=== PATIENT | female | born 1950 | race Caucasian/White ===

== ENCOUNTER → 2017-05-09 07:57 | Outpatient (CLI) | payer MEDICARE, BC, SELFPAY ==
[2017-05-09 09:58] LABS: AST(SGOT) 15 U/L (15-37); Alanine Aminotransfer ALT/SGPT 26 U/L (13-56); Albumin, Serum 3.9 g/dL (3.2-5.0); Alkaline Phosphatase 60 U/L (45-117); Bilirubin, Direct 0.23 mg/dL (0.00-0.30); Cholesterol 158 mg/dL (200); High Density Lipoprotein 70 mg/dL; Protein, Total 6.9 g/dL (6.4-8.2); Triglycerides 147 mg/dL; Very Low Density Lipoprotein 29 mg/dL (5-40)
== END ==
PROVIDERS: Family Provider Nurse Practitioner; PCP Nurse Practitioner; Visit Provider Internal Medicine Cardiovascular Disease
DX: E78.5 Hyperlipidemia, unspecified (principal); Z79.899 Other long term (current) drug therapy
CPT/HCPCS: 36415; 80061; 80076

== ENCOUNTER → 2017-05-10 13:59 | Outpatient (CLI) | payer MEDICARE, BC, SELFPAY ==
--- NOTE | 2017-05-10 14:03 | RAD_ITS ---
STUDY: X-RAY - LEFT SHOULDER REASON FOR EXAM: Female, 67 years old. Shoulder pain or trauma TECHNIQUE: 5 view(s) of the shoulder. COMPARISON: 12/29/2012 chest x-ray FINDINGS: Normal glenohumeral articulation. There is mild degenerative arthrosis of the acromioclavicular joint without inferior osseous spur formation. Normal acromion. Normal humeral head and visualized proximal humerus. The soft tissue structures are unremarkable. Normal visualized pulmonary apex. RAD/Shoulder min 2 Views IMPRESSION: Mild degenerative changes of the acromioclavicular joint, not significantly changed. Electronically Signed: Kelsi Stone MD at 11:59 EST , Service support ,
== END ==
PROVIDERS: Family Provider Nurse Practitioner; PCP Nurse Practitioner; Visit Provider Nurse Practitioner
DX: M25.512 Pain in left shoulder (principal)
CPT/HCPCS: 73030

== ENCOUNTER → 2017-06-13 06:03 | Outpatient (CLI) | payer MEDICARE, BC, SELFPAY ==
--- NOTE | 2017-06-13 13:08 | STRESSREP ---
Stress Test Report Pharmacologic myocardial perfusion stress test. 67-year-old lady with a history of non-ST elevation myocardial infarction previous stenting. Stress protocol: Resting EKG demonstrates sinus bradycardia with a rate of 54 bpm normal intervals and noted occasional premature ventricular complexes noted. Resting blood pressure is 130/70 mmHg. 0.4 mg regadenoson was infused per usual protocol followed by rapid intravenous saline flush injection continuous EKG monitoring was performed. At rest there were no ST or T-wave changes noted suggest abnormal flow reserve at peak infusion no ST or T-wave changes were noted suggest abnormal flow reserve. No clinical angina was noted. The resting blood pressure is 130/70 with a final blood pressure 122/70. Myocardial perfusion protocol: 14.3 mCi of technetium 99m sestamibi was injected at rest. 0.4 mg of regadenoson was infused per usual protocol. At peak infusion 44.6 mCi of technetium 99m sestamibi was injected. Stress and rest images were reconstructed and compared in the short axis vertical long horizontal long axis. Gated images were also obtained next Perfusion SPECT analysis: Review of the stress images demonstrate normal uptake of tracer noted in all areas of the myocardium. The resting images similarly demonstrate normal uptake of tracer noted in all areas of the myocardium. No areas of reversibility are noted suggest ischemia. No previous infarct is noted. Gated SPECT analysis: The gated ejection fraction is noted to be 62%. Conclusion: Normal pharmacologic myocardial perfusion stress test. Preserved ejection fraction.
== END ==
PROVIDERS: Family Provider Nurse Practitioner; PCP Nurse Practitioner; Visit Provider Physician Assistant Medical
DX: I25.111 Atherosclerotic heart disease of native coronary artery with angina pectoris with documented spasm (principal); R07.9 Chest pain, unspecified
CPT/HCPCS: 78452; 93017; A9500; A4216; J2785

== ENCOUNTER → 2017-10-10 06:54 | Outpatient (CLI) | payer MEDICARE, BC, SELFPAY ==
[2017-10-09 16:37] LABS: ALB/GLOB Ratio 1.6 RATIO (0.9-2.4); AST(SGOT) 22 U/L (15-37); Alanine Aminotransfer ALT/SGPT 31 U/L (13-56); Albumin, Serum 4.6 g/dL (3.2-5.0); Alkaline Phosphatase 64 U/L (45-117); Anion Gap 7 (5-15); BUN 17 mg/dL (7-18); BUN/Creat Ratio 18.9 RATIO (10-20); Calcium,Total 9.4 mg/dL (8.5-10.1); Chloride 105 mmol/L (98-107); EST Glomerular Filtration Rate 66 mL/min (>60); Est Glom Filt Rate - Afr Amer 80 mL/min (>60); Globulin 2.8 g/dL (2.2-4.2); Glucose 96 mg/dL (74-106); Potassium 3.8 mmol/L (3.5-5.1); Protein, Total 7.4 g/dL (6.4-8.2); Sodium Level 142 mmol/L (136-145)
--- NOTE | 2017-10-10 07:38 | MRI_ITS ---
STUDY: MRI BRAIN WITH AND WITHOUT CONTRAST REASON FOR EXAM: Female, 67 years old. Severe headache x6 weeks. TECHNIQUE: Standardized multiplanar fat and water weighted pulse sequences were obtained. 9 ml of Gadavist contrast material was administered intravenously for the contrast portion of the examination. COMPARISON: CT head with and without contrast 08/27/2014. FINDINGS: No restricted diffusion to suspect acute or subacute ischemic infarct. Solitary nonspecific T2 FLAIR hyperintensity focus in the right barron radiata (series 6, image 14). This may represent nonspecific scoliosis. No enhancing lesions after IV contrast administration. No mass effects and no midline shift. Normal size of the ventricles and extra-axial spaces for the patient's age. Normal white matter tracts of the supratentorial brain. Normal bilateral basal ganglia. Normal thalami. There is no extra-axial fluid accumulation. Normal flow voids within the major intracranial circulation suggesting patency by spin echo criteria. Normal venous enhancement. There is no enhancing intra-axial or extra-axial abnormality. Normal sella turcica, pituitary gland, infundibular stalk, optic chiasm and hypothalamus. Normal tectal plate and pineal gland. Normal midbrain, deny and medulla. Normal cerebellum. Normal basal cisterns. Normal bilateral temporal bones. Normal bilateral internal auditory canals. No demonstrated orbital abnormality, within the constraints of a routine brain study. Pronounced mucosal edema in the ethmoid sinuses. Minimal mucosal edema in the hypoplastic right sphenoid sinus. Minimal mucosal edema in the frontal sinuses. Normal calvarium and skull base. Normal visualized soft tissue structures. Normal visualized upper cervical spine. MRI/Brain W/WO Contrast IMPRESSION: 1. No MRI evidence of acute or subacute ischemic infarct. 2. No MRI evidence of any suspicious enhancing or nonenhancing mass lesions. 3. Small solitary nonspecific gliosis in the right barron radiata. 4. Pronounced mucosal thickening in the ethmoid sinus and mild mucosal thickening in the frontal sinus and the hypoplastic right sphenoid sinus. Electronically Signed: Bola Busch MD at 15:42 EDT , Service support ,
== END ==
PROVIDERS: Family Provider Nurse Practitioner; PCP Nurse Practitioner; Visit Provider Nurse Practitioner Gerontology
DX: R51 Headache (principal)
CPT/HCPCS: 36415; 70553; 80053; A9585

== ENCOUNTER → 2017-12-04 15:55 | Outpatient (CLI) | payer MEDICARE, BC, SELFPAY | PROVIDERS: Visit Provider Otolaryngology Otolaryngology/Facial Plastic Surgery | DX: J32.9 Chronic sinusitis, unspecified (principal) | CPT/HCPCS: 87070; 87077; 87186; 87205 ==

== ENCOUNTER → 2017-12-06 06:39 | Outpatient (CLI) | payer MEDICARE, BC, SELFPAY ==
--- NOTE | 2017-12-06 13:48 | PFT ---
INTRODUCTION: The patient is a 67-year-old female that presents for pulmonary function studies secondary to a diagnosis of COPD. Respiratory therapy reports good patient effort. Bronchodilators were used during testing. INTERPRETATION: Forced expiration spirometry demonstrates no evidence of a large airways obstructive ventilatory defect. There was no significant response to aerosolized bronchodilators. Spirograms are of good quality and plateau gradually. Body plethysmography was performed and reveals a decreased TLC to 4.99 L, 86% of predicted, indicative of a mild restrictive ventilatory defect. The remainder of the lung volumes are symmetrically reduced. Diffusing capacity by single breath CO is at the lower limits of normal at 69% of predicted. IMPRESSION: These pulmonary function studies demonstrate the presence of a mild restrictive ventilatory defect with an associated mild reduction in diffusing capacity. There are no previous pulmonary function studies available for comparison.
== END ==
PROVIDERS: Family Provider Nurse Practitioner; PCP Nurse Practitioner; Visit Provider Nurse Practitioner
DX: J44.9 Chronic obstructive pulmonary disease, unspecified (principal)
CPT/HCPCS: 94060; 94726; 94729

== ENCOUNTER → 2017-12-26 09:59 | Outpatient (CLI) | payer MEDICARE, BC, SELFPAY ==
--- NOTE | 2017-12-26 10:03 | BI_ITS ---
MAMMOGRAPHY - BILATERAL SCREENING 3-D TERESA SYNTHESIS REASON FOR EXAM: Female, 67 years old. Bilateral Screening 3-D tomosynthesis PERTINENT HISTORY: No significant family history. Right breast cyst surgery 1976. TECHNIQUE: 2-D mammograms and 3-D Teresa synthesis of the breast (s) were performed. CAD was performed. COMPARISON: None available. FINDINGS: The breast composition is composed of scattered fibroglandular density. Asymmetric density noted left breast upper outer quadrant which is electronically circled in the CC and MLO projections. Recommend left breast CC and MLO spot compression views for further evaluation. No dense spiculated masses or suspicious microcalcifications are identified. No architectural distortion is identified. There is no skin thickening or retraction. BI/SCREENING MAMM (CAD), BILAT IMPRESSION: Incomplete left mammogram. Additional imaging as recommended above. ASSESSMENT CATEGORY: BIRADS Category 0: Incomplete. Need additional imaging evaluation as above. A letter regarding these results will be sent to the patient by the facility within 30 days. FOLLOW UP RECOMMENDATION: Additional imaging recommended as above. (E) Negative mammographic results should not deter biopsy as a palpable lesion if present should be followed based on clinical grounds and biopsy performed if clinically persistent for 3 months or increasing size. Approximately 10% of breast cancers are not detected by mammography. A normal mammogram should not delay biopsy of a clinically suspicious abnormality. Electronically Signed: Dipesh Marie, at 17:10 EDT Tel , Service support ,
--- NOTE | 2017-12-26 10:25 | BD_ITS ---
STUDY: DUAL ENERGY X-RAY ABSORPTIOMETRY / DXA REASON FOR EXAM: Female, 67 years old. Postmenopausal screening TECHNIQUE: Bone Mineral Density (BMD) measurements of lumbar spine and left hip were obtained. COMPARISON: None. FINDINGS: Lumbar Spine (L1-L4): g/cm2 (1.201) / T-score (0.2) / Z-score (1.8) Findings are suggestive of normal bone density with a low fracture risk. Left Femur Total: g/cm2 (1.018) / T-score (0.1) / Z-score (1.5) Left Femoral Neck: g/cm2 (1.053) / T-score (0.1) / Z-score (1.8) BD/Dexa Bone Density Study IMPRESSION: The patient is considered normal as outlined below according to World [place] Organization (WHO) criteria with a low fracture risk. Reference Information: The T-score is the number of standard deviations above or below the standard which is normal for young adults at their peak bone mineral density. The World Health Organization (WHO) interprets the T-scores as follows: Above -1 Normal bone density Between -1 and -2.5 Osteopenia Equal to / or below -2.5 Osteoporosis As a practical clinical guideline, osteopenia may be graded as follows: Mild -1 through -1.5 Moderate -1.6 through -2.0 Severe -2.1 through -2.4 The Z-score is the number of standard deviations above or below age-matched controls. A Z-score of less than -1.5 would be considered abnormal. References: 1. NIH Osteoporosis and Related Bone Diseases http://www.osteo.org 2. International Society for Clinical Densitometry http://www.iscd.org 3. National Osteoporosis Foundation http://www.nof.org Electronically Signed: Jerrod Lebron MD at 10:18 EDT , Service support ,
== END ==
PROVIDERS: Family Provider Nurse Practitioner; PCP Nurse Practitioner; Visit Provider Nurse Practitioner
DX: Z12.31 Encounter for screening mammogram for malignant neoplasm of breast (principal); Z78.0 Asymptomatic menopausal state
CPT/HCPCS: 77063; 77067; 77080

== ENCOUNTER → 2018-01-03 08:36 | Outpatient (CLI) | payer MEDICARE, BC, SELFPAY ==
--- NOTE | 2018-01-03 08:39 | BI_ITS ---
MAMMOGRAPHY - UNILATERAL DIAGNOSTIC: RIGHT BREAST REASON FOR EXAM: Female, 67 years old. Abnormal mammogram with right breast asymmetric density. PERTINENT HISTORY: Non-contributory. TECHNIQUE: Digital examination. Mediolateral oblique (MLO) and craniocaudad (CC) views of the breast were obtained. CAD: CAD performed COMPARISON: 12/26/2017 mammogram. No prior mammographic imaging available for comparison. Correlation is with remote mammogram report from [place], [place] 04/22/2009. FINDINGS: Breast Composition: There are scattered areas of fibroglandular density. With additional CC and MLO spot compression views, mass density persists but appears smaller in size with irregular possibly spiculated margins. Irregular possibly spiculated margins appear more prominent with MLO and CC views, neoplasm not excluded versus scar or other etiology. Right breast targeted ultrasound showed no sonographic abnormality same region. BI/DIAG MAMM W/CAD, UNILAT IMPRESSION: Biopsy right breast upper outer quadrant posterior third recommended. ASSESSMENT CATEGORY: BIRADS Category 4: Suspicious - Biopsy Should Be Considered. A letter regarding these results will be sent to the patient by the facility within 30 days. FOLLOW-UP RECOMMENDATION: Surgical biopsy recommended. (G) Any palpable lesion if present should be followed based on clinical grounds and biopsy performed if clinically persistent for 3 months or increasing size. Approximately 10% of breast cancers are not detected by mammography. A normal mammogram should not delay biopsy of a clinically suspicious abnormality. Dense breast tissue may obscure neoplasm. Electronically Signed: Dipesh Marie, at 12:50 EDT Tel , Service support ,
--- NOTE | 2018-01-03 08:41 | US_ITS ---
STUDY: ULTRASOUND BREAST - RIGHT REASON FOR EXAM: Female, 67 years old. Abnormal mammogram with right breast asymmetric density. TECHNIQUE: Axial and longitudinal images of the RIGHT breast were performed with a high resolution ultrasound transducer. COMPARISON: No prior right breast imaging available. Correlation mammogram 01/03/2018 and 12/26/2017. FINDINGS: RIGHT Breast: No sonographic abnormality identified. Please see diagnostic right mammogram report 01/03/2018 for additional details. US/Breast Limited Unilateral IMPRESSION: Biopsy right breast upper outer quadrant posterior third recommended. ASSESSMENT CATEGORY: BIRADS Category 4: Suspicious - Biopsy Should Be Considered. A letter regarding these results will be sent to the patient by the facility within 30 days. FOLLOW-UP RECOMMENDATION: Surgical biopsy recommended. (G) Any palpable lesion if present should be followed based on clinical grounds and biopsy performed if clinically persistent for 3 months or increasing size. Approximately 10% of breast cancers are not detected by mammography. A normal mammogram should not delay biopsy of a clinically suspicious abnormality. Dense breast tissue may obscure neoplasm. Electronically Signed: Dipesh Marie, at 12:55 EDT Tel , Service support ,
== END ==
PROVIDERS: Family Provider Nurse Practitioner; PCP Nurse Practitioner; Referring Provider Nurse Practitioner; Visit Provider Nurse Practitioner
DX: R92.8 Other abnormal and inconclusive findings on diagnostic imaging of breast (principal)
CPT/HCPCS: 76642; 77065

== ENCOUNTER → 2018-01-22 09:03 | Outpatient (CLI) | payer MEDICARE, BC, SELFPAY ==
--- NOTE | 2018-01-22 09:05 | MRI_ITS ---
STUDY: BILATERAL BREAST MR WITHOUT AND WITH CONTRAST REASON FOR EXAM: Female, 67 years old. Right breast focal asymmetry TECHNIQUE: Multi-sequence multi-echo imaging of both breasts was performed with a dedicated breast coil. T1-weighted and T2-weighted images were performed before the administration of contrast. T1-weighted images were also performed after the administration of 9 mL of Gadavist contrast intravenously without complications. COMPARISON: Right breast mammogram and ultrasound dated January 03, 2018; bilateral mammogram dated December 26, 2017 FINDINGS: RIGHT BREAST: The breast tissue is scattered fibroglandular densities with minimal background enhancement. There are no abnormal enhancing masses or areas of non-mass enhancement in the right breast. LEFT BREAST: The breast tissue is scattered fibroglandular densities with minimal background enhancement. There are no abnormal enhancing masses or areas of non-mass enhancement in the left breast. There are no enlarged or abnormal lymph nodes. There is no abnormality in the visualized regions of the chest or liver. MRI/Breast w/o and/or W Cont Bilat IMPRESSION: Unremarkable breast MR examination with contrast. There is no abnormal enhancement or abnormality in the upper outer right breast. RECOMMENDATION: Six month follow-up mammogram and possible ultrasound of the right breast can be obtained. CATEGORY: BIRADS Category 3: Probably Benign - Short-Interval Follow-up Suggested. A letter regarding these results will be sent to the patient by the facility within 30 days. Electronically Signed: Julissa Love MD at 16:24 EDT Tel Direct: [phone], Service support ,
[2018-01-22 09:51] LABS: CREATININE FINGERSTICK 1.1 mg/dL (0.55-1.02)
--- NOTE | 2018-01-22 10:10 | NURSING ---
PER MRI, PT'S GFR ELEVATED AND DR UMANA WITH LIKE PRE MRI HYDRATION. THIS RN SPOKE WITH SANAM AT DR UMANA'S OFFICE AND GIVEN TELEPHONE ORDER FOR HYDRATION. ORDERS FAXED TO PHARMACY.
[2018-01-22] MEDS: 0.9% Normal Saline 1,000 ML 1000 ML IV (10:15)
== END ==
PROVIDERS: Family Provider Nurse Practitioner; PCP Nurse Practitioner; Referring Provider Surgery; Visit Provider Surgery
DX: R92.8 Other abnormal and inconclusive findings on diagnostic imaging of breast (principal)
CPT/HCPCS: 96360; 77059; A9585; J7030; C8908

== ENCOUNTER → 2018-02-21 13:19 | Outpatient (CLI) | payer MEDICARE, BC, SELFPAY ==
[2018-02-21 15:14] LABS: Vitamin B12 280 pg/mL (211-911)
--- OUTSIDE RECORDS SUMMARY | 2018-04-18 12:29 | XMS RPT_ITS | Continuity of Care Document ---
:1950 Author Organization [facility] Address [address] [facility] [address] [place] [address] Phone Care Team Providers Name Role Phone Vivienne Heaton CNP Unavailable Physical Therapy, [facility] Unavailable Savannah DE PAZ, Dipesh Ashby Unavailable Tom DE PAZ, Vini Bowers Unavailable Dr. Tarun Stanton Unavailable Lexus Higuera Unavailable Unavailable long, heide Unavailable Unavailable Long MANAGER PORTABLE, Kimi L Unavailable Unavailable Slarb MANAGER PORTABLE, Gisella Unavailable Unavailable Natalee Hollingsworth Unavailable Unavailable Gagan Elam Unavailable Unavailable Unavailable Unavailable Problems Name Dates Details Abdominal bloating (R14.0, 787.3) Status: Active Abdominal pain (R10.9, 789.00) Comments: epigastric, uses baclofen and plavix occasionally together Status: Active Abdominal pain, chronic, epigastric (R10.13, 789.06) Comments: seeing Maximino to get expensive antibiotic Status: Active Abnormal lung sounds (R09.89, 786.7) Status: Active Abnormal mammogram (R92.8, 793.80) Status: Active Acute pharyngitis (J02.9, 462) Status: Active Acute sinusitis, unspecified (Renamed from Acute sinusitis) (J01.90, 461.9) Status: Active Anemia (D64.9, 285.9) Status: Active Arthritis (M19.90, 716.90) Status: Active BMI 29.0-29.9,adult (Z68.29, V85.25) Status: Active BMI 30.0-30.9,adult (Z68.30, V85.30) Status: Active Bronchitis (J40, 490) Comments: remains Status: Active Bursitis of right hip (M70.71, 726.5) Comments: seeing Gessler not able to take meloxicam causing bruising Status: Active Candidiasis of breast (B37.89, 112.89) Comments: resolved with nystop Status: Active COPD (chronic obstructive pulmonary disease) (J44.9, 496) Comments: recurrent bronchitis, copd Status: Active Cough (R05, 786.2) Status: Active Cough (R05, 786.2) Comments: On z pack Status: Active Cough (R05, 786.2) Status: Active Dehydration (E86.0, 276.51) Status: Active Diarrhea (R19.7, 787.91) Comments: unresolved on and off despite limiting gluten and dairy, on probiotic, had colonoscopy, will add stool cutures and add cipro, discuss with Mariaelena Status: Active Diverticulitis of colon (K57.32, 562.11) Status: Active Dizziness (R42, 780.4) Status: Active Elevated bilirubin (R17, 277.4) Status: Active Encounter for Medicare annual wellness exam (Z00.00, V70.0) Status: Active Encounter for screening for malignant neoplasm of colon (Renamed from Special screening for malignant neoplasms, colon) (Z12.11, V76.51) Status: Active Encounter for screening mammogram for breast cancer (Renamed from Encounter for screening mammogram for malignant neoplasm of breast) (Z12.31, V76.12) Status: Active Facial twitching (G51.4, 351.8) Comments: Left eye Status: Active Frequent headaches (R51, 784.0) Comments: September [address] Islas retreated for sinusitis with clarithromycin and again in Oct 2017, lives in basement apartment, suggest find different apt.Has small gliosis to see Roshan for thisSaw Dr. Svitlana nance was told sinusitis, headaches began if Apr 2014 to present 4monthsMarch 19 treated for sinusitis July 08 treated for sinus augmentin and cefdinir no improvement. Xray of neck for arhritis in neck Status: Active Gastritis (K29.70, 535.50) Status: Active Glaucoma Status: Active History of diverticulitis (Z87.19, V12.70) Status: Active Hives of unknown origin (L50.9, 708.9) Status: Active IBS (irritable bowel syndrome) (K58.9, 564.1) Comments: has eliminated some lactosesees [facility] Status: Active Influenza (J11.1, 487.1) Comments: was treated empiracally by urgent care with tamiflu yesterday and z pack, worsening Status: Active Left shoulder pain (M25.512, 719.41) Status: Active Left shoulder pain (M25.512, 719.41) Comments: old injury that has not gotten better, will try nsaids , with PT, and xray if not improving get MRI or injection Status: Active Low back pain (M54.5, 724.2) Comments: Lower back pain likely secondary to lumbar strain versus lumbar herniated disc to degenerative changes in the lumbar spine.UA negativeX-rays of the lumbar spine today :degenerative changes of spine, di sc space narrowingMetaxalone(Skelaxin) 800 mg three times a days as needed for severe pain. 5 days(watch out for sedation, dont drive or use heavy machinery.Medrol dose pack UADPhysical therapyRest, ap ply heat/cold, gentle stretching exercises.Red flags: please call us if bowel/bladder incontinence, leg weakness, numbness, urine retention.If symptoms dont improve in the next 1-2 weeks please call us .Surgery for herniated disc in 1995 and 1998.Right hip surgery Dr Dawkins 2013.7 day h/o severe left low back pain radiating to left thigh, 7/10 in severity,when she woke up in the AM.Denies trauma.Kayla n worse with sitting down, improved with walking and standing up.Heating pad relieves pain.Unab;e to go to hinduism because of severe pain.Denies nu,bness, weakness, bowel/bladder incontinence, retention. Denies urinary frequency, burning, constipation, diarhea, abdominal pain.took tizanidine [address] Islas for headache which did not help her.cant use ibuprofen because on plavix. Status: Active Myocardial infarction Comments: sees Milan harris up 8th following [id number] stents Status: Active Nasal drainage (J34.89, 478.19) Status: Active Non-Contributory Problem List/Past Medical History Status: Active Nonsmoker (Z78.9, V49.89) Status: Active Pneumococcal vaccination given (Z23, V06.6) Comments: getting Pneumovax today 11-15-2017 will need prevnar 13 in Status: Active Postmenopausal (Renamed from Postmenopausal status) (Z78.0, V49.81) Status: Active Postprandial bloating (R14.0, 787.3) Comments: has had extensive work up with Maximino, gastric emptying, endoscopy Oct neg, biopsies neg, EGD, mild chronic gastritis Status: Active Post-viral cough syndrome (R05, 786.2) Status: Active Sciatica, left (M54.32, 724.3) Comments: resolving with skelaxin and medrol Status: Active Sebaceous gland hyperplasia (L73.8, 706.8) Status: Active Seborrheic dermatitis of scalp (L21.9, 690.18) Status: Active Thrush (B37.0, 112.0) Comments: resolved Status: Active Unspecified Diagnosis Status: Active Unspecified Diagnosis Status: Active Unspecified Diagnosis Status: Active Upper respiratory infection (J06.9, 465.9) Status: Active Vitamin B12 deficiency (E53.8, 266.2) Status: Active Vitamin D deficiency (E55.9, 268.9) Status: Active Wheeze (R06.2, 786.07) Status: Active Medications Name Dates Details Albuterol Sulfate (2.5 MG/3ML) 0.083% Inhalation Nebulization Solution Active Every 4-6 hours as needed ((2.5 MG/3ML) 0.083%) Comments: Medication taken as needed. Aspirin EC 81 MG Oral Tablet Delayed Release 1 (one) Tablet DR daily for 0 days Quantity: 30 {Tablet} Refills: 0 Ordered:27-Jun-2016 Vivienne Heaton CNP, CNP, Mary E Start : 27-Jun-2016 Active ATORVASTATIN CALCIUM, 80MG (Oral Tablet) 1 (one) Tablet daily for 30 days Quantity: 30 {Tablet} Refills: 0 Ordered:20-Aug-2014 Vivienne Heaton CNP, CNP, Mary E Start : 20-Aug-2014 Active Benzonatate 100 MG Oral Capsule TID (100 MG) Active COREG, 6.25MG (Oral Tablet) 1 (one) Tablet two times daily for 30 days Quantity: 30 {Tablet} Refills: 0 Ordered:20-Aug-2014 Sudarshan RAMÍREZ Vivienne Tafoya CNP Start : 20-Aug-2014 Active GABAPENTIN, 300MG (Oral Capsule) 1 (one) Capsule tid for 30 days Refills: 0 Ordered:25-May-2015 Sudarshan RAMÍREZ Vivienne Tafoya CNP Start : 25-May-2015 Active Meloxicam 7.5 MG Oral Tablet 1-2 Tablet Tablet once daily prn for pain for 0 days Quantity: 60 {Tablet} Refills: 0 Ordered:10-May-2017 Long Kimi GUERIN Start : 10-May-2017 Active Symbicort 80-4.5 MCG/ACT Inhalation Aerosol 2 (two) Puff bid for 0 days Quantity: 1 {Inhaler} Refills: 0 Ordered:22-Mar-2017 Vivienne Heaton CNP, CNP, Mary E Start : 22-Mar-2017 Active VITAMIN D3, 5000UNIT (Oral Tablet) 1 (one) Tablet daily for 0 days Quantity: 90 {Tablet} Refills: 0 Ordered:31-Aug-2014 Vivienne Heaton CNP, CNP, Mary E Start : 31-Aug-2014 Active Acetaminophen Extra Strength 500 MG Oral Tablet 2 (two) Tablet 2-3 timesd daily for 30 days Quantity: 30 {Tablet} Refills: 0 Ordered:24-Dec-2017 Vivienne Heaton CNP, CNP, Mary E Start : 08-Nov-2017 End : 08-Dec-2017 Inactive Albuterol Sulfate (2.5 MG/3ML) 0.083% Inhalation Nebulization Solution 1 (one) Milliliter Milliliter Every 4-6 hours PRN for 0 days Quantity: 1 {Box} Refills: 0 Ordered:10-May-2017 Slarb Gisella GUERIN Start : 21-Mar-2017 End : 10-May-2017 Inactive Azithromycin 250 MG Oral Tablet UAD (250 MG) Inactive Biaxin XL Pac 500 MG Oral Tablet Extended Release 24 Hour 2 (two) Tablet ER 24HR qd for 10 days Quantity: 20 {Tablet} Refills: 0 Ordered:27-Jun-2017 Natalee Hollingsworth Start : 27-Jun-2017 End : 07-Jul-2017 Inactive BIAXIN XL, 500MG (Oral Tablet Extended Release 24 Hour) 2 (two) Tablet ER 24HR Tablet ER 24HR daily for 10 days Quantity: 20 {Tablet} Refills: 0 Ordered:27-Aug-2014 Gisella Castanon LPN Start : 27-Aug-2014 End : 06-Sep-2014 Inactive Bromfed DM 30-2-10 MG/5ML Oral Syrup 10 Milliliter PO Q 4H PRN for 0 days Quantity: 280 {Milliliter} Refills: 0 Ordered:20-Mar-2017 Gisella Castanon LPN Start : 28-Sep-2016 End : 20-Mar-2017 Inactive Cheratussin AC 100-10 MG/5ML Oral Solution 1-2 Teaspoon Teaspoon qhs prn for 0 days Quantity: 6 {Ounce} Refills: 0 Ordered:28-Mar-2016 Natalee Shaffer LPN Start : 23-Mar-2016 End : 28-Mar-2016 Inactive Cipro 500 MG Oral Tablet 1 (one) Tablet bid for 7 days Quantity: 14 {Tablet} Refills: 0 Ordered:09-Dec-2015 Vivienne Heaton CNP, CNP, Francie Start : 09-Dec-2015 End : 16-Dec-2015 Inactive Clarithromycin 500 MG Oral Tablet 1 (one) Tablet Tablet bid for 10 days Quantity: 20 {Tablet} Refills: 0 Ordered:08-Nov-2017 Jenny Higginbotham Start : 08-Nov-2017 End : 18-Nov-2017 Inactive CLOTRIMAZOLE, 10MG (Mouth/Throat Carline) 1 (one) Carline 5x daily for 10 days Quantity: 50 {Carline} Refills: 0 Ordered:20-Aug-2014 Vivienne Heaton CNP, CNP, Francie Start : 20-Aug-2014 End : 30-Aug-2014 Inactive EPINEPHRINE, 0.3MG/0.3ML (Injection Solution Auto-injector) 1 (one) Soln Auto-inj as needed for 30 days Quantity: 30 {Applicator} Refills: 0 Ordered:24-Nov-2014 Sudarshan RAMÍREZ, Vivienne Holt CNP, Vivienne Rod Start : 20-Aug-2014 End : 19-Sep-2014 Inactive Comments:Medication taken as needed. Ferrous Sulfate 27 MG Oral Tablet 1 (one) Tablet daily for 30 days Quantity: 30 {Tablet} Refills: 0 Ordered:05-Dec-2015 Sudarshan RAMÍREZ, Vivienne Tafoya CNP Start : 28-Oct-2015 End : 27-Nov-2015 Inactive Latanoprost 0.005 % Ophthalmic Solution 1 (one) Solution at bedtime for 30 days Quantity: 30 {Applicator} Refills: 0 Ordered:26-Oct-2015 Sudarshan RAMÍREZ, Vivienne Tafoya CNP Start : 26-Oct-2015 End : 25-Nov-2015 Inactive MEDROL (WALLACE), 4MG (Oral Tablet) 1 (one) Tablet UAD for 6 days Refills: 0 Ordered:01-Jun-2015 Mati Del Cid MD Start : 01-Jun-2015 End : 07-Jun-2015 Inactive Comments:medrol dose pack use as directed Mucinex 600 MG Oral Tablet Extended Release 12 Hour 1 (one) Tablet ER 12HR bid for 0 days Quantity: 30 {Tablet} Refills: 0 Ordered:28-Sep-2016 Natalee Shaffer LPN Start : 25-Jul-2016 End : 28-Sep-2016 Inactive Pepcid 40 MG Oral Tablet 1 (one) Tablet daily for 14 days Quantity: 14 {Tablet} Refills: 0 Ordered:11-Nov-2015 Sudarshan RAMÍREZ, Vivienne Tafoya CNP Start : 26-Oct-2015 End : 09-Nov-2015 Inactive Plavix 75 MG Oral Tablet 1 (one) Tablet daily for 30 days Quantity: 30 {Tablet} Refills: 0 Ordered:08-Nov-2017 Sudarshan RAMÍREZ, Vivienne Holt CNP, Vivienne Rod Start : 08-Nov-2017 End : 08-Dec-2017 Inactive PredniSONE 10 MG Oral Tablet 1 (one) Tablet bid x 3 days daily x 3 days, 1/2 x 3 days for 0 days Quantity: 12 {Tablet} Refills: 0 Ordered:10-May-2017 Gisella Castanon LPN Start : 27-Mar-2017 End : 10-May-2017 Inactive Comments:with food PredniSONE 20 MG Oral Tablet 1 (one) Tablet Tablet bid for 2days then qd for 4days for 0 days Quantity: 8 {Tablet} Refills: 0 Ordered:28-Sep-2016 Natalee Shaffer LPN Start : 25-Jul-2016 End : 28-Sep-2016 Inactive Comments:take with food SKELAXIN, 800MG (Oral Tablet) 1 (one) Tablet every eight hours, as needed for 5 days Quantity: 15 {Tablet} Refills: 0 Ordered:01-Jun-2015 Mati Del Cid MD Start : 01-Jun-2015 End : 06-Jun-2015 Inactive Comments:Medication taken as needed. Tamiflu 75 MG Oral Capsule (75 MG) Inactive TIZANIDINE HCL, 2MG (Oral Capsule) 1 (one) Capsule q 8 hrs as needed for URENA for 30 days Refills: 0 Ordered:30-Jun-2015 Vivienne Heaton CNP, CNP, Mary E Start : 25-May-2015 End : 24-Jun-2015 Inactive Comments:Medication taken as needed. Zithromax Z-Wallace 250 MG Oral Tablet 1 (one) Tablet Tablet TAD for 0 days Quantity: 1 {Package} Refills: 0 Ordered:27-Mar-2017 Gisella Castanon LPN Start : 20-Mar-2017 End : 27-Mar-2017 Inactive Comments:given by urgent care Acetaminophen 500 MG Oral Capsule 1 (one) Capsule as needed for 30 days Quantity: 30 {Capsule} Refills: 0 Ordered:26-Oct-2015 Gisella Castanon LPN Start : 20-Aug-2014 End : 26-Oct-2015 Discontinued Comments:Medication taken as needed. Albuterol Sulfate (2.5 MG/3ML) 0.083% Inhalation Nebulization Solution 1 (one) Nebulized Soln Nebulized Soln tid-qid prn for 0 days Quantity: 1 {Box} Refills: 6 Ordered:27-Jun-2016 Gisella Castanon LPN Start : 23-Mar-2016 End : 27-Jun-2016 Discontinued Align 4 MG Oral Capsule 1 (one) Capsule daily for 0 days Quantity: 30 {Capsule} Refills: 0 Ordered:23-Mar-2016 Gisella Castanon LPN Start : 09-Dec-2015 End : 23-Mar-2016 Discontinued Baclofen 20 MG Oral Tablet 1 (one) Tablet q 8 hrs prn for 30 days Refills: 0 Ordered:29-Feb-2016 Sudarshan DOCENT COORDINATOR, Vivienne Vilmadevorah DOCENT COORDINATOR, Francie Start : 25-May-2015 End : 29-Feb-2016 Discontinued Dexilant 60 MG Oral Capsule Delayed Release 1 (one) Capsule DR Capsule DR daily for 0 days Quantity: 14 {Capsule} Refills: 0 Ordered:27-Jun-2016 Gisella Castanon LPN Start : 29-Feb-2016 End : 27-Jun-2016 Discontinued KETOCONAZOLE, 2% (External Shampoo) 1 (one) Shampoo apply to scalp dailyleave on 10 min then rinse for 0 days Quantity: 1 {Each} Refills: 0 Ordered:10-Aug-2015 Gisella Castanon LPN Start : 17-Jun-2015 End : 10-Aug-2015 Discontinued Levaquin 500 MG Oral Tablet 1 (one) Tablet daily for 0 days Quantity: 7 {Tablet} Refills: 0 Ordered:26-Oct-2015 Gisella Castanon LPN Start : 16-Aug-2015 End : 26-Oct-2015 Discontinued Nystop 572524 UNIT/GM External Powder 1 (one) Powder Powder bid for 14 days Quantity: 1 {Bottle} Refills: 1 Ordered:26-Oct-2015 Gisella Castanon LPN Start : 25-May-2015 End : 26-Oct-2015 Discontinued Omeprazole 40 MG Oral Capsule Delayed Release 1 (one) Capsule DR daily for 0 days Quantity: 30 {Capsule} Refills: 1 Ordered:23-Mar-2016 Gisella Castanon LPN Start : 09-Dec-2015 End : 23-Mar-2016 Discontinued Comments:take once daily before meal Pepcid 20 MG Oral Tablet 1 (one) Tablet bid for 0 days Quantity: 60 {Tablet} Refills: 0 Ordered:23-Mar-2016 Gisella Castanon LPN Start : 29-Feb-2016 End : 23-Mar-2016 Discontinued ProAir HFA 108 (90 Base) MCG/ACT Inhalation Aerosol Solution 2 (two) Puff Puff tid for 0 days Quantity: 1 {Inhaler} Refills: 0 Ordered:26-Oct-2015 Gisella Castanon LPN Start : 10-Aug-2015 End : 26-Oct-2015 Discontinued Xifaxan 550 MG Oral Tablet 1 (one) Tablet Tablet tid for 90 days Refills: 3 Ordered:27-Jun-2016 Gisella Castanon LPN Start : 02-Apr-2016 End : 27-Jun-2016 Discontinued Comments:roseanna Stanton Allergies and Adverse Reactions Name Dates Details Augmentin *PENICILLINS* (Allergy) Reaction: Vomiting Status: Active BEE VENOM (Allergy) Reaction: Hives Status: Active Cefdinir *CEPHALOSPORINS* (Allergy) Reaction: Hives Status: Active Past Medical History Name Dates Details BMI 29.0-29.9,adult (Z68.29, V85.25) Status: Inactive as of 10-May-2017 BMI 30.0-30.9,adult (Z68.30, V85.30) Status: Inactive as of 22-Mar-2017 BMI 30.0-30.9,adult (Z68.30, V85.30) Status: Inactive as of 20-Mar-2017 BMI 30.0-30.9,adult (Z68.30, V85.30) Status: Inactive as of 21-Nov-2017 Diarrhea (R19.7, 787.91) Status: Inactive as of 20-Mar-2017 Rash (R21, 782.1) Comments: bilateral side of neck, left palmar hand, recent meds skelaxin and medrol, doubt causewill observe if worsens Derm Status: Inactive as of 20-Mar-2017 Sinusitis (J32.9, 473.9) Comments: improving with clarithrymycin Status: Inactive as of 20-Mar-2017 Procedures Procedure Dates Details back bone spur Completed cardiac stents 3 Completed Carpal Tunnel Surgery - Both Completed Comments: 1982, 1993 Colonoscopy Completed Comments: Maximino 2015 Gallbladder Surgery Completed Comments: 1997 herniated disc repair 1995 Completed Hip Fracture & Surgery - Right Completed Comments: arthroscopy Hip Replacement, Total Completed Comments: right 2013 Hysterectomy; Total Completed Comments: 1976 Tonsillectomy Completed Date Value Details 22-Jan-2018 Breast w/o and/or W Cont Bilat Result: Comments: See Note; NOTES: [facility] Services [address] [place] [address] Breast w/o and/or W Cont Bilat MR#: [id number] Acct: [id number] Name: MICHELLE BROWN Meagan p #: [id number] : 1950 F 67 From: Julissa Love MD PCP: Vivienne Heaton NP Status: REG CLI Study: Breast w/o and/or W Cont Bilat Date of Exam: 01/22/18 Exam# [id number] Ordering Dr: Dipesh Nuñez MD STUDY: BILATERAL BREAST MR WITHOUT AND WITH CONTRAST REASON FOR EXAM: Female, 67 years old. Right breast focal asymmetry TECHNIQUE: Multi-sequence multi- echo imaging of both breasts was performe d with a dedicated breast coil. T1-weighted and T2-weighted images were performed before the administration of contrast. T1-weighted images were also performed after the administration of [address] contrast intravenously without complications. COMPARISON: Right breast mammogram and ultrasound dated January 03, 2018; bilateral mammogram dated December 26, 2017 FINDINGS: RIGHT BREAST: The breast tissue is scattered fibroglandular densities with minimal background enhancement. There are no abnormal enhancing masses or areas of non-mass enhancement in the ri ght breast. LEFT BREAST: The breast tissue is scattered fibroglandular densities with minimal background enhancement. There are no abnormal enhancing masses or areas of non-mass enhancement in the le ft breast. There are no enlarged or abnormal lymph nodes. There is no abnormality in the visualized regions of the chest or liver. MRI/Breast w /o and/or W Cont Bilat IMPRESSION: Unremarkable breast MR examination with contrast. There is no abnormal enhancement or abnormality in the upper outer right breast. RECOMMENDATION: Six month follow-u p mammogram and possible ultrasound of the right breast can be obtained. CATEGORY: BIRADS Category 3: Probably Benign - Short-Interval Follow-up Suggested. A letter regarding these results will be sent to the patient by the facility within 30 days. Electronically Signed: Julissa Love MD at 16:24 EDT Tel Direct: [phone], Service support [phone], CC: Vivienne Heaton PILOT BOAT OPERATOR; Dipesh Nuñez MD Piece Presser: Signed 10-Jan-2018 Surgery Visit Report Result: Comments: See Note; NOTES: [facility] [address] [place] [address] OFFICE VISIT Date of Service: 01/10/18 MR#: [id number] Acct: [id number] Name: MICHELLE JUSTIN Rep #: [id number] : 1950 Provider: Dipesh Nuñez MD Age/Sex: 67/F Location: [facility] Status: Signed Intake Vital Signs01/10/18 Height 5 ft 8 in 01/10/18 Weight: 184 lb Intake Visit R easons: R Breast Birads 4 Mammo 12/31 US 01/03 Business Performance Manager Required: No Is patient in pain?: No Allergies venom-honey bee [bee venom (honey bee)] Allergy (Verified 01/10/18 12:59) Swelling cefdinir Adv erse Reaction (Severe, Verified 01/10/18 12:59) itching AND Hives amoxicillin trihydrate [From Augmentin] Adverse Reaction (Verified 01/10/18 12:59) Nausea/Vom/Diarrhea lisinopril Adverse Reaction (Veri fied 01/10/18 12:59) Other potassium clavulanate [From Augmentin] Adverse Reaction (Verified 01/10/18 12:59) Nausea/Vom/Diarrhea Medications Aspirin [Aspirin, Baby] 81 mg PO DAILY 12/29/12 [History C onfirmed 01/10/18] Latanoprost 0.005% [Xalatan Opthalmic] 1 drp EACH EYE QHS 03/10/14 [History Confirmed 01/10/18] cholecalciferol (vitamin D3) 5,000 unit tablet 5,000 unit PO QDAY 05/20/17 [History Con firmed 01/10/18] gabapentin 300 mg capsule 300 mg PO TID 05/20/17 [History Confirmed 01/10/18] nitroglycerin 0.4 mg sublingual tablet 0.4 mg SUBLINGUAL Q5M PRN 05/20/17 [History Confirmed 01/10/18] ator vastatin 80 mg tablet 80 mg PO QHS #30 tab 11/28/17 [Rx Confirmed 01/10/18] carvedilol 6.25 mg tablet 6.25 mg PO BID #60 tab 11/28/17 [Rx Confirmed 01/10/18] clopidogrel 75 mg tablet 75 mg PO DAILY #30 tab 11/28/17 [Rx Confirmed 01/10/18] PFSH Medical History Cardiomyopathy, ischemic (Resolved) Premature ventricular contractions (Chronic) 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) Old myocardial infarction (Chronic) Hyperlipidemia (Chronic) Nicotine abuse (Chronic) 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) History of hysterectomy (Resolved) Surgical History History of PTCA (Resolved) History of tonsillectomy and adenoidectom y (Resolved) Hx laparoscopic cholecystectomy (Resolved) Hx of appendectomy (Resolved) Family History Father Sudden cardiac Myocardial infarction M other Myocardial infarction Social History Smoking Status: Current some day smoker second hand exposure: No alcohol intake: never substance use type: does not use caffeine: Yes seatbelt use: always do you feel safe at home: Yes HPI HPI HPI: MICHELLE BROWN, is a 67 F who presents to the office today for surgical consultation regarding abnormal mammographic imaging. The patient is referred by Olena UMAÑA and a written copy of my surgical consultation regarding the patient's abnormal mammogram will be returned to Vivienne 67-year-old female. G0. Menarche at age 11. No previous breast biopsies. S he is has not been on estrogen replacement therapy. Family history is negative for breast cancer. The patient had routine screening mammography at the [facility]. Apparently comparison could not be made as she is from [place]. The screening exam was performed December 26. BI-RADS Category 0. There is felt to be a density in the upper outer right. So on January 03 compression views were obtained as well as ultrasound. The ultrasound failed to reveal any finding. The compression views suggest the original density now is smaller but possibly with irregular margins. Admittedly it remains vague. The final recommendation by the radiologist Dr. Marie is that biopsy is recommended BI-RADS Category 4 but then he recommends an MRI prior to the biopsy ROS General General: Yes weight change and fatigue; no appetite, colon cancer, breast cancer or weakness HEENT HEENT: No difficulty swallowing, eye injury, eye surgery, swollen glands or hoarseness Endo Endocrine: No thyroid disease, diabet es mellitus, thyroid cancer, Hair loss, heat intolerance or cold intolerance Skin Skin: No rash or changing moles Breast Breast: Yes right breast lump, abnormal mammogram and abnormal US; no left breast lump, nipple discharge, breast pain or breast enlargement Musc Musculoskeletal: Yes arthritis; no back problems, rheumatoid arthritis, gout or joint pain Cardio Cardiovascular: Yes heart disease, heart attack and heart stent; no murmur, pacemaker, atrial fibrillation, high blood pressure, palpitations, shortness of breat with exertion or chest pain Psych Psychiatric: No depression, anxiety or hearing voices Resp Respiratory: Yes COPD, No shortness of breath, No sleep apnea, No cough, No asthma, No emphysema, No wheezing Gastro Gastrointestinal: Yes diarrhea, No abdominal pain, No nausea or vomiting , No constipation, No blood in stool, No acid reflux, No hemorrhoids, No ulcers, No gallbladder problem, No black,tarry stools Chicho Hematologic: No blood thinners, No blood disorders, No bleeding, No an emia, No blood clots Neuro Neurologic: No weakness Exam Chest Breast Palpation: No nipple discharge Other: Bilateral breasts supple, no focal mass, no nipple discharge, no axillary clavicular adenopat hy Cardio Heart Sounds: no murmurs Assessment AND Plan Problems 1. Abnormal mammogram of right breast R92.8 Plan Patient has an abnormal mammogram of the right breast. I have reviewed the imaging. Th e density is quite vague right breast. I am not sure we will correlates on the cc view. Before any attempted biopsy and recommend bilateral breast MRI. If a consistent logical density is identified the n pursuing biopsy would be appropriate. The patient has had an opting to ask and have questions answered. The patient is on clopidogrel because of coronary stents. Dr. Webb ENT is taking her off coby pidogrel for 1 week in order to perform a sinus procedure. We will try to expedite the patient's MRI so that a stereotactic biopsy seems feasible we can accomplish it during the same time period. I very much appreciate the kind opportunity of assisting with her surgical care. Dipesh Nuñez M.D., F.A.C.S. Orders Orders: Coding Level of Care Code yuliya Moran fwd Diagnoses Abnormal cj mogram of right breast R92.8 01/10/18 1317 <Electronically signed by Dipesh Nuñez MD> Date Dipesh Nuñez MD Cosigner Signature: Date (if applicable) CC: Vivienne Heaton NP 03-Jan-2018 Breast Limited Unilateral Result: Comments: See Note; NOTES: [facility] Imaging Services [address] [place] [address] Breast Limited Unilateral MR#: [id number] Acct: [id number] Name: MICHELLE BROWN Rep #: [id number] : 1950 F 67 From: Dipesh Marie MD PCP: Vivienne Heaton NP Status: REG CLI Study: Breast Limited Unilateral Date of Exam: 01/03/18 Exam# [id number] Ordering Dr: Vivienne Heaton PILOT BOAT OPERATOR-C STUDY: U LTRASOUND BREAST - RIGHT REASON FOR EXAM: Female, 67 years old. Abnormal mammogram with right breast asymmetric density. TECHNIQUE: Axial and longitudinal images of the RIGHT breast were performed wit h a high resolution ultrasound transducer. COMPARISON: No prior right breast imaging available. Correlation mammogram 01/03/2018 and 12/26/2017. FINDINGS: RIGHT Judie ast: No sonographic abnormality identified. Please see diagnostic right mammogram report 01/03/2018 for additional details. US/Breast Limited Un ilateral IMPRESSION: Biopsy right breast upper outer quadrant posterior third recommended. ASSESSMENT CATEGORY: BIRADS Category 4: Suspicious - Biopsy Should Be Cons idered. A letter regarding these results will be sent to the patient by the facility within 30 days. FOLLOW-UP RECOMMENDATION: Surgical biopsy recommended. (G) Any palpable lesion if present should be followed based on clinical grounds and biopsy performed if clinically persistent for 3 months or increasing size. Approximately 10% of breast cancers are not detected by mammography. A normal mammogra m should not delay biopsy of a clinically suspicious abnormality. Dense breast tissue may obscure neoplasm. Electronically Signed: Dipesh Marie, at 12:55 EDT Tel , Service davila pport , CC: Vivienne Heaton NP Piece Presser: Signed 03-Jan-2018 Breast Limited Unilateral Result: Comments: See Note; NOTES: [facility] Imaging Services [address] [place] [address] Breast Limited Unilateral MR#: [id number] Acct: [id number] Name: MICHELLE BROWN Rep #: [id number] : 1950 F 67 From: Dipesh Marie MD PCP: Vivienne Heaton NP Status: REG CLI Study: Breast Limited Unilateral Date of Exam: 01/03/18 Exam# [id number] Ordering Dr: Vivienne Heaton PILOT BOAT OPERATOR-C ADDENDUM by Dipesh Marie MD on 01/03/18 at 1256 ADDENDUM If clinically indicated, MRI breasts may be more helpful before biopsy for surgical planning. Electronically Signed: Dipesh Marie, at 12:56 EDT Tel , Service support , 01/03/18 1256 Date ___ cc: Vivienne Heaton NP * Signed ADDENDUM by Dipesh Marie MD on 01/03/18 at 1256 US/Breast Limited Unilateral 01/03/18 1303 Date cc: Vivienne Heaton NP * Signed STUDY: ULTRASOUND BREAST - RIGHT REASON FOR EXAM: Female, 67 years old. Abnormal mammogram with right breast asymmetric density. TECHNIQUE: Axial and longitudinal images of the RIGHT breast were perf ormed with a high resolution ultrasound transducer. COMPARISON: No prior right breast imaging available. Correlation mammogram 01/03/2018 and 12/26/2017. FINDINGS: RIGHT Breast: No sonographic abnormality identified. Please see diagnostic right mammogram report 01/03/2018 for additional details. US/Breast L imited Unilateral IMPRESSION: Biopsy right breast upper outer quadrant posterior third recommended. ASSESSMENT CATEGORY: BIRADS Category 4: Suspicious - Biopsy Shoul d Be Considered. A letter regarding these results will be sent to the patient by the facility within 30 days. FOLLOW-UP RECOMMENDATION: Surgical biopsy recommended. (G) Any palpable lesion if present should be followed based on clinical grounds and biopsy performed if clinically persistent for 3 months or increasing size. Approximately 10% of breast cancers are not detected by mammography. A normal mammogram should not delay biopsy of a clinically suspicious abnormality. Dense breast tissue may obscure neoplasm. Electronically Signed: Dipesh Marie, at 12:55 EDT Tel , S ervice support , CC: Vivienne Heaton NP Piece Presser: Signed 03-Jan-2018 DIAG MAMM W/CAD, UNILAT Result: Comments: See Note; NOTES: [facility] Imaging Services [address] [place] [address] DIAG MAMM W/CAD, UNILAT MR#: [id number] Acct: [id number] Name: MICHELLE BROWN Rep #: [id number] : 1950 F 67 From: Dipesh Marie MD PCP: Vivienne Heaton NP Status: REG CLI Study: DIAG MAMM W/CAD, UNILAT Date of Exam: 01/03/18 Exam# [id number] Ordering Dr: Vivienne Heaton PILOT BOAT OPERATOR-C ADDENDUM by Dipesh Marie MD on 01/03/18 at 1257 ADDENDUM If clinically indicated, MRI breast may be more helpf ul both before biopsy for surgical planning. Electronically Signed: Dipesh Marie, at 12:57 EDT Tel , Service support , 01/03/18 1257 Date ___ cc: Vivienne Heaton NP * Signed ADDENDUM by Dipesh Marie MD on 01/03/18 at 1257 BI/DIAG MAMM W/CAD, UNILAT 01/03/18 1304 Date cc: Vivienne Heaton NP * Signed M AMMOGRAPHY - UNILATERAL DIAGNOSTIC: RIGHT BREAST REASON FOR EXAM: Female, 67 years old. Abnormal mammogram with right breast asymmetric density. PERTINENT HISTORY: Non-contributory. TECHNIQUE: Digita l examination. Mediolateral oblique (MLO) and craniocaudad (CC) views of the breast were obtained. CAD: CAD performed COMPARISON: 12/26/2017 mammogram. No prior mammographic imaging available for compar tammy. Correlation is with remote mammogram report from [place], [place] 04/22/2009. FINDINGS: Breast Composition: There are scattered areas of fibroglandular density. With additional CC and MLO spot compression views, mass density persists but appears smaller in size with irregular possibly spiculated margins. Irregular possibly spiculated margins appear more promine nt with MLO and CC views, neoplasm not excluded versus scar or other etiology. Right breast targeted ultrasound showed no sonographic abnormality same region. ORDE R #: [id number] BI/DIAG MAMM W/CAD, UNILAT IMPRESSION: Biopsy right breast upper outer quadrant posterior third recommended. ASSESSMENT CATEGORY: BIRADS Category 4: S uspicious - Biopsy Should Be Considered. A letter regarding these results will be sent to the patient by the facility within 30 days. FOLLOW-UP RECOMMENDATION: Surgical biopsy recommended. (G) Any pal pable lesion if present should be followed based on clinical grounds and biopsy performed if clinically persistent for 3 months or increasing size. Approximately 10% of breast cancers are not detected by mammography. A normal mammogram should not delay biopsy of a clinically suspicious abnormality. Dense breast tissue may obscure neoplasm. Electronically Signed: Dipesh Marie, at 12:50 E DT Tel , Service support , CC: Vivienne Heaton NP Piece Presser: Signed 03-Jan-2018 DIAG MAMM W/CAD, UNILAT Result: Comments: See Note; NOTES: [facility] Imaging Services [address] [place] [address] DIAG MAMM W/CAD, UNILAT MR#: [id number] Acct: [id number] Name: MICHELLE BROWN Rep #: [id number] : 1950 F 67 From: Dipesh Marie MD PCP: Vivienne Heaton NP Status: REG CLI Study: DIAG MAMM W/CAD, UNILAT Date of Exam: 01/03/18 Exam# [id number] Ordering Dr: Vivienne Heaton PILOT BOAT OPERATOR-C MAMMOGRAPHY - UNILATERAL DIAGNOSTIC: RIGHT BREAST REASON FOR EXAM: Female, 67 years old. Abnormal mammogram with right breast asymmetric density. PERTINENT HISTORY: Non-contributory. TECHNIQUE: Digital examinati on. Mediolateral oblique (MLO) and craniocaudad (CC) views of the breast were obtained. CAD: CAD performed COMPARISON: 12/26/2017 mammogram. No prior mammographic imaging available for comparison. Phyllis cantu is with remote mammogram report from [place], [place] 04/22/2009. FINDINGS: Breast Composition: There are scattered areas of fibroglandular density. With additi onal CC and MLO spot compression views, mass density persists but appears smaller in size with irregular possibly spiculated margins. Irregular possibly spiculated margins appear more prominent with MLO and CC views, neoplasm not excluded versus scar or other etiology. Right breast targeted ultrasound showed no sonographic abnormality same region. 009 BI/DIAG MAMM W/CAD, UNILAT IMPRESSION: Biopsy right breast upper outer quadrant posterior third recommended. ASSESSMENT CATEGORY: BIRADS Category 4: Suspicious - Biopsy Should Be Considered. A letter regarding these results will be sent to the patient by the facility within 30 days. FOLLOW-UP RECOMMENDATION: Surgical biopsy recommended. (G) Any palpable lesio n if present should be followed based on clinical grounds and biopsy performed if clinically persistent for 3 months or increasing size. Approximately 10% of breast cancers are not detected by mammogra phy. A normal mammogram should not delay biopsy of a clinically suspicious abnormality. Dense breast tissue may obscure neoplasm. Electronically Signed: Dipesh Marie, at 12:50 EDT Tel , Service support , CC: Vivienne Heaton NP Piece Presser: Signed 26-Dec-2017 Dexa Bone Density Study Result: Comments: See Note; NOTES: [facility] Imaging Services [address] [facility] [place] [address] Dexa Bone Density Study MR#: [id number] Acct: [id number] Name: MICHELLE BROWN Rep #: [id number] : 1950 F 67 From: Sandro Lebron MD PCP: Vivienne Heaton NP Status: REG CLI Study: Dexa Bone Density Study Date of Exam: 12/26/17 Exam# [id number] Ordering Dr: Vivienne Heaton STUDY: DUAL ENERGY X-RAY ABSORPTIOMETRY / DXA REASON FOR EXAM: Female, 67 years old. Postmenopausal screening TECHNIQUE: Bone Mineral Density (BMD) measurements of lumbar spine and left hip were obtained. COMPARISON: N one. FINDINGS: Lumbar Spine (L1-L4): g/cm2 (1.201) / T-score (0.2) / Z-score (1.8) Findings are suggestive of normal bone density with a low fracture risk. Left Fe mur Total: g/cm2 (1.018) / T-score (0.1) / Z-score (1.5) Left Femoral Neck: g/cm2 (1.053) / T-score (0.1) / Z-score (1.8) BD/Dexa Bone Density Ginger salvador IMPRESSION: The patient is considered normal as outlined below according to World [place] Organization (WHO) criteria with a low fracture risk. Reference Informat ion: The T-score is the number of standard deviations above or below the standard which is normal for young adults at their peak bone mineral density. The World Health Organization (WHO) interprets the T-scores as follows: Above -1 Normal bone density Between -1 and -2.5 Osteopenia Equal to / or below -2.5 Osteoporosis As a practical clinical guideline, osteopenia may be graded as follows: Mild -1 t hrough -1.5 Moderate -1.6 through -2.0 Severe -2.1 through -2.4 The Z-score is the number of standard deviations above or below age-matched controls. A Z- score of less than -1.5 would be considered abn ormal. References: 1. NIH Osteoporosis and Related Bone Diseases http://www.osteo.org 2. International Society for Clinical Densitometry http://www.iscd.org 3. National Osteoporosis Foundation http://w ww.nof.org Electronically Signed: Jerrod Lebron MD at 10:18 EDT , Service support , CC: Vivienne Heaton NP Piece Presser: Signed 26-Dec-2017 SCREENING MAMM (CAD), BILAT Result: Comments: See Note; NOTES: [facility] Imaging Services [address] [place] [address] SCREENING MAMM (CAD), BILAT MR#: [id number] Acct: [id number] Name: MICHELLE BROWN Rep # : [id number] : 1950 F 67 From: Dipesh Marie MD PCP: Vivienne Heaton NP Status: REG CLI Study: SCREENING MAMM (CAD), BILAT Date of Exam: 12/26/17 Exam# [id number] Ordering Dr: Vivienne Heaton MAMMOGRAP HY - BILATERAL SCREENING 3-D HUBERT SYNTHESIS REASON FOR EXAM: Female, 67 years old. Bilateral Screening 3-D tomosynthesis PERTINENT HISTORY: No significant family history. Right breast cyst surgery 197 7. TECHNIQUE: 2-D mammograms and 3-D Hubert synthesis of the breast (s) were performed. CAD was performed. COMPARISON: None available. FINDINGS: The breast composition is composed of scattered fibrogla ndular density. Asymmetric density noted left breast upper outer quadrant which is electronically circled in the CC and MLO projections. Recommend left breast CC and MLO spot compression views for furth er evaluation. No dense spiculated masses or suspicious microcalcifications are identified. No architectural distortion is identified. There is no skin thickening or retraction. BI /SCREENING MAMM (CAD), BILAT IMPRESSION: Incomplete left mammogram. Additional imaging as recommended above. ASSESSMENT CATEGORY: BIRADS Category 0: Incomplete. Need additional imaging evaluation as ab ove. A letter regarding these results will be sent to the patient by the facility within 30 days. FOLLOW UP RECOMMENDATION: Additional imaging recommended as above. (E) Negative mammographic results s hould not deter biopsy as a palpable lesion if present should be followed based on clinical grounds and biopsy performed if clinically persistent for 3 months or increasing size. Approximately 10% of b reast cancers are not detected by mammography. A normal mammogram should not delay biopsy of a clinically suspicious abnormality. Electronically Signed: Dipesh Marie, at 17:10 EDT Tel , Service support , CC: Vivienne Heaton NP Piece Presser: Signed 26-Dec-2017 SCREENING MAMM (CAD), BILAT Result: Comments: See Note; NOTES: [facility] Imaging Services [address] [place] [address] SCREENING MAMM (CAD), BILAT MR#: [id number] Acct: [id number] Name: MICHELLE BROWN Rep # : [id number] : 1950 F 67 From: Dipesh Marie MD PCP: Vivienne Heaton NP Status: REG CLI Study: SCREENING MAMM (CAD), BILAT Date of Exam: 12/26/17 Exam# [id number] Ordering Dr: Vivienne Heaton ADDENDUM by Dipesh Marie MD on 12/31/17 at 1516 ADDENDUM CORRECTION: Asymmetric density noted left breast upper quadrant which electronically [place] [employer] projections. Recommend left breast CC and ML spot compression views further evaluation should be changed to reflect the RIGHT b reast not the LEFT breast with the asymmetric density in the posterior third of the RIGHT breast. Electronically Signed: Dipesh Marie, at 15:16 EDT Tel , Service support [phone], 12/31/17 1516 Date cc: Vivienne Heaton NP * Signed ADDENDUM by Dipesh Marie MD on 12/31/17 at 1516 0015 BI/SCREENING MAMM (CAD), BILAT 1523 Date cc: Vivienne Heaton NP * Signed MAMMOGRAPHY - BILATERAL SCREENING 3-D HUBERT SYNTHESIS REASON FOR EXAM: Female, 67 years old. Bilateral Screening 3-D tomosynthesis PERTINENT HIST ORY: No significant family history. Right breast cyst surgery 1976. TECHNIQUE: 2-D mammograms and 3-D Hubert synthesis of the breast (s) were performed. CAD was performed. COMPARISON: None available. F INDINGS: The breast composition is composed of scattered fibroglandular density. Asymmetric density noted left breast upper outer quadrant which is electronically circled in the CC and MLO projections. Recommend left breast CC and MLO spot compression views for further evaluation. No dense spiculated masses or suspicious microcalcifications are identified. No architectural distortion is identified. T here is no skin thickening or retraction. BI/SCREENING MAMM (CAD), BILAT IMPRESSION: Incomplete left mammogram. Additional imaging as recommended above. ASSESSMENT CATEGORY: BIRADS Category 0: Incomplete. Need additional imaging evaluation as above. A letter regarding these results will be sent to the patient by the facility within 30 days. FOLLOW UP RECOMMENDATION: Additional i maging recommended as above. (E) Negative mammographic results should not deter biopsy as a palpable lesion if present should be followed based on clinical grounds and biopsy performed if clinically pe rsistent for 3 months or increasing size. Approximately 10% of breast cancers are not detected by mammography. A normal mammogram should not delay biopsy of a clinically suspicious abnormality. Electr onically Signed: Dipesh Marie, at 17:10 EDT Tel , Service support , CC: Vivienne Heaton NP Piece Presser: Signed 06-Dec-2017 Pulmonary Function Test Result: Comments: See Note; NOTES: [facility] Pulmonary Services/Neurology [address] [place] [address] MR#: [id number] Acct: [id number] Name: MICHELLE BROWN Rep #: [id number] : 1950 67 From: Jaspreet Almodovar DO Referring Dr: Vivienne Heaton NP Status: REG CLI Ordering Dr: Date: Location: [facility] Sex: F C INTRODUCTION: The patient is a 67-year-old female that presents f or pulmonary function studies secondary to a diagnosis of COPD. Respiratory therapy reports good patient effort. Bronchodilators were used during testing. INTERPRETATION: Forced expiration spirometry d emonstrates no evidence of a large airways obstructive ventilatory defect. There was no significant response to aerosolized bronchodilators. Spirograms are of good quality and plateau gradually. Body pl ethysmography was performed and reveals a decreased TLC to 4.99 L, 86% of predicted, indicative of a mild restrictive ventilatory defect. The remainder of the lung volumes are symmetrically reduced. Dif fusing capacity by single breath CO is at the lower limits of normal at 69% of predicted. IMPRESSION: These pulmonary function studies demonstrate the presence of a mild restrictive ventilatory defect with an associated mild reduction in diffusing capacity. There are no previous pulmonary function studies available for comparison. 12/06/17 1350 <Electronically signed by Jaspreet Almodovar DO&# 62; Date Jaspreet Almodovar DO CC: Vivienne Heaton PILOT BOAT OPERATOR Date Dictated: 12/06/171347 Date Transcribed: 12/06/171347 Piece Presser: RUBINA Signed 28-Nov-2017 Cardiology Visit Report Result: Comments: See Note; NOTES: [facility] [address] [place] [address] OFFICE VISIT Date of Service: 11/28/17 MR#: [id number] Acct: [id number] Name: MICHELLE BROWN Rep #: [id number] : 1950 Provider: Alysa Edwards Age/Sex: 67/F Location: [facility] [place] Status: Signed HPI HPI Details: MICHELLE BROWN, is a 67 F who presents to the office today for a cardio vascular follow-up. She is a history of coronary artery disease with a non-ST myocardial infarction and stenting to RCA in 2011, ischemic cardiomyopathy which has resolved, PVCs and hyperlipidemia. Pt has had ongoing headaches since August. She is currently being treated for a sinus infection. She questions if her antx helped. She is seeing her neurologist today. From a cardiac standpoint, patient is doing well. She does not have any chest discomfort/heaviness/tightness. Her exercise tolerance is stable for her age. She does not have any worsening symptoms of shortness of breath. She does not have a ny orthopnea. She denies PND. She does not have any symptoms of congestive heart failure. She does occasionally have palpitations. She does not have any lightheadedness or dizziness. She does not have a ny near-syncope or syncope. She does not have any lower extremity edema. She does not have any symptoms of claudication. Intake Vital Signs11/28/17 Height 5 ft 10 in 11/28/17 Weight: 183 lb 11/28/17 B octavio Mass Index (BMI) 26.2 11/28/17 Blood Pressure 124/82 11/28/17 Blood Pressure Location Lt brachial Intake Visit Reasons: 6 M FU Business Performance Manager Required: No Accompanied by: none Is patient in pain?: No Allergies venom-honey bee [bee venom (honey bee)] Allergy (Verified 05/24/17 11:53) Swelling cefdinir Adverse Reaction (Severe, Verified 05/24/17 11:53) itching AND Hives amoxicillin trihydrate [From Augmentin] Adverse Reaction (Verified 05/24/17 11:53) Nausea/Vom/Diarrhea lisinopril Adverse Reaction (Verified 05/24/17 11:53) Other potassium clavulanate [From Augmentin] Adverse Reaction (Verified 11:53) Nausea/Vom/Diarrhea Medications Aspirin [Aspirin, Baby] 81 mg PO DAILY 12/29/12 [History Confirmed 11/28/17] Latanoprost 0.005% [Xalatan Opthalmic] 1 drp EACH EYE QHS 03/10/14 [History Confirmed 11/28/17] cholecalciferol (vitamin D3) 5,000 unit tablet 5,000 unit PO QDAY 05/20/17 [History Confirmed 11/28/17] gabapentin 300 mg capsule 300 mg PO TID 05/20/17 [History Confirmed 11/28/17] nitroglycerin 0.4 mg sublingual tablet 0.4 mg SUBLINGUAL Q5M PRN 05/20/17 [History Confirmed 11/28/17] atorvastatin 80 mg tablet 80 mg PO QHS #30 tab 11/28/17 [Rx Confirmed 11/28/17] carvedilol 6.25 mg tablet 6.25 mg PO BID #60 tab 11/28/17 [Rx Confirmed 11/28/17] clopidogrel 75 mg tablet 75 mg PO DAILY #30 tab 11/28/17 [Rx Confirmed 11/28/17] PFSH Medical History Cardiomyopathy, ischemic (Resolve d) Premature ventricular contractions (Chronic) Atherosclerotic heart disease of [place] coronary artery with angina pectoris with documented spasm (Chronic) Old myocardial infarction (Chronic) Hyperlipi demia (Chronic) Nicotine abuse (Chronic) 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) Surgical History History of PTCA (Resolved) History of hysterectomy (Resolved) History of tonsillectomy and a denoidectomy (Resolved) Hx laparoscopic cholecystectomy (Resolved) Hx of appendectomy (Resolved) Family History Father Sudden cardiac Myocardial infarction Mother Myocardial infarction Social History Smoking Status: Current some day smoker alcohol intake: never substance use type: does not use seatbelt use: always do you feel safe at home: Yes ROS Const Const: Positive for headache( s); negative for weakness, fatigue or fever(s) Eyes Eyes: Negative for blind spots, loss of peripheral vision or transient loss of vision ENT ENT: Positive for headache(s); negative for dizziness, tinni tus or Nosebleed/epistaxis Cardio Chest Pain: No Palpitations: No Edema: None Muscle aches with walking: None Resp Respiratory: Positive for Cough; negative for SOB with activity, SOB at rest or SOB ort hopnea\SOB lying down GI GI: Negative nausea, vomiting, heartburn or vomiting blood/hematemesis : Negative for hematuria Musc Musc: Negative for muscle aches/ myalgia Neuro Neuro: Positive for head ache(s); negative for weakness, dizziness, near syncope, syncope, lightheadedness or orthostatic symptoms [place] Hematologic/Lymphatic: Negative for easy bleeding Endo Endo: Negative for fatigue Cardiol ogy Exam Const Appearance: cooperative, no acute distress and well developed Orientation: alert, awake and oriented x3 Head Head: normocephalic and atraumatic Mouth: moist mucous membranes Eyes General: appearance normal, both eyes and all related structures Conjunctivae: conjunctivae normal Pupils: PERRL EOM: EOM intact bilaterally Neck Neck: normal visual inspection, no lymphadenopathy and no JVD Ca rotids: Negative bruit Neck Mass: Negative Neck mass Chest Chest inspection: normal inspection of the chest and symmetric chest movement Auscultation: Bilateral: Clear to Auscultation Cardio Palpation: normal PMI Rate: regular rate Rhythm: regular rhythm Heart sounds: S1 normal and S2 normal; negative rub, gallop or murmur GI GI: normal to inspection, soft, no hepatosplenomegaly and bowel sounds prese nt; negative tender Neuro General: alert, awake, oriented x3, CN's II-XI intact bilaterally and moves all extremities Extremities Pulses: Normal: Right Posterior Tibial Pulse, Left Posterior Tibial Puls e, Right Radial Pulse, Left Radial Pulse Lower Extremity Edema: None: Bilateral Psych Psychological: normal affect Supplemental Info Echocardiogram in 2014 demonstrated Segmental dysfunction with pres erved ejection fraction (see wall motion). The estimated ejection fraction is 55 %. 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 Trivial mitral, valve insufficiency.Trivial tricuspid valve insufficiency. Aortic sclerosis, no stenosis. Trivial pulmonic valve insufficiency. Stress test in 2018 was negative for ischemia. Assessment AND Plan 1. 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 We recommend that they continue with current agg ressive medical management and risk factor modification. 2. Cardiomyopathy, ischemic I25.5 Plan Patient's cardiomyopathy has since resolved. She does not have any symptoms of congestive heart failure. We will continue to monitor by history, exam and echocardiograms as deemed appropriate. She will continue with aggressive medical management 3. Pure hypercholesterolemia E78.00 Plan Recent lipid profil e demonstrates total cholesterol 158, HDL 70, LDL 59. Adequately controlled on current medications. Will not make any adjustments. Plan Detail Other Medications New: Additional Comments Thank you fo r allowing us to participate in patient's plan of care, if you have any questions please do not hesitate to call. This note was generated using a voice recognition system and there may be incorrect wor ds, spelling or punctuation errors that were not noted when reviewing the office note prior to saving. 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 transplanted heart: [place] heart Cardiomyopathy, ischemic I25.5 Pure hypercholesterolemia E78.00 Hyperlipidemia type: pure hypercholesterolemia Coding Level of Care Code Off vis,est,level 3 Diagnoses Atherosclerosis of [place] coronary artery of [place] heart with angina pectoris with documented s pasm I25.111 [place] vs. transplanted heart: [place] heart Cardiomyopathy, ischemic I25.5 Pure hypercholesterolemia E78.00 Hyperlipidemia type: pure hypercholesterolemia 11/28/17 1551 <Krishan franklin signed by Alysa MCFARLAND> Date Alysa MCFARLAND Cosigner Signature: Date (if applicable) CC: 19-Manny-2018 Brain W/WO Contrast Result: Comments: See Note; NOTES: [facility] Imaging Services [address] [place] [address] Brain W/WO Contrast MR#: [id number] Acct: [id number] Name: MICHELLE BROWN Rep #: [id number] : 1950 F 67 From: Bola Busch MD PCP: Vivienne Heaton NP Status: REG CLI Study: Brain W/WO Contrast Date of Exam: 10/10/17 Exam# [id number] Ordering Dr: Natalee Hollingsworth PILOT BOAT OPERATOR-C STUDY: MRI BRAIN WIT H AND WITHOUT CONTRAST REASON FOR EXAM: Female, 67 years old. Severe headache x6 weeks. TECHNIQUE: Standardized multiplanar fat and water weighted pulse sequences were obtained. 9 ml of Gadavist contr ast material was administered intravenously for the contrast portion of the examination. COMPARISON: CT head with and without contrast 08/27/2014. FINDINGS: No restr icted diffusion to suspect acute or subacute ischemic infarct. Solitary nonspecific T2 FLAIR hyperintensity focus in the right barron radiata (series 6, image 14). This may represent nonspecific scolio sis. No enhancing lesions after IV contrast administration. No mass effects and no midline shift. Normal size of the ventricles and extra-axial spaces for the patient's age. Normal white matter tracts of the supratentorial brain. Normal bilateral basal ganglia. Normal thalami. There is no extra-axial fluid accumulation. Normal flow voids within the major intracranial circulation suggesting patency by spin echo criteria. Normal venous enhancement. There is no enhancing intra- axial or extra-axial abnormality. Normal sella turcica, pituitary gland, infundibular stalk, optic chiasm and hypothalamus. Normal tectal plate and pineal gland. Normal midbrain, deny and medulla. Normal cerebellum. Normal basal cisterns. Normal bilateral temporal bones. Normal bilateral internal auditory canals. No demon strated orbital abnormality, within the constraints of a routine brain study. Pronounced mucosal edema in the ethmoid sinuses. Minimal mucosal edema in the hypoplastic right sphenoid sinus. Minimal muco tyler edema in the frontal sinuses. Normal calvarium and skull base. Normal visualized soft tissue structures. Normal visualized upper cervical spine. 008 MRI/Brain W/WO Contrast IMPRESSION: 1. No MRI evidence of acute or subacute ischemic infarct. 2. No MRI evidence of any suspicious enhancing or nonenhancing mass lesions. 3. Small solitary nonspec ific gliosis in the right barron radiata. 4. Pronounced mucosal thickening in the ethmoid sinus and mild mucosal thickening in the frontal sinus and the hypoplastic right sphenoid sinus. Electronicall y Signed: Bola Busch MD at 15:42 EDT , Service support , CC: Vivienne Heaton NP; CHASIDY Hollingsworth Piece Presser: Signed 13-Jun-2017 Stress Report Result: Comments: See Note; NOTES: [facility] Cardiovascular Services [address] [place] [address] MR#: [id number] Acct: [id number] Name: MICHELLE BROWN Rep #: [id number] : 67 From: Bobby Knight MD Primary Care: Vivienne Heaton NP Status: REG CLI Ordering Dr: Sex: F C Stress Test Report Pharmacologic myocardial perfusion stress test. 67-year-old lady with a hist ory of non-ST elevation myocardial infarction previous stenting. Stress protocol: Resting EKG demonstrates sinus bradycardia with a rate of 54 bpm normal intervals and noted occasional premature ventri cular complexes noted. Resting blood pressure is 130/70 mmHg. 0.4 mg regadenoson was infused per usual protocol followed by rapid intravenous saline flush injection continuous EKG monitoring was perform ed. At rest there were no ST or T-wave changes noted suggest abnormal flow reserve at peak infusion no ST or T-wave changes were noted suggest abnormal flow reserve. No clinical angina was noted. The re sting blood pressure is 130/70 with a final blood pressure 122/70. Myocardial perfusion protocol: 14.3 mCi of technetium 99m sestamibi was injected at rest. 0.4 mg of regadenoson was infused per usual protocol. At peak infusion 44.6 mCi of technetium 99m sestamibi was injected. Stress and rest images were reconstructed and compared in the short axis vertical long horizontal long axis. Gated images we re also obtained next Perfusion SPECT analysis: Review of the stress images demonstrate normal uptake of tracer noted in all areas of the myocardium. The resting images similarly demonstrate normal upt meghan of tracer noted in all areas of the myocardium. No areas of reversibility are noted suggest ischemia. No previous infarct is noted. Gated SPECT analysis: The gated ejection fraction is noted to be 62%. Conclusion: Normal pharmacologic myocardial perfusion stress test. Preserved ejection fraction. 06/13/17 1311 <Electronically signed by Bobby Knight MD> Date Bobby Knight MD CC: Vivienne Heaton PILOT BOAT OPERATOR; Alysa Edwards Date Dictated: 06/13/17 1308 Date Transcribed: 06/13/17 1308 Piece Presser: CO Signed 24-May-2017 Cardiology Visit Report Result: Comments: See Note; NOTES: [facility] [address] [place] [address] OFFICE VISIT Date of Service: 05/24/17 MR#: [id number] Acct: [id number] Name: MICHELLE BROWN Rep #: [id number] : 1950 Provider: Alysa Edwards Age/Sex: 67/F Location: [facility] Status: Signed HPI HPI Details: MICHELLE BROWN, is a 67 F who presents to the office today for a cardio vascular follow-up. She is a history of coronary artery disease with a non-ST myocardial infarction and stenting to RCA in 2011, ischemic cardiomyopathy which has resolved, PVCs and hyperlipidemia. Pt is still recovering from a URI that she was being treated for with her PCP since . She had chest discomfort while she was sitting. This was a quick discomfort then it went away. It is in the [facility] spot where she had the chest heaviness during her myocardial infarction. She does not have any worsening shortness of breath. She does not have any palpitations. She does not have any lightheadedness or dizziness. She does not have any lower extremity edema. She injured her should and will be going to see Dr. Dawkins for this. Intake Vital Signs05/24/17 Height 5 ft 10 in 05/24/17 Weight: 190 l b 05/24/17 Body Mass Index (BMI) 27.2 05/24/17 Blood Pressure 104/68 05/24/17 Blood Pressure Location Lt brachial Intake Visit Reasons: 6 M FU Business Performance Manager Required: No Accompanied by: None Is patient in pain?: No Allergies venom-honey bee [bee venom (honey bee)] Allergy (Verified 05/24/17 11:53) Swelling cefdinir Adverse Reaction (Severe, Verified 05/24/17 11:53) itching AND Hives amoxicillin trihy drate [From Augmentin] Adverse Reaction (Verified 05/24/17 11:53) Nausea/Vom/Diarrhea lisinopril Adverse Reaction (Verified 05/24/17 11:53) Other potassium clavulanate [From Augmentin] Adverse Reaction (Verified 05/24/17 11:53) Nausea/Vom/Diarrhea Medications Aspirin [Aspirin, Baby] 81 mg PO DAILY 12/29/12 [History Confirmed 05/20/17] Atorvastatin Calcium [Lipitor] 80 mg PO QHS 12/29/12 [History Co nfirmed 05/20/17] Carvedilol [Coreg (Beta Faye)] 6.25 mg PO BID 12/29/12 [History Confirmed 05/20/17] Clopidogrel Bisulfate [Plavix] 75 mg PO DAILY 12/29/12 [History Confirmed 05/20/17] Acetaminophen [Tylenol Extra Strength] 500 - 1,000 mg PO Q6H PRN PRN 03/10/14 [History Confirmed 03/10/14] Albuterol IH (ProAir) [Proair Hfa] 2 puff INHALATION Q4H PRN PRN 03/10/14 [History Confirmed 05/24/17] Latan oprost 0.005% [Xalatan Opthalmic] 1 drp EACH EYE QHS 03/10/14 [History Confirmed 05/20/17] cholecalciferol (vitamin D3) 5,000 unit tablet 5,000 unit PO QDAY 05/20/17 [History Confirmed 05/20/17] gabapen tin 300 mg capsule 300 mg PO TID 05/20/17 [History Confirmed 05/20/17] nitroglycerin 0.4 mg sublingual tablet 0.4 mg SUBLINGUAL Q5M PRN 05/20/17 [History Confirmed 05/20/17] meloxicam 7.5 mg tablet PO 3 0 Days #60 05/24/17 [History Confirmed 05/24/17] Ejection fraction %: 55 to 59 PFSH Medical History Cardiomyopathy, ischemic (Resolved) Premature ventricular contractions (Chronic) Atherosclerotic h eart disease of [place] coronary artery with angina pectoris with documented spasm (Chronic) Old myocardial infarction (Chronic) Hyperlipidemia (Chronic) Nicotine abuse (Chronic) Other senior care (current ) drug therapy (Chronic) Surgical History History of PTCA (Resolved) History of hysterectomy (Resolved) History of tonsillectomy and adenoidectomy (Resolved) Hx laparoscopic cholecystectomy (Resolved ) Hx of appendectomy (Resolved) Family History Father Sudden cardiac Myocardial infarction Mother Myocardial infarction Social History Smoking Status: Current some day smoker alcohol intake: never substance use type: does not use seatbelt use: always do you feel safe at home: Yes ROS Const Const: Negative for weakness, fatigue, fever(s) or headache(s) Eyes Eyes: Negative for blind s pots, loss of peripheral vision or transient loss of vision ENT ENT: Negative for headache(s), dizziness, tinnitus or Nosebleed/epistaxis Cardio Chest Pain: Yes Palpitations: No Edema: None Muscle aches with walking: None Resp Respiratory: Negative for SOB with activity, SOB at rest, SOB orthopnea\SOB lying down or Cough GI GI: Negative nausea, vomiting, heartburn or vomiting blood/hematemesis : Negative for hematuria Musc Musc: Negative for muscle aches/ myalgia Neuro Neuro: Negative for weakness, headache(s), dizziness, near syncope, syncope, lightheadedness or orthostatic symptoms Chicho Hemat ologic/Lymphatic: Negative for easy bleeding Endo Endo: Negative for fatigue Cardiology Exam Const Appearance: cooperative, no acute distress and well developed Orientation: alert, awake and oriented x3 Head Head: normocephalic and atraumatic Mouth: moist mucous membranes Eyes General: appearance normal, both eyes and all related structures Conjunctivae: conjunctivae normal Pupils: PERRL EOM: EOM in tact bilaterally Neck Neck: normal visual inspection, no lymphadenopathy and no JVD Carotids: Negative bruit Neck Mass: Negative Neck mass Chest Chest inspection: normal inspection of the chest and symm etric chest movement Auscultation: Bilateral: Clear to Auscultation Cardio Palpation: normal PMI Rate: regular rate Rhythm: regular rhythm Heart sounds: S1 normal and S2 normal; negative rub, gallop or murmur GI GI: normal to inspection, soft, no hepatosplenomegaly and bowel sounds present; negative tender Neuro General: alert, awake, oriented x3, CN's II-XI intact bilaterally and moves all extremitie s Extremities Pulses: Normal: Right Posterior Tibial Pulse, Left Posterior Tibial Pulse, Right Radial Pulse, Left Radial Pulse Lower Extremity Edema: None: Bilateral Psych Psychological: normal affect Supplemental Info Echocardiogram in 2013 demonstrated Segmental dysfunction with preserved ejection fraction (see wall motion). The estimated ejection fraction is 55 %. 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 Trivial mitral, valve insufficiency.Trivial tricuspid valve insufficiency. Aortic sclerosis, no stenosis. Trivial pulmonic valve insufficiency. Stress test in 2015 was negative for ischemia. Assessment AND Plan 1. Atherosclerotic heart disease of [place] coronary artery with angina pectoris with documented spasm I25.111 PTCA of proximal RCA with stent 11/03 Plan Patient is complaining of chest discomfort that was similar but not as severe as what it was when she had her myocardial infarction. Would like to obtain a stress test to evaluate for underlying ischemia. She will continue with aggressive medica l management. Orders Orders: 2. Cardiomyopathy, ischemic I25.5 Plan Patient's cardiomyopathy has since resolved. She does not have any symptoms of congestive heart failure. We will continue to monitor by history, exam and echocardiograms as deemed appropriate. She will continue with aggressive medical management 3. Pure hypercholesterolemia E78.00; E78.0 Plan Recent lipid profile demonstrates total cholesterol 158, HDL 70, LDL 59. Adequately controlled on current medications. Will not make any adjustments. Plan Detail Additional Comments Thank you for allowing us to participate in patient's walker n of care, if you have any questions please do not hesitate to call. This note was generated using a voice recognition system and there may be incorrect words, spelling or punctuation errors that were not noted when reviewing the office note prior to saving. Follow Up 9 Months (PFM) Coding Level of Care Code Off vis,est,level 4 Diagnoses Atherosclerotic heart disease of [place] coronary artery with angina pectoris with documented spasm I25.111 Cardiomyopathy, ischemic I25.5 Pure hypercholesterolemia E78.00; E78.0 Hyperlipidemia type: pure hypercholesterolemia Coding Level of Care Code Off vis,e st,level 4 Diagnoses Atherosclerotic heart disease of [place] coronary artery with angina pectoris with documented spasm I25.111 Cardiomyopathy, ischemic I25.5 Pure hypercholesterolemia E78.00; E78.0 Hy perlipidemia type: pure hypercholesterolemia 05/24/17 1252 <Electronically signed by Alysa MCFARLAND> Date Alysa MCFARLAND Cosigner Signature: Date (if applicable) CC: Vivienne Heaton NP 10-May-2017 Shoulder min 2 Views Result: Comments: See Note; NOTES: [facility] Imaging Services [address] [place] [address] Shoulder min 2 Views MR#: [id number] Acct: [id number] Name: MICHELLE BROWN Rep #: [id number] : 1950 F 67 From: Kelsi Stone MD PCP: Vivienne Heaton NP Status: REG CLI Study: Shoulder min 2 Views Date of Exam: 05/10/17 Exam# [id number] Ordering Dr: Vivienne Heaton STUDY: X-RAY - LEFT S [facility] REASON FOR EXAM: Female, 67 years old. Shoulder pain or trauma TECHNIQUE: 5 view(s) of the shoulder. COMPARISON: 12/29/2012 chest x-ray FINDINGS: Normal gl enohumeral articulation. There is mild degenerative arthrosis of the acromioclavicular joint without inferior osseous spur formation. Normal acromion. Normal humeral head and visualized proximal humeru s. The soft tissue structures are unremarkable. Normal visualized pulmonary apex. RAD/Shoulder min 2 Views IMPRESSION: Mild degenerative change s of the acromioclavicular joint, not significantly changed. Electronically Signed: Kelsi Stone MD at 11:59 EST , Service support , CC: Vivienne Heaton NP Piece Presser: Signed 27-Mar-2017 Discharge Instruction Result: Comments: See Note; NOTES: [facility] Medical Records Department [address] [place] [address] [place] [address] Discharge Instruction 03/27/171841 MR#: [id number] Acct: [id number] Name: NIKITA MaldonadoMICHELLE J Rep #: [id number] : 1950 67 From: Valeriy Huerta MD PCP: Vivienne Heaton NP Status: REG ER ED Disposition - Plan for ED Patient: Chief Complaint: General Illness Instructions: Acute B ronchitis Referrals: Vivienne Heaton [Primary Care Provider] - What to do if you have Problems For any increased pain, shortness of breath, bleeding, nausea or vomiting, chest pain, or any unexpected pro blems, contact your Primary Care Provider. Call [facility] ([phone]) or report to the closest Emergency Room. Call 911 if necessary. 03/27/171841 <Electronically signed by Valeriy kulkarni MD> Date Valeriy Huerta MD Cosigner Signature (If Indicated): Date CC: Vivienne Heaton NP 3-Tae-2018 Emergency Department Summary Result: Comments: See Note; NOTES: [facility] Medical Records Department [address] [place] [address] Emergency Department Summary 03/27/17 1836 MR#: [id number] Acct: [id number] Name: MICHELLE BROWN Rep #: [id number] : 1950 67 From: Valeriy Huerta MD PCP: Vivienne Heaton NP Status: REG ER - ER Visit Summary Date of Service: 03/27/17 Chief Complaint: Cough History of Prese nt Illness: The patient is a 67 F who presents with cough. She has had a cough for about 10 days. She states that she is actually feeling better and her chest. She was initially clinic ally diagnosed as influenza at the urgent care and was placed on antibiotic steroids and Tamiflu. She had a rapid flu at the office which was negative and was told to stop the Tamiflu. She has received a couple of doses of Solu-Medrol. She was seen today due to persistent cough. Her primary care provider felt that she may be dehydrated and they attempted to give IV fluids in the office but were unable to establish IV access. Note the patient is eating and drinking. She denies nausea or vomiting. She had some diarrhea for 1 day which resolved with Imodium. Physical Examination: Afebrile vitals are s table Patient in no distress resting comfortably Patient does not appear clinically dehydrated Heart regular rate and rhythm Lungs are clear to auscultation The abdomen is soft nontender nondistended T est Results: CBC BMP unremarkable. Chest x-ray shows no acute process. Emergency Department Course and Treatment: I advised the patient that cough with bronchitis a persist for 3 weeks. She states her other symptoms have improved and that this is likely normal course of the illness. Her workup here was otherwise unremarkable. She was advised to continue supportive care. She was instructed on specific signs and symptoms to monitor for and conditions under which to return to the emergency department. She was discharged. Treatment Plan: [] Disposition: Discharge Impression: Bronchitis This note was generated with [employer] dictation software. It may contain incorrect words, spelling, and punctuation that were not noted in review of the chart prior to signing ED Disposition - Plan for ED Patien t: Chief Complaint: General Illness Referrals: Vivienne Heaton [Primary Care Provider] - What to do if you have Problems For any increased pain, shortness of breath, bleeding, nausea or vomiting, chest p ain, or any unexpected problems, contact your Primary Care Provider. Call [facility] ([phone]) or report to the closest Emergency Room. Call 911 if necessary. 03/27/17 1842 <Electro nically signed by Valeriy Huerta MD> Date Valeriy Huerta MD Cosigner Signature (If Indicated): Date CC: Vivienne Heaton NP 27-Mar-2017 Chest PA and Lateral Result: Comments: See Note; NOTES: [facility] Imaging Services [address] [place] [address] Chest PA and Lateral MR#: [id number] Acct: [id number] Name: MICHELLE BROWN Rep #: [id number] : 1950 F 67 From: Hakan Lutz MD PCP: Vivienne Heaton NP Status: REG ER Study: Chest PA and Lateral Date of Exam: 03/27/17 Exam# [id number] Ordering Dr: Valeriy Huerta MD STUDY: X-RAY CH EST REASON FOR EXAM: Female, 67 years old. Cough TECHNIQUE: PA and lateral COMPARISON: March 20, 2017 FINDINGS: Chronic interstitial changes are seen. No foca l lobar infiltration.. There is no demonstrated pleural abnormality. Normal size heart. Normal mediastinum and cruz. Normal visualized pulmonary arteries. Normal visualized aortic arch and descending t horacic aorta. Dorsal spine demonstrates mild spondylosis. Normal visualized ribs, clavicles, and shoulders. Postsurgical changes are seen in the right upper quadrant status post cholecystectomy.. No significant change since prior study RAD/Chest PA and Lateral IMPRESSION: No acute cardiopulmonary pathology. Electronically Signed: Hakan mcbride MD at 18:02 EST , Service support , CC: Vivienne Heaton NP; Valeriy Huerta MD Piece Presser: Signed 20-Mar-2017 Chest PA and Lateral Result: Comments: See Note; NOTES: [facility] Imaging Services [address] [place] [address] Chest PA and Lateral MR#: [id number] Acct: [id number] Name: MICHELLE BROWN Rep #: [id number] : 1950 F 67 From: Michael Brock MD PCP: Vivienne Heaton NP Status: REG CLI Study: Chest PA and Lateral Date of Exam: 03/20/17 Exam# [id number] Ordering Dr: Vivienne Heaton STUDY: X-RAY CHEST REAS ON FOR EXAM: Female, 67 years old. Cough. TECHNIQUE: Frontal and lateral views of the chest. COMPARISON: March 29, 2016 FINDINGS: There is stable mild hyperexpan wilda. There is no demonstrated pleural abnormality. Normal size heart. Normal mediastinum and cruz. Normal visualized pulmonary arteries. Normal visualized aortic arch and descending thoracic aorta. N ormal visualized thoracic spine. Normal visualized ribs, clavicles, and shoulders. There is no demonstrated abnormality of the visualized soft tissue structures of the upper abdomen. RAD/Chest PA and Lateral IMPRESSION: Stable mild hyperexpansion. No new or acute pathology. Electronically Signed: Michael Brock MD at 10:50 EST Tel , Service support , CC: Vivienne Heaton NP Piece Presser: Signed 29-Mar-2016 Chest PA and Lateral Result: Comments: See Note; NOTES: [facility] Imaging Services [address] [place] [address] [place] 4d Chest PA and Lateral MR#: [id number] Acct: [id number] Name: MICHELLE BROWN ep #: [id number] : 1950 F 66 From: Marino Lira PCP: Vivienne Heaton Status: REG CLI Study: Chest PA and Lateral Date of Exam: 03/29/16 Exam# [id number] Ordering Dr: Renee Ewing DO STUDY: X -RAY CHEST REASON FOR EXAM: Female, 66 years old. Cough for one week. TECHNIQUE: PA and lateral chest. COMPARISON: August 16, 2015. FINDINGS: The lungs are clear an d expanded. There is no demonstrated pleural abnormality. Normal size heart. Normal mediastinum and cruz. Normal visualized pulmonary arteries. Normal visualized aortic arch and descending thoracic aor ta. Osseous structures unchanged. There is no demonstrated abnormality of the visualized soft tissue structures of the upper abdomen. Surgical clips right upper quadrant. RAD/Chest PA and Lateral IMPRESSION: Stable chest, no acute cardiopulmonary disease. Electronically Signed: Marino Lira MD at 8:13 EST , Servic e support [phone], CC: Vivienne Heaton; Renee Ewing DO Piece Presser: Signed 15-Feb-2016 Gastric Emptying Study Result: Comments: See Note; NOTES: [facility] Imaging Services [address] [place] [address] Verdana 4d Gastric Emptying Study MR#: [id number] Acct: [id number] Name: MICHELLE BROWN Rep #: [id number] : 1950 F 66 From: Syed Ventura DO PCP: Vivienne Heaton Status: REG CLI Study: Gastric Emptying Study Date of Exam: 02/15/16 Exam# [id number] Ordering Dr: Vivienne Heaton CLINICAL: 66-year-old female with reported history of postprandial abdominal pain, bloating and nausea. SEMI-SOLID PHASE Tc SULFUR COLLOID GASTRIC EMPTYING STUDY COMPARISON: Abdominal ultrasound report 10/27/15 FINDINGS: The patient was administered 1.0 mCi of Tc sulfur colloid mixed with oatmeal and consumed per os. Image acquisitions in the anterior-posterior projections were obtained for 60 minutes. There is prompt visualization of the stomach. There is no gastroesophageal reflux identified. The T1/2 linear fit was calculated to be 31.38 minutes, (Normal: 12-56 minutes). NM/Gastric Emptying Study IMPRESSION: 1. NORMAL Tc sulfur colloid semi-solid phase (oatmeal) gastric emptying imaging examination. A. There is normal and preserved semi- solid phase gastric emptying compared to no rmal controls. (Teddy et al, J Nucl Med Tech 38: 186, 2010). Electronically Signed: Syed Ventura DO at 12:17 EST Tel , Service support [phone], CC: Vivienne Heaton Piece Presser: Signed 27-Oct-2015 Abdomen Complete Result: Comments: See Note; NOTES: [facility] Imaging Services [address] [place] [address] Verdana 4d Abdomen Complete MR#: [id number] Acct: [id number] Name: OSBALDOSvitlana MONZON ANGEL Dot Rep #: [id number] : 1950 F 65 From: Freddy Soto MD PCP: Vivienne Heaton Status: REG CLI Study: Abdomen Complete Date of Exam: 10/27/15 Exam# [id number] Ordering Dr: Vivienne Heaton STUDY: ABDOMINAL ULTRASOUND REASON FOR EXAM: Female, 65 years old. Abdominal pain and postprandial bloating. TECHNIQUE: Transabdominal ultrasound was performed with real-time and static thomas sca le imaging. TECHNICAL QUALITY: Adequate. COMPARISON: None. FINDINGS: Liver: The liver measures 15.7 cm. There is normal echogenicity of the liver. The bile ducts are within normal limits. There is hepatic color flow. The direction of portal flow is hepatopetal. There is no demonstrated mass lesion. Gallbladder: The patient is status post cholecystectom y. Common Bile Duct (C.B.D.): The common bile duct is slightly dilated and measures 8.3 mm. Pancreas: Normal size of the head, body and tail of the pancreas. There is normal echogenicity of the pa ncreas. There is no demonstrated pancreatic mass or cyst. Spleen: Normal size of the spleen. The spleen measures 11.5 cm x 4.4 cm x 4.2 cm. Right Kidney: Normal size of the right kidney. The right kidney measures 9.6 cm x 4.4 cm x 4.4 cm. Normal renal cortex. The right cortex measures 1.0 cm. There is no demonstrated renal mass or cyst. There is no right hydronephrosis. Left Kidney: Normal size of the left kidney. The left kidney measures 11.3 cm x 5.3 [5.1 cm. Normal renal cortex. The left cortex measures 1.0 cm. There is no demonstrated renal mass or cyst. There is no left hydronephr osis. Aorta: Unremarkable. I.V.C.: The IVC is patent. There is no ascites. US/Abdomen Complete IMPRESSION: Normal abdominal ultrasound examination. Electronically Signed: Freddy Soto MD at 11:10 EDT Tel [phone], Service support [phone], CC: Vivienne Heaton Piece Presser: Signed 16-Aug-2015 Chest PA and Lateral Result: Comments: See Note; NOTES: [facility] Imaging Services [address] [place] [address] Verda 4d Chest PA and Lateral MR#: [id number] Acct: [id number] Name: MICHELLE JUSTIN Rep #: [id number] : 1950 F 65 From: Marino Lira PCP: Vivienne Heaton Status: REG CLI Study: Chest PA and Lateral Date of Exam: 08/16/15 Exam# [id number] Ordering Dr: Vivienne Heaton STUDY: X-RAY CHEST REASON FOR EXAM: Female, 65 years old. Cough, history of bronchitis. TECHNIQUE: PA and lateral chest. COMPARISON: December 29, 2012. FIND INGS: The lungs are clear and expanded. There is no demonstrated pleural abnormality. No pneumothorax. Normal size heart. Normal mediastinum and cruz. Normal visualized pulmonary arteries. Normal visualized aortic arch and descending thoracic aorta. Normal visualized thoracic spine. Normal visualized ribs, clavicles, and shoulders. There is no demonstrated abnormality of the visualized sof t tissue structures of the upper abdomen. IMPRESSION: No acute cardiopulmonary disease. Electronically Signed: Marino Lira MD at 8:00 EDT , Service support [phone], 0075 RAD/Chest PA and Lateral IMPRESSION: No acute cardiopulmonary disease. Electronically Signed: Marino Lira MD at 8:00 EDT , Service support [phone], CC: Vivienne Heaton Piece Presser: Signed 16-Aug-2015 Spirometry ([id number]) Comments: mild restriciton Result: 01-Jun-2015 L/S Spine Min 4 Views Result: Comments: See Note; NOTES: [facility] Imaging Services [address] [place] [address] Verdana 4d L/S Spine Min 4 Views MR#: [id number] Acct: [id number] Name: MICHELLE HOU Rep #: [id number] : 1950 F 65 From: Freddy Soto MD PCP: Vivienne Heaton Status: REG CLI Study: L/S Spine Min 4 Views Date of Exam: 06/01/15 Exam# [id number] Ordering Dr: Mati Del Cid STUDY: X-RAY - LUMBAR SPINE REASON FOR EXAM: Female, 65 years old. One week history of low back pain and left leg pain. TECHNIQUE: 5 view(s) of the lumbar spine were obtained including oblique views. COMPARISON: None FINDINGS: Normal lumbar lordosis. There is no substantial scoliosis. There is a normal alignment of the vertebrae. There is mild endplate spondylosis of the lumbar vertebrae. There is mild degenerative disc disease with multi-level disc space narrowing. Facet joint osteoarthritis. The patient is status post cholecystect manuel. IMPRESSION: Degenerative changes of the spine, as detailed above. Electronically Signed: Freddy Soto MD at 12:33 EST Tel [phone], Service support [phone], RAD/L/S Spine Min 4 Views IMPRESSION: Degenerative changes of the spine, as detailed above. Electronically Signed: Freddy ponce MD at 12:33 EST Tel [phone], Service support [phone], CC: Vivienne Del Cid Piece Presser: Signed 19-May-2015 Nuclear Stress Test - Chemical Result: Comments: See Note; NOTES: [facility] Imaging Services [address] [place] [address] Aaronda 4d Nuclear Stress Test - Chemical MR#: [id number] Acct: [id number] N janna: MICHELLE BROWN Rep #: [id number] : 1950 65 From: Real Yates MD Primary Care: Vivienne Heaton Status: REG CLI Ordering Dr: Alysa Sebastian Sex: F C DATE OF SERVICE: DATE OF STUDY: May 19, 2015 EXERCISE TOLERANCE TEST: The patient underwent pharmacologic (regadenoson) evaluation with a peak heart rate of 84 beats per minute (54% predicted maximum hear t rate) and a peak blood pressure of 108/68 mmHg. The baseline ECG demonstrated sinus bradycardia. The peak pharmacologic ECG demonstrated no obvious ECG changes. There were occasional PVCs pretes t, during pharmacologic infusion, or recovery. There was no report of chest discomfort during pharmacologic infusion or recovery. The examination was discontinued secondary to completion of protocol . IMPRESSION: 1. Pharmacologic (regadenoson) evaluation. 2. Peak pharmacologic ECG with no obvious ECG changes. 3. Occasional PVC pretest, during pharmacologic infusion, and recovery. 4. Nuclear i mages pending. MYOCARDIAL PERFUSION IMAGING STUDY: TECHNIQUE: The patient was injected with 11.7 mCi of Tc99m Cardiolite and subsequently rest SPECT Cardiolite nuclear imaging was obtained in the horizontal long, vertical long and short axes views. The patient underwent pharmacologic (regadenoson) evaluation with a peak heart rate of 84 beats per minute (54% predicted maximum heart rate) and a peak blood pressure of 108/68 mmHg. The patient was injected with 32.9 mCi of Tc99m Cardiolite and subsequently stress SPECT Cardiolite nuclear imaging was obtained in the horizontal long, vertical long and short axes views. A gated Cardiolite study at peak stress was obtained. INTERPRETATION: Rest and stress SPECT Cardiolite nuclear imaging demonstrate an area of extracardiac/hepatic and lauri rointestinal tracer uptake near the inferior segments. Otherwise, there appears to be relative uniform tracer uptake. There is end systolic thickening and brightening. The gated Cardiolite study demon strates myocardial thickening and inward wall motion. The reported LVEF is 65%. There are no myocardial perfusion changes considered diagnostic for stress- induced myocardial ischemia or previous myoc ardial injury/infarction. IMPRESSION: 1. Rest and stress SPECT Cardiolite nuclear imaging demonstrate relative uniform tracer uptake with no myocardial perfusion changes considered diagnostic for st ress-induced myocardial ischemia or previous myocardial injury/infarction. 2. The gated Cardiolite study reports an LVEF of 65%. Real Yates MD T: [facility] JOB: [id number] 05/19/15 1753 &#6 0;Electronically signed by Real Yates MD> Date Real Yates MD CC: Vivienne Heaton; Alysa Sebastian Date Dictated: 05/19/15916 Date Transcribed: 05/19/15916 Piece Presser: Signed 13-Feb-2015 NCS and/or EMG Patient Result: Comments: See Note; NOTES: [facility] Pulmonary Services/Neurology [address] [address] [place] [address] NCS and/or EMG Patient MR#: [id number] Acct: [id number] Name: MICHELLE HOU Rep #: [id number] : 1950 65 From: Chase Hugo MD Referring Dr: Lena Barnett DPM Status: REG CLI Ordering Dr: Lena Barnett DPM Date: 02/02/15 Location: PSN Sex: F C D ATE OF SERVICE: 02/02/2015 The patient presents for electrodiagnostic testing of the lower extremities. She has chief complaint of burning in both feet. ELECTRODIAGNOSTIC FINDINGS: On nerve conduc tion study, right common peroneal nerve demonstrates normal distal latency, amplitude, with decreased conduction velocity across the fibular head. The left common peroneal nerve demonstrates prolonged distal latency with reduced amplitude and normal conduction velocity. Prolonged right tibial motor distal latency. Normal left tibial motor response. Prolonged sural responses bilaterally. Prolonged left superficial peroneal latency. Absent right medial plantar response. H reflexes prolonged bilaterally. F waves are prolonged bilaterally. On needle EMG, all muscles tested in the lower limbs carline wed no evidence of denervation with normal motor unit action potentials. ELECTRODIAGNOSTIC IMPRESSION: This is an abnormal study: 1. 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 2. Electrodiagnostic findings are suggestive of peripheral polyneuropathy with involvement of motor and sensory nerve fibers. This is mild-to-mo derate in nature. 3. No electrodiagnostic evidence is noted for lumbosacral radiculopathy. If there are any questions in regards to this exam, please do not hesitate to contact me. Sincerely, A chilo Hugo MD T: [facility] JOB: [id number] 02/13/152301 <Electronically signed by Chase Hugo MD> Date Chase Hugo MD CC: Vivienne Heaton; Chase Hugo; Lena Barnett DPM Date Dictated: 02/02/15812 Date Transcribed: 02/02/15812 Piece Presser: Signed 15-Dec-2014 Cerv Spine 4 or 5 Views Result: Comments: See Note; NOTES: [facility] Imaging Services [address] [place] [address] Radiology Report MR#: [id number] Acct: [id number] Name: MICHELLE BROWN Rep #: : 1950 F 64 From: Kelly Green MD PCP: Vivienne Heaton Status: REG CLI Study: Cerv Spine 4 or 5 Views Date of Exam: 12/15/14 Exam# [id number] Ordering Dr: Vini Islas MD STUD Y: X-RAY - CERVICAL SPINE REASON FOR EXAM: Female, 64 years old neck pain and headaches. TECHNIQUE: 6 view(s) of the cervical spine were obtained. COMPARISON: None ____ FINDINGS: Normal anterior atlantoaxial articulation. Normal odontoid process. There is straightening of the normal cervical lordosis. There is multi-level endplate spondylosis. Normal disc sp moustapha heights. Normal visualized intervertebral neuroforamina. The soft tissue structures are unremarkable. IMPRESSION: Moderate endplate spondylosis. Electron ically Signed: Kelly Green MD at 22:22 EDT Tel , Service support [phone], RAD/Cerv Spine 4 or 5 Views IMPRESSION: Moder ate endplate spondylosis. Electronically Signed: Kelly Green MD at 22:22 EDT Tel , Service support [phone], CC: Vivienne Heaton; Vini Islas Piece Presser: Signed 27-Aug-2014 Brain/Head W/WO Contrast Result: Comments: See Note; NOTES: [facility] Imaging Services [address] [place] [address] CAT Scan Report MR#: [id number] Acct: [id number] Name: MICHELLE BROWN Rep #: [id number] : 1950 F 64 From: Freddy Soto MD PCP: Vivienne Heaton Status: REG CLI Study: Brain/Head W/WO Contrast Date of Exam: 08/27/14 Exam# [id number] Ordering Dr: Vivienne Heaton STUDY: C T BRAIN WITH AND WITHOUT CONTRAST REASON FOR EXAM: Female, 64 years old. Frequent headaches. RADIATION DOSAGE (If Supplied By Facility): CTDIvol = ( 58.42 ) mGy, DLP = ( 2001.60 ) mGycm TECHNIQUE : Transaxial CT imaging of the brain was performed pre and post contrast administration. The examination was performed with intravenous administration of 50CC ml of Isovue 370 contrast material. COM PARISON: None. FINDINGS: Normal soft tissue structures. Normal calvarium. Normal size ventricles and extra-axial spaces for the patient's age. Normal white mat ter tracts of the cerebral hemispheres. Normal basal ganglia and thalami. Normal brainstem. Normal cerebellum. There is no intracranial hemorrhage. There are no findings of an acute ischemic infarct ion. There is calcification of the vertebral arteries as well as the cavernous portions of the internal carotid arteries bilaterally. There is partial opacification of the maxillary sinuses and ethm oid sinuses bilaterally. There is mucosal thickening of the sphenoid sinus. IMPRESSION: Sinusitis. Electronically Signed: Freddy Soto MD a t 13:55 EDT Tel [phone], Service support [phone], CC: Vivienne Heaton Piece Presser: Signed Family History Unknown Family Member Name Dates Details Father Comments: Massive heart attack 1967 Status: Active Maternal Grandmother Comments: Heart attack Status: Active Mother Comments: Heart attack, Migraines, Glaucoma, Macular Degeneration, Colon Cancer Status: Active Vital Signs Date Test Result Details :53 Comments: after - traci scale 7 Temperature 98.2 f Pulse 92 /min Comments: Pattern: Regular Respiration Rate 17 /min Comments: Pattern: Unlabored O2 SAT 97 % Comments: Room air BP Systolic 126 mm[Hg] Comments: Patient Position: Sitting; Cuff Location: Left Arm; Cuff Size: Standard BP Diastolic 74 mm[Hg] Comments: Patient Position: Sitting; Cuff Location: Left Arm; Cuff Size: Standard Weight 185 lb Height 66 in Body Mass Index Calculated 29.86 kg/m2 Body Surface Area Calculated 1.94 m2 :36 Temperature 98.2 f Comments: Method: Temporal Pulse 82 /min Comments: Pattern: Regular Respiration Rate 16 /min Comments: Pattern: Unlabored BP Systolic 124 mm[Hg] Comments: Patient Position: Sitting; Cuff Location: Left Arm; Cuff Size: Standard BP Diastolic 66 mm[Hg] Comments: Patient Position: Sitting; Cuff Location: Left Arm; Cuff Size: Standard Weight 185 lb Height 66 in Body Mass Index Calculated 29.86 kg/m2 Body Surface Area Calculated 1.94 m2 :46 Temperature 96.6 f Comments: Method: Temporal Pulse 80 /min Comments: Pattern: Regular Respiration Rate 18 /min Comments: Pattern: Unlabored O2 SAT 96 % Comments: Room air BP Systolic 132 mm[Hg] Comments: Patient Position: Sitting; Cuff Location: Left Arm; Cuff Size: Standard BP Diastolic 78 mm[Hg] Comments: Patient Position: Sitting; Cuff Location: Left Arm; Cuff Size: Standard Weight 186 lb Height 66 in Body Mass Index Calculated 30.02 kg/m2 Body Surface Area Calculated 1.94 m2 :53 Temperature 96.5 f Comments: Method: Tympanic Pulse 75 /min Comments: Pattern: Regular Respiration Rate 18 /min Comments: Pattern: Unlabored O2 SAT 97 % Comments: Room air BP Systolic 124 mm[Hg] Comments: Patient Position: Sitting; Cuff Location: Left Arm; Cuff Size: Standard BP Diastolic 72 mm[Hg] Comments: Patient Position: Sitting; Cuff Location: Left Arm; Cuff Size: Standard Weight 185 lb Height 66 in Body Mass Index Calculated 29.86 kg/m2 Body Surface Area Calculated 1.94 m2 :37 Temperature 98.2 f Comments: Method: Temporal Pulse 68 /min Comments: Pattern: Regular Respiration Rate 16 /min Comments: Pattern: Unlabored BP Systolic 132 mm[Hg] Comments: Patient Position: Sitting; Cuff Location: Left Arm; Cuff Size: Standard BP Diastolic 76 mm[Hg] Comments: Patient Position: Sitting; Cuff Location: Left Arm; Cuff Size: Standard Weight 189 lb Height 66 in Body Mass Index Calculated 30.51 kg/m2 Body Surface Area Calculated 1.95 m2 :03 Temperature 96.9 f Comments: Method: Temporal Pulse 72 /min Comments: Pattern: Regular Respiration Rate 16 /min Comments: Pattern: Unlabored O2 SAT 97 % Comments: Room air BP Systolic 122 mm[Hg] Comments: Patient Position: Sitting; Cuff Location: Left Arm; Cuff Size: Standard BP Diastolic 72 mm[Hg] Comments: Patient Position: Sitting; Cuff Location: Left Arm; Cuff Size: Standard Weight 189 lb Height 66 in Body Mass Index Calculated 30.51 kg/m2 Body Surface Area Calculated 1.95 m2 :20 Temperature 96.2 f Pulse 70 /min Comments: Pattern: Regular Respiration Rate 18 /min Comments: Pattern: Unlabored O2 SAT 98 % Comments: Room air BP Systolic 126 mm[Hg] Comments: Patient Position: Sitting; Cuff Location: Left Arm; Cuff Size: Standard BP Diastolic 80 mm[Hg] Comments: Patient Position: Sitting; Cuff Location: Left Arm; Cuff Size: Standard Weight 189 lb Height 66 in Body Mass Index Calculated 30.51 kg/m2 Body Surface Area Calculated 1.95 m2 :29 Comments: orthostatic bp assessment: 1:38pmlying- 94/72 hr 79sitting- 116/78 hr 86standing- 109/85 hr 97 Temperature 97.7 f Pulse 89 /min Comments: Pattern: Regular Respiration Rate 16 /min Comments: Pattern: Unlabored O2 SAT 97 % Comments: Room air BP Systolic 118 mm[Hg] Comments: Patient Position: Sitting; Cuff Location: Left Arm; Cuff Size: Standard BP Diastolic 76 mm[Hg] Comments: Patient Position: Sitting; Cuff Location: Left Arm; Cuff Size: Standard Weight 182 lb Height 66 in Body Mass Index Calculated 29.38 kg/m2 Body Surface Area Calculated 1.92 m2 :54 Temperature 97.9 f Pulse 86 /min Comments: Pattern: Regular Respiration Rate 20 /min Comments: Pattern: Unlabored O2 SAT 94 % Comments: Room air BP Systolic 118 mm[Hg] Comments: Patient Position: Sitting; Cuff Location: Left Arm; Cuff Size: Standard BP Diastolic 78 mm[Hg] Comments: Patient Position: Sitting; Cuff Location: Left Arm; Cuff Size: Standard Weight 181 lb Height 66 in Body Mass Index Calculated 29.21 kg/m2 Body Surface Area Calculated 1.92 m2 :54 Temperature 96.2 f Pulse 86 /min Comments: Pattern: Regular Respiration Rate 20 /min Comments: Pattern: Unlabored O2 SAT 96 % Comments: Room air BP Systolic 138 mm[Hg] Comments: Patient Position: Sitting; Cuff Location: Left Arm; Cuff Size: Standard BP Diastolic 78 mm[Hg] Comments: Patient Position: Sitting; Cuff Location: Left Arm; Cuff Size: Standard Weight 188 lb Height 66 in Body Mass Index Calculated 30.34 kg/m2 Body Surface Area Calculated 1.95 m2 :02 Temperature 98.8 f Pulse 109 /min Comments: Pattern: Regular Respiration Rate 18 /min Comments: Pattern: Unlabored O2 SAT 97 % Comments: Room air BP Systolic 122 mm[Hg] Comments: Patient Position: Sitting; Cuff Location: Left Arm; Cuff Size: Standard BP Diastolic 78 mm[Hg] Comments: Patient Position: Sitting; Cuff Location: Left Arm; Cuff Size: Standard Weight 188 lb Height 66 in Body Mass Index Calculated 30.34 kg/m2 Body Surface Area Calculated 1.95 m2 :47 Temperature 97.2 f Comments: Method: Temporal Pulse 77 /min Comments: Pattern: Regular Respiration Rate 18 /min Comments: Pattern: Unlabored O2 SAT 99 % Comments: Room air BP Systolic 124 mm[Hg] Comments: Patient Position: Sitting; Cuff Location: Left Arm; Cuff Size: Large BP Diastolic 82 mm[Hg] Comments: Patient Position: Sitting; Cuff Location: Left Arm; Cuff Size: Large Weight 188 lb Height 66 in Body Mass Index Calculated 30.34 kg/m2 Body Surface Area Calculated 1.95 m2 :04 Temperature 97.7 f Pulse 79 /min Comments: Pattern: Regular Respiration Rate 16 /min Comments: Pattern: Unlabored O2 SAT 98 % Comments: Room air BP Systolic 114 mm[Hg] Comments: Patient Position: Sitting; Cuff Location: Left Arm; Cuff Size: Standard BP Diastolic 76 mm[Hg] Comments: Patient Position: Sitting; Cuff Location: Left Arm; Cuff Size: Standard Weight 188 lb Height 66 in Body Mass Index Calculated 30.34 kg/m2 Body Surface Area Calculated 1.95 m2 :52 Temperature 98.5 f Pulse 77 /min Comments: Pattern: Regular Respiration Rate 17 /min Comments: Pattern: Unlabored O2 SAT 98 % Comments: Room air BP Systolic 116 mm[Hg] Comments: Patient Position: Sitting; Cuff Location: Left Arm; Cuff Size: Standard BP Diastolic 64 mm[Hg] Comments: Patient Position: Sitting; Cuff Location: Left Arm; Cuff Size: Standard Weight 189.375 lb Height 66 in Body Mass Index Calculated 30.57 kg/m2 Body Surface Area Calculated 1.95 m2 :13 Temperature 98.1 f Comments: Method: Tympanic Pulse 75 /min Comments: Pattern: Regular Respiration Rate 18 /min Comments: Pattern: Unlabored O2 SAT 96 % Comments: Room air BP Systolic 126 mm[Hg] Comments: Patient Position: Sitting; Cuff Location: Left Arm; Cuff Size: Standard BP Diastolic 84 mm[Hg] Comments: Patient Position: Sitting; Cuff Location: Left Arm; Cuff Size: Standard Weight 186 lb Height 66 in Body Mass Index Calculated 30.02 kg/m2 Body Surface Area Calculated 1.94 m2 :57 Pulse 79 /min Comments: Pattern: Regular Respiration Rate 18 /min Comments: Pattern: Unlabored O2 SAT 98 % Comments: Room air BP Systolic 118 mm[Hg] Comments: Patient Position: Sitting; Cuff Location: Left Arm; Cuff Size: Large BP Diastolic 72 mm[Hg] Comments: Patient Position: Sitting; Cuff Location: Left Arm; Cuff Size: Large Weight 187 lb Height 66 in Body Mass Index Calculated 30.18 kg/m2 Body Surface Area Calculated 1.94 m2 :30 Temperature 98.7 f Pulse 84 /min Comments: Pattern: Regular Respiration Rate 16 /min Comments: Pattern: Unlabored O2 SAT 99 % Comments: Room air BP Systolic 120 mm[Hg] Comments: Patient Position: Sitting; Cuff Location: Left Arm; Cuff Size: Standard BP Diastolic 80 mm[Hg] Comments: Patient Position: Sitting; Cuff Location: Left Arm; Cuff Size: Standard Weight 187 lb Height 66 in Body Mass Index Calculated 30.18 kg/m2 Body Surface Area Calculated 1.94 m2 :17 Temperature 97.7 f Pulse 69 /min Comments: Pattern: Regular Respiration Rate 16 /min Comments: Pattern: Unlabored O2 SAT 97 % Comments: Room air BP Systolic 122 mm[Hg] Comments: Patient Position: Sitting; Cuff Location: Left Arm; Cuff Size: Standard BP Diastolic 82 mm[Hg] Comments: Patient Position: Sitting; Cuff Location: Left Arm; Cuff Size: Standard Weight 184 lb Height 66 in Body Mass Index Calculated 29.7 kg/m2 Body Surface Area Calculated 1.93 m2 :27 Temperature 97.5 f Pulse 56 /min Comments: Pattern: Regular Respiration Rate 16 /min Comments: Pattern: Unlabored O2 SAT 99 % Comments: Room air BP Systolic 128 mm[Hg] Comments: Patient Position: Sitting; Cuff Location: Left Arm; Cuff Size: Standard BP Diastolic 82 mm[Hg] Comments: Patient Position: Sitting; Cuff Location: Left Arm; Cuff Size: Standard Weight 181.25 lb Height 66 in Body Mass Index Calculated 29.25 kg/m2 Body Surface Area Calculated 1.92 m2 :48 Temperature 97.5 f Pulse 66 /min Comments: Pattern: Regular Respiration Rate 16 /min Comments: Pattern: Unlabored O2 SAT 98 % Comments: Room air BP Systolic 124 mm[Hg] Comments: Patient Position: Sitting; Cuff Location: Left Arm; Cuff Size: Standard BP Diastolic 82 mm[Hg] Comments: Patient Position: Sitting; Cuff Location: Left Arm; Cuff Size: Standard Weight 186.5 lb Height 66 in Body Mass Index Calculated 30.1 kg/m2 Body Surface Area Calculated 1.94 m2 :04 Temperature 97.8 f Pulse 74 /min Comments: Pattern: Regular Respiration Rate 16 /min Comments: Pattern: Unlabored O2 SAT 98 % Comments: Room air BP Systolic 118 mm[Hg] Comments: Patient Position: Sitting; Cuff Location: Left Arm; Cuff Size: Standard BP Diastolic 78 mm[Hg] Comments: Patient Position: Sitting; Cuff Location: Left Arm; Cuff Size: Standard Weight 188 lb Height 66 in Body Mass Index Calculated 30.34 kg/m2 Body Surface Area Calculated 1.95 m2 :22 Temperature 97.6 f Pulse 65 /min Comments: Pattern: Regular Respiration Rate 17 /min Comments: Pattern: Unlabored O2 SAT 99 % Comments: Room air BP Systolic 120 mm[Hg] Comments: Patient Position: Sitting; Cuff Location: Left Arm; Cuff Size: Standard BP Diastolic 78 mm[Hg] Comments: Patient Position: Sitting; Cuff Location: Left Arm; Cuff Size: Standard Weight 188 lb Height 66 in Body Mass Index Calculated 30.34 kg/m2 Body Surface Area Calculated 1.95 m2 :04 Pulse 82 /min Comments: Pattern: Regular Respiration Rate 16 /min Comments: Pattern: Unlabored O2 SAT 98 % Comments: Room air BP Systolic 120 mm[Hg] Comments: Patient Position: Sitting; Cuff Location: Left Arm; Cuff Size: Standard BP Diastolic 70 mm[Hg] Comments: Patient Position: Sitting; Cuff Location: Left Arm; Cuff Size: Standard Weight 188 lb Height 66 in Body Mass Index Calculated 30.34 kg/m2 Body Surface Area Calculated 1.95 m2 :09 Temperature 97.6 f Pulse 62 /min Comments: Pattern: Regular Respiration Rate 16 /min Comments: Pattern: Unlabored O2 SAT 100 % Comments: Room air BP Systolic 108 mm[Hg] Comments: Patient Position: Sitting; Cuff Location: Left Arm; Cuff Size: Standard BP Diastolic 68 mm[Hg] Comments: Patient Position: Sitting; Cuff Location: Left Arm; Cuff Size: Standard :22 Pulse 71 /min Comments: Pattern: Regular Respiration Rate 15 /min Comments: Pattern: Unlabored O2 SAT 98 % Comments: Room air BP Systolic 116 mm[Hg] Comments: Patient Position: Sitting; Cuff Location: Left Arm; Cuff Size: Standard BP Diastolic 74 mm[Hg] Comments: Patient Position: Sitting; Cuff Location: Left Arm; Cuff Size: Standard Weight 188 lb Height 66 in Body Mass Index Calculated 30.34 kg/m2 Body Surface Area Calculated 1.95 m2 :29 Pulse 77 /min Comments: Pattern: Regular Respiration Rate 16 /min Comments: Pattern: Unlabored O2 SAT 98 % Comments: Room air BP Systolic 114 mm[Hg] Comments: Patient Position: Sitting; Cuff Location: Left Arm; Cuff Size: Standard BP Diastolic 78 mm[Hg] Comments: Patient Position: Sitting; Cuff Location: Left Arm; Cuff Size: Standard Weight 188 lb Height 66 in Body Mass Index Calculated 30.34 kg/m2 Body Surface Area Calculated 1.95 m2 :01 Temperature 98.2 f Pulse 82 /min Comments: Pattern: Regular Respiration Rate 16 /min Comments: Pattern: Unlabored O2 SAT 98 % Comments: Room air BP Systolic 112 mm[Hg] Comments: Patient Position: Sitting; Cuff Location: Left Arm; Cuff Size: Standard BP Diastolic 62 mm[Hg] Comments: Patient Position: Sitting; Cuff Location: Left Arm; Cuff Size: Standard Weight 178.25 lb Height 66 in Body Mass Index Calculated 28.77 kg/m2 Body Surface Area Calculated 1.9 m2 :47 Temperature 97.8 f Pulse 78 /min Comments: Pattern: Regular Respiration Rate 18 /min Comments: Pattern: Unlabored O2 SAT 98 % Comments: Room air BP Systolic 122 mm[Hg] Comments: Patient Position: Sitting; Cuff Location: Left Arm; Cuff Size: Standard BP Diastolic 78 mm[Hg] Comments: Patient Position: Sitting; Cuff Location: Left Arm; Cuff Size: Standard Weight 184.25 lb Height 66 in Body Mass Index Calculated 29.74 kg/m2 Body Surface Area Calculated 1.93 m2 Results Date Description Value Details :32 Vitamin B12 280 pg/mL (Normal) Comments: [facility] [address] [place], [place], [address] Range: 211-069 :29 Methylmalonic Acid Bld Comments: [facility] (refer to report for specific site)refer to report for address and phone number METHYLM Comments: TEST RESULT UNITS REFERENCE INTERVALMethylmalonic Acid, Serum 497 HIGH nmol/L 0 - 378Disclaimer:This test was developed and its performance characterist 724808 (Normal) icsdetermined by [facility]. It has not been cleared or approvedby the U.S. Food and Drug Administration. TESTING PERFORMED AT [facility]. ORIGINAL R EPORT ON FILE IN LAB CONTAINS ADDITIONAL TEST SITE INFORMATION. 97-Ybt-39981:25 CREATININE FINGERSTICK Comments: [facility] LaboratoryPoint [facility] [address] [place] [address] EGFR WB 52.0000 mL/min (Abnormal) CREATININE WB 1.1 mg/dL (Abnormal) Range: 0.55-1.02 53-Gtw-365600:07 BILIRUBIN DIRECT (75679) Comments: PATIENT NOT FASTINGPERFORMED BY: [facility] [id number] Bilirubin, Total 1.2 mg/dL (Normal) Range: 0.0-1.2 26-Arv-594672:08 Comprehensive Metabolic Profil Comments: [facility] [address] [place], [address] GAP 7 (Normal) Range: 5-15 CO2 30.0 mmol/L (Normal) Range: 21.0-32.0 CL 105 mmol/L (Normal) Range: 98-107 K 3.8 mmol/L (Normal) Range: 3.5-5.1 NA 142 mmol/L (Normal) Range: 136-145 T BILI 1.60 mg/dL (Abnormal) Range: 0.20-1.00 ALT 31 U/L (Normal) Range: 13-56 ALK P 64 U/L (Normal) Range: 45-117 AST 22 U/L (Normal) Range: 15-37 CA 9.4 mg/dL (Normal) Range: 8.5-10.1 A/G 1.6 {RATIO} (Normal) Range: 0.9-2.4 GLOB 2.8 g/dL (Normal) Range: 2.2-4.2 ALB 4.6 g/dL (Normal) Range: 3.2-5.0 T PROT 7.4 g/dL (Normal) Range: 6.4-8.2 BUN/CRE 18.9 {RATIO} (Normal) Range: 10-20 EST GFR - AA 80 mL/min (Normal) Comments: GFR Calc EST GFR 66 mL/min (Normal) Comments: Non- GFR Calc CREAT,SERUM 0.90 mg/dL (Normal) Range: 0.55-1.02 Comments: The validity of the calculated GFR AND GFRAA in patients over70 years has not been determined. Clinical correlation isessential. BUN 17 mg/dL (Normal) Range: 7-18 GLU 96 mg/dL (Normal) Range: 74-106 Comments: Please note revised GLUCOSE reference range pvvhoiqwt06/02/2018. 27-Dxw-86042:02 Lipid Profile Comments: [facility] [address] [place], [place], [address] VLDL 29 mg/dL (Normal) Range: 5-40 LDL 59 mg/dL (Normal) Range: 0-130 HDL 70 mg/dL (Normal) Comments: The drugs N-Acetylcysteine and Metamizole may falselydepress this assay. Reference Range HDL <40 mg/dL Low HDL Cholesterol HDL >or= 60 mg/dL High HDL Cholesterol TRIG 147 mg/dL (Normal) Comments: The drugs N-Acetylcysteine and Metamizole may falselydepress this assay.Serum Triglycerides Reference Interval Normal <150 mg/dL Borderline high 150 - 199 mg/dL High 200 - 499 mg/dL Very High > or = 500 mg/dL CHOL 158 mg/dL (Normal) Comments: <200 mg/dL Desirable 200-240 mg/dL Borderline >240 mg/dL High Risk 83-Wxl-13192:02 Liver Profile Comments: [facility] [address] [place], [place], [id number] D BILI 0.23 mg/dL (Normal) Range: 0.00-0.30 T BILI 1.30 mg/dL (Abnormal) Range: 0.20-1.00 ALT 26 U/L (Normal) Range: 13-56 Comments: Please note revised ALT reference range hubqclakt95/28/2018. ALK P 60 U/L (Normal) Range: 45-117 AST 15 U/L (Normal) Range: 15-37 GLOB 3.0 g/dL (Normal) Range: 2.2-4.2 ALB 3.9 g/dL (Normal) Range: 3.2-5.0 T PROT 6.9 g/dL (Normal) Range: 6.4-8.2 2-Ywu-142415:25 Basic Metabolic Profile (BMP) Comments: [facility] [address] [place], [place], [id number] GAP 7 (Normal) Range: 5-15 CO2 26.0 mmol/L (Normal) Range: 21.0-32.0 CL 107 mmol/L (Normal) Range: 98-107 K 4.5 mmol/L (Normal) Range: 3.5-5.1 Comments: Moderate Hemolysis, Result may be falsely increased. NA 140 mmol/L (Normal) Range: 136-145 CA 8.9 mg/dL (Normal) Range: 8.5-10.1 BUN/CRE 19.5 {RATIO} (Normal) Range: 10-20 Estimated CRCL 66.00 ml/min (Normal) EST GFR - AA 83 mL/min (Normal) Comments: GFR Calc EST GFR 68 mL/min (Normal) Comments: Non- GFR Calc CREAT,SERUM 0.87 mg/dL (Normal) Range: 0.55-1.02 Comments: The validity of the calculated GFR AND GFRAA in patients over70 years has not been determined. Clinical correlation isessential. BUN 17 mg/dL (Normal) Range: 7-18 GLU 121 mg/dL (Abnormal) Range: 70-110 Comments: Fasting Glucose result from 110 to <126 mg/dLsuggests IMPAIRED HOMEOSTASIS per A.D.A. criteria. 2-Sdo-531764:25 CBC W/Diff, Automated Comments: [facility] [address] [place], [address] Absolute Lymph 2.04 {X10_3/ul} (Normal) Range: 0.83-4.51 Absolute Neut 7.0 {X10_3/uL} (Normal) Range: 2.0-7.7 IM GRAN % 0.400 % (Normal) Range: 0.0-0.9 Comments: IG% - Immature Granulocytes (promyelocytes, myelocytes andmetamyelocytes) > 1% indicates that a LEFT SHIFT is Present. BASO% 0.1 % (Normal) Range: 0-1 EO% 1.6 % (Normal) Range: 0-5 MONO% 4.0 % (Normal) Range: 0-10 LY% 21.3 % (Normal) Range: 19-41 NEUT% 72.6 % (Abnormal) Range: 47-70 MPV 9.5 fL (Normal) Range: 6.2-12.0 PLT 218 K/mm3 (Normal) Range: 150-450 RDW SD 45.7 fL (Abnormal) Range: 35.1-43.9 RDW CV 12.7 % (Normal) Range: 11.6-14.6 MCHC 34.0 {g/gl} (Normal) Range: 32-36 MCH 33.6 pg (Abnormal) Range: 27.0-32.0 MCV 98.8 fL (Normal) Range: 81-99 HCT 39.7 % (Normal) Range: 37-47 HGB 13.5 g/dL (Normal) Range: 12.0-15.0 RBC 4.02 {M/mm3} (Abnormal) Range: 4.2-5.4 WBC 9.6 K/mm3 (Normal) Range: 4.4-11.0 :50 Rapid Flu (12174 x 2) Comments: Negative Influenza A Ag Negative (Normal) :51 Lipid Profile Comments: [facility] [address] [facility] [place], [address] VLDL 34 mg/dL (Normal) Range: 5-40 Comments: ADDENDA: Cardio LDL 53 mg/dL (Normal) Range: 0-130 HDL 68 mg/dL (Normal) Comments: The drugs N-Acetylcysteine and Metamizole may falselydepress this assay. Reference Range HDL <40 mg/dL Low HDL Cholesterol HDL >or= 60 mg/dL High HDL Cholesterol TRIG 170 mg/dL (Normal) Comments: The drugs N-Acetylcysteine and Metamizole may falselydepress this assay.Serum Triglycerides Reference Interval Normal <150 mg/dL Borderline high 150 - 199 mg/dL High 200 - 499 mg/dL Very High > or = 500 mg/dL CHOL 155 mg/dL (Normal) Comments: <200 mg/dL Desirable 200-240 mg/dL Borderline >240 mg/dL High Risk :51 Liver Profile Comments: [facility] [address] [place], [address] D BILI 0.23 mg/dL (Normal) Range: 0.00-0.30 T BILI 1.10 mg/dL (Abnormal) Range: 0.20-1.00 ALT 25 U/L (Normal) Range: 12-78 ALK P 67 U/L (Normal) Range: 45-117 AST 15 U/L (Normal) Range: 15-37 GLOB 3.0 g/dL (Normal) Range: 2.3-3.5 ALB 3.8 g/dL (Normal) Range: 3.4-5.0 T PROT 6.8 g/dL (Normal) Range: 6.4-8.2 9-Vih-895713:16 Anti-TPO Antibody (34318) Comments: PATIENT NOT FASTINGPERFORMED BY: [facility] [id number] Thyroid Peroxidase (TPO) Ab 10 {IU/mL} (Normal) Range: 0-34 5-Yyz-402438:16 T4, FREE (THYROXINE) Comments: PATIENT NOT FASTINGPERFORMED BY: [facility] [id number] Information: [id number], [id number] (51860) T4,Free(Direct) 1.20 ng/dL (Normal) Range: 0.82-1.77 0-Uax-084376:16 T3, FREE (TRIDOTHYRONINE) (08191) Comments: PATIENT NOT FASTINGPERFORMED BY: [facility] [id number] Triiodothyronine,Free,Serum 3.5 pg/mL (Normal) Range: 2.0-4.4 1-Elo-616476:16 TSH (THYROID STIMULATING Comments: PATIENT NOT FASTINGPERFORMED BY: CB [facility] [address] [place] [id number] HORMONE) (06338) TSH 1.410 {uIU/mL} Range: 0.450-4.500 (Normal) EGD ([employer]) See Note (Normal) Comments: [facility] [address] [place], [address] ; another doc 2:47 Comments: Patient: MICHELLE BROWN : 1950 (65/F) Acct Num: [id number] Phys: Tarun Stanton Unit Num: [id number] Loc: [facility] Specimen: [id number] Received: 01/23/161641 Spec Type : EGD BIOPSY TISSUES TISSUES: COMMENT The results of immunohistochemistry for Helicobacter pylori will be reported separately ([id number]). GROSS DESCRIPTION Received is one cont ainer labeled with the patient's name and designated gastric biopsy. The specimen consists of multiple irregular fragments of light sahu soft tissue that in aggregate measure 0.5 x 0.3 x 0.1 cm. The specimen is totally submitted in one cassette. / SJ:andrew 01/24/16 TC:3 CPT:90714 HEADER OPERATION: EGD with biopsies PRE-OP DIAGNOSIS: Bloating, nausea TISSUE SUBMITTED: Gastric biopsy, rule out gastritis MICROSCOPIC DESCRIPTION Slides are reviewed. The specimen shows fragments of gastric mucosa with chronic inflammatory cell infiltrates in the lamina propria consisting of lymphocyt es and plasma cells, consistent with mild chronic gastritis. MICROSCOPIC DIAGNOSIS Gastric biopsy: Mild gastritis. Signed Jez Young 01/25/16 <signature on file> IMMUNOHISTOCHEMISTRY See Note (Normal) Comments: [facility] [address] [place], [address] ; another doc :00 Comments: Patient: MICHELLE BROWN : 1950 (65/F) Acct Num: [id number] Phys: Tarun Stanton Unit Num: [id number] Loc: [facility] Specimen: [id number] Received: 01/25/1655 Spec Typ e: IMMUNO TISSUES TISSUES: SPECIMEN INFORMATION: Tissue Source: Gastric biopsy Clinical Info: Bloating, nausea Specimen Number: [id number] CPT code: 16957 METHODOLOGY: Dep araffinized sections of prefer/formalin-fixed tissue or PAP/DQ stained slides are incubated with monoclonal/polyclonal antibodies/oligonucleotide probes. Localization is made via biotin free immunoper oxidase method. Appropriate controls are performed and reacted as expected. Results on target cell population are indicated in the following table: RESULTS: ANTIBODY / CLONE RESULT H Pylori (polyclonal) negative These tests were developed and their performance characteristics determined by [facility]. They may not have been mellissa red or approved by the U.S. Food and Drug Administration. The FDA has determined that such clearance or approval is not necessary. INTERPRETATION: Gastric biopsy: Negative for Helicobacter pylor i organisms. SJ:andrew 01/25/16 PHYSICIAN AND INSTITUTION [address] [address] Signed Jez Young 01/26/16 <signature on file> :23 CDIFF (Molecular) Comments: [address], [address] CDIFF See Note (Normal) Comments: Cdiff-MolecularC. Diff DNA Negative- No toxigenic C. Diff DNA Detected :23 ENTERIC PATHOGEN PANEL STOOL Comments: [address], [address] EP PANEL See Note (Normal) Comments: EP PANEL STOOLNot detected for Campylobacter group, Salmonella species, Shigella species, Vibrio Group, Yersinia enterocolitica, EHEC (Shiga Toxin 1, Shiga Toxin 2), Norovirus Gl/Gll, and Ro tavirus A. Other common stool pathogens are not detected on this panel include: Aeromonas/Plesiomonas or parasites. Order testing for these organisms separately if suspected. This is an amplified DNA test which makes it both specific and sensitive. CAMPYLOBACTER Not DetectedSalmonella Not DetectedShigella sp. Not DetectedShiga Toxin Not Dete ctedYersinia Not DetectedVIBRIO Not DetectedNorovirus Not DetectedRotavirus Not Detected :23 Ova and Parasites 8623 Comments: [facility] [address] [place], [place], [id number] OP See Note Comments: O + P 8623OVA AND PARASITES EXAM, ROUTINE These results were obtained using wet preparation(s) and trichrome stained smear. This test does not include testing for Crytosporidium parvum, C (Normal) yclospora, or Microsporidia. TESTING PERFORMED AT [facility]. ORIGINAL REPORT ON FILE IN LAB CONTAINS ADDITIONAL TEST SITE INFORMATION. ____ Ova/Parasite Exam NO OVA, CYSTS, OR PARASITES FOUND. :23 Stool Lactoferrin/WBC Comments: [facility] [address] [facility] [place], [address] WBCST See Note (Normal) Comments: Stool Lacto/WBCFecal WBC Lactoferrin Negative: No Fecal WBC Lactoferrin present :23 Stool Occult Blood iFOB Comments: [facility] [address] [facility] [place], [address] STOB See Note (Normal) Comments: STOB iFOBOccult Blood Negative :37 LIPID PANEL (14409) Comments: PATIENT WAS FASTINGPERFORMED BY: [facility] [address] [facility] [id number] LDL/HDL Ratio 1.3 {ratio_units} Range: 0.0-3.2 (Normal) Comments: LDL/HDL Ratio Men Women 1/2 Avg.Risk 1.0 1.5 Av g.Risk 3.6 3.2 2X Avg.Risk 6.2 5.0 3X Avg.Risk 8.0 6.1 LDL Cholesterol Calc 70 mg/dL (Normal) Range: 0-99 VLDL Cholesterol Anthony 39 mg/dL (Normal) Range: 5-40 HDL Cholesterol 56 mg/dL (Normal) Comments: According to ATP-III Guidelines, HDL-C >59 mg/dL is considered anegative risk factor for CHD. Triglycerides 197 mg/dL (Abnormal) Range: 0-149 Cholesterol, Total 165 mg/dL (Normal) Range: 100-199 : COLON BIOPSY (CHOOSE See Note (Normal) Comments: [facility] [address] [place], [address] 20 SITE) Comments: Patient: MICHELLE BROWN : 1950 (65/F) Acct Num: [id number] Phys: Tarun Stanton Unit Num: [id number] Loc: [facility] Specimen: [id number] Received: 11/25/151510 Spec Type : COLON BX TISSUES TISSUES: GROSS DESCRIPTION A - Received is one container labeled with the patient name and designated transverse colon. The specimen consists of a piece of sahu-p ink polyp measuring 0.5 x 0.5 x 0.3 cm. The specimen is submitted entirely in one cassette. B - Received is one container labeled with the patient name and designated sigmoid. The specimen consist s of three irregular fragments of light sahu softtissue that in aggregate measure 0.7 x 0.2 x 0.1 cm. The specimen is totally submitted in one cassette. / MAXI:andrew 11/29/15 TC:1 CPT:84727 x2 HEADER OPERATION: Colonoscopy with polypectomy PRE-OP DIAGNOSIS: Abdominal pain/bloating TISSUE SUBMITTED: A - Transverse colon polyp, rule out adenoma, B - Sigmoid biopsy, rule out adenoma MICROSCOPIC DESCRIPTION Slides are reviewed. MICROSCOPIC DIAGNOSIS A. Transverse colon polyp, polypectomy: Tubular adenoma. B. Sigmoid colon, biopsy: Fragments of hyperplastic polyp. MAXI: andrew 11/30/15 Signed Jez Young 11/30/15 <signature on file> :18 Fecal Occult Blood , Office (13715) Fecal Occult Blood , Office (Inhouse) negative (Normal) :30 Bilirubin, Direct Comments: [facility] [address] [place], [place], [id number] D BILI 0.17 mg/dL (Normal) Range: 0.00-0.30 :30 CBC W/Diff, Automated Comments: [facility] [address] [place], [place], [address] Absolute Lymph 2.15 {X10_3/ul} (Normal) Range: 0.83-4.51 Absolute Neut 3.3 {X10_3/uL} (Normal) Range: 2.0-7.7 IM GRAN % 0.200 % (Normal) Range: 0.0-0.9 Comments: IG% - Immature Granulocytes (promyelocytes, myelocytes andmetamyelocytes) > 1% indicates that a LEFT SHIFT is Present. BASO% 0.8 % (Normal) Range: 0-1 EO% 5.5 % (Abnormal) Range: 0-5 MONO% 9.0 % (Normal) Range: 0-10 LY% 33.5 % (Normal) Range: 19-41 NEUT% 51.0 % (Normal) Range: 47-70 MPV 10.2 fL (Normal) Range: 6.2-12.0 PLT 192 K/mm3 (Normal) Range: 150-450 RDW SD 46.5 fL (Abnormal) Range: 35.1-43.9 RDW CV 12.7 % (Normal) Range: 11.6-14.6 MCHC 33.3 {g/gl} (Normal) Range: 32-36 MCH 33.7 pg (Abnormal) Range: 27.0-32.0 MCV 101.0 fL (Abnormal) Range: 81-99 HCT 40.5 % (Normal) Range: 37-47 HGB 13.5 g/dL (Normal) Range: 12.0-15.0 RBC 4.01 {M/mm3} (Abnormal) Range: 4.2-5.4 WBC 6.4 K/mm3 (Normal) Range: 4.4-11.0 :30 Comprehensive Metabolic Profil Comments: [facility] [address] [place], [address] GAP 6 (Normal) Range: 5-15 CO2 28.0 mmol/L (Normal) Range: 21.0-32.0 CL 107 mmol/L (Normal) Range: 98-107 K 4.1 mmol/L (Normal) Range: 3.5-5.1 NA 141 mmol/L (Normal) Range: 136-145 T BILI 0.80 mg/dL (Normal) Range: 0.20-1.00 ALT 25 U/L (Normal) Range: 12-78 ALK P 70 U/L (Normal) Range: 50-136 AST 20 U/L (Normal) Range: 15-37 CA 8.4 mg/dL (Abnormal) Range: 8.5-10.1 A/G 1.3 {RATIO} (Normal) Range: 0.9-2.4 GLOB 3.0 g/dL (Normal) Range: 2.3-3.5 ALB 4.0 g/dL (Normal) Range: 3.4-5.0 T PROT 7.0 g/dL (Normal) Range: 6.4-8.2 BUN/CRE 15.3 {RATIO} (Normal) Range: 10-20 EST GFR - AA 85 mL/min (Normal) Comments: GFR Calc EST GFR 71 mL/min (Normal) Comments: Non- GFR Calc CREAT,SERUM 0.85 mg/dL (Normal) Range: 0.55-1.20 Comments: The validity of the calculated GFR AND GFRAA in patients over70 years has not been determined. Clinical correlation isessential. BUN 13 mg/dL (Normal) Range: 7-18 GLU 99 mg/dL (Normal) Range: 70-110 3-Cuz-775727:23 Urinalysis, Office (71938) UA - LEUKOCYTE ESTERASE Negative (Normal) UA - NITRITE Negative (Normal) URINE UROBILINGN ROLANDO TIMED Normal mg/dL (Normal) UA - PROTEIN Negative mg/dL (Normal) UA - PH 6 (Abnormal) UA - BLOOD Negative (Normal) UA - SPECIFIC GRAVITY 1.015 (Normal) UA - KETONES Negative mg/dL (Normal) UA - BILIRUBIN Negative (Normal) UA - GLUCOSE Negative (Normal) :58 Bedside Glucose Comments: [facility] [address] [place] [address] BEDSIDE GLU 104 mg/dL (Normal) Range: 70-110 Comments: Policy and Physicians Orders followedMANAGEMENT OF PATIENT CARE PER NURSING PROTOCOL :53 2 HR Glucose Tolerance Test Comments: Is Patient Fasting? YIs Patient Taking Vitamins or Folic Acid Supplements? [facility] [address] [place], [address] GLU GTT-2 HOUR 131 mg/dL (Abnormal) Range: 70-120 GLU GTT-1 HOUR 116 mg/dL (Abnormal) Range: 120-170 GLU GTT-30 min. 150 mg/dL (Normal) Range: 110-170 GLU GTT-FASTING 103 mg/dL (Normal) Range: 70-110 Comments: GLUCOSE TOLERANCE TEST Reference Interval Non- Adults Fasting 70 - 110 3 0 minutes 110 - 170 1 hour 120 - 170 2 hour 70 - 120 3 hour 70 - 110 4 hour 70 - 110 5 hour 70 - 110 :53 Antiextractable Nug Ag Comments: [facility] (refer to report for specific site)refer to report for address and phone number ELAM Ab <0.2 {AI} (Normal) Range: 0.0-0.9 SPORTS EQUIPMENT SUPERVISOR Ab <0.2 {AI} (Normal) Range: 0.0-0.9 :53 ANTINUCLEAR ANTIBODIES DIRECT Comments: [facility] (refer to report for specific site)refer to report for address and phone number UMA-DIRECT Negative (Normal) Comments: Performed at: [facility] Lab[address] [id number] Director: Tarun Goodman PhD, Phone: [phone] :53 Erythrocyte Sed Rate Comments: [facility] [address] [place], [address] SED RATE 2 mm/h (Normal) Range: 0-30 :53 Folates, (Folic Acid) Comments: Is Patient Fasting? YIs Patient Taking Vitamins or Folic Acid Supplements? [facility] [address] [place], [place], [id number] FOLATES 9.50 ng/mL (Normal) Range: 3.1-17.5 :53 Hepatitis C Antibodies Comments: [facility] (refer to report for specific site)refer to report for address and phone number; ordered by another doctor HEP C AB <0.1 {s/co_ratio} (Normal) Range: 0.0-0.9 Comments: Negative: < 0.8 Indeterminate: 0.8 - 0.9 Positive: > 0.9 In order to reduce the incidence of a false positive result, the CDC recommends that all s/co ratios between 1.0 and 10.9 be confirmed by a more specific supplemental or PCR testing. [facility] Ab w/Reflex to Verification test #[id number].Performed at: [address] [id number] Director: Tarun Goodman PhD, Phone: [phone]; ADDENDA: orderedby another doctor :53 Protein Electroph, S Comments: [facility] (refer to report for specific site)refer to report for address and phone number NOTE: Comment (Normal) Comments: The SPE pattern appears essentially unremarkable. Evidenceof monoclonal protein is not apparent. INTERPRETATION Comment (Normal) Comments: Protein electrophoresis scan will follow via computer,mail, or monologist delivery. A/G RATIO 1.7 (Normal) Range: 0.7-2.0 GLOBULIN, TOTAL 2.3 g/dL (Normal) Range: 2.0-4.5 M-SPIKE (Normal) Comments: Not Observed GAMMA GLOBULIN 0.5 g/dL (Normal) Range: 0.5-1.6 BETA GLOBULIN 0.9 g/dL (Normal) Range: 0.6-1.3 ALPHA-2 GLOBUL 0.7 g/dL (Normal) Range: 0.4-1.2 ALPHA-1 GLOBUL 0.2 g/dL (Normal) Range: 0.1-0.4 ALBUMIN 3.8 g/dL (Normal) Range: 3.2-5.6 PROTEIN,TOTAL 6.1 g/dL (Normal) Range: 6.0-8.5 :53 Rheumatoid Factor Comments: Is Patient Fasting? YIs Patient Taking Vitamins or Folic Acid Supplements? [facility] [address] [place], [address] RHEUMATOID FAC < 10.0 {IU/mL} (Normal) :53 Thyroid Stim Hormone (TSH) Comments: Is Patient Fasting? YIs Patient Taking Vitamins or Folic Acid Supplements? [facility] [address] [place], [id number] TSH 1.22 {uIU/mL} (Normal) Range: 0.358-3.74 :53 Vitamin B12 250 pg/mL (Normal) Comments: [facility] [address] [place] [place], [address] Range: 211-911 [id number]-Rnb-[id number]:28 Lipid Profile Comments: Test performed at:[facility] [address] [place] [address] VLDL 41 mg/dL (Abnormal) Range: 5-40 LDL 43 mg/dL (Normal) Range: 0-130 HDL 50 mg/dL (Normal) Comments: Reference Range HDL <40 mg/dL Low HDL Cholesterol HDL >or= 60 mg/dL High HDL Cholesterol TRIG 204 mg/dL (Abnormal) Comments: Serum Triglycerides Reference Interval Normal <150 mg/dL Borderline high 150 - 199 mg/dL High 200 - 499 mg/dL Very High > or = 500 mg/dL CHOL 134 mg/dL (Normal) Comments: <200 mg/dL Desirable 200-240 mg/dL Borderline >240 mg/dL High Risk [id number]-Pxc-[id number] Liver Profile Comments: Test performed at:[facility] [address] [place] [id number] ; Ordered by another doctor D BILI 0.26 mg/dL (Normal) Range: 0.00-0.30 T BILI 1.50 mg/dL (Abnormal) Range: 0.20-1.00 ALT 22 U/L (Normal) Range: 12-78 ALK P 71 U/L (Normal) Range: 50-136 AST 14 U/L (Abnormal) Range: 15-37 GLOB 2.8 g/dL (Normal) Range: 2.3-3.5 ALB 3.9 g/dL (Normal) Range: 3.4-5.0 T PROT 6.7 g/dL (Normal) Range: 6.4-8.2 77-Kjh-344421:40 CBC With Differential/Platelet Comments: PATIENT NOT FASTINGPERFORMED BY: [facility] [id number] Information: [id number] Immature Grans (Abs) 0.0 {x10E3/uL} (Normal) Range: 0.0-0.1 Immature Granulocytes 0 % (Normal) Baso (Absolute) 0.1 {x10E3/uL} (Normal) Range: 0.0-0.2 Eos (Absolute) 0.4 {x10E3/uL} (Normal) Range: 0.0-0.4 Monocytes(Absolute) 0.7 {x10E3/uL} (Normal) Range: 0.1-0.9 Lymphs (Absolute) 2.7 {x10E3/uL} (Normal) Range: 0.7-3.1 Neutrophils (Absolute) 4.1 {x10E3/uL} (Normal) Range: 1.4-7.0 Basos 1 % (Normal) Eos 5 % (Normal) Monocytes 8 % (Normal) Lymphs 34 % (Normal) Neutrophils 52 % (Normal) Platelets 205 {x10E3/uL} (Normal) Range: 150-379 RDW 13.5 % (Normal) Range: 12.3-15.4 MCHC 34.2 g/dL (Normal) Range: 31.5-35.7 MCH 33.1 pg (Abnormal) Range: 26.6-33.0 MCV 97 fL (Normal) Range: 79-97 Hematocrit 39.5 % (Normal) Range: 34.0-46.6 Hemoglobin 13.5 g/dL (Normal) Range: 11.1-15.9 RBC 4.08 {x10E6/uL} (Normal) Range: 3.77-5.28 WBC 8.0 {x10E3/uL} (Normal) Range: 3.4-10.8 :40 Comp. Metabolic Panel (14) Comments: PATIENT NOT FASTINGPERFORMED BY: [facility] [id number] ALT (SGPT) 21 [iU]/L (Normal) Range: 0-32 AST (SGOT) 18 [iU]/L (Normal) Range: 0-40 Alkaline Phosphatase, 59 [iU]/L (Normal) Range: 39-117 S Bilirubin, Total 1.3 mg/dL Range: 0.0-1.2 (Abnormal) A/G Ratio 2.2 (Normal) Range: 1.1-2.5 Globulin, Total 2.1 g/dL (Normal) Range: 1.5-4.5 Albumin, Serum 4.7 g/dL (Normal) Range: 3.6-4.8 Protein, Total, Serum 6.8 g/dL (Normal) Range: 6.0-8.5 Calcium, Serum 10.0 mg/dL (Normal) Range: 8.7-10.3 Carbon Dioxide, Total 23 mmol/L (Normal) Range: 18-29 Chloride, Serum 101 mmol/L (Normal) Range: 97-108 Potassium, Serum 4.5 mmol/L (Normal) Range: 3.5-5.2 Sodium, Serum 141 mmol/L (Normal) Range: 134-144 BUN/Creatinine Ratio 21 (Normal) Range: 11-26 eGFR If Africn Am 92 mL/min/1.73 (Normal) eGFR If NonAfricn Am 79 mL/min/1.73 (Normal) Creatinine, Serum 0.78 mg/dL (Normal) Range: 0.57-1.00 BUN 16 mg/dL (Normal) Range: 8-27 Glucose, Serum 101 mg/dL Range: 65-99 (Abnormal) TSH 1.140 {uIU/mL} Comments: PATIENT NOT FASTINGPERFORMED BY: INSOMEN[facility] Eygrbw0241 [facility] [id number] :40 (Normal) Range: 0.450-4.500 Vitamin D, 25-Hydroxy 14.9 ng/mL Comments: PATIENT NOT FASTINGPERFORMED BY: INSOMEN[facility] [id number] :40 (Abnormal) Range: 30.0-100.0 Comments: Vitamin D deficiency has been defined by the [place] of[employer] and an Endocrine Society practice guideline as alevel of serum 25-OH vitamin D less than 20 ng/mL (1,2).The Endocrine Society went on to further define vitamin Dinsufficiency as a level between 21 and 29 ng/mL (2).1. IOM ([place] of [employer]). 2010. Dietary reference intakes for calcium and D. [place]: The National Academies Press.2. Kristin MF, Jane JOINER, David URENA, et al. Evaluation, treatment, and prevention of vitamin D deficiency: an Endocrine Society clinical practice guideline. JCEM. 2010; 96(7):1911-30. 77-Xwi-122961:18 Urinalysis, Office (51097) UA - LEUKOCYTE ESTERASE Trace (Normal) UA - NITRITE Negative (Normal) URINE UROBILINGN ROLANDO TIMED Normal mg/dL (Normal) UA - PROTEIN Negative mg/dL (Normal) UA - PH 7 (Normal) UA - BLOOD Negative (Normal) UA - SPECIFIC GRAVITY 1.025 (Normal) UA - KETONES Negative mg/dL (Normal) UA - BILIRUBIN Negative (Normal) UA - GLUCOSE Negative (Normal) Plan of Care Name Dates Details Instructions BMI 29.0-29.9,adult : Eprescribed prescriptions (G8553) Indication: BMI 29.0-29.9,adult Pneumococcal vaccination given : Follow up in 1 year or as needed Indication: Pneumococcal vaccination given Encounter for Medicare annual wellness exam : fall reduction handout Indication: Encounter for Medicare annual wellness exam Encounter for Medicare annual wellness exam : advance planning information Indication: Encounter for Medicare annual wellness exam Encounter for Medicare annual wellness exam : elderly packet given Indication: Encounter for Medicare annual wellness exam Encounter for Medicare annual wellness exam : smoking cessation Indication: Encounter for Medicare annual wellness exam Nonsmoker : Eprescribed prescriptions (G8553) Indication: Nonsmoker Frequent headaches : Follow up for 6 min walk please schedule and schedule a Medicare exam Indication: Frequent headaches Acute sinusitis, unspecified (Renamed from Acute sinusitis) : *URI Treatment Indication: Acute sinusitis, unspecified (Renamed from Acute sinusitis) Acute sinusitis, unspecified (Renamed from Acute sinusitis) : *URI Symptoms Indication: Acute sinusitis, unspecified (Renamed from Acute sinusitis) Acute sinusitis, unspecified (Renamed from Acute sinusitis) : *Antibiotic Usage Education - Female Indication: Acute sinusitis, unspecified (Renamed from Acute sinusitis) Frequent headaches : Eprescribed prescriptions (G8553) Indication: Frequent headaches Hives of unknown origin : Follow up if no improvement or if symptoms worsen Indication: Hives of unknown origin BMI 30.0-30.9,adult : Eprescribed prescriptions (G8553) Indication: BMI 30.0-30.9,adult Upper respiratory infection : Follow up if no improvement or if symptoms worsen Indication: Upper respiratory infection BMI 30.0-30.9,adult : Eprescribed prescriptions (G8553) Indication: BMI 30.0-30.9,adult BMI 30.0-30.9,adult : Follow up in 3 weeks Indication: BMI 30.0-30.9,adult Left shoulder pain : Eprescribed prescriptions (G8553) Indication: Left shoulder pain Dehydration : Follow up to ER Indication: Dehydration Bronchitis : Reviewed Diagnostic Tests Indication: Bronchitis Post-viral cough syndrome : Reviewed Lab Indication: Post-viral cough syndrome Bronchitis : Eprescribed prescriptions (G8553) Indication: Bronchitis Nonsmoker : Follow up if no improvement or if symptoms worsen Indication: Nonsmoker Bronchitis : Eprescribed prescriptions (G8553) Indication: Bronchitis Bronchitis : Follow up tomorrow, as needed Indication: Bronchitis Bronchitis : Acute Bronchitis: Brief Version *: acute bronchitis Indication: Bronchitis Bronchitis : Continue Current Prescription(s) Indication: Bronchitis Nonsmoker : Eprescribed prescriptions (G8553) Indication: Nonsmoker Cough : *URI Treatment Indication: Cough Cough : *URI Symptoms Indication: Cough Cough : *Antibiotic Usage Education - Female Indication: Cough Cough : Eprescribed prescriptions (G8553) Indication: Cough Nonsmoker : Follow up if no improvement or if symptoms worsen Indication: Nonsmoker Nonsmoker : Eprescribed prescriptions (G8553) Indication: Nonsmoker Bronchitis : Follow up if no improvement or if symptoms worsen Indication: Bronchitis Bronchitis : Follow up if no improvement or if symptoms worsen Indication: Bronchitis Bronchitis : *URI Treatment Indication: Bronchitis Bronchitis : *URI Symptoms Indication: Bronchitis Bronchitis : *Antibiotic Usage Education - Female Indication: Bronchitis Cough : Eprescribed prescriptions (G8553) Indication: Cough Facial twitching : Eprescribed prescriptions (G8553) Indication: Facial twitching Bursitis of right hip : Follow up in 3 months Indication: Bursitis of right hip Nonsmoker : Follow up in 3 months Gen Med Indication: Nonsmoker Nonsmoker : Eprescribed prescriptions (G8553) Indication: Nonsmoker Cough : Follow up in 2 weeks repeat spirometry unless need to rto sooner bc no better Indication: Cough Bronchitis : *Antibiotic Usage Education - Female Indication: Bronchitis Cough : Eprescribed prescriptions (G8553) Indication: Cough Diarrhea : Follow up in 3 months Indication: Diarrhea Diverticulitis of colon : Eprescribed prescriptions (G8553) Indication: Diverticulitis of colon Postprandial bloating : Follow up if no improvement or if symptoms worsen Indication: Postprandial bloating Diarrhea : *Abd Pain Red Flags Indication: Diarrhea Diarrhea : Diarrhea instructions Indication: Diarrhea Encounter for screening for malignant neoplasm of colon (Renamed from Special screening for malignant neoplasms, colon) : *Colon Cancer Screening Indication: Encounter for screening for malignant neoplasm of colon (Renamed from Special screening for malignant neoplasms, colon) Postprandial bloating : Celiac Disease and the Gluten-Free Diet: diet Indication: Postprandial bloating Bronchitis : Follow up if no improvement or if symptoms worsen Indication: Bronchitis Bronchitis : Eprescribed prescriptions (G8553) Indication: Bronchitis Cough : Follow up if no improvement or if symptoms worsen Indication: Cough Bronchitis : *URI Treatment Indication: Bronchitis Bronchitis : *URI Symptoms Indication: Bronchitis Bronchitis : *Antibiotic Usage Education - Female Indication: Bronchitis Cough : *URI Treatment Indication: Cough Cough : *URI Symptoms Indication: Cough Cough : *Antibiotic Usage Education - Female Indication: Cough Cough : Eprescribed prescriptions (G8553) Indication: Cough Seborrheic dermatitis of scalp : Seborrheic Dermatitis *: dandruff Indication: Seborrheic dermatitis of scalp Seborrheic dermatitis of scalp : Eprescribed prescriptions (G8553) Indication: Seborrheic dermatitis of scalp Sciatica, left : Follow up if no improvement or if symptoms worsen Indication: Sciatica, left Low back pain : Follow up if no improvement or if symptoms worsen Indication: Low back pain Low back pain : Low Back Pain Red Flags Indication: Low back pain Rash : Follow up if no improvement or if symptoms worsen Indication: Rash Rash : Eprescribed prescriptions (G8553) Indication: Rash Frequent headaches : Follow up if no improvement or if symptoms worsen Indication: Frequent headaches Frequent headaches : Reviewed Diagnostic Tests Indication: Frequent headaches Vitamin D deficiency : Reviewed Lab Indication: Vitamin D deficiency Sinusitis : Reviewed Diagnostic Tests Indication: Sinusitis Planned Observations VITAMIN B-12 (CYANOCOBALAMIN) (45764)Indication: Vitamin B12 deficiency On: 2-Utl-662926:22 Request METABOLIC PANEL, COMPREHENSIVE (30013)Indication: Frequent headaches On: 05-Qwh-642079:06 Request OVA & PARASITE DIR SMEAR (09138)Indication: Diarrhea On: :39 Request OCCULT BLOOD FECES SCREEN (37875)Indication: Diarrhea On: :39 Request LEUKOCYTE COUNT, FECAL (73024)Indication: Diarrhea On: :39 Request C-DIFFICILE, STOOL (25969)Indication: Diarrhea On: :39 Request PHAN CULTURE-STOOL (99726)Indication: Diarrhea On: :39 Request CBC WITH MANUAL DIFF (73231)Indication: Abdominal pain On: 9-Ahz-995659:14 Request FECAL OCCULT- Tubes sent home (38408)Indication: Encounter for screening for malignant neoplasm of colon (Renamed from Special screening for malignant neoplasms, colon) On: 1-Gpv-312162:13 Request HEPATIC FUNCTION PANEL (75827)Indication: Postprandial bloating On: 9-Vvs-472455:05 Request Metabolic Panel, Comprehensive (85410)Indication: Postprandial bloating On: 2-Lcq-668947:05 Request CALCIFEDIOL (60363)Indication: Arthritis On: 61-Fyl-056377:18 Request TSH (THYROID STIMULATING HORMONE) (01945)Indication: Frequent headaches On: 13-Qou-802075:18 Request CBC, Platelets & Auto Diff (26175)Indication: Frequent headaches On: 16-Gds-093202:17 Request Metabolic Panel, Comprehensive (59717)Indication: Frequent headaches On: 21-Cku-928429:17 Request Planned Encounters Medical; General Medical - On: 30-May-2018 9:15 [facility] Vivienne Heaton CNP, CNP, Vivienne Rod Planned Procedures B 12 Injection, 1000 mcg On: 06-Mar-2018 Intent (J3420)By: Gagan Elma Comments: Vitamin b12 1000mcg injection lot:[id number]: DELT IMpt tolerated well MSMITH,MANAGER PORTABLE B 12 Injection, 1000 mcg On: 27-Feb-2018 Intent (J3420)By: Ashley Dc Comments: lot:[id number]:ztc1956xjii/route:L dltdamt:1mlDARA Ramirez PFT - Before and After SpiroBy: On: 22-Nov-2017 Intent Vivienne Heaton CNP, CNP, Mary E PNEUM VAC ADLT/IMUMNOSPR, On: 15-Nov-2017 Intent SBC/INTRM (16150)By: Vivienne Heaton CNP, CNP, Mary E SCREENING DIGITAL TOMOSYNTHESIS On: 15-Nov-2017 Intent OF BREAST (54335)By: Vivienne Heaton CNP, CNP, Mary E ANNUAL DEPRESSION SCREENING, 15 On: 15-Nov-2017 Intent MINUTES (G0444)By: Vivienne Heaton CNP, CNP, Mary E DEXA SCAN AXIAL SKELETON On: 15-Nov-2017 Intent (35150)By: Vivienne Heaton CNP, CNP, Mary E Toradol Injection, 30 mg On: 08-Nov-2017 Intent (J1885)By: Vivienne Heaton CNP, CNP, Mary E MRI BRAIN W/ CONTRAST (53323)By: On: 03-Oct-2017 Intent Natalee Hollingsworth Comments: Headaches daily x 6 weeks. Radiology - Shoulder - LeftBy: On: 10-May-2017 Intent Vivienne Heaton CNP, CNP, Mary E ELECTROCARDIOGRAM, COMPLETE On: 27-Mar-2017 Intent (ECG) (89803)By: Vivienne Heaton CNP Comments: 2 EKG's done frequent PVC with cough E Vivienne Heaton CNP Solu -Medrol Injection, 125 mg On: 27-Mar-2017 Intent (J2930)By: Vivienne Heaton CNP, CNP, Mary E Solu -Medrol Injection, 125 mg On: 22-Mar-2017 Intent (J2930)By: Vivienne Heaton CNP, CNP, Mary E Solu -Medrol Injection, 125 mg On: 21-Mar-2017 Intent (J2930)By: Natalee Hollingsworth Comments: solumedrol 125mg injectionlot: [id number]: GMpt tolerated wellAD MANAGER PORTABLE Aerosol Treatment (96884)By: On: 21-Mar-2017 Intent Natalee Hollingsworth Comments: Slight exp wheeze after aerosol treatment, better air exchange. Radiology - ChestBy: Sudarshan RAMÍREZ, On: 20-Mar-2017 Intent Vivienne Kramer CNP Comments: Call Ana Rosa Heaton with results Solu -Medrol Injection, 125 mg On: 25-Jul-2016 Intent (J2930)By: Vivienne Heaton CNP, CNP, Mary E Radiology - Chest- PA and LatBy: On: 28-Mar-2016 Intent Renee Ewing DO Spirometry (35278)By: Gildardo On: 28-Mar-2016 Intent Renee SHARPE Comments: restrivrive patterns on graph Aerosol Treatment ([id number])By: On: 23-Mar-2016 Intent Vivienne Heaton CNP, CNP, Mary E Nuclear Medicine - Gastric On: 08-Feb-2016 Intent Emptying StudyBy: Vivienne Heaton CNP, CNP, Mary E Ultrasound - Abdomen CompleteBy: On: 26-Oct-2015 Intent Vivienne Heaton CNP, CNP, Mary E PFT - CompleteBy: Sudarshan RAMÍREZ, On: 16-Aug-2015 Intent Vivienne Kramer CNP Radiology - ChestBy: Sudarshan RAMÍREZ, On: 16-Aug-2015 Intent Vivienne Kramer CNP Aerosol Treatment ([id number])By: On: 16-Aug-2015 Intent Vivienne Heaton CNP, CNP, Mary E Solu -Medrol Injection, 125 mg On: 16-Aug-2015 Intent (J2930)By: Vivienne Heaton CNP Comments: lot: [id number]: 04/12site/route: LGM/IMamt: 2mLVIS signed when applicableHECTOR Alberts CNP, Mary E Radiology - Lumbar SpineBy: Nehemias On: 01-Jun-[address] PA[address] - Brain/Head (IV Contrast On: 20-Aug-2014 Intent Needed)By: Vivienne Heaton CNP, CNP, Mary E Carotid DopplerBy: Sudarshan RAMÍREZ, On: 20-Aug-2014 Intent Vivienne Kramer CNP Planned Medications INJECTION, KETOROLAC TROMETHAMINE, PER 15 MG Ordered: 08-Nov-2017 Pending Sudarshan DOCENT COORDINATOR, Vivienne Heaton CNP, Vivienne Rod INJECTION, METHYLPREDNISOLONE SODIUM SUCCINATE, UP TO 125 MG Ordered: 16-Aug-2015 Pending Sudarshan RAMÍREZ, Vivienne Heaton DOCENT COORDINATOR, Vivienne Rod INJECTION, METHYLPREDNISOLONE SODIUM SUCCINATE, UP TO 125 MG Ordered: 25-Jul-2016 Pending Sudarshan DARRELL Vivienne Heaton DOCENT COORDINATOR, Vivienne Rod INJECTION, METHYLPREDNISOLONE SODIUM SUCCINATE, UP TO 125 MG Ordered: 21-Mar-2017 Pending Natalee Hollingsworth INJECTION, METHYLPREDNISOLONE SODIUM SUCCINATE, UP TO 125 MG Ordered: 22-Mar-2017 Pending Sudarshan DOCENT COORDINATOR, Vivienne Heaton CNP, Vivienne Rod INJECTION, METHYLPREDNISOLONE SODIUM SUCCINATE, UP TO 125 MG Ordered: 27-Mar-2017 Pending Sudarshan DARRELL, Vivienne Heaton CNP, Vivienne Rod Vitamin B-12 1000 MCG/ML Injection Solution Ordered: 27-Feb-2018 Pending Ashley Dc Vitamin B-12 1000 MCG/ML Injection Solution Ordered: 06-Mar-2018 Pending Gagan Elam Instructions Name Dates Details BMI 29.0-29.9,adult : How to access health information online Indication: BMI 29.0-29.9,adult BMI 29.0-29.9,adult : How to access health information online - Detail Indication: BMI 29.0-29.9,adult BMI 29.0-29.9,adult : Patient Instructions Indication: BMI 29.0-29.9,adult Nonsmoker : How to access health information online Indication: Nonsmoker Nonsmoker : How to access health information online - Detail Indication: Nonsmoker Pneumococcal vaccination given : Patient Instructions Indication: Pneumococcal vaccination given Frequent headaches : How to access health information online Indication: Frequent headaches Frequent headaches : How to access health information online - Detail Indication: Frequent headaches Frequent headaches : Patient Instructions Indication: Frequent headaches BMI 30.0-30.9,adult : How to access health information online Indication: BMI 30.0-30.9,adult BMI 30.0-30.9,adult : How to access health information online - Detail Indication: BMI 30.0-30.9,adult Hives of unknown origin : Patient Instructions Indication: Hives of unknown origin BMI 30.0-30.9,adult : How to access health information online Indication: BMI 30.0-30.9,adult BMI 30.0-30.9,adult : How to access health information online - Detail Indication: BMI 30.0-30.9,adult COPD (chronic obstructive pulmonary disease) : Patient Instructions Indication: COPD (chronic obstructive pulmonary disease) Left shoulder pain : How to access health information online Indication: Left shoulder pain Left shoulder pain : How to access health information online - Detail Indication: Left shoulder pain Left shoulder pain : Patient Instructions Indication: Left shoulder pain Bronchitis : How to access health information online Indication: Bronchitis Bronchitis : How to access health information online - Detail Indication: Bronchitis Bronchitis : Patient Instructions Indication: Bronchitis Bronchitis : How to access health information online Indication: Bronchitis Bronchitis : How to access health information online - Detail Indication: Bronchitis Bronchitis : Patient Instructions Indication: Bronchitis Nonsmoker : How to access health information online Indication: Nonsmoker Nonsmoker : How to access health information online - Detail Indication: Nonsmoker Bronchitis : Patient Instructions Indication: Bronchitis Cough : How to access health information online Indication: Cough Cough : How to access health information online - Detail Indication: Cough Cough : Patient Instructions Indication: Cough Nonsmoker : How to access health information online Indication: Nonsmoker Nonsmoker : How to access health information online - Detail Indication: Nonsmoker Nonsmoker : Patient Instructions Indication: Nonsmoker Cough : How to access health information online Indication: Cough Cough : How to access health information online - Detail Indication: Cough Cough : Patient Instructions Indication: Cough Facial twitching : How to access health information online Indication: Facial twitching Facial twitching : How to access health information online - Detail Indication: Facial twitching Facial twitching : Patient Instructions Indication: Facial twitching Nonsmoker : How to access health information online Indication: Nonsmoker Nonsmoker : How to access health information online - Detail Indication: Nonsmoker Nonsmoker : Patient Instructions Indication: Nonsmoker Nonsmoker : How to access health information online Indication: Nonsmoker Nonsmoker : How to access health information online - Detail Indication: Nonsmoker Nonsmoker : Patient Instructions Indication: Nonsmoker Cough : How to access health information online Indication: Cough Cough : How to access health information online - Detail Indication: Cough Cough : Patient Instructions Indication: Cough Diarrhea : Patient Instructions Indication: Diarrhea Diverticulitis of colon : How to access health information online Indication: Diverticulitis of colon Diverticulitis of colon : How to access health information online - Detail Indication: Diverticulitis of colon Diverticulitis of colon : Patient Instructions Indication: Diverticulitis of colon Postprandial bloating : Patient Instructions Indication: Postprandial bloating Bronchitis : How to access health information online Indication: Bronchitis Bronchitis : How to access health information online - Detail Indication: Bronchitis Bronchitis : Patient Instructions Indication: Bronchitis Cough : How to access health information online Indication: Cough Cough : How to access health information online - Detail Indication: Cough Cough : Patient Instructions Indication: Cough Seborrheic dermatitis of scalp : How to access health information online Indication: Seborrheic dermatitis of scalp Seborrheic dermatitis of scalp : How to access health information online - Detail Indication: Seborrheic dermatitis of scalp Seborrheic dermatitis of scalp : Patient Instructions Indication: Seborrheic dermatitis of scalp Rash : How to access health information online Indication: Rash Rash : How to access health information online - Detail Indication: Rash Rash : Patient Instructions Indication: Rash Encounters Nurse Visit On: 06-Mar-2018 8:32 Encounter Reason: Injections - The medication the patient is here to receive is vitamin B12 IM.Encounter Diagnosis: Vitamin B12 deficiency End: 06-Mar-2018 20:45 [facility] Nurse Visit On: 27-Feb-2018 8:12 Encounter Reason: Injections - The medication the patient is here to receive is vitamin B12 IM.Encounter Diagnosis: Vitamin B12 deficiency End: 27-Feb-2018 21:59 [facility] Lab Order On: 26-Feb-2018 16:20 Encounter Diagnosis: Vitamin B12 deficiency End: 26-Feb-2018 16:22 [facility] Annotation/Addendum On: 06-Jan-2018 15:04 Encounter Diagnosis: Abnormal mammogram End: 07-Jan-2018 12:02 [facility] Annotation/Addendum On: 28-Dec-2017 6:57 [facility] End: 28-Dec-2017 6:59 Annotation/Addendum On: 22-Nov-2017 14:07 Encounter Diagnosis: COPD (chronic obstructive pulmonary disease) End: 22-Nov-2017 14:23 [facility] Nurse Visit On: 21-Nov-2017 9:35 Encounter Reason: Nurse procedure visit - The symptoms have been associated with other.Encounter Diagnosis: BMI 29.0-29.9,adult, Nonsmoker, COPD (chronic obstructive pulmonary disease) End: 22-Nov-2017 6:11 [facility] Office Visit On: 15-Nov-2017 8:02 Encounter Reason: Annual Medicare Exam - The patient had reviewed and updated the family history, medication/s, past medical history and social history. Yes the patient did have a mini mental status exam done today. The End: 15-Nov-2017 10:35 activities of daily living the patient needs help with are none. The patient has driven in past 6 months, fallen in the past 6 months, put area rugs through house and put handrails in bathroom. The nasreen ent has completed the following preventative measures: colonoscopy (dr. stanton in 2014 due back 2019). The patient has noticed staying at home rather than doing something new or going out (nothing new f or me, i am a of 20 years. i like to go out to eat) and lack of energy (still work and take care of my 95 year old mom). Other providers contributing to the patient's care are dual rate supervisor (dr. juan spivey 05/24/17-- will see on 11/28/17) and other: (neurologist- dr. islas-- last appt 10/08/ will see again 11/28/17). Note for Annual Medicare Exam: Prefers to stay at home and has lack of energy due to working too hard. Still likes sweets. Encounter Diagnosis: BMI 30.0-30.9,adult, Nonsmoker, Encounter for Medicare annual wellness exam, Postmenopausal (Renamed from Postmenopausal status), Encounter for screening mammogram for breast cancer (Renamed from Encounter for screening mammogram for malignant neoplasm of breast), Pneumococcal vaccination given [facility] Office Visit On: 08-Nov-2017 8:39 Encounter Reason: Headache - Symptoms include different headache features (headaches when i wake up, sharp pain in the back of my left side of neck)., [ADDITIONAL REASON] Sinus pain - Note for Pain: left sided facial pain and headache End: 08-Nov-2017 9:35 Encounter Diagnosis: Acute sinusitis, unspecified (Renamed from Acute sinusitis), Frequent headaches [facility] Phone Encounter On: 14-Oct-2017 16:50 Encounter Diagnosis: Elevated bilirubin End: 14-Oct-2017 16:53 [facility] Office Visit On: 03-Oct-2017 13:36 Encounter Reason: Headache - Note for Headache: Symptoms started about 6 weeks ago off and on daily with headaches. Headaches can be in left sided, also frontal headaches some when waking in the morning, and others com End: 03-Oct-2017 14:52 e through out the day. No blurry vision, double vision, aura's, nasal drainage, sinus pressure, cough, CP, SOB. Has had a little bit of nausea at times and light sensitivity. Also, Hives started 4 days ago after getting back from [place] in scalp-no where else on body. Has changed laundry detergent. No new foods, and medications. ??History of migraines. Sees Dr. Islas in Nov. Does take acetaminophen for h eadaches-used to work for headaches-not working as much now. Dr. Islas gave her a stronger medication but it will knock her out-so she has to take it at night. Had eyes checked-nothing new on exam. ?? inks 3+ cups of coffee a day and 2 bottles of water.Encounter Diagnosis: BMI 30.0- 30.9,adult, Nonsmoker, Frequent headaches, Hives of unknown origin, Sebaceous gland hyperplasia [facility] Office Visit On: 27-Jun-2017 8:59 Encounter Reason: Cough - Cough onset was 2 day(s) ago. Note for Cough: Started with symptoms 2 days ago with chills, raspy, cough, sore throat, headaches. No SOB, CP, wheezing, fever. Has histroy of COPD, and bronchit End: 27-Jun-2017 12:36 is. Knows its coming and wants to get taken care of before the weekend.Encounter Diagnosis: COPD (chronic obstructive pulmonary disease), BMI 30.0-30.9,adult, Nonsmoker, Upper respiratory infection, Cough [facility] Annotation/Addendum On: 14-May-2017 14:30 Encounter Diagnosis: Left shoulder pain End: 15-May-2017 7:24 [facility] Office Visit On: 10-May-2017 13:09 Encounter Reason: Shoulder Problem - This shoulder problem is without any known injury. The patient is right hand dominant. The injury involved the left shoulder. Symptoms include tenderness and decreased range of motion End: 10-May-2017 13:45 . Symptoms are located in the left shoulder. The pain radiates to the left upper arm. Symptoms are exacerbated by motion at the shoulder and elevation of the shoulder. Associated symptoms include pain i n the arm. Note for Shoulder problem: Left shoulder pain unable to lift arm. If I dont move it does not hurt.Encounter Diagnosis: Nonsmoker, BMI 30.0- 30.9,adult, Left shoulder pain [facility] Office Visit On: 27-Mar-2017 13:24 Encounter Reason: Cough - Symptoms include cough, dyspnea, wheezing, chills, runny nose and stuffy nose. The cough is described as moist. The cough occurs constantly. Symptoms are described as worsening. Associated sympt End: 27-Mar-2017 15:25 oms include postnasal drainage and headache. Note for Cough: Went urgent care Mar 19 given tamiflu, zpack, and benzonate. Has nebulizer at home, and has symbicortCannot get rid of feeling something in throat. Had diarrhea Saturday took 4 immodium. , [ADDITIONAL REASON] Fatigue - Note for Fatigue: feeling fatigue from cough Encounter Diagnosis: BMI 29.0-29.9,adult, Nonsmoker, Bronchitis, Post-viral cough syndrome, Dehydration [facility] Office Visit On: 22-Mar-2017 8:52 Encounter Reason: Follow up acute care visit - The patient does not feel well. Patient has been compliant with instructions. Current medication use: experiencing side effects (nausea from Zpack). The medical issues the p End: 22-Mar-2017 10:02 atient is following up for include URI. Note for Follow up acute care visit: Here for follow up. Was around family during holidays who all had influenza. Doesn't feel better. Symptoms include headac he, SOB, Cough. N/V from medication either tamiflu or zpack. Was able to keep mashed potatoes down yesterday. No fever or chills, throat is better. Has nebulizer at home, still taking zpack, and started prednisone yesterday.Got solumedrol yesterday, nebulizer q4 hrs, got confused and was taking too much cough syrup q 4 hours. FeelingEncounter Diagnosis: Bronchitis, BMI 29.0-29.9,adult, Nonsmoker, COPD (chronic obstructive pulmonary disease) [facility] Visit On: 21-Mar-2017 8:48 Encounter Reason: Follow up acute care visit - The patient does not feel well. Patient has been compliant with instructions. Current medication use: experiencing side effects (nausea from Zpack). The medical issues the p End: 21-Mar-2017 9:48 atient is following up for include URI. Note for Follow up acute care visit: Here for follow up. Was around family during holidays who all had influenza. Doesn't feel better. Symptoms include headac he, SOB, Cough. N/V from medication either tamiflu or zpack. Was able to keep mashed potatoes down yesterday. No fever or chills, throat is better. Has nebulizer at home, still taking zpack, and started prednisone yesterday.Encounter Diagnosis: Cough , BMI 30.0-30.9,adult, Nonsmoker, Abnormal lung sounds, Bronchitis [facility] Visit On: 20-Mar-2017 8:55 Encounter Reason: Cough - Symptoms include cough, dyspnea, wheezing, chills, runny nose and stuffy nose. The cough is described as moist. Cough onset was 2 day(s) ago. The cough occurs constantly. Symptoms are described End: 20-Mar-2017 9:18 as worsening. Associated symptoms include postnasal drainage and headache. Note for Cough: Went urgent care Mar 19 given tamiflu, zpack, and benzonate. Has nebulizer at home, and has symbicortEncounter Diagnosis: Cough, BMI 30.0-30.9,adult, Nonsmoker, Influenza [facility] Office Visit On: 28-Sep-2016 7:39 Encounter Reason: Upper Respiratory Infection (URI) - No changes in management were made at the last visit. Symptoms include runny nose and dry cough, while symptoms do not include nasal congestion, sore throat, scratchy End: 28-Sep-2016 9:22 throat, hoarseness, productive cough, wheezing, fever, chills or general malaise. Onset was sudden 2 day(s) ago. The symptoms occur constantly. The patient describes this as worsening. Associated sympt oms do not include ear pain, ear plugging or headache. Current treatment includes non-prescription cold medication and cough suppressants.Encounter Diagnosis: BMI 30.0-30.9,adult, Nonsmoker, Cough, Nasal drainage [facility] Office Visit On: 25-Jul-2016 12:45 Encounter Reason: Cough - Management changes made at the last visit include adding medication. Symptoms include cough, dyspnea and runny nose. The cough is described as non-productive. Cough onset was 7 day(s) ago. The c End: 25-Jul-2016 15:28 ough occurs constantly. Symptoms are described as unchanged. Associated symptoms include postnasal drainage. Current treatment includes opioid cough medications, antibiotics and oral corticosteroids. Pr evious presentation included a cough and a runny nose. Note for Cough: Recurrent cough after treated by urgent care July 21 z pack and prednisoneEncounter Diagnosis: BMI 30.0-30.9,adult, Nonsmoker, Cough, Bronchitis [facility] Office Visit On: 27-Jun-2016 13:47 Encounter Reason: Eye Pain - The onset of the eye pain has been gradual and has been occurring in an intermittent pattern for weeks. There has been associated headache and other symptom(s) (no pain, but twitching feeling above left eye). End: 27-Jun-2016 14:12 Encounter Diagnosis: Nonsmoker, Frequent headaches, BMI 30.0-30.9,adult, Facial twitching [facility] Visit On: 30-May-2016 14:01 Encounter Reason: Follow up for chronic medical issues - The patient does not feel well, has good energy level and is sleeping well. Patient has been compliant with instructions. Current medication use: no side effects, End: 30-May-2016 15:04 experiencing side effects and compliant with dosing regimen. Patient sleeps 5 hours per night. Nutrition: balanced diet. Note for Follow up for chronic medical issues: stomach problems better, bloatin g added lactose free milk, no dairy free milk eliminated cheese, using small frequent foods Encounter Diagnosis: BMI 30.0-30.9,adult, Nonsmoker, IBS (irritable bowel syndrome), Bursitis of right hip, Abdominal bloating [facility] Annotation/Addendum On: 02-Apr-2016 9:11 Encounter Diagnosis: IBS (irritable bowel syndrome) End: 02-Apr-2016 9:12 [facility] Annotation/Addendum On: 30-Mar-2016 10:22 Encounter Diagnosis: Bronchitis End: 30-Mar-2016 10:24 [facility] Office Visit On: 28-Mar-2016 14:51 Encounter Reason: Cough - No changes in management were made at the last visit. Symptoms include cough. The cough is described as hacking. Cough onset was sudden 1 week(s) ago. There is no known event that preceded sympt End: 28-Mar-2016 16:09 om onset. Symptoms are described as moderate in severity.Encounter Diagnosis: BMI 30.0-30.9,adult, Nonsmoker, Cough, Bronchitis, Wheeze [facility] Annotation/Addendum On: 23-Mar-2016 7:59 Encounter Diagnosis: Unspecified Diagnosis End: 23-Mar-2016 8:00 [facility] Visit On: 23-Mar-2016 7:07 Encounter Reason: Cough - Symptoms include cough and runny nose (slight). The cough is described as moist. Cough onset was sudden 1 day(s) ago. There is no known event that preceded symptom onset. Symptoms are described End: 23-Mar-2016 7:59 as worsening. Current treatment includes decongestants. Previous presentation included a cough.Encounter Diagnosis: Cough, Nonsmoker, BMI 30.0-30.9,adult, Abdominal pain, chronic, epigastric, Acute pharyngitis [facility] Phone Encounter On: 02-Mar-2016 15:49 Encounter Diagnosis: Postprandial bloating End: 02-Mar-2016 16:14 [facility] Office Visit On: 29-Feb-2016 12:48 Encounter Reason: Follow up, Diagnostic Procedure Results - Diagnostic tests include other (gastric emptying study). Note for Discuss procedure results: 9-2 Had colonoscopy per Mariaelena, did gluten free x 2 weeks and da End: 29-Feb-2016 14:44 iry freee x 2 weeks, align x 2 weeks, still with diarrhea x 2 weeks, had 2 polyps benign and fatty. Gets bad gas and diarrhea on and off. Encounter Diagnosis: Diverticulitis of colon, Postprandial bloating, Diarrhea, Gastritis [facility] Phone Encounter On: 08-Feb-2016 15:44 Encounter Diagnosis: Abdominal pain, chronic, epigastric End: 08-Feb-2016 15:46 [facility] Office Visit On: 09-Dec-2015 6:38 Encounter Reason: Follow up, Diagnostic Procedure Results - Diagnostic tests include other (colonoscopy). Note for Discuss procedure results: 9-2 Had colonoscopy per Mariaelena, did gluten free x 2 weeks and dairy freee x End: 09-Dec-2015 7:51 2 weeks, align x 2 weeks, still with diarrhea x 2 weeks, had 2 polyps benign and fatty. Encounter Diagnosis: Postprandial bloating, Diarrhea, Abdominal pain, chronic, epigastric [facility] Annotation/Addendum On: 05-Dec-2015 12:28 Encounter Diagnosis: Myocardial infarction End: 05-Dec-2015 12:30 [facility] Office Visit On: 17-Nov-2015 7:17 Encounter Diagnosis: Encounter for screening for malignant neoplasm of colon (Renamed from Special screening for malignant neoplasms, colon) End: 17-Nov-2015 7:21 [facility] Phone Encounter On: 28-Oct-2015 10:08 Encounter Diagnosis: Anemia End: 28-Oct-2015 10:10 [facility] Office Visit On: 26-Oct-2015 13:07 Encounter Reason: Abdominal pain - The pain has been occurring in a persistent pattern for 2 months. The course has been recurrent. The pain is described as a moderate. The pain is described as being located in the entir End: 26-Oct-2015 15:18 e abdomen. The pain does not radiate. The symptoms have been associated with bloating (severe bloating, cramping after eating).Encounter Diagnosis: Postprandial bloating, Abdominal pain, Encounter for screening for malignant neoplasm of colon (Renamed from Special screening for malignant neoplasms, colon) [facility] Annotation/Addendum On: 17-Aug-2015 14:19 Encounter Diagnosis: Unspecified Diagnosis End: 17-Aug-2015 14:26 [facility] Visit On: 16-Aug-2015 12:59 Encounter Reason: Follow up acute care visit - The patient does not feel well. Patient has been compliant with instructions. Current medication use: no side effects. The medical issues the patient is following up for include URI.Encounter Diagnosis: End: 16-Aug-2015 14:00 Bronchitis, Cough [facility] Visit On: 10-Aug-2015 11:19 Encounter Reason: Cough - Symptoms include cough. The cough is described as dry. Cough onset was sudden 1 day(s) ago. There is no known event that preceded symptom onset. The cough occurs intermittently. Symptoms are deirdre End: 10-Aug-2015 12:14 cribed as unchanged. Symptoms are not exacerbated by smoke exposure, pollen exposure, animal exposure, going outside, activity, lying down, cold temperature or inhaled bronchodilator use. Previous presentation included a cough.Encounter Diagnosis: Cough, Bronchitis [facility] Office Visit On: 17-Jun-2015 8:01 Encounter Reason: Follow up acute care visit - The patient does not feel well. Patient has been compliant with instructions. Current medication use: no side effects and compliant with dosing regimen.Encounter Diagnosis: Seborrheic dermatitis of scalp End: 17-Jun-2015 8:56 [facility] Visit On: 08-Jun-2015 8:04 Encounter Reason: Skin Lesions - Management changes made at the last visit include adding prednisone, muscle relaxer. Symptoms include multiple skin lesions. Lesion(s) are located on the left side of the neck, right side End: 08-Jun-2015 7:34 of the neck and right palm. The patient describes the lesion(s) as draining and itchy. Onset was sudden 3 day(s) ago. There is no known event that preceded symptom onset. The symptoms occur constantly. The episodes occur daily and last for 3 weeks. The patient describes this as moderate in severity and worsening. Associated symptoms do not include chills, fever, joint pain, nausea, bleeding, numbness , shortness of breath, vomiting or wheezing. The patient is not currently being treated for this problem. By report there is good compliance with treatment. Presentation included erythema.Encounter Diagnosis: Candidiasis of breast, Rash, Sciatica, left [facility] Visit On: 01-Jun-2015 10:21 Encounter Reason: Back Pain - The injury involved the lower back. This occurred 5 day(s) ago.Encounter Diagnosis: Low back pain End: 01-Jun-2015 16:48 [facility] Visit On: 25-May-2015 13:00 Encounter Reason: Rash - The last clinic visit was 9 month(s) ago. No changes in management were made at the last visit. Symptoms include skin blistering, skin bumps, pain and skin redness. The skin rash is located on th End: 25-May-2015 13:43 e left truncal area and right truncal area. Onset was sudden 2 week(s) ago. There is no known event that preceded symptom onset. The symptoms occur constantly. The episodes occur daily and last for 2 we eks. The patient describes this as moderate in severity and worsening. Symptoms are not exacerbated by constant allergen contact, continuous moisture, itch- scratch cycle, sunlight, tight clothing, dry a ir, friction, harsh soaps, hot water or over washing. Symptoms are not relieved by cold compresses, barrier creams, antihistamines or topical corticosteroids. Associated symptoms do not include fever, e xcoriations, fissuring, pustules, purulent drainage or serous discharge. Previous presentation included rash, redness and itching.Encounter Diagnosis: Rash, Candidiasis of breast [facility] Office Visit On: 31-Aug-2014 7:57 Encounter Reason: Follow up tests - Diagnostic tests include CT scan (brain/head). Date: (08/27/14). Current symptoms include cough. There is no family history of breast cancer, cardiovascular disease, cystic fibrosis, Sami End: 31-Aug-2014 10:36 n's syndrome, mental retardation, myocardial infarction before age 55 or other. There is no past medical history of abnormal Pap smear, anatomic urinary anomalies, asthma, cardiovascular disease, chest injury, chronic obstructive lung disease, congenital/chromosomal defects, coronary artery disease, current , emotional problems, hypertension, injury, lung disease, mental retardation, neurologic disorder, psychiatric illness or other. Encounter Diagnosis: Vitamin D deficiency, Sinusitis, Thrush, Frequent headaches [facility] Annotation/Addendum On: 27-Aug-2014 15:14 Encounter Diagnosis: Sinusitis End: 27-Aug-2014 15:54 [facility] Phone Encounter On: 27-Aug-2014 8:48 Encounter Diagnosis: Dizziness End: 27-Aug-2014 8:53 [facility] Annotation/Addendum On: 23-Aug-2014 10:20 Encounter Diagnosis: Vitamin D deficiency End: 23-Aug-2014 10:23 [facility] Office Visit On: 20-Aug-2014 13:23 Encounter Reason: new patient female physical - General health: feels well with minor complaints (Headaches since april). The patient's appetite is normal. Nutrition: normal/adequate. Exercises 3 days per week. Sleeps End: 20-Aug-2014 14:36 on average 6 hours per night. Normal bowel and bladder habits. Safety measures include appropriate use of safety belts, appropriate use of helmets and home smoke detectors , but do not include counseli ng regarding safe sex/HIV or counseling regarding substance abuse. Current emotional problems include depression (In 1997 when ). screening, colonoscopy (2009), screening, mammography (2009) and screening, Pap smear (hysterectomy). Encounter Diagnosis: Myocardial infarction, Glaucoma, Arthritis, History of diverticulitis, Frequent headaches, Thrush [facility] Payers MedicareAnthem/Deonte Brown; devorah guarantor
--- OUTSIDE RECORDS SUMMARY | 2018-04-18 12:30 | XMS RPT_ITS | Continuity of Care Document ---
:1950 Author Organization [facility] Address [address] [facility] [address] [place] [address] Phone Care Team Providers Name Role Phone Vivienne Heaton CNP Unavailable Physical Therapy, [facility] Unavailable Savannah DE PAZ, Dipesh Ashby Unavailable Tom DE PAZ, Vini Bowers Unavailable Dr. Tarun Stanton Unavailable Lexus Higuera Unavailable Unavailable long, heide Unavailable Unavailable Long MEDICAL INSURANCE VERIFIER, Kimi L Unavailable Unavailable Slarb MEDICAL INSURANCE VERIFIER, Gisella Unavailable Unavailable Natalee Hollingsworth Unavailable Unavailable Jenny Higginbotham Unavailable Unavailable Unavailable Unavailable Problems Name Dates [...] (K58.9, 564.1) Comments: has eliminated some lactosesees [facility] Status: Active Influenza (J11.1, 487.1) Comments: was [...] up.Heating pad relieves pain.Unab;e to go to [facility] because of severe pain.Denies nu,bness, weakness, bowel/bladder incontinence, retention. Denies urinary frequency, burning, constipation, diarhea, abdominal pain.took tizanidine [address] Islas for headache which did not help her.cant use ibuprofen because on plavix. Status: Active Myocardial infarction Comments: sees Milan harris up 8th following [id number] 3 stents Status: Active Nasal drainage (J34.89, [...] days Quantity: 60 {Tablet} Refills: 0 Ordered:10-May-2017 Kimi Rosa LPN Start : 10-May-2017 Active Symbicort 80-4.5 MCG/ACT [...] 0 Ordered:24-Nov-2014 Sudarshan RAMÍREZ, Vivienne Holt CNP, Vviienne Rod Start : 20-Aug-2014 End : 19-Sep-2014 [...] {Tablet} Refills: 0 Ordered:08-Nov-2017 Sudarshan RAMÍREZ, Vivienne Tafoya CNP Start : 08-Nov-2017 End : 08-Dec-2017 Inactive [...] for 30 days Refills: 0 Ordered:29-Feb-2016 Sudarshan DISTRIBUTION SYSTEMS SERVICEPERSON, Vivienne HODAbeto DISTRIBUTION SYSTEMS SERVICEPERSON, Francie Start : 25-May-2015 End : 29-Feb-2016 [...] : 16-Aug-2015 End : 26-Oct-2015 Discontinued Nystop [id number] UNIT/GM External Powder 1 (one) Powder Powder [...] Cont Bilat Result: Comments: See Note; NOTES: [facility] Imaging Services [address] [place] [address] Breast w/o and/or W Cont Bilat MR#: [id number] Acct: [id number] Name: MICHELLE BROWN Meagan p #: [id number] : 1950 F 67 From: Julissa Love MD PCP: Vivienne Heaton NP Status: REG CLI Study: Breast w/o and/or W Cont Bilat Date of Exam: 01/22/18 Exam# [id number] Ordering Dr: Dipesh Nuñez MD STUDY: BILATERAL [...] Love MD at 16:24 EDT Tel Direct: [phone], Service support [phone], CC: Vivienne Heaton LOCAL OPERATOR; Dipesh Nuñez MD Hearing Consultant: Signed 10-Jan-2018 Surgery Visit Report Result: Comments: See Note; NOTES: [facility] 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 Apparently comparison could not be made as she is from [place]. The screening exam was performed December 26. [...] Limited Unilateral Result: Comments: See Note; NOTES: [facility] Imaging Services [address] [place] [address] Breast Limited Unilateral MR#: [id number] Acct: [id number] Name: MICHELLE BROWN Rep #: [id number] : 1950 F 67 From: Dipesh Marie MD PCP: Viivenne Heaton NP Status: REG CLI Study: Breast Limited Unilateral Date of Exam: 01/03/18 Exam# [id number] Ordering Dr: Vivienne Heaton LOCAL OPERATOR-C STUDY: U LTRASOUND BREAST - RIGHT [...] davila pport , CC: Vivienne Heaton NP Hearing Consultant: Signed 03-Jan-2018 Breast Limited Unilateral Result: Comments: See Note; NOTES: [facility] Imaging Services [address] [place] [address] Breast Limited Unilateral MR#: [id number] Acct: [id number] Name: MICHELLE BROWN Rep #: [id number] : 1950 F 67 From: Dipesh Marie MD PCP: Vivienne Heaton NP Status: REG CLI Study: Breast Limited Unilateral Date of Exam: 01/03/18 Exam# [id number] Ordering Dr: Vivienne Heaton LOCAL OPERATOR-C ADDENDUM by Dipesh Marie MD on [...] ervice support , CC: Vivienne Heaton NP Hearing Consultant: Signed 03-Jan-2018 DIAG MAMM W/CAD, UNILAT Result: Comments: See Note; NOTES: [facility] Imaging Services [address] [place] [address] DIAG MAMM W/CAD, UNILAT MR#: [id number] Acct: [id number] Name: MICHELLE BROWN Rep #: [id number] : 1950 F 67 From: Dipesh Marie MD PCP: Vivienne Heaton NP Status: REG CLI Study: DIAG MAMM W/CAD, UNILAT Date of Exam: 01/03/18 Exam# [id number] Ordering Dr: Vivienne Heaton LOCAL OPERATOR-C ADDENDUM by Dipesh Marie MD on [...] Correlation is with remote mammogram report from [place], [place] 04/22/2009. FINDINGS: Breast Composition: There are [...] sonographic abnormality same region. ORDE R #: [id number] BI/DIAG MAMM W/CAD, UNILAT IMPRESSION: Biopsy right [...] Service support , CC: Vivienne Heaton NP Hearing Consultant: Signed 03-Jan-2018 DIAG MAMM W/CAD, UNILAT Result: Comments: See Note; NOTES: [facility] Imaging Services [address] [place] [address] DIAG MAMM W/CAD, UNILAT MR#: [id number] Acct: [id number] Name: MICHELLE BROWN Rep #: [id number] : 1950 F 67 From: Dipesh Marie MD PCP: Vivienne Heaton NP Status: REG CLI Study: DIAG MAMM W/CAD, UNILAT Date of Exam: 01/03/18 Exam# [id number] Ordering Dr: Vivienne Heaton LOCAL OPERATOR-C MAMMOGRAPHY - UNILATERAL DIAGNOSTIC: RIGHT BREAST REASON FOR EXAM: Female, 67 years old. Abnormal mammogram with right breast asymmetric density. PERTINENT HISTORY: Non-contributory. TECHNIQUE: Digital examinati on. Mediolateral oblique (MLO) and craniocaudad (CC) views of the breast were obtained. CAD: CAD performed COMPARISON: 12/26/2017 mammogram. No prior mammographic imaging available for comparison. Phyllis cantu is with remote mammogram report from [place], [place] 04/22/2009. FINDINGS: Breast Composition: There are [...] Service support , CC: Vivienne Heaton NP Hearing Consultant: Signed 26-Dec-2017 Dexa Bone Density Study Result: Comments: See Note; NOTES: [facility] Imaging Services [address] [place] [address] Dexa Bone Density Study MR#: [id number] Acct: [id number] Name: MICHELLE BROWN Rep #: [id number] : 1950 F 67 From: Sandro Lebron MD PCP: Vivienne Heaton NP Status: REG CLI Study: Dexa Bone Density Study Date of Exam: 12/26/17 Exam# [id number] Ordering Dr: Vivienne Heaton STUDY: DUAL ENERGY [...] Service support , CC: Vivienne Heaton NP Hearing Consultant: Signed 26-Dec-2017 SCREENING MAMM (CAD), BILAT Result: Comments: See Note; NOTES: [facility] Imaging Services [address] [place] [address] SCREENING MAMM (CAD), BILAT MR#: [id number] Acct: [id number] Name: MICHELLE BROWN Rep # : [id number] : 1950 F 67 From: Dipesh Marie MD PCP: Vivienne Heaton NP Status: REG CLI Study: SCREENING MAMM (CAD), BILAT Date of Exam: 12/26/17 Exam# [id number] Ordering Dr: Vivienne Heaton MAMMOGRAP HY - [...] Service support , CC: Vivienne Heaton NP Hearing Consultant: Signed 26-Dec-2017 SCREENING MAMM (CAD), BILAT Result: Comments: See Note; NOTES: [facility] Imaging Services [address] [place] [address] SCREENING MAMM (CAD), BILAT MR#: [id number] Acct: [id number] Name: MICHELLE BROWN Rep # : [id number] : 1950 F 67 From: Dipesh Marie MD PCP: Vivienne Heaton NP Status: REG CLI Study: SCREENING MAMM (CAD), BILAT Date of Exam: 12/26/17 Exam# [id number] Ordering Dr: Vivienne Heaton ADDENDUM by Dipesh aMrie MD on 12/31/17 at 1516 ADDENDUM CORRECTION: Asymmetric density noted left breast upper quadrant which electronically [place] of [place] ECMO projections. Recommend left breast CC and ML spot compression views further evaluation should be changed to reflect the RIGHT b reast not the LEFT breast with the asymmetric density in the posterior third of the RIGHT breast. Electronically Signed: Dipesh Marie, at 15:16 EDT Tel , Service support [phone], 12/31/17 1516 Date cc: Vivienne Heaton NP [...] Service support , CC: Vivienne Heaton NP Hearing Consultant: Signed 06-Dec-2017 Pulmonary Function Test Result: Comments: See Note; NOTES: [facility] Pulmonary Services/Neurology [address] [place] [address] MR#: [id number] Acct: [id number] Name: MICHELLE BROWN Rep #: [id number] : 1950 67 From: Jaspreet Almodovar DO Referring Dr: Vivienne Heaton NP Status: REG CLI Ordering Dr: Date: Location: [facility] Sex: F C INTRODUCTION: The patient is [...] Date Jaspreet Almodovar DO CC: Vivienne Heaton LOCAL OPERATOR Date Dictated: 12/06/178 Date Transcribed: 12/06/171347 Hearing Consultant: RUBINA Signed 28-Nov-2017 Cardiology Visit Report Result: Comments: See Note; NOTES: [facility] 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 Assessment AND Plan 1. Atherosclerosis of sitka coronary artery of sitka heart with angina pectoris with documented spasm [...] Code Off vis,est,level 3 Diagnoses Atherosclerosis of sit[place] coronary artery of [place] heart with angina pectoris with documented spasm I25.111 [place] vs. transplanted heart: [place] heart Cardiomyopathy, ischemic I25.5 Pure hypercholesterolemia E78.00 Hyperlipidemia type: pure hypercholesterolemia Coding Level of Care Code Off vis,est,level 3 Diagnoses Atherosclerosis of sitka coronary artery of [place] heart with angina pectoris with documented s pasm I25.111 [place] vs. transplanted heart: [place] heart Cardiomyopathy, ischemic I25.5 Pure hypercholesterolemia E78.00 Hyperlipidemia type: pure hypercholesterolemia 11/28/17 1551 <Krishan franklin signed by Alysa MCFARLAND> Date Alysa MCFARLAND Cosigner Signature: Date (if applicable) CC: 10-Oct-2017 Brain W/WO Contrast Result: Comments: See Note; NOTES: [facility] Imaging Services [address] [place] [address] Brain W/WO Contrast MR#: [id number] Acct: [id number] Name: MICHELLE BROWN Rep #: [id number] : 1950 F 67 From: Bola Busch MD PCP: Vivienne Heaton NP Status: REG CLI Study: Brain W/WO Contrast Date of Exam: 10/10/17 Exam# [id number] Ordering Dr: Natalee Hollingsworth LOCAL OPERATOR-C STUDY: MRI BRAIN WIT H AND [...] , CC: Vivienne Heaton NP; CHASIDY Hollingsworth Hearing Consultant: Signed 13-Jun-2017 Stress Report Result: Comments: See Note; NOTES: [facility] Cardiovascular Services [address] [place] [address] MR#: [id number] Acct: [id number] Name: MICHELLE BROWN Rep #: [id number] : 67 From: Bobby Knight MD Primary [...] Date Bobby Knight MD CC: Vivienne Heaton LOCAL OPERATOR; Alysa Edwards Date Dictated: 06/13/17 1308 Date Transcribed: 06/13/178 Hearing Consultant: [place] Signed 24-May-2017 Cardiology Visit Report Result: Comments: See Note; NOTES: [facility] [address] [place] [address] OFFICE VISIT Date of Service: 05/24/17 MR#: [id number] Acct: [id number] Name: MICHELLE BROWN Rep #: [id number] : 1950 Provider: Alysa Edwards Age/Sex: 67/F Location: [facility] Status: Signed HPI HPI Details: MICHELLE BROWN, [...] it went away. 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 Atherosclerotic heart disease of sitka coronary artery with angina pectoris with documented [...] vis,est,level 4 Diagnoses Atherosclerotic heart disease of sit[place] coronary artery with angina pectoris with documented spasm I25.111 Cardiomyopathy, ischemic I25.5 Pure hypercholesterolemia E78.00; E78.0 Hyperlipidemia type: pure hypercholesterolemia Coding Level of Care Code Off vis,e st,level 4 Diagnoses Atherosclerotic heart disease of sit[place] coronary artery with angina pectoris with documented spasm I25.111 Cardiomyopathy, ischemic I25.5 Pure hypercholesterolemia E78.00; E78.0 Hy perlipidemia type: pure hypercholesterolemia 05/24/17 1252 <Electronically signed by Alysa MCFARLAND> Date Alysa MCFARLAND Cosigner Signature: Date (if applicable) CC: Vivienne Heaton NP 10-May-2017 Shoulder min 2 Views Result: Comments: See Note; NOTES: [facility] Imaging Services [address] [place] [address] Shoulder min 2 Views MR#: [id number] Acct: [id number] Name: MICHELLE BROWN Rep #: [id number] : 1950 F 67 From: Kelsi Stone MD PCP: Vivienne Heaton NP Status: REG CLI Study: Shoulder min 2 Views Date of Exam: 05/10/17 Exam# [id number] Ordering Dr: Vivienne Heaton STUDY: X-RAY - LEFT S ULDER REASON FOR EXAM: Female, 67 years old. [...] Service support , CC: Vivienne Heaton NP Hearing Consultant: Signed 27-Mar-2017 Discharge Instruction Result: Comments: See Note; NOTES: [facility] Medical Records Department [address] [place] [address] [place] [address] Discharge Instruction 03/27/171841 MR#: [id number] Acct: [id number] Name: NIKITA MaldonadoMICHELLE Rep #: [id number] : 1950 67 From: Valeriy Huerta MD [...] your Primary Care Provider. Call [facility] ([phone]) or report to the closest Emergency Room. Call 911 if necessary. 03/27/171841 <Electronically signed by Valeriy kulkarni MD> Date Valeriy Huerta MD Cosigner Signature (If Indicated): Date CC: Vivienne Heaton NP 27-Mar-2017 Emergency Department Summary Result: Comments: See Note; NOTES: [facility] Medical Records Department [address] [place] [address] Emergency Department Summary 03/27/17 1836 MR#: [id number] Acct: [id number] Name: MICHELLE BROWN Rep #: [id number] : 1950 67 From: Valeriy Huerta MD [...] Impression: Bronchitis This note was generated with [employer] dictation software. It may contain incorrect words, [...] your Primary Care Provider. Call [facility] ([phone]) or report to the closest Emergency Room. Call 911 if necessary. 03/27/17 1842 <Electro nically signed by Valeriy Huerta MD> Date Valeriy Huerta MD Cosigner Signature (If Indicated): Date CC: Vivienne Heaton NP 27-Mar-2017 Chest PA and Lateral Result: Comments: See Note; NOTES: [facility] Imaging Services [address] [place] [address] Chest PA and Lateral MR#: [id number] Acct: [id number] Name: MICHELLE BROWN Rep #: [id number] : 1950 F 67 From: Hakan Lutz MD PCP: Vivienne Heaton NP Status: REG ER Study: Chest PA and Lateral Date of Exam: 03/27/17 Exam# [id number] Ordering Dr: Valeriy Huerta MD STUDY: X-RAY [...] CC: Vivienne Heaton NP; Valeriy Huerta MD Hearing Consultant: Signed 20-Mar-2017 Chest PA and Lateral Result: Comments: See Note; NOTES: [facility] Imaging Services [address] [facility] [place] [address] Chest PA and Lateral MR#: [id number] Acct: [id number] Name: MICHELLE BROWN Rep #: [id number] : 1950 F 67 From: Michael Brock MD PCP: Vivienne Heaton NP Status: REG CLI Study: Chest PA and Lateral Date of Exam: 03/20/17 Exam# [id number] Ordering Dr: Vivienne Heaton STUDY: X-RAY CHEST [...] Service support , CC: Vivienne Heaton NP Hearing Consultant: Signed 29-Mar-2016 Chest PA and Lateral Result: Comments: See Note; NOTES: [facility] Imaging Services [address] [place] [address] Verdana 4d Chest PA and Lateral MR#: [id number] Acct: [id number] Name: MICHELLE BROWN ep #: [id number] : 1950 F 66 From: Marino Lira PCP: Vivienne Heaton Status: REG CLI Study: Chest PA and Lateral Date of Exam: 03/29/16 Exam# [id number] Ordering Dr: Renee Ewing DO STUDY: X [...] at 8:13 EST , Servic e support [phone], CC: Vivienne Heaton; Renee Ewing DO Hearing Consultant: Signed 15-Feb-2016 Gastric Emptying Study Result: Comments: See Note; NOTES: [facility] Imaging Services [address] [place] [address] Verdana 4d Gastric Emptying Study MR#: [id number] Acct: [id number] Name: MICHELLE BROWN Rep #: [id number] : 1950 F 66 From: Syed Ventura DO PCP: Vivienne Heaton Status: REG CLI Study: Gastric Emptying Study Date of Exam: 02/15/16 Exam# [id number] Ordering Dr: Vivienne Heaton CLINICAL: 66-year-old female [...] at 12:17 EST Tel , Service support [phone], CC: Vivienne Heaton Hearing Consultant: Signed 27-Oct-2015 Abdomen Complete Result: Comments: See Note; NOTES: [facility] Imaging Services [address] [place] [address] Verda 4d Abdomen Complete MR#: [id number] Acct: [id number] Name: OSBALDOSvitlana MONZON ANGEL Dot Rep #: [id number] : 1950 F 65 From: Freddy Soto MD PCP: Vivienne Heaton Status: REG CLI Study: Abdomen Complete Date of Exam: 10/27/15 Exam# [id number] Ordering Dr: Vivienne Heaton STUDY: ABDOMINAL ULTRASOUND [...] Freddy Soto MD at 11:10 EDT Tel [phone], Service support [phone], CC: Vivienne Heaton Hearing Consultant: Signed 16-Aug-2015 Chest PA and Lateral Result: Comments: See Note; NOTES: [facility] Imaging Services [address] [place] [address] Verda 4d Chest PA and Lateral MR#: [id number] Acct: [id number] Name: MICHELLE JUSTIN Rep #: [id number] : 1950 F 65 From: Marino Lira PCP: Vivienne Heaton Status: REG CLI Study: Chest PA and Lateral Date of Exam: 08/16/15 Exam# [id number] Ordering Dr: Vivienne Heaton STUDY: X-RAY CHEST [...] MD at 8:00 EDT , Service support [phone], 0075 RAD/Chest PA and Lateral IMPRESSION: No acute cardiopulmonary disease. Electronically Signed: Marino Lira MD at 8:00 EDT , Service support [phone], CC: Vivienne Heaton Hearing Consultant: Signed 16-Aug-2015 Spirometry (59699) Comments: mild restriciton Result: 01-Jun-2015 L/S Spine Min 4 Views Result: Comments: See Note; NOTES: [facility] Imaging Services [address] [place] [address] Verdana 4d L/S Spine Min 4 Views MR#: [id number] Acct: [id number] Name: MCIHELLE HOU Rep #: [id number] : 1950 F 65 From: Freddy Soto MD PCP: Vivienne Heaton Status: REG CLI Study: L/S Spine Min 4 Views Date of Exam: 06/01/15 Exam# [id number] Ordering Dr: Mati Del Cid STUDY: X-RAY [...] Freddy Soto MD at 12:33 EST Tel [phone], Service support [phone], RAD/L/S Spine Min 4 Views IMPRESSION: Degenerative changes of the spine, as detailed above. Electronically Signed: Freddy ponce MD at 12:33 EST Tel [phone], Service support [phone], CC: Vivienne Del Cid Hearing Consultant: Signed 19-May-2015 Nuclear Stress Test - Chemical Result: Comments: See Note; NOTES: [facility] Imaging Services [address] [place] [address] Verdaghulam 4d Nuclear Stress Test - Chemical MR#: [id number] Acct: [id number] N janna: MICHELLE BROWN Rep #: [id number] : 1950 65 From: Real Yates MD [...] LVEF of 65%. Real Yates MD T: [facility] JOB: [id number] 05/19/15 1753 &#6 0;Electronically signed by Real Yates MD> Date Real Yates MD CC: Vivienne Heaton; Alysa Sebastian Date Dictated: 05/19/15916 Date Transcribed: 05/19/15916 Hearing Consultant: Signed 13-Feb-2015 NCS and/or EMG Patient Result: Comments: See Note; NOTES: [facility] Pulmonary Services/Neurology [address] [facility] [place] [address] NCS and/or EMG Patient MR#: [id number] Acct: [id number] Name: MICHELLE HOU Rep #: [id number] : 1950 65 From: Chase Hugo MD [...] me. Sincerely, A chilo Hugo MD T: [facility] JOB: [id number] 02/13/152 <Electronically signed by Chase Hugo MD> Date Chase Hugo MD CC: Vivienne Heaton; Chase Hugo; Lena Barnett DPM Date Dictated: 02/02/15812 Date Transcribed: 02/02/15812 Hearing Consultant: Signed 15-Dec-2014 Cerv Spine 4 or 5 Views Result: Comments: See Note; NOTES: [facility] Imaging Services [address] [place] [address] Radiology Report MR#: [id number] Acct: [id number] Name: MICHELLE BROWN Rep #: : 1950 F 64 From: Kelly Green MD PCP: Vivienne Heaton Status: REG CLI Study: Cerv Spine 4 or 5 Views Date of Exam: 12/15/14 Exam# [id number] Ordering Dr: Vini Islas MD STUD Y: [...] at 22:22 EDT Tel , Service support [phone], RAD/Cerv Spine 4 or 5 Views IMPRESSION: Moder ate endplate spondylosis. Electronically Signed: Kelly Green MD at 22:22 EDT Tel , Service support [phone], CC: Vivienne Heaton; Vini Islas Hearing Consultant: Signed 27-Aug-2014 Brain/Head W/WO Contrast Result: Comments: See Note; NOTES: [facility] Imaging Services [address] [place] [address] CAT Scan Report MR#: [id number] Acct: [id number] Name: MICHELLE BROWN Rep #: [id number] : 1950 F 64 From: Freddy Soto MD PCP: Vivienne Heaton Status: REG CLI Study: Brain/Head W/WO Contrast Date of Exam: 08/27/14 Exam# [id number] Ordering Dr: Vivienne Heaton STUDY: C T [...] Soto MD a t 13:55 EDT Tel [phone], Service support [phone], CC: Vivienne Heaton Hearing Consultant: Signed Family History Unknown Family Member Name [...] 1.93 m2 Results Date Description Value Details 38-Bzr-797410:32 Vitamin B12 280 pg/mL (Normal) Comments: [facility] [id number] [facility] [place], [address] Range: 211-911 11-Sam-57899:25 CREATININE FINGERSTICK Comments: [facility] LaboratoryPoint of [address] [place], [place] [address] EGFR WB 52.0000 mL/min (Abnormal) CREATININE WB 1.1 mg/dL (Abnormal) Range: 0.55-1.02 84-Csz-383733:07 BILIRUBIN DIRECT (24249) Comments: PATIENT NOT FASTINGPERFORMED BY: [facility] [id number] [place] [id number] Bilirubin, Total 1.2 mg/dL (Normal) Range: 0.0-1.2 26-Hfm-510360:08 Comprehensive Metabolic Profil Comments: [facility] [id number] [place], [place], [address] GAP 7 (Normal) Range: 5-15 CO2 30.0 [...] Comments: Please note revised GLUCOSE reference range ygttlnvgl29/02/2018. 50-Jat-16853:02 Lipid Profile Comments: [facility] [address] [place], [place], [id number] VLDL 29 mg/dL (Normal) Range: 5-40 LDL [...] 200-240 mg/dL Borderline >240 mg/dL High Risk 32-Mhw-28545:02 Liver Profile Comments: [facility] [address] [place], [address] D BILI 0.23 mg/dL (Normal) Range: 0.00-0.30 T BILI 1.30 mg/dL (Abnormal) Range: 0.20-1.00 ALT 26 U/L (Normal) Range: 13-56 Comments: Please note revised ALT reference range uijbartvd98/28/2018. ALK P 60 U/L (Normal) Range: 45-117 AST 15 U/L (Normal) Range: 15-37 GLOB 3.0 g/dL (Normal) Range: 2.2-4.2 ALB 3.9 g/dL (Normal) Range: 3.2-5.0 T PROT 6.9 g/dL (Normal) Range: 6.4-8.2 4-Pyt-070175:25 Basic Metabolic Profile (BMP) Comments: [facility] [address] [place], [place], [id number] GAP 7 (Normal) Range: 5-15 CO2 26.0 [...] <126 mg/dLsuggests IMPAIRED HOMEOSTASIS per A.D.A. criteria. 8-Fou-211666:25 CBC W/Diff, Automated Comments: [facility] [address] [place], [place], [id number] Absolute Lymph 2.04 {X10_3/ul} (Normal) Range: 0.83-4.51 [...] K/mm3 (Normal) Range: 4.4-11.0 :50 Rapid Flu (16800 x 2) Comments: Negative Influenza A Ag Negative (Normal) :51 Lipid Profile Comments: [facility] [address] [place], [place], [id number] VLDL 34 mg/dL (Normal) Range: 5-40 Comments: [...] mg/dL High Risk :51 Liver Profile Comments: [facility] [address] [place], [place], [id number] D BILI 0.23 mg/dL (Normal) Range: 0.00-0.30 T BILI 1.10 mg/dL (Abnormal) Range: 0.20-1.00 ALT 25 U/L (Normal) Range: 12-78 ALK P 67 U/L (Normal) Range: 45-117 AST 15 U/L (Normal) Range: 15-37 GLOB 3.0 g/dL (Normal) Range: 2.3-3.5 ALB 3.8 g/dL (Normal) Range: 3.4-5.0 T PROT 6.8 g/dL (Normal) Range: 6.4-8.2 8-Bdb-988833:16 Anti-TPO Antibody (95576) Comments: PATIENT NOT FASTINGPERFORMED BY: [facility]6370 [facility] [id number] Thyroid Peroxidase (TPO) Ab 10 {IU/mL} (Normal) Range: 0-34 7-Hqe-470756:16 T4, FREE (THYROXINE) Comments: PATIENT NOT FASTINGPERFORMED BY: [facility]6370 [facility] [id number] Information: [id number], [id number] (58705) T4,Free(Direct) 1.20 ng/dL (Normal) Range: 0.82-1.77 6-Knt-406495:16 T3, FREE (TRIDOTHYRONINE) (37692) Comments: PATIENT NOT FASTINGPERFORMED BY: [facility]6370 [facility] [id number] Triiodothyronine,Free,Serum 3.5 pg/mL (Normal) Range: 2.0-4.4 6-Spb-391804:16 TSH (THYROID STIMULATING Comments: PATIENT NOT FASTINGPERFORMED BY: [place] [id number] [facility] [id number] HORMONE) (93998) TSH 1.410 {uIU/mL} Range: 0.450-4.500 (Normal) EGD ([facility]) See Note (Normal) Comments: [facility] [address] [place], [place], [address] ; another doc 2:47 Comments: Patient: MICHELLE BROWN : 1950 (65/F) Acct Num: [id number] Phys: Tarun Stanton Unit Num: [id number] Loc: LABSPEC Specimen: [id number] Received: 01/23/16 331 Spec Type : EGD BIOPSY TISSUES TISSUES: COMMENT The results of immunohistochemistry for Helicobacter pylori will be reported separately ([id number]). GROSS DESCRIPTION Received is one cont ainer labeled with the patient's name and designated gastric biopsy. The specimen consists of multiple irregular fragments of light sahu soft tissue that in aggregate measure 0.5 x 0.3 x 0.1 cm. The specimen is totally submitted in one cassette. / MAXI:andrew 01/24/16 TC:3 CPT:80861 HEADER OPERATION: EGD with biopsies PRE-OP DIAGNOSIS: [...] on file> IMMUNOHISTOCHEMISTRY See Note (Normal) Comments: [address] [place], [address] ; another doc :00 Comments: Patient: MICHELLE BROWN : 1950 (65/F) Acct Num: [id number] Phys: Tarun Stanton Unit Num: [id number] Loc: LABSPEC Specimen: [id number] Received: 01/25/16954 Spec Typ e: IMMUNO TISSUES TISSUES: SPECIMEN INFORMATION: Tissue Source: Gastric biopsy Clinical Info: Bloating, nausea Specimen Number: [id number] CPT code: 96548 METHODOLOGY: Dep araffinized sections of prefer/formalin-fixed tissue [...] developed and their performance characteristics determined by [facility] Laboratory. They may not have been mellissa red or approved by the U.S. Food and Drug Administration. The FDA has determined that such clearance or approval is not necessary. INTERPRETATION: Gastric biopsy: Negative for Helicobacter pylor i organisms. SJ:andrew 01/25/16 PHYSICIAN AND INSTITUTION [address] [address] Signed Jez Young 01/26/16 <signature on file> CDIFF (Molecular) Comments: [address] [place], [address] CDIFF See Note (Normal) Comments: Cdiff-MolecularC. Diff DNA Negative- No toxigenic C. Diff DNA Detected : ENTERIC PATHOGEN PANEL STOOL Comments: [address] [place], [address] EP PANEL See Note (Normal) Comments: [...] DetectedVIBRIO Not DetectedNorovirus Not DetectedRotavirus Not Detected Ova and Parasites 8623 Comments: [address] [place], [address] OP See Note Comments: O + P 8623OVA AND PARASITES EXAM, ROUTINE These results were obtained using wet preparation(s) and trichrome stained smear. This test does not include testing for Crytosporidium parvum, C (Normal) yclospora, or Microsporidia. TESTING PERFORMED AT [facility]. ORIGINAL REPORT ON FILE IN LAB CONTAINS ADDITIONAL TEST SITE INFORMATION. ____ Ova/Parasite Exam NO OVA, CYSTS, OR PARASITES FOUND. :23 Stool Lactoferrin/WBC Comments: [facility] [address] [place], [place], [phone] WBCST See Note (Normal) Comments: Stool Lacto/WBCFecal WBC Lactoferrin Negative: No Fecal WBC Lactoferrin present :23 Stool Occult Blood iFOB Comments: [facility] [address] [place], [address] STOB See Note (Normal) Comments: STOB iFOBOccult Blood Negative :37 LIPID PANEL (27419) Comments: PATIENT WAS FASTINGPERFORMED BY: [facility] RehabilitationEjxxsr8654 [facility] [id number] LDL/HDL Ratio 1.3 {ratio_units} Range: 0.0-3.2 (Normal) [...] COLON BIOPSY (CHOOSE See Note (Normal) Comments: [facility] [address] [place], [place], [id number] 20 SITE) Comments: Patient: MICHELLE BROWN : 1950 (65/F) Acct Num: [id number] Phys: Tarun Stanton Unit Num: [id number] Loc: [facility] Specimen: [id number] Received: 11/25/15 - 151 Spec Type : COLON BX TISSUES TISSUES: [...] in one cassette. / MAXI:andrew 11/29/15 TC:1 CPT:94823 x2 HEADER OPERATION: Colonoscopy with polypectomy PRE-OP DIAGNOSIS: Abdominal pain/bloating TISSUE SUBMITTED: A - Transverse colon polyp, rule out adenoma, B - Sigmoid biopsy, rule out adenoma MICROSCOPIC DESCRIPTION Slides are reviewed. MICROSCOPIC DIAGNOSIS A. Transverse colon polyp, polypectomy: Tubular adenoma. B. Sigmoid colon, biopsy: Fragments of hyperplastic polyp. SJ: andrew 11/30/15 Signed Jez Young 11/30/15 <signature on file> :18 Fecal Occult Blood , Office (40610) Fecal Occult Blood , Office (Inhouse) negative (Normal) :30 Bilirubin, Direct Comments: [facility] [address] [place], [address] D BILI 0.17 mg/dL (Normal) Range: 0.00-0.30 :30 CBC W/Diff, Automated Comments: [facility] [address] [place], [address] Absolute Lymph 2.15 {X10_3/ul} (Normal) Range: 0.83-4.51 [...] 4.2-5.4 WBC 6.4 K/mm3 (Normal) Range: 4.4-11.0 27-Oct-20159:30 Comprehensive Metabolic Profil Comments: [facility] [address] [place], [address] GAP 6 (Normal) Range: 5-15 CO2 28.0 [...] 7-18 GLU 99 mg/dL (Normal) Range: 70-110 8-Lpn-307408:23 Urinalysis, Office (83893) UA - LEUKOCYTE ESTERASE Negative (Normal) UA - NITRITE Negative (Normal) URINE UROBILINGN ROLANDO TIMED Normal mg/dL (Normal) UA - PROTEIN Negative mg/dL (Normal) UA - PH 6 (Abnormal) UA - BLOOD Negative (Normal) UA - SPECIFIC GRAVITY 1.015 (Normal) UA - KETONES Negative mg/dL (Normal) UA - BILIRUBIN Negative (Normal) UA - GLUCOSE Negative (Normal) :58 Bedside Glucose Comments: [facility] LaboratoryPoint of Amkw[address] [place] [address] BEDSIDE GLU 104 mg/dL (Normal) Range: 70-110 Comments: Policy and Physicians Orders followedMANAGEMENT OF PATIENT CARE PER NURSING PROTOCOL :53 2 HR Glucose Tolerance Test Comments: Is Patient Fasting? YIs Patient Taking Vitamins or Folic Acid Supplements? [facility] [address] [facility] [place], [address] GLU GTT-2 HOUR 131 mg/dL [...] to report for address and phone number TAVERAS Ab <0.2 {AI} (Normal) Range: 0.0-0.9 ARNP Ab <0.2 {AI} (Normal) Range: 0.0-0.9 :53 ANTINUCLEAR ANTIBODIES DIRECT Comments: [facility] (refer to report for specific site)refer to report for address and phone number UMA-DIRECT Negative (Normal) Comments: Performed at: [address] [id number] Director: Tarun Goodman PhD, Phone: [phone] :53 Erythrocyte Sed Rate Comments: [facility] [address] [facility] [place], [address] SED RATE 2 mm/h (Normal) Range: 0-30 :53 Folates, (Folic Acid) Comments: Is Patient Fasting? YIs Patient Taking Vitamins or Folic Acid Supplements? [facility] [address] [facility] [place], [place], [id number] FOLATES 9.50 ng/mL (Normal) Range: 3.1-17.5 :53 [...] a more specific supplemental or PCR testing. [facility] offers HCV Ab w/Reflex to Verification test #[id number].Performed at: [facility] orp [address] [id number] Director: Tarun Goodman PhD, Phone: [phone]; ADDENDA: orderedby another doctor :53 Protein Electroph, S Comments: [facility] (refer to report for specific site)refer to report for address and phone number NOTE: Comment (Normal) Comments: The SPE pattern appears essentially unremarkable. Evidenceof monoclonal protein is not apparent. INTERPRETATION Comment (Normal) Comments: Protein electrophoresis scan will follow via computer,mail, or bin packer delivery. A/G RATIO 1.7 (Normal) Range: 0.7-2.0 [...] Patient Taking Vitamins or Folic Acid Supplements? [facility] [address] [place], [place], [id number] RHEUMATOID FAC < 10.0 {IU/mL} (Normal) :53 Thyroid Stim Hormone (TSH) Comments: Is Patient Fasting? YIs Patient Taking Vitamins or Folic Acid Supplements? [facility] [address] [place], [place], [id number] TSH 1.22 {uIU/mL} (Normal) Range: 0.358-3.74 :53 Vitamin B12 250 pg/mL (Normal) Comments: [facility] [address] [place], [place], [address] Range: 211-911 49-Jqz-995659:28 Lipid Profile Comments: Test performed at:[facility] [address] [facility]. [place], [place] [address] VLDL 41 mg/dL (Abnormal) Range: 5-40 LDL [...] 200-240 mg/dL Borderline >240 mg/dL High Risk 23-Ofh-178132:28 Liver Profile Comments: Test performed at:[facility] [address] [facility] [address]. [place], [place] [address] ; Ordered by another doctor D BILI 0.26 mg/dL (Normal) Range: 0.00-0.30 T BILI 1.50 mg/dL (Abnormal) Range: 0.20-1.00 ALT 22 U/L (Normal) Range: 12-78 ALK P 71 U/L (Normal) Range: 50-136 AST 14 U/L (Abnormal) Range: 15-37 GLOB 2.8 g/dL (Normal) Range: 2.3-3.5 ALB 3.9 g/dL (Normal) Range: 3.4-5.0 T PROT 6.7 g/dL (Normal) Range: 6.4-8.2 39-Moe-862782:40 CBC With Differential/Platelet Comments: PATIENT NOT FASTINGPERFORMED BY: [facility] CenterErlhwl0465 [facility] [id number] Information: [id number] Immature Grans (Abs) 0.0 {x10E3/uL} (Normal) Range: [...] 3.77-5.28 WBC 8.0 {x10E3/uL} (Normal) Range: 3.4-10.8 43-Svc-207316:40 Comp. Metabolic Panel (14) Comments: PATIENT NOT FASTINGPERFORMED BY: [facility] Jmhvzt1929 [facility] [id number] ALT (SGPT) 21 [iU]/L (Normal) Range: 0-32 [...] 1.140 {uIU/mL} Comments: PATIENT NOT FASTINGPERFORMED BY: sones63OrbFlexLeupp [place] [id number] :40 (Normal) Range: 0.450-4.500 Vitamin D, 25-Hydroxy 14.9 ng/mL Comments: PATIENT NOT FASTINGPERFORMED BY: [email or web address] LabMapittrackit[address] [facility] [place] [id number] :40 (Abnormal) Range: 30.0-100.0 Comments: Vitamin D deficiency has been defined by the [place] [facility] Hospitalcine and an Endocrine Society practice guideline as alevel of serum 25-OH vitamin D less than 20 ng/mL (1,2).The Endocrine Society went on to further define vitamin Dinsufficiency as a level between 21 and 29 ng/mL (2).1. IOM ([place] of Medicine). 2010. Dietary reference intakes for calcium and D. [place]: The National Academies Press.2. Kristin MF, Jane NC, David URENA, et al. Evaluation, treatment, and prevention of vitamin D deficiency: an Endocrine Society clinical practice guideline. JCEM. 2010; 96(7):1911-30. :18 Urinalysis, Office (97293) UA - LEUKOCYTE ESTERASE Trace (Normal) UA [...] Indication: Sinusitis Planned Observations VITAMIN B-12 (CYANOCOBALAMIN) (85425)Indication: Vitamin B12 deficiency On: 4-Oyn-055950:22 Request METABOLIC PANEL, COMPREHENSIVE (18784)Indication: Frequent headaches On: 03-Exm-010265:06 Request OVA & PARASITE DIR SMEAR (87584)Indication: Diarrhea On: :39 Request OCCULT BLOOD FECES SCREEN (39053)Indication: Diarrhea On: :39 Request LEUKOCYTE COUNT, FECAL (09859)Indication: Diarrhea On: :39 Request C-DIFFICILE, STOOL (52507)Indication: Diarrhea On: :39 Request PHAN CULTURE-STOOL (56303)Indication: Diarrhea On: :39 Request CBC WITH MANUAL DIFF (76683)Indication: Abdominal pain On: 0-Yoe-328634:14 Request FECAL OCCULT- Tubes sent home (20595)Indication: Encounter for screening for malignant neoplasm of colon (Renamed from Special screening for malignant neoplasms, colon) On: 3-Iyg-775594:13 Request HEPATIC FUNCTION PANEL (37158)Indication: Postprandial bloating On: 2-Abn-982308:05 Request Metabolic Panel, Comprehensive (40337)Indication: Postprandial bloating On: 5-Dwh-971495:05 Request CALCIFEDIOL (00556)Indication: Arthritis On: 68-Lpe-665739:18 Request TSH (THYROID STIMULATING HORMONE) (68392)Indication: Frequent headaches On: 16-Khj-284875:18 Request CBC, Platelets & Auto Diff (10578)Indication: Frequent headaches On: 78-Ceq-930502:17 Request Metabolic Panel, Comprehensive (96525)Indication: Frequent headaches On: 42-Dnt-328344:17 Request Planned Encounters Medical; General Medical - On: 30-May-2018 9:15 Comprehensive Internal Medicine Vivienne Heaton CNP, CNP, Mary E Planned Procedures PFT - Before and After SpiroBy: On: 22-Nov-2017 Intent Vivienne Heaton CNP, CNP, Mary E PNEUM VAC ADLT/IMUMNOSPR, SBC/INTRM On: 15-Nov-2017 Intent (28477)By: Vivienne Heaton CNP, CNP, Mary E SCREENING DIGITAL TOMOSYNTHESIS OF On: 15-Nov-2017 Intent BREAST (69313)By: Vivienne Heaton CNP, CNP, Mary E ANNUAL DEPRESSION SCREENING, 15 On: 15-Nov-2017 Intent MINUTES (G0444)By: Vivienne Heaton CNP, CNP, Mary E DEXA SCAN AXIAL SKELETON (19727)By: On: 15-Nov-2017 Intent Vivienne Heaton CNP, CNP, Mary E Toradol Injection, 30 mg (J1885)By: On: 08-Nov-2017 Intent Vivienne Heaton CNP, CNP, Mary E MRI BRAIN W/ CONTRAST (59181)By: On: 03-Oct-2017 Intent Natalee Hollingsworth Comments: Headaches daily x 6 weeks. Radiology - Shoulder - LeftBy: Eugenea On: 10-May-2017 Intent Vivienne RAMÍREZ CNP, Mary E ELECTROCARDIOGRAM, COMPLETE (ECG) On: 27-Mar-2017 Intent (29992)By: Vivienne Heaton CNP Comments: 2 EKG's done frequent PVC with cough DARRELL Francie Solu -Medrol Injection, 125 mg On: 27-Mar-2017 Intent (J2930)By: Vivienne Heaton CNP, CNP Francie Solu -Medrol Injection, 125 mg On: 22-Mar-2017 Intent (J2930)By: Sudarshan RAMÍREZ FrancieViola Heaton CNP Francie Solu -Medrol Injection, 125 mg On: 21-Mar-2017 Intent (J2930)By: Natalee Hollingsworth Comments: solumedrol 125mg injectionlot: [id number]: GMpt tolerated wellAD MEDICAL INSURANCE VERIFIER Aerosol Treatment (00185)By: On: 21-Mar-2017 Intent Natalee Hollingsworth Comments: Slight exp wheeze after aerosol treatment, better air exchange. Radiology - ChestBy: Vivienne Heaton CNP On: 20-Mar-2017 Intent E Vivienne Heaton CNP Comments: Call Ana Rosa Heaton with results Solu -Medrol Injection, 125 mg On: 25-Jul-2016 Intent (J2930)By: Vivienne Heaton CNP, CNP, Mary E Radiology - Chest- PA and LatBy: On: 28-Mar-2016 Intent Renee Ewing DO Spirometry (10343)By: Gildardo SHARPE, On: 28-Mar-2016 Intent Renee Comments: restrivrive patterns on graph Aerosol Treatment (13500)By: Sudarshan On: 23-Mar-2016 Intent Vivienne RAMÍREZ CNP, Mary E Nuclear Medicine - Gastric Emptying On: 08-Feb-2016 Intent StudyBy: Vivienne Heaton CNP, CNP, Mary E Ultrasound - Abdomen CompleteBy: On: 26-Oct-2015 Intent Vivienne Heaton CNP, CNP, Mary E PFT - CompleteBy: Vivienne Heaton CNP On: 16-Aug-2015 Intent Vivienne Heaton CNP Radiology - ChestBy: Vivienne Heaton CNP On: 16-Aug-2015 Intent E Vivienne Heaton CNP Aerosol Treatment (81846)By: Sudarshan On: 16-Aug-2015 Intent Vivienne RAMÍREZ CNP, Mary E Solu -Medrol Injection, 125 mg On: 16-Aug-2015 Intent (J2930)By: Vivienne Heaton CNP Comments: lot: [id number]: 04/12site/route: LGM/IMamt: 2mLVIS signed when applicableHECTOR Alberts CNP, Mary E Radiology - Lumbar SpineBy: Nehemias DE PAZ, On: 01-Jun-[address] - Brain/Head (IV Contrast On: 20-Aug-2014 Intent Needed)By: Vivienne Heaton CNP, CNP, Mary E Carotid DopplerBy: Vivienne Heaton CNP On: 20-Aug-2014 Intent Vivienne Heaton CNP Planned Medications INJECTION, KETOROLAC TROMETHAMINE, PER 15 MG Ordered: 08-Nov-2017 Pending Vivienne Heaton CNP, CNP, Mary E INJECTION, METHYLPREDNISOLONE SODIUM SUCCINATE, UP TO 125 MG Ordered: 16-Aug-2015 Pending Vivienne Heaton CNP, CNP, Mary E INJECTION, METHYLPREDNISOLONE SODIUM SUCCINATE, UP TO 125 MG Ordered: 25-Jul-2016 Pending Vivienne Heaton CNP, CNP, Mary E INJECTION, METHYLPREDNISOLONE SODIUM SUCCINATE, UP TO 125 MG Ordered: 21-Mar-2017 Pending Natalee Hollingsworth INJECTION, METHYLPREDNISOLONE SODIUM SUCCINATE, UP TO 125 MG Ordered: 22-Mar-2017 Pending Vivienne Heaton CNP, CNP, Mary E INJECTION, METHYLPREDNISOLONE SODIUM SUCCINATE, UP TO 125 MG Ordered: 27-Mar-2017 Pending Vivienne Heaton CNP, CNP, Mary E Instructions Name Dates Details BMI 29.0-29.9,adult : [...] Rash : Patient Instructions Indication: Rash Encounters Lab Order On: 26-Feb-2018 16:20 Encounter Diagnosis: [...] providers contributing to the patient's care are manufacturing operations manager (dr. juan spivey 05/24/17-- will see on [...]
--- OUTSIDE RECORDS SUMMARY | 2018-04-18 12:30 | XMS RPT_ITS | Continuity of Care Document ---
:1950 Author Organization [facility] Address [address] [facility] [address] [place] [address] Phone Care Team Providers Name Role Phone Vivienne Heaton CNP Unavailable Physical Therapy, [facility] Unavailable Savannah DE PAZ, Dipesh Ashby Unavailable Tom DE PAZ, Vini Bowers Unavailable Dr. Tarun Stanton Unavailable Lexus Higuera Unavailable Unavailable long, heide Unavailable Unavailable Long CLINICAL DIRECTOR, Kimi L Unavailable Unavailable Slarb CLINICAL DIRECTOR, Gisella Unavailable Unavailable Natalee Hollingsworth Unavailable Unavailable Gravius, Ashley Unavailable Unavailable Unavailable Unavailable Problems Name Dates [...] gliosis to see Roshan for thisSaw Dr. Sviltana nance was told sinusitis, headaches began if [...] (K58.9, 564.1) Comments: has eliminated some lactosesees [facility] Status: Active Influenza (J11.1, 487.1) Comments: [...] up.Heating pad relieves pain.Unab;e to go to [facility] because of severe pain.Denies nu,bness, weakness, bowel/bladder incontinence, retention. Denies urinary frequency, burning, constipation, diarhea, abdominal pain.took tizanidine [address] Islas for headache which did not help her.cant use ibuprofen because on plavix. Status: Active Myocardial infarction Comments: sees Milan harris up 8th following [id number] 3 stents Status: Active Nasal drainage (J34.89, [...] days Quantity: 1 {Box} Refills: 0 Ordered:10-May-2017 SlaGisella brooks LPN Start : 21-Mar-2017 End : 10-May-2017 Inactive [...] {Applicator} Refills: 0 Ordered:24-Nov-2014 Sudarshan RAMÍREZ, Vivienne Tafoya CNP Start : 20-Aug-2014 End : 19-Sep-2014 Inactive [...] for 30 days Refills: 0 Ordered:29-Feb-2016 Sudarshan HATCHERY HELPER, Vivienne HODAbeto HATCHERY HELPER, Francie Start : 25-May-2015 End : 29-Feb-2016 [...] : 16-Aug-2015 End : 26-Oct-2015 Discontinued Nystop [id number] UNIT/GM External Powder 1 (one) Powder Powder [...] Cont Bilat Result: Comments: See Note; NOTES: [facility] Imaging Services [address] [place] [address] Breast w/o and/or W Cont Bilat MR#: [id number] Acct: [id number] Name: MICHELLE BROWN Meagan p #: [id number] : 1950 F 67 From: Julissa Love MD PCP: Vivienne Heaton NP Status: REG CLI Study: Breast w/o and/or W Cont Bilat Date of Exam: 01/22/18 Exam# [id number] Ordering Dr: Dipesh Nuñez MD STUDY: BILATERAL [...] Love MD at 16:24 EDT Tel Direct: [phone], Service support [phone], CC: Vivienne Heaton VISION CARE ASSOCIATE; Dipesh Nuñez MD Sanitation Worker Cleaning Equipment: Signed 10-Jan-2018 Surgery Visit Report Result: Comments: See Note; NOTES: [facility] 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 Apparently comparison could not be made as she is from [place]. The screening exam was performed December 26. [...] Limited Unilateral Result: Comments: See Note; NOTES: [facility] Imaging Services [address] [place] [address] Breast Limited Unilateral MR#: [id number] Acct: [id number] Name: MICHELLE BROWN Rep #: [id number] : 1950 F 67 From: Dipesh Marie MD PCP: Vivienne Heaton NP Status: REG CLI Study: Breast Limited Unilateral Date of Exam: 01/03/18 Exam# [id number] Ordering Dr: Vivienne Heaton VISION CARE ASSOCIATE-C STUDY: U LTRASOUND BREAST - RIGHT REASON [...] davila pport , CC: Vivienne Heaton NP Sanitation Worker Cleaning Equipment: Signed 03-Jan-2018 Breast Limited Unilateral Result: Comments: See Note; NOTES: [facility] Imaging Services [address] [place] [address] Breast Limited Unilateral MR#: [id number] Acct: [id number] Name: MICHELLE BROWN Rep #: [id number] : 1950 F 67 From: Dipesh Marie MD PCP: Vivienne Heaton NP Status: REG CLI Study: Breast Limited Unilateral Date of Exam: 01/03/18 Exam# [id number] Ordering Dr: Vivienne Heaton VISION CARE ASSOCIATE-C ADDENDUM by Dipesh Marie MD on 01/03/18 [...] ervice support , CC: Vivienne Heaton NP Sanitation Worker Cleaning Equipment: Signed 03-Jan-2018 DIAG MAMM W/CAD, UNILAT Result: Comments: See Note; NOTES: [facility] Imaging Services [address] [place] [address] DIAG MAMM W/CAD, UNILAT MR#: [id number] Acct: [id number] Name: MICHELLE BROWN Rep #: [id number] : 1950 F 67 From: Dipesh Marie MD PCP: Vivienne Heaton NP Status: REG CLI Study: DIAG MAMM W/CAD, UNILAT Date of Exam: 01/03/18 Exam# [id number] Ordering Dr: iVvienne Heaton VISION CARE ASSOCIATE-C ADDENDUM by Dipesh Marie MD on 01/03/18 [...] Correlation is with remote mammogram report from [place], [place] 04/22/2009. FINDINGS: Breast Composition: There are [...] sonographic abnormality same region. ORDE R #: [id number] BI/DIAG MAMM W/CAD, UNILAT IMPRESSION: Biopsy right [...] Service support , CC: Vivienne Heaton NP Sanitation Worker Cleaning Equipment: Signed 03-Jan-2018 DIAG MAMM W/CAD, UNILAT Result: Comments: See Note; NOTES: [facility] Imaging Services [address] [place] [address] DIAG MAMM W/CAD, UNILAT MR#: [id number] Acct: [id number] Name: MICHELLE BROWN Rep #: [id number] : 1950 F 67 From: Dipesh Marie MD PCP: Vivienne Heaton NP Status: REG CLI Study: DIAG MAMM W/CAD, UNILAT Date of Exam: 01/03/18 Exam# [id number] Ordering Dr: Vivienne Heaton VISION CARE ASSOCIATE-C MAMMOGRAPHY - UNILATERAL DIAGNOSTIC: RIGHT BREAST REASON FOR EXAM: Female, 67 years old. Abnormal mammogram with right breast asymmetric density. PERTINENT HISTORY: Non-contributory. TECHNIQUE: Digital examinati on. Mediolateral oblique (MLO) and craniocaudad (CC) views of the breast were obtained. CAD: CAD performed COMPARISON: 12/26/2017 mammogram. No prior mammographic imaging available for comparison. Phyllis cantu is with remote mammogram report from [place], [place] 04/22/2009. FINDINGS: Breast Composition: There are [...] Service support , CC: Vivienne Heaton NP Sanitation Worker Cleaning Equipment: Signed 26-Dec-2017 Dexa Bone Density Study Result: Comments: See Note; NOTES: [facility] Imaging Services [address] [place] [address] Dexa Bone Density Study MR#: [id number] Acct: [id number] Name: MICHELLE BROWN Rep #: [id number] : 1950 F 67 From: Sandro Lebron MD PCP: Vivienne Heaton NP Status: REG CLI Study: Dexa Bone Density Study Date of Exam: 12/26/17 Exam# [id number] Ordering Dr: Viivenne Heaton STUDY: DUAL ENERGY X-RAY ABSORPTIOMETRY / [...] Service support , CC: Vivienne Heaton NP Sanitation Worker Cleaning Equipment: Signed 26-Dec-2017 SCREENING MAMM (CAD), BILAT Result: Comments: See Note; NOTES: [facility] Imaging Services [address] [place] [address] SCREENING MAMM (CAD), BILAT MR#: [id number] Acct: [id number] Name: MICHELLE BROWN Rep # : [id number] : 1950 F 67 From: Dipesh Marie MD PCP: Vivienne Heaton NP Status: REG CLI Study: SCREENING MAMM (CAD), BILAT Date of Exam: 12/26/17 Exam# [id number] Ordering Dr: Vivienne Heaton MAMMOGRAP HY - [...] Service support , CC: Vivienne Heaton NP Sanitation Worker Cleaning Equipment: Signed 26-Dec-2017 SCREENING MAMM (CAD), BILAT Result: Comments: See Note; NOTES: [facility] Imaging Services [address] [place] [address] SCREENING MAMM (CAD), BILAT MR#: [id number] Acct: [id number] Name: MICHELLE BROWN Rep # : [id number] : 1950 F 67 From: Dipesh Marie MD PCP: Vivienne Heaton NP Status: REG CLI Study: SCREENING MAMM (CAD), BILAT Date of Exam: 12/26/17 Exam# [id number] Ordering Dr: Vivienne Heaton ADDENDUM by Dipesh Marie MD on 12/31/17 at 1516 ADDENDUM CORRECTION: Asymmetric density noted left breast upper quadrant which electronically havasupai of Gal[place] ECMO projections. Recommend left breast CC and ML spot compression views further evaluation should be changed to reflect the RIGHT b reast not the LEFT breast with the asymmetric density in the posterior third of the RIGHT breast. Electronically Signed: Dipesh Marie, at 15:16 EDT Tel , Service support [phone], 12/31/17 1516 Date cc: Vivienne Heaton NP [...] Service support , CC: Vivienne Heaton NP Sanitation Worker Cleaning Equipment: Signed 06-Dec-2017 Pulmonary Function Test Result: Comments: See Note; NOTES: [facility] Pulmonary Services/Neurology [address] [place] [address] MR#: [id number] Acct: [id number] Name: MICHELLE BROWN Rep #: [id number] : 1950 67 From: Jaspreet Almodovar DO Referring Dr: Vivienne Heaton NP Status: REG CLI Ordering Dr: Date: Location: [facility] Sex: F C INTRODUCTION: The patient is [...] Date Jaspreet Almodovar DO CC: Vivienne Heaton VISION CARE ASSOCIATE Date Dictated: 12/06/171347 Date Transcribed: 12/06/171347 Sanitation Worker Cleaning Equipment: RUBINA Signed 28-Nov-2017 Cardiology Visit Report Result: Comments: See Note; NOTES: [facility] 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 Assessment AND Plan 1. Atherosclerosis of [place] coronary artery of [place] heart with angina pectoris with documented spasm [...] Code Off vis,est,level 3 Diagnoses Atherosclerosis of [place] coronary artery of [place] heart with angina pectoris with documented spasm I25.111 [place] vs. transplanted heart: [place] heart Cardiomyopathy, ischemic I25.5 Pure hypercholesterolemia E78.00 Hyperlipidemia type: pure hypercholesterolemia Coding Level of Care Code Off vis,est,level 3 Diagnoses Atherosclerosis of [place] coronary artery of [place] heart with angina pectoris with documented s pasm I25.111 [place] vs. transplanted heart: [place] heart Cardiomyopathy, ischemic I25.5 Pure hypercholesterolemia E78.00 Hyperlipidemia type: pure hypercholesterolemia 11/28/17 1551 <Krishan franklin signed by Alysa MCFARLAND> Date Alysa MCFARLAND Cosigner Signature: Date (if applicable) CC: 10-Oct-2017 Brain W/WO Contrast Result: Comments: See Note; NOTES: [facility] Imaging Services [address] [place] [address] Brain W/WO Contrast MR#: [id number] Acct: [id number] Name: MICHELLE BROWN Rep #: [id number] : 1950 F 67 From: Bola Busch MD PCP: Vivienne Heaton NP Status: REG CLI Study: Brain W/WO Contrast Date of Exam: 10/10/17 Exam# [id number] Ordering Dr: Natalee Hollingsworth VISION CARE ASSOCIATE-C STUDY: MRI BRAIN WIT H AND WITHOUT [...] , CC: Vivienne Heaton NP; CHASIDY Hollingsworth Sanitation Worker Cleaning Equipment: Signed 13-Jun-2017 Stress Report Result: Comments: See Note; NOTES: [facility] Cardiovascular Services [address] [place] [address] MR#: [id number] Acct: [id number] Name: MICHELLE BROWN Rep #: [id number] : 67 From: Bobby Knight MD Primary [...] Date Bobby Knight MD CC: Vivienne Heaton VISION CARE ASSOCIATE; Alysa Edwards Date Dictated: 06/13/17 1308 Date Transcribed: 06/13/178 Sanitation Worker Cleaning Equipment: CO Signed 24-May-2017 Cardiology Visit Report Result: Comments: See Note; NOTES: [facility] [address] [place] [address] OFFICE VISIT Date of Service: 05/24/17 MR#: [id number] Acct: [id number] Name: MICHELLE BROWN Rep #: [id number] : 1950 Provider: Alysa Edwards Age/Sex: 67/F [...] it went away. It is in the sa fl spot where she had the chest heaviness [...] brachial Intake Visit Reasons: 6 M FU Traveling Buyer Required: No Accompanied by: None Is patient [...] contractions (Chronic) Atherosclerotic h eart disease of [place] coronary artery with angina pectoris with documented spasm (Chronic) Old myocardial infarction (Chronic) Hyperlipidemia (Chronic) Nicotine abuse (Chronic) Other nursing home (current ) drug therapy (Chronic) Surgical History [...] AND Plan 1. Atherosclerotic heart disease of [place] coronary artery with angina pectoris with documented [...] vis,est,level 4 Diagnoses Atherosclerotic heart disease of [place] coronary artery with angina pectoris with documented spasm I25.111 Cardiomyopathy, ischemic I25.5 Pure hypercholesterolemia E78.00; E78.0 Hyperlipidemia type: pure hypercholesterolemia Coding Level of Care Code Off vis,e st,level 4 Diagnoses Atherosclerotic heart disease of [place] coronary artery with angina pectoris with documented spasm I25.111 Cardiomyopathy, ischemic I25.5 Pure hypercholesterolemia E78.00; E78.0 Hy perlipidemia type: pure hypercholesterolemia 05/24/17 1252 <Electronically signed by Alysa MCFALRAND> Date Alysa MCFARLAND Cosigner Signature: Date (if applicable) CC: Vivienne Heaton NP 10-May-2017 Shoulder min 2 Views Result: Comments: See Note; NOTES: [facility] Imaging Services [address] [place] [address] Shoulder min 2 Views MR#: [id number] Acct: [id number] Name: MICHELLE BROWN Rep #: [id number] : 1950 F 67 From: Kelsi Stone MD PCP: Vivienne Heaton NP Status: REG CLI Study: Shoulder min 2 Views Date of Exam: 05/10/17 Exam# [id number] Ordering Dr: Vivienne Heaton STUDY: X-RAY - LEFT S [facility] REASON FOR EXAM: Female, 67 years old. [...] Service support , CC: Vivienne Heaton NP Sanitation Worker Cleaning Equipment: Signed 27-Mar-2017 Discharge Instruction Result: Comments: See Note; NOTES: [facility] Medical Records Department [address] [place], [place] [address] [address] Discharge Instruction 03/27/171841 MR#: [id number] Acct: [id number] Name: NIKITA MaldonadoMICHELLE Rep #: [id number] : 1950 67 From: Valeriy Huerta MD [...] your Primary Care Provider. Call [facility] ([phone]) or report to the closest Emergency Room. Call 911 if necessary. 03/27/171841 <Electronically signed by Valeriy kulkarni MD> Date Valeriy Huerta MD Cosigner Signature (If Indicated): Date CC: Vivienne Heaton NP 27-Mar-2017 Emergency Department Summary Result: Comments: See Note; NOTES: [facility] Medical Records Department [address] [place] [address] Emergency Department Summary 03/27/17 1836 MR#: [id number] Acct: [id number] Name: MICHELLE BROWN Rep #: [id number] : 1950 67 From: Valeriy Huerta MD [...] Impression: Bronchitis This note was generated with Bango dictation software. It may contain incorrect words, [...] your Primary Care Provider. Call [facility] ([phone]) or report to the closest Emergency Room. Call 911 if necessary. 03/27/17 1842 <Electro nically signed by Valeriy Huerta MD> Date Valeriy Huerta MD Cosigner Signature (If Indicated): Date CC: Vivienne Heaton NP 27-Mar-2017 Chest PA and Lateral Result: Comments: See Note; NOTES: [facility] Imaging Services [address] [place] [address] Chest PA and Lateral MR#: [id number] Acct: [id number] Name: MICHELLE BROWN Rep #: [id number] : 1950 F 67 From: Hakan Lutz MD PCP: Vivienne Heaton NP Status: REG ER Study: Chest PA and Lateral Date of Exam: 03/27/17 Exam# [id number] Ordering Dr: Valeriy Huerta MD STUDY: X-RAY EST REASON FOR EXAM: Female, 67 years [...] CC: Vivienne Heaton NP; Valeriy Huerta MD Sanitation Worker Cleaning Equipment: Signed 20-Mar-2017 Chest PA and Lateral Result: Comments: See Note; NOTES: [facility] Imaging Services [address] [place] [address] Chest PA and Lateral MR#: [id number] Acct: [id number] Name: MICHELLE BROWN Rep #: [id number] : 1950 F 67 From: Michael Brock MD PCP: Vivienne Heaton NP Status: REG CLI Study: Chest PA and Lateral Date of Exam: 03/20/17 Exam# [id number] Ordering Dr: Vivienne Heaton STUDY: X-RAY CHEST [...] Service support , CC: Vivienne Heaton NP Sanitation Worker Cleaning Equipment: Signed 29-Mar-2016 Chest PA and Lateral Result: Comments: See Note; NOTES: [facility] Imaging Services [address] [place] [address] Verdana 4d Chest PA and Lateral MR#: [id number] Acct: [id number] Name: MICHELLE BROWN ep #: [id number] : 1950 F 66 From: Marino Lira PCP: Vivienne Heaton Status: REG CLI Study: Chest PA and Lateral Date of Exam: 03/29/16 Exam# [id number] Ordering Dr: Renee Ewing DO STUDY: X [...] at 8:13 EST , Servic e support [phone], CC: Vivienne Heaton; Renee Ewing DO Sanitation Worker Cleaning Equipment: Signed 15-Feb-2016 Gastric Emptying Study Result: Comments: See Note; NOTES: [facility] Imaging Services [address] [place] [address] Verdana 4d Gastric Emptying Study MR#: [id number] Acct: [id number] Name: MICHELLE BROWN #: [id number] : 1950 F 66 From: Syed Ventura DO PCP: Vivienne Heaton Status: REG CLI Study: Gastric Emptying Study Date of Exam: 02/15/16 Exam# [id number] Ordering Dr: Vivienne Heaton CLINICAL: 66-year-old female [...] at 12:17 EST Tel , Service support [phone], CC: Vivienne Heaton Sanitation Worker Cleaning Equipment: Signed 27-Oct-2015 Abdomen Complete Result: Comments: See Note; NOTES: [facility] Imaging Services [address] [place] [address] Verda 4d Abdomen Complete MR#: [id number] Acct: [id number] Name: OSBALDOSvitlana MONZON ANGEL Dot Rep #: [id number] : 1950 F 65 From: Freddy Soto MD PCP: Vivienne Heaton Status: REG CLI Study: Abdomen Complete Date of Exam: 10/27/15 Exam# [id number] Ordering Dr: Vivienne Heaton STUDY: ABDOMINAL ULTRASOUND [...] Freddy Soto MD at 11:10 EDT Tel [phone], Service support [phone], CC: Vivienne Heaton Sanitation Worker Cleaning Equipment: Signed 16-Aug-2015 Chest PA and Lateral Result: Comments: See Note; NOTES: [facility] Imaging Services [address] [place] [address] Verda 4d Chest PA and Lateral MR#: [id number] Acct: [id number] Name: MICHELLE JUSTIN Rep #: [id number] : 1950 F 65 From: Marino Lira PCP: Vivienne Heaton Status: REG CLI Study: Chest PA and Lateral Date of Exam: 08/16/15 Exam# [id number] Ordering Dr: Vivienne Heaton STUDY: X-RAY CHEST [...] MD at 8:00 EDT , Service support [phone], 0075 RAD/Chest PA and Lateral IMPRESSION: No acute cardiopulmonary disease. Electronically Signed: Marino Lira MD at 8:00 EDT , Service support [phone], CC: Vivienne Heaton Sanitation Worker Cleaning Equipment: Signed 16-Aug-2015 Spirometry (35465) Comments: mild restriciton Result: 01-Jun-2015 L/S Spine Min 4 Views Result: Comments: See Note; NOTES: [facility] Imaging Services [address] [place] [address] Verdana 4d L/S Spine Min 4 Views MR#: [id number] Acct: [id number] Name: MICHELLE HOU Rep #: [id number] : 1950 F 65 From: Freddy Soot MD PCP: Vivienne Heaton Status: REG CLI Study: L/S Spine Min 4 Views Date of Exam: 06/01/15 Exam# [id number] Ordering Dr: Mati Del Cid STUDY: X-RAY [...] Freddy Soto MD at 12:33 EST Tel [phone], Service support [phone], RAD/L/S Spine Min 4 Views IMPRESSION: Degenerative changes of the spine, as detailed above. Electronically Signed: Freddy ponce MD at 12:33 EST Tel [phone], Service support [phone], CC: Vivienne Del Cid Sanitation Worker Cleaning Equipment: Signed 19-May-2015 Nuclear Stress Test - Chemical Result: Comments: See Note; NOTES: [facility] Imaging Services [address] [place] [address] Verdaghulam 4d Nuclear Stress Test - Chemical MR#: [id number] Acct: [id number] N janna: MICHELLE BROWN Rep #: [id number] : 1950 65 From: Real Yates MD [...] LVEF of 65%. Real Yates MD T: [facility] JOB: [id number] 05/19/15 1753 &#6 0;Electronically signed by Real Yates MD> Date Real Yates MD CC: Vivienne Heaton; Alysa Sebastian Date Dictated: 05/19/15916 Date Transcribed: 05/19/15916 Sanitation Worker Cleaning Equipment: Signed 13-Feb-2015 NCS and/or EMG Patient Result: Comments: See Note; NOTES: [facility] Pulmonary Services/Neurology [address] [facility] [place] [address] NCS and/or EMG Patient MR#: [id number] Acct: [id number] Name: MICHELLE HOU Rep #: [id number] : 1950 65 From: Chase Hugo MD Referring Dr: Lena Barnett DPM Status: REG CLI Ordering Dr: Lena Barnett DPM Date: 02/02/15 Location: N Sex: F C D ATE OF SERVICE: [...] A chilo Hugo MD T: [facility] JOB: [id number] 02/13/152 <Electronically signed by Chase Hugo MD> Date Chase Hugo MD CC: Vivienne Heaton; Chase Hugo; Lena Barnett DPM Date Dictated: 02/02/15812 Date Transcribed: 02/02/15812 Sanitation Worker Cleaning Equipment: Signed 15-Dec-2014 Cerv Spine 4 or 5 Views Result: Comments: See Note; NOTES: [facility] Imaging Services [address] [place] [address] Radiology Report MR#: [id number] Acct: [id number] Name: MICHELLE BROWN Rep #: : 1950 F 64 From: Kelly Green MD PCP: Vivienne Heaton Status: REG CLI Study: Cerv Spine 4 or 5 Views Date of Exam: 12/15/14 Exam# [id number] Ordering Dr: Vini Islas MD STUD Y: [...] at 22:22 EDT Tel , Service support [phone], RAD/Cerv Spine 4 or 5 Views IMPRESSION: Moder ate endplate spondylosis. Electronically Signed: Kelly Green MD at 22:22 EDT Tel , Service support [phone], CC: Vivienne Heaton; Vini Islas Sanitation Worker Cleaning Equipment: Signed 27-Aug-2014 Brain/Head W/WO Contrast Result: Comments: See Note; NOTES: [facility] Imaging Services [address] [place] [address] CAT Scan Report MR#: [id number] Acct: [id number] Name: MICHELLE BROWN Rep #: [id number] : 1950 F 64 From: Freddy Soto MD PCP: Vivienne Heaton Status: REG CLI Study: Brain/Head W/WO Contrast Date of Exam: 08/27/14 Exam# [id number] Ordering Dr: Vivienne Heaton STUDY: C T [...] Soto MD a t 13:55 EDT Tel [phone], Service support [phone], CC: Vivienne Heaton Sanitation Worker Cleaning Equipment: Signed Family History Unknown Family Member Name [...] 1.93 m2 Results Date Description Value Details 95-Bcm-235374:32 Vitamin B12 280 pg/mL (Normal) Comments: [facility] [address] [place], [address] Range: 211-911 12-Nqt-48104:25 CREATININE FINGERSTICK Comments: [facility] [address] [place], [place] [address] EGFR WB 52.0000 mL/min (Abnormal) CREATININE WB 1.1 mg/dL (Abnormal) Range: 0.55-1.02 06-Ogx-681430:07 BILIRUBIN DIRECT (93202) Comments: PATIENT NOT FASTINGPERFORMED BY: [facility] [address] [place] [id number] Bilirubin, Total 1.2 mg/dL (Normal) Range: 0.0-1.2 47-Bol-155572:08 Comprehensive Metabolic Profil Comments: [facility] [address] [place], [place], [id number] GAP 7 (Normal) Range: 5-15 CO2 30.0 [...] Comments: Please note revised GLUCOSE reference range adllxyojj51/02/2018. 26-Zhk-01379:02 Lipid Profile Comments: [facility] [address] [place], [place], [id number] VLDL 29 mg/dL (Normal) Range: 5-40 LDL [...] 200-240 mg/dL Borderline >240 mg/dL High Risk 55-Hfc-16151:02 Liver Profile Comments: [facility] [address] [place], [address] D BILI 0.23 mg/dL (Normal) Range: 0.00-0.30 T BILI 1.30 mg/dL (Abnormal) Range: 0.20-1.00 ALT 26 U/L (Normal) Range: 13-56 Comments: Please note revised ALT reference range ofuvxfpin60/28/2018. ALK P 60 U/L (Normal) Range: 45-117 AST 15 U/L (Normal) Range: 15-37 GLOB 3.0 g/dL (Normal) Range: 2.2-4.2 ALB 3.9 g/dL (Normal) Range: 3.2-5.0 T PROT 6.9 g/dL (Normal) Range: 6.4-8.2 6-Fpb-251655:25 Basic Metabolic Profile (BMP) Comments: [facility] [address] [place], [place], [address] GAP 7 (Normal) Range: 5-15 CO2 26.0 [...] <126 mg/dLsuggests IMPAIRED HOMEOSTASIS per A.D.A. criteria. 7-Cmt-239209:25 CBC W/Diff, Automated Comments: [facility] [address] [place], [place], [id number] Absolute Lymph 2.04 {X10_3/ul} (Normal) Range: 0.83-4.51 [...] K/mm3 (Normal) Range: 4.4-11.0 :50 Rapid Flu (11952 x 2) Comments: Negative Influenza A Ag Negative (Normal) :51 Lipid Profile Comments: [facility] [address] [place], [place], [address] VLDL 34 mg/dL (Normal) Range: 5-40 Comments: [...] mg/dL High Risk :51 Liver Profile Comments: [facility] [address] [place], [place], [address] D BILI 0.23 mg/dL (Normal) Range: 0.00-0.30 T BILI 1.10 mg/dL (Abnormal) Range: 0.20-1.00 ALT 25 U/L (Normal) Range: 12-78 ALK P 67 U/L (Normal) Range: 45-117 AST 15 U/L (Normal) Range: 15-37 GLOB 3.0 g/dL (Normal) Range: 2.3-3.5 ALB 3.8 g/dL (Normal) Range: 3.4-5.0 T PROT 6.8 g/dL (Normal) Range: 6.4-8.2 4-Foo-299395:16 Anti-TPO Antibody (90180) Comments: PATIENT NOT FASTINGPERFORMED BY: [facility] [id number] Thyroid Peroxidase (TPO) Ab 10 {IU/mL} (Normal) Range: 0-34 5-Hfp-793838:16 T4, FREE (THYROXINE) Comments: PATIENT NOT FASTINGPERFORMED BY: [facility] [id number] Information: [id number], 228587 (26628) T4,Free(Direct) 1.20 ng/dL (Normal) Range: 0.82-1.77 9-Wea-249395:16 T3, FREE (TRIDOTHYRONINE) (97790) Comments: PATIENT NOT FASTINGPERFORMED BY: [facility] [id number] Triiodothyronine,Free,Serum 3.5 pg/mL (Normal) Range: 2.0-4.4 6-Wul-197290:16 TSH (THYROID STIMULATING Comments: PATIENT NOT FASTINGPERFORMED BY: [facility] [id number] HORMONE) (79877) TSH 1.410 {uIU/mL} Range: 0.450-4.500 (Normal) EGD ([facility]) See Note (Normal) Comments: [facility] [address] [place], [place], [address] ; another doc 2:47 Comments: Patient: MICHELLE BROWN : 1950 (65/F) Acct Num: [id number] Phys: Tarun Stanton Unit Num: [id number] Loc: LABSPEC Specimen: [id number] Received: 01/23/16 734 Spec Type : EGD BIOPSY TISSUES TISSUES: COMMENT The results of immunohistochemistry for Helicobacter pylori will be reported separately ([id number]). GROSS DESCRIPTION Received is one cont ainer labeled with the patient's name and designated gastric biopsy. The specimen consists of multiple irregular fragments of light sahu soft tissue that in aggregate measure 0.5 x 0.3 x 0.1 cm. The specimen is totally submitted in one cassette. / MAXI:andrew 01/24/16 TC:3 CPT:52520 HEADER OPERATION: EGD with biopsies PRE-OP DIAGNOSIS: [...] on file> IMMUNOHISTOCHEMISTRY See Note (Normal) Comments: [facility] [address] [place], [address] ; another doc :00 Comments: Patient: MICHELLE BROWN : 1950 (65/F) Acct Num: [id number] Phys: Tarun Stanton Unit Num: [id number] Loc: LABSPEC Specimen: [id number] Received: 01/25/16954 Spec Typ e: IMMUNO TISSUES TISSUES: SPECIMEN INFORMATION: Tissue Source: Gastric biopsy Clinical Info: Bloating, nausea Specimen Number: [id number] CPT code: 18365 METHODOLOGY: Dep araffinized sections of prefer/formalin-fixed tissue [...] developed and their performance characteristics determined by [facility]. They may not have been mellissa red or approved by the U.S. Food and Drug Administration. The FDA has determined that such clearance or approval is not necessary. INTERPRETATION: Gastric biopsy: Negative for Helicobacter pylor i organisms. SJ:andrew 01/25/16 PHYSICIAN AND INSTITUTION [address] [address] Signed Jez Young 01/26/16 <signature on file> : CDIFF (Molecular) Comments: [facility] [address] [place], [address] CDIFF See Note (Normal) Comments: Cdiff-MolecularC. Diff DNA Negative- No toxigenic C. Diff DNA Detected :23 ENTERIC PATHOGEN PANEL STOOL Comments: [address] [place], [address] EP PANEL See Note (Normal) [...] Not Detected Ova and Parasites 8623 Comments: [address] [place], [address] OP See Note Comments: O [...] OR PARASITES FOUND. :23 Stool Lactoferrin/WBC Comments: [facility] [address] [place], [place], [address] WBCST See Note (Normal) Comments: Stool Lacto/WBCFecal WBC Lactoferrin Negative: No Fecal WBC Lactoferrin present :23 Stool Occult Blood iFOB Comments: [facility] [address] [place], [address] STOB See Note (Normal) Comments: STOB iFOBOccult Blood Negative :37 LIPID PANEL (84731) Comments: PATIENT WAS FASTINGPERFORMED BY: [facility] Jirqgq8172 [facility] [id number] LDL/HDL Ratio 1.3 {ratio_units} Range: 0.0-3.2 (Normal) [...] COLON BIOPSY (CHOOSE See Note (Normal) Comments: [facility] [address] [place], [place], [id number] 20 SITE) Comments: Patient: MICHELLE BROWN : 1950 (65/F) Acct Num: [id number] Phys: Tarun Stanton Unit Num: [id number] Loc: LABSPEC Specimen: [id number] Received: 11/25/15 - 151 Spec Type : [...] in one cassette. / MAXI:andrew 11/29/15 TC:1 CPT:66833 x2 HEADER OPERATION: Colonoscopy with polypectomy PRE-OP [...] file> :18 Fecal Occult Blood , Office (32424) Fecal Occult Blood , Office (Inhouse) negative (Normal) :30 Bilirubin, Direct Comments: [facility] [address] [place], [address] D BILI 0.17 mg/dL (Normal) Range: 0.00-0.30 :30 CBC W/Diff, Automated Comments: [facility] [address] [place], [address] Absolute Lymph 2.15 {X10_3/ul} (Normal) [...] Range: 4.4-11.0 27-Oct-20159:30 Comprehensive Metabolic Profil Comments: [facility] [address] [place], [address] GAP 6 (Normal) Range: 5-15 CO2 28.0 [...] 7-18 GLU 99 mg/dL (Normal) Range: 70-110 7-Dvi-238303:23 Urinalysis, Office (28061) UA - LEUKOCYTE ESTERASE Negative (Normal) UA - NITRITE Negative (Normal) URINE UROBILINGN ROLANDO TIMED Normal mg/dL (Normal) UA - PROTEIN Negative mg/dL (Normal) UA - PH 6 (Abnormal) UA - BLOOD Negative (Normal) UA - SPECIFIC GRAVITY 1.015 (Normal) UA - KETONES Negative mg/dL (Normal) UA - BILIRUBIN Negative (Normal) UA - GLUCOSE Negative (Normal) :58 Bedside Glucose Comments: [facility] LaboratoryPoint [facility] [address] [place] [address] BEDSIDE GLU 104 mg/dL (Normal) Range: 70-110 Comments: Policy and Physicians Orders followedMANAGEMENT OF PATIENT CARE PER NURSING PROTOCOL :53 2 HR Glucose Tolerance Test Comments: Is Patient Fasting? YIs Patient Taking Vitamins or Folic Acid Supplements? [facility] [address] [place], [address] GLU GTT-2 HOUR 131 mg/dL [...] TAVERAS Ab <0.2 {AI} (Normal) Range: 0.0-0.9 VALUER Ab <0.2 {AI} (Normal) Range: 0.0-0.9 :53 ANTINUCLEAR ANTIBODIES DIRECT Comments: [facility] (refer to report for specific site)refer to report for address and phone number UMA-DIRECT Negative (Normal) Comments: Performed at: [address] [id number] Director: Tarun Goodman PhD, Phone: [phone] :53 Erythrocyte Sed Rate Comments: [facility] [address] [facility] [place], [place], [address] SED RATE 2 mm/h (Normal) Range: 0-30 :53 Folates, (Folic Acid) Comments: Is Patient Fasting? YIs Patient Taking Vitamins or Folic Acid Supplements? [facility] [address] [facility] [address] [place], [place], [address] FOLATES 9.50 ng/mL (Normal) Range: 3.1-17.5 :53 [...] a more specific supplemental or PCR testing. [facility] offers HCV Ab w/Reflex to Verification test #[id number].Performed at: [facility] orp [address] [id number] Director: Tarun Goodman PhD, Phone: [phone]; ADDENDA: orderedby another doctor :53 Protein Electroph, S Comments: [facility] (refer to report for specific site)refer to report for address and phone number NOTE: Comment (Normal) Comments: The SPE pattern appears essentially unremarkable. Evidenceof monoclonal protein is not apparent. INTERPRETATION Comment (Normal) Comments: Protein electrophoresis scan will follow via computer,mail, or actuarial science professor delivery. A/G RATIO 1.7 (Normal) Range: 0.7-2.0 [...] Patient Taking Vitamins or Folic Acid Supplements? [facility] [address] [place], [place], [id number] RHEUMATOID FAC < 10.0 {IU/mL} (Normal) :53 Thyroid Stim Hormone (TSH) Comments: Is Patient Fasting? YIs Patient Taking Vitamins or Folic Acid Supplements? [facility] [address] [place], [address] TSH 1.22 {uIU/mL} (Normal) Range: 0.358-3.74 :53 Vitamin B12 250 pg/mL (Normal) Comments: [facility] [address] [place], [place], [address] Range: 211-911 82-Kft-569006:28 Lipid Profile Comments: Test performed at:[facility] [address] [facility] [place], [place] [address] VLDL 41 mg/dL (Abnormal) Range: 5-40 LDL [...] 200-240 mg/dL Borderline >240 mg/dL High Risk 75-Lzg-669757:28 Liver Profile Comments: Test performed at:[facility] [address] [facility] [place], [place] [address] ; Ordered by another doctor D BILI 0.26 mg/dL (Normal) Range: 0.00-0.30 T BILI 1.50 mg/dL (Abnormal) Range: 0.20-1.00 ALT 22 U/L (Normal) Range: 12-78 ALK P 71 U/L (Normal) Range: 50-136 AST 14 U/L (Abnormal) Range: 15-37 GLOB 2.8 g/dL (Normal) Range: 2.3-3.5 ALB 3.9 g/dL (Normal) Range: 3.4-5.0 T PROT 6.7 g/dL (Normal) Range: 6.4-8.2 34-Esj-910080:40 CBC With Differential/Platelet Comments: PATIENT NOT FASTINGPERFORMED BY: [facility]pt[facility]3 [facility] [id number] Information: [id number] Immature Grans (Abs) 0.0 {x10E3/uL} (Normal) Range: [...] 3.77-5.28 WBC 8.0 {x10E3/uL} (Normal) Range: 3.4-10.8 15-Dtf-309737:40 Comp. Metabolic Panel (14) Comments: PATIENT NOT FASTINGPERFORMED BY: [facility] [address] [facility] [id number] ALT (SGPT) 21 [iU]/L (Normal) Range: 0-32 [...] 1.140 {uIU/mL} Comments: PATIENT NOT FASTINGPERFORMED BY: [employer]63MRO [facility] [id number] :40 (Normal) Range: 0.450-4.500 Vitamin D, 25-Hydroxy 14.9 ng/mL Comments: PATIENT NOT FASTINGPERFORMED BY: [place] [facility] [address]48 [facility] [place] [id number] :40 (Abnormal) Range: 30.0-100.0 Comments: Vitamin D deficiency has been defined by the [place] of[facility] Hospitalcine and an Endocrine Society practice guideline as alevel of serum 25-OH vitamin D less than 20 ng/mL (1,2).The Endocrine Society went on to further define vitamin Dinsufficiency as a level between 21 and 29 ng/mL (2).1. IOM ([place] of Medicine). 2010. Dietary reference intakes for calcium and D. [place]: The National Academies Press.2. Kristin MF, Jane NC, David URENA, et al. Evaluation, treatment, and prevention of vitamin D deficiency: an Endocrine Society clinical practice guideline. JCEM. 2010; 96(7):1911-30. :18 Urinalysis, Office (79948) UA - LEUKOCYTE ESTERASE Trace (Normal) UA [...] Indication: Sinusitis Planned Observations VITAMIN B-12 (CYANOCOBALAMIN) (26768)Indication: Vitamin B12 deficiency On: 2-Hca-067653:22 Request METABOLIC PANEL, COMPREHENSIVE (09903)Indication: Frequent headaches On: 82-Imi-379462:06 Request OVA & PARASITE DIR SMEAR (04878)Indication: Diarrhea On: :39 Request OCCULT BLOOD FECES SCREEN (20183)Indication: Diarrhea On: :39 Request LEUKOCYTE COUNT, FECAL (43424)Indication: Diarrhea On: :39 Request C-DIFFICILE, STOOL (30349)Indication: Diarrhea On: :39 Request PHAN CULTURE-STOOL (52035)Indication: Diarrhea On: :39 Request CBC WITH MANUAL DIFF (88004)Indication: Abdominal pain On: 0-Bxq-903773:14 Request FECAL OCCULT- Tubes sent home (19089)Indication: Encounter for screening for malignant neoplasm of colon (Renamed from Special screening for malignant neoplasms, colon) On: 4-Clv-077291:13 Request HEPATIC FUNCTION PANEL (01469)Indication: Postprandial bloating On: 1-Ycp-156816:05 Request Metabolic Panel, Comprehensive (18057)Indication: Postprandial bloating On: 0-Sxs-499745:05 Request CALCIFEDIOL (85937)Indication: Arthritis On: :18 Request TSH (THYROID STIMULATING HORMONE) (36824)Indication: Frequent headaches On: 09-Rhk-308480:18 Request CBC, Platelets & Auto Diff (13071)Indication: Frequent headaches On: 70-Sah-436531:17 Request Metabolic Panel, Comprehensive (76156)Indication: Frequent headaches On: 92-Gpu-652236:17 Request Planned Encounters Medical; General Medical - On: 30-May-2018 9:15 [facility] Vivienne Heaton CNP, CNP, Mary E Planned Procedures B 12 Injection, 1000 mcg On: 27-Feb-2018 Intent (J3420)By: Ashley Dc Comments: lot:8193exp:[id number]/route:L dltdamt:1mlJasmin, CCMA PFT - Before and After On: 22-Nov-2017 Intent SpiroBy: Vivienne Heaton CNP, CNP, Mary E PNEUM VAC ADLT/IMUMNOSPR, On: 15-Nov-2017 Intent SBC/INTRM (91172)By: Vivienne Heaton CNP, CNP, Mary E SCREENING DIGITAL On: 15-Nov-2017 Intent TOMOSYNTHESIS OF BREAST (71699)By: Vivienne Heaton CNP, CNP, Mary E ANNUAL DEPRESSION On: 15-Nov-2017 Intent SCREENING, 15 MINUTES (G0444)By: Vivienne Heaton CNP, CNP, Mary E DEXA SCAN AXIAL SKELETON On: 15-Nov-2017 Intent (54883)By: Vivienne Heaton CNP, CNP, Mary E Toradol Injection, 30 mg On: 08-Nov-2017 Intent (J1885)By: Vivienne Heaton CNP, CNP, Mary E MRI BRAIN W/ CONTRAST On: 03-Oct-2017 Intent (76100)By: Natalee Hollingsworth Comments: Headaches daily x 6 weeks. Radiology - Shoulder - On: 10-May-2017 Intent LeftBy: Vivienne Heaton CNP, CNP, Mary E ELECTROCARDIOGRAM, On: 27-Mar-2017 Intent COMPLETE (ECG) (77503)By: Comments: 2 EKG's done frequent PVC with cough Vivienne Heaton CNP, CNP, Vivienne Rod Solu -Medrol Injection, On: 27-Mar-2017 Intent 125 mg (J2930)By: Vivienne Heaton CNP, CNP, Mary E Solu -Medrol Injection, On: 22-Mar-2017 Intent 125 mg (J2930)By: Vivienne Heaton CNP, CNP, Mary E Solu -Medrol Injection, On: 21-Mar-2017 Intent 125 mg (J2930)By: Comments: solumedrol 125mg injectionlot: [id number]: GMpt tolerated wellAD CLINICAL DIRECTOR Natalee Hollingsworth Aerosol Treatment On: 21-Mar-2017 Intent (12339)By: Natalee Hollingsworth Comments: Slight exp wheeze after aerosol treatment, better air exchange. Radiology - ChestBy: Sudarshan On: 20-Mar-2017 Intent Vivienne RAMÍREZ CNP, Comments: Call Ana Rosa Heaton with results Vivienne Rod Solu -Medrol Injection, On: 25-Jul-2016 Intent 125 mg (J2930)By: Vivienne Heaton CNP, CNP, Mary E Radiology - Chest- PA and On: 28-Mar-2016 Intent LatBy: Renee Ewing DO Spirometry (76335)By: On: 28-Mar-2016 Intent Renee Ewing DO Comments: restrivrive patterns on graph Aerosol Treatment On: 23-Mar-2016 Intent (26797)By: Vivienne Heaton CNP, CNP, Mary E Nuclear Medicine - Gastric On: 08-Feb-2016 Intent Emptying StudyBy: Vivienne Heaton CNP, CNP, Mary E Ultrasound - Abdomen On: 26-Oct-2015 Intent CompleteBy: Vivienne Heaton CNP, CNP, Mary E PFT - CompleteBy: Sudarshan On: 16-Aug-2015 Intent Vivienne RAMÍREZ CNP, Mary E Radiology - ChestBy: Sudarshan On: 16-Aug-2015 Intent DARRELL FrancieViola Heaton CNP Francie Aerosol Treatment On: 16-Aug-2015 Intent (87181)By: Vivienne Heaton CNP, CNP Francie Solu -Medrol Injection, On: 16-Aug-2015 Intent 125 mg (J2930)By: Sudarshan Comments: lot: [id number]: 04/12site/route: LGM/IMamt: 2mLVIS signed when applicableHECTOR Alberts CNP FrancieViola Heaton CNP Francie Radiology - Lumbar On: 01-Jun-2015 Intent SpineBy: Mati Del Cid MD CT - Brain/Head (IV On: 20-Aug-2014 Intent Contrast Needed)By: Sudarshan RAMÍREZ FrancieViola Heaton CNP Francie Carotid DopplerBy: Sudarshan On: 20-Aug-2014 Intent Vivienne RAMÍREZ CNP Francie Planned Medications INJECTION, KETOROLAC TROMETHAMINE, PER 15 MG Ordered: 08-Nov-2017 Pending Sudarshan RAMÍREZ FrancieViola Heaton CNP Francie INJECTION, METHYLPREDNISOLONE SODIUM SUCCINATE, UP TO 125 MG Ordered: 16-Aug-2015 Pending Sudarshan RAMÍREZ Francie Eugenedevorah RAMÍREZ, Vivienne Rod INJECTION, METHYLPREDNISOLONE SODIUM SUCCINATE, UP TO 125 MG Ordered: 25-Jul-2016 Pending Sudarshan RAMÍREZ Francie Ciclaricedevorah RAMÍREZ, Vivienne Rod INJECTION, METHYLPREDNISOLONE SODIUM SUCCINATE, UP TO 125 MG Ordered: 21-Mar-2017 Pending Natalee Hollingsworth INJECTION, METHYLPREDNISOLONE SODIUM SUCCINATE, UP TO 125 MG Ordered: 22-Mar-2017 Pending Sudarshan RAMÍREZ Francie Ciclaricedevorah RAMÍREZ Francie INJECTION, METHYLPREDNISOLONE SODIUM SUCCINATE, UP TO 125 MG Ordered: 27-Mar-2017 Pending Sudarshan RAMÍREZ FrancieViola Heaton CNP Vivienne Rod Vitamin B-12 1000 MCG/ML Injection Solution Ordered: 27-Feb-2018 Pending Ashley Dc Instructions Name Dates Details BMI 29.0-29.9,adult : [...] Instructions Indication: Rash Encounters Nurse Visit On: 27-Feb-2018 8:12 Encounter Reason: Injections - The medication the patient is here to receive is vitamin B12 IM.Encounter Diagnosis: Vitamin B12 deficiency End: 27-Feb-2018 21:59 [facility] Lab Order On: 26-Feb-2018 16:20 Encounter Diagnosis: Vitamin B12 deficiency End: 26-Feb-2018 16:22 [facility] Annotation/Addendum On: 06-Jan-2018 15:04 Encounter Diagnosis: Abnormal mammogram End: 07-Jan-2018 12:02 [facility] Annotation/Addendum On: 6-Oct-2018 6:57 [facility] End: 28-Dec-2017 6:59 [...] providers contributing to the patient's care are appliance counselor (dr. juan spivey 05/24/17-- will see on [...] Frequent headaches, Thrush [facility] Payers MedicareAnthem/SupplementMichelle Brown; devorah guarantor
--- OUTSIDE RECORDS SUMMARY | 2018-04-18 12:32 | XMS RPT_ITS ---
:1950 Author Organization [place] Support Name Relationship Address Phone MICHELLE FIORE [address] + [place] [address] R Unknown Unavailable Unavailable MICHELLE FIORE[address] + [place] [address] R Unknown Unavailable Unavailable MICHELLE FIORE [address] + [place] [address] R Unknown Unavailable Unavailable MICHELLE FIORE [address] + [place] [address] R Unknown Unavailable Unavailable MICHELLE FIORE [address] + [place] [address] R Unknown Unavailable Unavailable MICHELLE FIORE [address] + [place] [address] R Unknown Unavailable Unavailable MICHELLE FIORE [address] + [place] [address] R Unknown Unavailable Unavailable MICHELLE FIORE [address] + [place] [address] R Unknown Unavailable Unavailable MICHELLE FIORE [address] + [place] [address] D [address] S DIST[address] + [place] [address] MICHELLE FIORE [address] + [place] [address] D [address] + [place] [address] [address] + [place] [address] R Unknown Unavailable Unavailable MICHELLE FIORE Sister [address] + [place] [address] R Unknown Unavailable Unavailable MICHELLE FIORE Sister [address] + [place] [address] R Unknown Unavailable Unavailable R Unknown Unavailable Unavailable MICHELLE FIORE [address] + [place] [address] R Unknown Unavailable Unavailable MECHERTREALer [address] + [place] [address] MICHELLE FIORE [address] + [place] [address] R Unknown Unavailable Unavailable MECHERTREAL Brother [address] + [place] [address] MICHELLE FIORE [address] + [place] [address] R Unknown Unavailable Unavailable MECHERTREAL Brother [address] + [place] [address] MICHELLE FIORE [address] + [place] [address] R Unknown Unavailable Unavailable REAL ALFREDOer [address] + [place] [address] MICHELLE FIORE [address] + [place] [address] R Unknown Unavailable Unavailable MECHERTREALer [address] + [place] [address] Care Team Providers Name Role Phone Vivienne Heaton Attending Unavailable Vivienne Heaton Referring Unavailable Vivienne Heaton Consulting Unavailable Vivienne Heaton Attending Unavailable Vivienne Heaton Primary Care Unavailable Vivienne Heaton Attending Unavailable Vivienne Heaton Primary Care Unavailable Bobby Knight Attending Unavailable Alysa Edwards Referring Unavailable Dipesh Nuñez Attending Unavailable Dipesh Nuñez Referring Unavailable Vivienne Heaton Primary Care Unavailable Vini Islas Attending Unavailable Vini Islas Referring Unavailable Ciesa, Vivienne Primary Care Unavailable CordellDipesh vivar Attending Unavailable Zoraidaesa, Vivienne Referring Unavailable Ciesa, Vivienne Attending Unavailable Ciesa, Vivienne Referring Unavailable Ciesa, Vivienne Primary Care Unavailable Ciesa, Vivienne Attending Unavailable Ciesa, Vivienne Referring Unavailable Ciesa, Vivienne Primary Care Unavailable Vini Lewis Attending Unavailable Natalee Hollingsworth BLOW TORCH BURNER-C Attending Unavailable Ciesa, Vivienne Primary Care Unavailable Natalee Hollingsworth BLOW TORCH BURNER-C Referring Unavailable Alysa Edwards Attending Unavailable Alysa Edwards Referring Unavailable Ciesa, Vivienne Primary Care Unavailable Alysa Edwards Attending Unavailable Ciesa, Vivienne Referring Unavailable Ciesa, Vivienne Primary Care Unavailable Ciesa, Vivienne Attending Unavailable Ciesa, Vivienne Primary Care Unavailable Real Yates Attending Unavailable Real Yates Referring Unavailable Ciesa, Vivienne Primary Care Unavailable Ciesa, Vivienne Primary Care Unavailable Valeriy Huerta Attending Unavailable Ciesa, Vivienne Attending Unavailable Ciesa, Vivienne Referring Unavailable Ciesa, Vivienne Primary Care Unavailable Jaspreet Almodovar D.O. Attending Unavailable Zoraidaesa, Vivienne Referring Unavailable Alysa Edwards Attending Unavailable Zoraidaesa, Vivienne Referring Unavailable Vivienne Heaton Primary Care Unavailable Purpose Purpose PROBLEMS PROBLEMS DATE TYPE CONDITION / CODE ATTENDING STATUS SOURCE 01/10/2018 Unknown R92.8 - Other Dipesh Nuñez [facility] abnormal and Community inconclusive findings Hospital on diagnostic imaging Repository of breast / R92.8(ICD-10) 12/26/2017 Unknown Z78.0 - Asymptomatic Vivienne Heaton [facility] menopausal state / Community Z78.0(ICD-10) Hospital Repository 12/26/2017 Unknown Z12.31 - Encounter Vivienne Heaton Active [facility] for screening Community mammogram for Hospital malignant neoplasm of Repository breast / Z12.31(ICD-10) 12/18/2017 Unknown J44.9 - Chronic Rene Bishop obstructive pulmonary D.O. Community disease, unspecified Hospital / J44.9(ICD-10) Repository 07/15/2017 Unknown I25.111 - Eugene, P[place] [facility] Atherosclerotic heart Community disease of poarch Hospital coronary artery with Repository angina pectoris with documented spasm / I25.111(ICD-10) 07/15/2017 Unknown R07.9 - Chest pain, Eugene, Bobby [facility] unspecified / Community R07.9(ICD-10) Hospital Repository 05/09/2017 Unknown E78.5 - Real Yates Active [facility] Hyperlipidemia, Community unspecified / Hospital E78.5(ICD-10) Repository 05/09/2017 Unknown Z79.899 - Other long Real Yates Active [facility] term (current) drug Community therapy / Hospital Z79.899(ICD-10) Repository 04/15/2017 Unknown R05 - Cough / Deanna, Valeriy [facility] R05(ICD-10[facility] Repository 04/15/2017 Unknown J11.1 - Influenza due Vivienne Heaton [facility] to unidentified Community influenza virus with Hospital other respiratory Repository manifestations / J11.1(ICD-10) PROCEDURES PROCEDURES No Procedure Records FoundVITAL SIGNS VITAL SIGNS No Vital Signs Records FoundRESULTS RESULTS VITAMIN B12 Collected: 02/21/2018 Status: F Source: [facility] 1:32 PM [facility] REPOSITORY TYPE CODE TESTS RESULT OUT OF RANGE REFERENCE UNITS LAB L503.0105 211-911 pg/mL Normal Vitamin B12 280 Performed By: #### L503.0105 #### [facility] [place] [place], [place], [address] METHYLMALONIC ACID BLD Collected: 02/21/2018 Status: F Source: [facility] 1:29 PM [facility] REPOSITORY TYPE CODE TESTS RESULT OUT OF RANGE REFERENCE UNITS LAB L7400.3000 Normal METHYLM 367278 Result Comment: TEST RESULT UNITS REFERENCE INTERVAL Methylmalonic Acid, Serum 497 HIGH nmol/L 0 - 378 Disclaimer: This test was developed and its performance characteristics determined by [facility]. It has not been cleared or approved by the U.S. Food and Drug Administration. TESTING PERFORMED AT [facility]. ORIGINAL REPORT ON FILE IN LAB CONTAINS ADDITIONAL TEST SITE INFORMATION. Performed By: #### L7400.3000 #### [facility] (refer to report for specific site) refer to report for address and phone number CREATININE FINGERSTICK Collected: 01/22/2018 Status: F Source: [place] 9:25 AM [facility] REPOSITORY TYPE CODE TESTS RESULT OUT OF REFERENCE UNITS RANGE LAB L9100.0210 0.55-1.02 mg/dL High CREATININE WB 1.1 LAB L9100.0220 >60 mL/min Low EGFR WB 52.0000 Performed By: #### L9100.0200 #### [facility] Point of Care [address] [place] [address] BREAST W/O AND/OR W Observed: 01/22/2018 Status: F Source: [place] CONT BILAT 9:05 AM [facility] REPOSITORY [facility] Imaging Services [address] [place] [address] Breast w/o and/or W Cont Bilat MR#: [id number] Acct: [id number] Name: MICHELLE BROWN Rep #: [id number] : 1950 F 67 From: Julissa Love MD PCP: Vivienne Heaton NP Status: REG CLI Study: Breast w/o and/or W Cont Bilat Date of Exam: 01/22/18 Exam# [id number] Ordering Dr: Dipesh Nuñez MD STUDY: BILATERAL BREAST MR WITHOUT AND WITH CONTRAST REASON FOR EXAM: Female, 67 years old. Right breast focal asymmetry TECHNIQUE: Multi-sequence multi-echo imaging of both breasts was performed with a dedicated breast coil. T1-weighted and T2- weighted images were performed before the administration of contrast. T1- weighted images were also performed after the administration of 9 mL of Gadavist contrast intravenously without complications. COMPARISON: Right breast mammogram and ultrasound dated January 03, 2018; bilateral mammogram dated December 26, 2017 FINDINGS: RIGHT BREAST: The breast tissue is scattered fibroglandular densities with minimal background enhancement. There are no abnormal enhancing masses or areas of non-mass enhancement in the right breast. LEFT BREAST: The breast tissue is scattered fibroglandular densities with minimal background enhancement. There are no abnormal enhancing masses or areas of non-mass enhancement in the left breast. There are no enlarged or abnormal lymph nodes. There is no abnormality in the visualized regions of the chest or liver. MRI/Breast w/o and/or W Cont Bilat IMPRESSION: Unremarkable breast MR examination with contrast. There is no abnormal enhancement or abnormality in the upper outer right breast. RECOMMENDATION: Six month follow-up mammogram and possible ultrasound of the right breast can be obtained. CATEGORY: BIRADS Category 3: Probably Benign - Short-Interval Follow- up Suggested. A letter regarding these results will be sent to the patient by the facility within 30 days. Electronically Signed: Julissa Love MD at 16:24 EDT Tel Direct: [phone], Service support , CC: Vivienne Heaton NP; Dipesh Nuñez MD Material Flow Engineer: Signed SURGERY VISIT REPORT Observed: 01/10/2018 Status: F Source: [place] 1:17 PM [facility] REPOSITORY [facility] [address] [place] [address] [address] [place] [address] OFFICE VISIT Date of Service: 01/10/18 MR#: [id number] Acct: [id number] Name: MICHELLE BROWN Rep #: [id number] : 1950 Provider: Dipesh Nuñez MD Age/Sex: 67/F Location: [facility] Status: Signed Intake Vital Signs01/10/18 Height 5 ft 8 in 01/10/18 Weight: 184 lb Intake Visit Reasons: R Breast Birads 4 Mammo 12/31 US 01/03 Manager Search Required: No Is patient in pain?: No Allergies venom-honey bee [bee venom (honey bee)] Allergy (Verified 01/10/18 12:59) Swelling cefdinir Adverse Reaction (Severe, Verified 01/10/18 12:59) itching AND Hives amoxicillin trihydrate [From Augmentin] Adverse Reaction (Verified 01/10/18 12:59) Nausea/Vom/Diarrhea lisinopril Adverse Reaction (Verified 01/10/18 12:59) Other potassium clavulanate [From Augmentin] Adverse Reaction (Verified 01/10/18 12:59) Nausea/Vom/Diarrhea Medications Aspirin [Aspirin, Baby] 81 mg PO DAILY 12/29/12 [History Confirmed 01/10/18] Latanoprost 0.005% [Xalatan Opthalmic] 1 drp EACH EYE QHS 03/10/14 [History Confirmed 01/10/18] cholecalciferol (vitamin D3) 5,000 unit tablet 5,000 unit PO QDAY 05/20/17 [History Confirmed 01/10/18] gabapentin 300 mg capsule 300 mg PO TID 05/20/17 [History Confirmed 01/10/18] nitroglycerin 0.4 mg sublingual tablet 0.4 mg SUBLINGUAL Q5M PRN 05/20/17 [History Confirmed 01/10/18] atorvastatin 80 mg tablet 80 mg PO QHS #30 tab 11/28/17 [Rx Confirmed 01/10/18] carvedilol 6.25 mg tablet 6.25 mg PO BID #60 tab 11/28/17 [Rx Confirmed 01/10/18] clopidogrel 75 mg tablet 75 mg PO DAILY #30 tab 11/28/17 [Rx Confirmed 01/10/18] PFSH Medical History Cardiomyopathy, ischemic (Resolved) Premature ventricular contractions (Chronic) 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 The patient is referred by Milady UMAÑA and a written copy of my surgical consultation regarding the patient's abnormal mammogram will be returned to Vivienne 67-year-old female. G0. Menarche at age 11. No previous breast biopsies. She is has not been on estrogen replacement therapy. Family history is negative for breast cancer. The patient had routine [facility]. Apparently comparison could not be made as she is from [place]. The screening exam was performed December 26. [...] or hoarseness Endo Endocrine: No thyroid disease, diabetes mellitus, thyroid cancer, Hair loss, heat intolerance [...] diarrhea, No abdominal pain, No nausea or vomiting, No constipation, No blood in stool, No acid reflux, No hemorrhoids, No ulcers, No gallbladder problem, No black,tarry stools [place] Hematologic: No blood thinners, No blood disorders, No bleeding, No anemia, No blood clots Neuro Neurologic: No weakness Exam Chest Breast Palpation: No nipple discharge Other: Bilateral breasts supple, no focal mass, no nipple discharge, no axillary clavicular adenopathy Cardio Heart Sounds: no murmurs Assessment AND Plan Problems 1. Abnormal mammogram of right breast R92.8 Plan Patient has an abnormal mammogram of the right breast. I have reviewed the imaging. The density is quite vague right breast. I am not sure we will correlates on the cc view. Before any attempted biopsy and recommend bilateral breast MRI. If a consistent logical density is identified then pursuing biopsy would be appropriate. The patient has had an opting to ask and have questions answered. The patient is on clopidogrel because of coronary stents. Dr. Jon DONALD is taking her off clopidogrel for 1 week in order to perform a sinus procedure. We will try to expedite the patient's MRI so that a stereotactic biopsy seems feasible we can accomplish it during the same time period. I very much appreciate the kind opportunity of assisting with her surgical care. Dipesh Nuñez M.D., F.A.C.S. Orders Orders: Coding Level of Care Code Prob focused, straight fwd Diagnoses Abnormal mammogram of right breast R92.8 01/10/18 1317 <Electronically signed by Dipesh Nuñez MD> Date Dipesh Nuñez MD Cosigner Signature: Date (if applicable) CC: Vivienne Heaton NP BREAST LIMITED Observed: 01/03/2018 Status: F Source: [facility] 8:41 AM [facility] REPOSITORY [facility] Imaging Services [address] [place] [address] Breast Limited Unilateral MR#: [id number] Acct: [id number] Name: MICHELLE BROWN Rep #: [id number] : 1950 F 67 From: Dipesh Marie MD PCP: Vivienne Heaton NP Status: REG CLI Study: Breast Limited Unilateral Date of Exam: 01/03/18 Exam# [id number] Ordering Dr: Vivienne Heaton BLOW TORCH BURNER-C ADDENDUM by Dipesh Marie MD on 01/03/18 at 125 ADDENDUM If clinically indicated, MRI breasts may be more helpful before biopsy for surgical planning. Electronically Signed: Dipesh Marie, at 12:56 EDT Tel , Service support , 01/03/18 1256 Date cc: Vivienne Heaton NP * Signed ADDENDUM by Dipesh Marie MD on 01/03/18 at 1257 US/Breast Limited Unilateral 01/03/18 1303 Date cc: Vivienne Heaton NP * Signed STUDY: ULTRASOUND BREAST - RIGHT REASON FOR EXAM: Female, 67 years old. Abnormal mammogram with right breast asymmetric density. TECHNIQUE: Axial and longitudinal images of the RIGHT breast were performed with a high resolution ultrasound transducer. COMPARISON: No prior right breast imaging available. Correlation mammogram 01/03/2018 and 12/26/2017. FINDINGS: RIGHT Breast: No sonographic abnormality identified. Please see diagnostic right mammogram report 01/03/2018 for additional details. US/Breast Limited Unilateral IMPRESSION: Biopsy right breast upper outer [...] Marie, at 12:55 EDT Tel , Service support , CC: Vivienne Heaton NP Material Flow Engineer: Signed DIAG MAMM W/CAD, Observed: 01/03/2018 Status: F Source: [facility] 8:40 AM [facility] REPOSITORY [facility] Imaging Services [address] [place] [address] DIAG MAMM W/CAD, UNILAT MR#: [id number] Acct: [id number] Name: MICHELLE BROWN Dot Rep #: [id number] : 1950 F 67 From: Dipesh Marie MD PCP: Vivienne Heaton NP Status: REG CLI Study: DIAG MAMM W/CAD, UNILAT Date of Exam: 01/03/18 Exam# [id number] Ordering Dr: Vivienne Heaton NP-C ADDENDUM by Dipesh Marie MD on 01/03/18 at [facility] ADDENDUM If clinically indicated, MRI breast may be more helpful both before biopsy for surgical planning. Electronically Signed: Dipesh Marie, at 12:57 EDT Tel , Service support , 01/03/18 1257 Date cc: Vivienne Heaton NP * Signed ADDENDUM by Dipesh Marie MD on 01/03/18 at 1257 BI/DIAG MAMM W/CAD, UNILAT 01/03/18 1304 Date cc: Vivienne Heaton NP * Signed MAMMOGRAPHY - UNILATERAL DIAGNOSTIC: RIGHT BREAST REASON FOR EXAM: Female, 67 years old. Abnormal mammogram with right breast asymmetric density. PERTINENT HISTORY: Non-contributory. TECHNIQUE: Digital examination. Mediolateral oblique (MLO) and craniocaudad (CC) views of the breast were obtained. CAD: CAD performed COMPARISON: 12/26/2017 mammogram. No prior mammographic imaging available for comparison. Correlation is with remote mammogram report from [place], [place] 04/22/2009. FINDINGS: Breast Composition: There are scattered areas of fibroglandular density. With additional CC and MLO spot compression views, mass density persists but appears smaller in size with irregular possibly spiculated margins. Irregular possibly spiculated margins appear more prominent with MLO and CC views, neoplasm not excluded versus scar or other etiology. Right breast targeted ultrasound showed no sonographic abnormality same region. BI/DIAG MAMM W/CAD, UNILAT IMPRESSION: Biopsy right [...] Service support , CC: Vivienne Heaton NP Material Flow Engineer: Signed DEXA BONE DENSITY Observed: 12/26/2017 Status: F Source: [facility] 10:03 AM [facility] REPOSITORY [facility] Imaging Services [address] [place] [address] Dexa Bone Density Study MR#: [id number] Acct: [id number] Name: MICHELLE BROWN Rep #: [id number] : 1950 F 67 From: Sandro Lebron MD PCP: Vivienne Heaton NP Status: REG CL Study: Dexa Bone Density Study Date of Exam: 12/26/17 Exam# [id number] Ordering Dr: Vivienne Heaton STUDY: DUAL ENERGY X-RAY ABSORPTIOMETRY / DXA REASON FOR EXAM: Female, 67 years old. Postmenopausal screening TECHNIQUE: Bone Mineral Density (BMD) measurements of lumbar spine and left hip were obtained. COMPARISON: None. FINDINGS: Lumbar Spine (L1-L4): g/cm2 (1.201) / T-score (0.2) / Z-score (1.8) Findings are suggestive of normal bone density with a low fracture risk. Left Femur Total: g/cm2 (1.018) / T-score (0.1) / Z-score (1.5) Left Femoral Neck: g/cm2 (1.053) / T-score (0.1) / Z- score (1.8) BD/Dexa Bone Density Study IMPRESSION: The patient is considered normal as outlined below according to World [place] Organization (WHO) criteria with a low fracture risk. Reference Information: The T-score is the number of standard [...] may be graded as follows: Mild -1 through -1.5 Moderate -1.6 through -2.0 Severe -2.1 through -2.4 The Z-score is the number of standard deviations above or below age-matched controls. A Z-score of less than -1.5 would be considered abnormal. References: 1. NIH Osteoporosis and Related Bone Diseases http://www.osteo.org 2. International Society for Clinical Densitometry http://www.iscd.org 3. National Osteoporosis Foundation http://www.nof.org Electronically Signed: Jerrod Lebron MD at 10:18 EDT , Service support , CC: Vivienne Heaton NP Material Flow Engineer: Signed SCREENING MAMM (CAD), Observed: 12/26/2017 Status: F Source: [facility] 10:03 AM [facility] REPOSITORY [facility] Imaging Services [facility] [place] [address] [place] [address] SCREENING MAMM (CAD), BILAT MR#: [id number] Acct: [id number] Name: MICHELLE BROWN Rep #: [id number] : 1950 F 67 From: Dipesh Marie MD PCP: Vivienne Heaton NP Status: REG CLI Study: SCREENING MAMM (CAD), BIL Date of Exam: 12/26/17 Exam# [id number] Ordering Dr: Vivienne Heaton ADDENDUM by Dipesh Marie MD on 12/31/17 at 1516 ADDENDUM CORRECTION: Asymmetric density noted left breast upper quadrant which electronically [place] of [place] ECMO projections. Recommend left breast CC and ML spot compression views further evaluation should be changed to reflect the RIGHT breast not the LEFT breast with the asymmetric density in the posterior third of the RIGHT breast. Electronically Signed: Dipesh Marie, at 15:16 EDT Tel , Service support , 12/31/17 1516 Date cc: Vivienne Heaton NP * Signed ADDENDUM by Dipesh Marie MD on 12/31/17 at 1516 BI/SCREENING MAMM (CAD), BILAT 12/31/17 1523 Date cc: Vivienne Heaton NP * [...] There is no skin thickening or retraction. BI/SCREENING [...] Service support , CC: Vivienne Heaton NP Material Flow Engineer: Signed PULMONARY FUNCTION Observed: 12/06/2017 Status: F Source: [facility] TEST 1:50 PM [facility] REPOSITORY [facility] Pulmonary Services/Neurology [address] [place] [address] MR#: [id number] Acct: [id number] Name: MICHELLE BROWN Rep #: [id number] : 1950 67 From: Jaspreet Almodovar DO Referring Dr: Vivienne Heaton NP Status: REG CLI Ordering Dr: Date: Location: [facility] Sex: F C INTRODUCTION: The patient is a 67-year-old female that presents for pulmonary function studies secondary to a diagnosis of COPD. Respiratory therapy reports good patient effort. Bronchodilators were used during testing. INTERPRETATION: Forced expiration spirometry demonstrates no evidence of a large airways obstructive ventilatory defect. There was no significant response to aerosolized bronchodilators. Spirograms are of good quality and plateau gradually. Body plethysmography was performed and reveals a decreased TLC to 4.99 L, 86% of predicted, indicative of a mild restrictive ventilatory defect. The remainder of the lung volumes are symmetrically reduced. Diffusing capacity by single breath CO is at the lower limits of normal at 69% of predicted. IMPRESSION: These pulmonary function studies demonstrate the presence of a mild restrictive ventilatory defect with an associated mild reduction in diffusing capacity. There are no previous pulmonary function studies available for comparison. 12/06/17 1350 <Electronically signed by Jaspreet Almodovar DO> Date Jaspreet Almodovar DO CC: Vivienne Heaton BLOW TORCH BURNER Date Dictated: 12/06/17 1348 Date Transcribed: 12/06/171347 Material Flow Engineer: RUBINA Signed Observed: 12/04/2017 Status: F Source: [facility] CULTURE, NOSE 2:30 PM [facility] REPOSITORY Gram Stain Gram Stain 2+ White Blood Cells Rare Gram positive cocci Nasoph. Cult ORGANISM 1: Pseudomonas aeroginosa Amount Growth 1+ Pseudomonas aeroginosa: REACTION Cefepime $ <=1 S Ceftazidime *NF 2 S Ciprofloxacin $ <=0.25 S Gentamicin $ <=1 S Imipenem *NF 1 S Levofloxacin $ 0.5 S Piperacillin/Tazobactam $$ 8 S Tobramycin $ <=1 S (NF) indicates non-formulary drug at [facility]. Approval by Infectious Disease Specialist required before non-formulary drugs may be ordered and/or dispensed. Performed By: #### M100.0900 #### [facility] [address] [place], [address] CARDIOLOGY VISIT Observed: 11/28/2017 Status: F Source: [facility] REPORT 3:51 PM [facility] REPOSITORY [facility] [address] [place] [address] OFFICE VISIT Date of Service: 11/28/17 MR#: [id number] Acct: [id number] Name: MICHELLE BROWN Rep #: [id number] : 1950 Provider: Alysa Edwards Age/Sex: 67/F Location[place] [facility] Status: Signed HPI HPI Details: MICHELLE BROWN, is a 67 F who presents to the office today for a cardiovascular follow-up. She is a history of coronary [...] of breath. She does not have any orthopnea. She denies PND. She does not have any symptoms of congestive heart failure. She does occasionally have palpitations. She does not have any lightheadedness or dizziness. She does not have any near-syncope or syncope. She does not have any lower extremity edema. She does not have any symptoms of claudication. 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) Old myocardial infarction (Chronic) Hyperlipidemia (Chronic) Nicotine abuse (Chronic) Other half-way (current) drug therapy (Chronic) Surgical History History of PTCA (Resolved) History of hysterectomy (Resolved) History of tonsillectomy and adenoidectomy (Resolved) Hx laparoscopic cholecystectomy (Resolved) Hx of appendectomy (Resolved) Family History Father Sudden cardiac Myocardial infarction Mother Myocardial infarction Social History Smoking Status: Current some day smoker alcohol intake: never substance use type: does not use seatbelt use: always do you feel safe at home: Yes ROS Const Const: Positive for headache(s); negative for weakness, fatigue or fever(s) Eyes Eyes: Negative for blind spots, loss of peripheral vision or transient loss of vision ENT ENT: Positive for headache(s); negative for dizziness, tinnitus or Nosebleed/epistaxis Cardio Chest Pain: No Palpitations: No Edema: None Muscle aches with walking: None Resp Respiratory: Positive for Cough; negative for SOB with activity, SOB at rest or SOB orthopnea\SOB lying down GI GI: Negative nausea, vomiting, heartburn or vomiting blood/hematemesis : Negative for hematuria Musc Musc: Negative for muscle aches/ myalgia Neuro Neuro: Positive for headache(s); negative for weakness, dizziness, near syncope, syncope, [...] ischemia. Assessment AND Plan 1. 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 We recommend that they continue with current aggressive medical management and risk factor modification. 2. Cardiomyopathy, ischemic I25.5 Plan Patient's cardiomyopathy has since resolved. She does not have any symptoms of congestive heart failure. We will continue to monitor by history, exam and echocardiograms as deemed appropriate. She will continue with aggressive medical management 3. Pure hypercholesterolemia E78.00 Plan Recent lipid profile demonstrates total cholesterol 158, HDL 70, LDL 59. Adequately controlled on current medications. Will not make any adjustments. 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 transplanted heart: poarch heart Cardiomyopathy, ischemic I25.5 Pure hypercholesterolemia E78.00 Hyperlipidemia type: pure hypercholesterolemia 11/28/17 1551 <Electronically signed by Alysa MCFARLAND> Date Alysa MCFARLAND Cosigner Signature: Date (if applicable) CC: BRAIN W/WO CONTRAST Observed: 10/10/2017 Status: F Source: [place] 7:38 AM [facility] REPOSITORY [facility] Imaging Services [address] [place] [address] Brain W/WO Contrast MR#: [id number] Acct: [id number] Name: MICHELLE BROWN Rep #: [id number] : 1950 F 67 From: Bola Busch MD PCP: Vivienne Heaton NP Status: REG CLI Study: Brain W/WO Contrast Date of Exam: 10/10/17 Exam# [id number] Ordering Dr: Natalee Hollingsworth BLOW TORCH BURNER-C STUDY: MRI BRAIN WITH AND WITHOUT CONTRAST REASON FOR EXAM: Female, 67 years old. Severe headache x6 weeks. TECHNIQUE: Standardized multiplanar fat and water weighted pulse sequences were obtained. 9 ml of Gadavist contrast material was administered intravenously for the contrast portion of the examination. COMPARISON: CT head with and without contrast 08/27/2014. FINDINGS: No restricted diffusion to suspect acute or subacute ischemic infarct. Solitary nonspecific T2 FLAIR hyperintensity focus in the right barron radiata (series 6, image 14). This may represent nonspecific scoliosis. No enhancing lesions after IV contrast administration. [...] Normal venous enhancement. There is no enhancing intra-axial or extra-axial abnormality. Normal sella turcica, pituitary gland, infundibular stalk, optic chiasm and hypothalamus. Normal tectal plate and pineal gland. Normal midbrain, deny and medulla. Normal cerebellum. Normal basal cisterns. Normal bilateral temporal bones. Normal bilateral internal auditory canals. No demonstrated orbital abnormality, within the constraints of a routine brain study. Pronounced mucosal edema in the ethmoid sinuses. Minimal mucosal edema in the hypoplastic right sphenoid sinus. Minimal mucosal edema in the frontal sinuses. Normal calvarium and skull base. Normal visualized soft tissue structures. Normal visualized upper cervical spine. MRI/Brain W/WO Contrast IMPRESSION: 1. No MRI evidence of acute or subacute ischemic infarct. 2. No MRI evidence of any suspicious enhancing or nonenhancing mass lesions. 3. Small solitary nonspecific gliosis in the right barron radiata. 4. Pronounced mucosal thickening in the ethmoid sinus and mild mucosal thickening in the frontal sinus and the hypoplastic right sphenoid sinus. Electronically Signed: Bola Busch MD at 15:42 EDT , Service support , CC: Vivienne Heaton NP; CHASIDY Hollingsworth Material Flow Engineer: Signed COMPREHENSIVE METABOLIC Collected: 10/09/2017 Status: F Source: [place] PROFIL 3:08 PM [facility] REPOSITORY TYPE CODE TESTS RESULT OUT OF RANGE REFERENCE UNITS LAB L501.0100 74-106 mg/dL Normal GLU 96 Result Comment: Please note revised GLUCOSE reference range effective 2017. LAB L501.1000 7-18 mg/dL Normal BUN 17 LAB L501.1100 0.55-1.02 mg/dL Normal CREAT,SERUM 0.90 Result Comment: The validity of the calculated GFR AND GFRAA in patients over 70 years has not been determined. Clinical correlation is essential. LAB L501.1110 >60 mL/min Normal EST GFR 66 Result Comment: Non- GFR Calc LAB L501.1115 >60 mL/min Normal EST GFR - AA 80 Result Comment: GFR Calc LAB L501.1300 10-20 RATIO Normal BUN/CRE 18.9 LAB L501.1500 6.4-8.2 g/dL T Normal PROT 7.4 LAB L501.1800 3.2-5.0 g/dL Normal ALB 4.6 LAB L501.1950 2.2-4.2 g/dL Normal GLOB 2.8 LAB L501.2000 0.9-2.4 RATIO Normal A/G 1.6 LAB L501.2200 8.5-10.1 mg/dL CA Normal 9.4 LAB L501.4100 15-37 U/L Normal AST 22 LAB L501.4305 45-117 U/L Normal ALK P 64 LAB L501.4405 13-56 U/L Normal ALT 31 LAB L501.4600 0.20-1.00 mg/dL High T BILI 1.60 LAB L501.5300 136-145 mmol/L NA Normal 142 LAB L501.5600 3.5-5.1 mmol/L K Normal 3.8 LAB L501.5900 98-107 mmol/L CL Normal 105 LAB L501.6100 21.0-32.0 mmol/L Normal CO2 30.0 LAB L501.6200 5-15 Normal GAP 7 Performed By: #### L500.4050 #### [facility] [address] [facility] [place], [address] STRESS REPORT Observed: 06/13/2017 Status: F Source: [place] 1:11 PM [facility] REPOSITORY [facility] Cardiovascular Services [address] [place] [address] MR#: [id number] Acct: [id number] Name: GABRIELA BROWNLyssa Chris Rep #: [id number] : 1950 67 From: Bobby Knight MD Primary Care: Vivienne Heaton NP Status: REG CLI Ordering Dr: Sex: F C Stress Test Report Pharmacologic myocardial perfusion stress test. 67-year-old lady with a history of non-ST elevation myocardial infarction previous stenting. Stress protocol: Resting EKG demonstrates sinus bradycardia with a rate of 54 bpm normal intervals and noted occasional premature ventricular complexes noted. Resting blood pressure is 130/70 mmHg. 0.4 mg regadenoson was infused per usual protocol followed by rapid intravenous saline flush injection continuous EKG monitoring was performed. At rest there were no ST or T-wave changes noted suggest abnormal flow reserve at peak infusion no ST or T-wave changes were noted suggest abnormal flow reserve. No clinical angina was noted. The resting blood pressure is 130/70 with a final blood pressure 122/70. Myocardial perfusion protocol: 14.3 mCi of technetium 99m sestamibi was injected at rest. 0.4 mg of regadenoson was infused per usual protocol. At peak infusion 44.6 mCi of technetium 99m sestamibi was injected. Stress and rest images were reconstructed and compared in the short axis vertical long horizontal long axis. Gated images were also obtained next Perfusion SPECT analysis: Review of the stress images demonstrate normal uptake of tracer noted in all areas of the myocardium. The resting images similarly demonstrate normal uptake of tracer noted in all areas of the myocardium. No areas of reversibility are noted suggest ischemia. No previous infarct is noted. Gated SPECT analysis: The gated ejection fraction is noted to be 62%. Conclusion: Normal pharmacologic myocardial perfusion stress test. Preserved ejection fraction. 06/13/17 1311 <Electronically signed by Bobby Knight MD> Date Bobby Knight MD CC: Vivienne Heaton NP; Alysa Edwards Date Dictated: 06/13/17 1308 Date Transcribed: 06/13/171307 Material Flow Engineer: CO Signed CARDIOLOGY VISIT Observed: 05/24/2017 Status: F Source: [place] REPORT 12:52 PM [facility] REPOSITORY [address] [place] [address] OFFICE VISIT Date of Service: 05/24/17 MR#: [id number] Acct: [id number] Name: MICHELLE BROWN Rep #: [id number] : 1950 Provider: Alysa Edwards Age/Sex: 67/F Location: [facility] Status: Signed HPI HPI Details: MICHELLE BROWN, is a 67 F who presents to the office today for a cardiovascular follow-up. She is a history of coronary [...] it went away. It is in the same spot where she had the chest heaviness [...] 5 ft 10 in 05/24/17 Weight: 190 lb 05/24/17 Body Mass Index (BMI) 27.2 05/24/17 Blood Pressure 104/68 05/24/17 Blood Pressure Location Lt brachial Intake Visit Reasons: 6 M Manager Search Required: No Accompanied by: None Is patient [...] [Lipitor] 80 mg PO QHS 12/29/12 [History Confirmed 05/20/17] Carvedilol [Coreg (Beta Faye)] 6.25 mg PO BID 12/29/12 [History Confirmed 05/20/17] Clopidogrel Bisulfate [Plavix] 75 mg PO DAILY 12/29/12 [History Confirmed 05/20/17] Acetaminophen [Tylenol Extra Strength] 500 - 1,000 mg PO Q6H PRN PRN 03/10/14 [History Confirmed 03/10/14] Albuterol IH (ProAir) [Proair Hfa] 2 puff INHALATION Q4H PRN PRN 03/10/14 [History Confirmed 05/24/17] Latanoprost 0.005% [Xalatan Opthalmic] 1 drp EACH EYE QHS 03/10/14 [History Confirmed 05/20/17] cholecalciferol (vitamin D3) 5,000 unit tablet 5,000 unit PO QDAY 05/20/17 [History Confirmed 05/20/17] gabapentin 300 mg capsule 300 mg PO TID 05/20/17 [History Confirmed 05/20/17] nitroglycerin 0.4 mg sublingual tablet 0.4 mg SUBLINGUAL Q5M PRN 05/20/17 [History Confirmed 05/20/17] meloxicam 7.5 mg tablet PO 30 Days #60 05/24/17 [History Confirmed 05/24/17] Ejection fraction %: 55 to 59 PFSH Medical History Cardiomyopathy, ischemic (Resolved) Premature ventricular contractions (Chronic) Atherosclerotic heart disease of poarch coronary artery with angina pectoris with documented spasm (Chronic) Old myocardial infarction (Chronic) Hyperlipidemia (Chronic) Nicotine abuse (Chronic) 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) Surgical History History of PTCA (Resolved) History of hysterectomy (Resolved) History of tonsillectomy and adenoidectomy (Resolved) Hx laparoscopic cholecystectomy (Resolved) Hx of appendectomy (Resolved) Family History Father Sudden cardiac Myocardial infarction Mother Myocardial infarction Social History Smoking Status: Current some day smoker alcohol intake: never substance use type: does not use seatbelt use: always do you feel safe at home: Yes ROS Const Const: Negative for weakness, fatigue, fever(s) or headache(s) Eyes Eyes: Negative for blind spots, loss [...] Echocardiogram in 2014 demonstrated Segmental dysfunction with preserved ejection fraction (see wall motion). The estimated ejection fraction is 55 %. 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 Trivial mitral, valve insufficiency.Trivial tricuspid valve insufficiency. Aortic sclerosis, no stenosis. Trivial pulmonic valve insufficiency. Stress test in 2016 was negative for ischemia. Assessment AND Plan 1. Atherosclerotic heart disease of poarch coronary artery with angina pectoris with documented spasm I25.111 PTCA of proximal RCA with stent 11/03 Plan Patient is complaining of chest discomfort that was similar but not as severe as what it was when she had her myocardial infarction. Would like to obtain a stress test to evaluate for underlying ischemia. She will continue with aggressive medical management. Orders Orders: 2. Cardiomyopathy, ischemic I25.5 [...] for allowing us to participate in patient's plan [...] vis,est,level 4 Diagnoses Atherosclerotic heart disease of poarch coronary artery with angina pectoris with documented spasm I25.111 Cardiomyopathy, ischemic I25.5 Pure hypercholesterolemia E78.00; E78.0 Hyperlipidemia type: pure hypercholesterolemia Coding Level of Care Code Off vis,est,level 4 Diagnoses Atherosclerotic heart disease of poarch coronary artery with angina pectoris with documented spasm I25.111 Cardiomyopathy, ischemic I25.5 Pure hypercholesterolemia E78.00; E78.0 Hyperlipidemia type: pure hypercholesterolemia 05/24/17 1252 <Electronically signed by Alysa MCFARLAND> Date Alysa MCFARLAND Cosigner Signature: Date (if applicable) CC: Vivienne Heaton NP SHOULDER MIN 2 VIEWS Observed: 05/10/2017 Status: F Source: DEAN 2:03 PM [facility] REPOSITORY [facility] Imaging Services [address] [place] [address] Shoulder min 2 Views MR#: [id number] Acct: [id number] Name: GABRIELA BROWNLyssa Chris Rep #: [id number] : 1950 F 67 From: Kelsi Stone MD PCP: Vivienne Heaton NP Status: REG CLI Study: Shoulder min 2 Views Date of Exam: 05/10/17 Exam# [id number] Ordering Dr: Vivienne Heaton STUDY: X-RAY - LEFT SHOULDER REASON FOR EXAM: Female, 67 years old. Shoulder pain or trauma TECHNIQUE: 5 view(s) of the shoulder. COMPARISON: 12/29/2012 chest x-ray FINDINGS: Normal glenohumeral articulation. There is mild degenerative arthrosis of the acromioclavicular joint without inferior osseous spur formation. Normal acromion. Normal humeral head and visualized proximal humerus. The soft tissue structures are unremarkable. Normal visualized pulmonary apex. RAD/Shoulder min 2 Views IMPRESSION: Mild degenerative changes of the acromioclavicular joint, not significantly changed. Electronically Signed: Kelsi Stone MD at 11:59 EST , Service support , CC: Vivienne Heaton NP Material Flow Engineer: Signed LIVER PROFILE Collected: 05/09/2017 Status: F Source: [place]AN 8:02 AM [facility] REPOSITORY TYPE CODE TESTS RESULT OUT OF RANGE REFERENCE UNITS LAB L501.1500 6.4-8.2 g/dL Normal T PROT 6.9 LAB L501.1800 3.2-5.0 g/dL Normal ALB 3.9 LAB L501.1950 2.2-4.2 g/dL Normal GLOB 3.0 LAB L501.4100 15-37 U/L Normal AST 15 LAB L501.4305 45-117 U/L Normal ALK P 60 LAB L501.4405 13-56 U/L Normal ALT 26 Result Comment: Please note revised ALT reference range effective 2017. LAB L501.4600 0.20-1.00 mg/dL High T BILI 1.30 LAB L501.4700 0.00-0.30 mg/dL Normal D BILI 0.23 Performed By: #### L500.3400, L500.4100 #### [facility] [address] [place], [address] LIPID PROFILE Collected: 05/09/2017 Status: F Source: [place] 8:02 AM [facility] REPOSITORY TYPE CODE TESTS RESULT OUT OF RANGE REFERENCE UNITS LAB L501.4900 200 mg/dL Normal CHOL 158 Result Comment: <200 mg/dL Desirable 200-240 mg/dL Borderline >240 mg/dL High Risk LAB L501.5000 mg/dL Normal TRIG 147 Result Comment: The drugs N-Acetylcysteine and Metamizole may falsely depress this assay. Serum Triglycerides Reference Interval Normal <150 mg/dL Borderline high 150 - 199 mg/dL High 200 - 499 mg/dL Very High > or = 500 mg/dL LAB L501.6400 mg/dL Normal HDL 70 Result Comment: The drugs N-Acetylcysteine and Metamizole may falsely depress this assay. Reference Range HDL <40 mg/dL Low HDL Cholesterol HDL >or= 60 mg/dL High HDL Cholesterol LAB L501.6500 0-130 mg/dL Normal LDL 59 LAB L501.6600 5-40 mg/dL Normal VLDL 29 Performed By: #### L500.3400, L500.4100 #### [facility] [address] [place], [address] EMERGENCY DEPARTMENT Observed: 03/27/2017 Status: F Source: [place] SUMMARY 6:42 PM [facility] REPOSITORY [facility] Medical Records Department [address] [place] [address] [place] [address] Emergency Department Summary 03/27/17 1836 MR#: [id number] Acct: [id number] Name: MICHELLE BROWN Rep #: [id number] : 1950 67 From: Valeriy Huerta MD PCP: Vivienne Heaton NP Status: REG ER - ER Visit Summary Date of Service: 03/27/17 Chief Complaint: Cough History of Present Illness: The patient is a 67 F who presents with cough. She has had a cough for about 10 days. She states that she is actually feeling better and her chest. She was initially clinically diagnosed as influenza at the urgent care and was placed on antibiotic steroids and Tamiflu. She had a rapid flu at the office which was negative and was told to stop the Tamiflu. She has received a couple of doses of Solu- Medrol. She was seen today due to persistent cough. Her primary care provider felt that she may be dehydrated and they attempted to give IV fluids in the office but were unable to establish IV access. Note the patient is eating and drinking. She denies nausea or vomiting. She had some diarrhea for 1 day which resolved with Imodium. Physical Examination: Afebrile vitals are stable Patient in no distress resting comfortably Patient does not appear clinically dehydrated Heart regular rate and rhythm Lungs are clear to auscultation The abdomen is soft nontender nondistended Test Results: CBC BMP unremarkable. Chest x-ray shows [...] Impression: Bronchitis This note was generated with [employer] dictation software. It may contain incorrect words, spelling, and punctuation that were not noted in review of the chart prior to signing ED Disposition - Plan for ED Patient: Chief Complaint: General Illness Referrals: Vivienne Heaton [Primary Care Provider] - What to do if you have Problems For any increased pain, shortness of breath, bleeding, nausea or vomiting, chest pain, or any unexpected problems, contact your Primary Care Provider. Call [facility] ([phone]) or report to the closest Emergency Room. Call 911 if necessary. 03/27/17 2462 <Electronically signed by Valeriy Huerta MD> Date Valeriy Huerta MD Cosigner Signature (If Indicated): Date CC: Vivienne Heaton NP DISCHARGE INSTRUCTION Observed: 03/27/2017 Status: F Source: [place] 6:42 PM [facility] REPOSITORY [facility] Medical Records Department [address] [place] [address] Discharge Instruction 03/27/171841 MR#: [id number] Acct: [id number] Name: MICHELLE BROWN Rep #: [id number] : 1950 67 From: Valeriy Huerta MD PCP: Vivienne Heaton NP Status: REG ER ED Disposition - Plan for ED Patient: Chief Complaint: General Illness Instructions: Acute Bronchitis Referrals: Vivienne Heaton [Primary Care Provider] - What to do if you have Problems For any increased pain, shortness of breath, bleeding, nausea or vomiting, chest pain, or any unexpected problems, contact your Primary Care Provider. Call [facility] ([phone]) or report to the closest Emergency Room. Call 911 if necessary. 03/27/171841 <Electronically signed by Valeriy Huerta MD> Date Valeriy Huerta MD Cosigner Signature (If Indicated): Date CC: Vivienne Heaton NP CBC W/DIFF, AUTOMATED Collected: 03/27/2017 Status: F Source: [place] 5:25 PM [facility] REPOSITORY TYPE CODE TESTS RESULT OUT OF RANGE REFERENCE UNITS LAB L100.1000 4.4-11.0 K/mm3 Normal WBC 9.6 LAB L100.1200 4.2-5.4 M/mm3 Low RBC 4.02 LAB L100.1300 12.0-15.0 g/dl Normal HGB 13.5 LAB L100.1400 37-47 % Normal HCT 39.7 LAB L100.1500 81-99 fL Normal MCV 98.8 LAB L100.1600 27.0-32.0 pg High MCH 33.6 LAB L100.1700 32-36 g/gl Normal MCHC 34.0 LAB L100.1810 11.6-14.6 % Normal RDW CV 12.7 LAB L100.1820 35.1-43.9 fl High RDW SD 45.7 LAB L100.1900 150-450 K/mm3 Normal PLT 218 LAB L100.2000 6.2-12.0 fl Normal MPV 9.5 LAB L100.2100 47-70 % High NEUT% 72.6 LAB L100.2200 19-41 % Normal LY% 21.3 LAB L100.2300 0-10 % Normal MONO% 4.0 LAB L100.2400 0-5 % Normal EO% 1.6 LAB L100.2500 0-1 % Normal BASO% 0.1 LAB L100.2550 0.0-0.9 % Normal IM GRAN % 0.400 Result Comment: IG% - Immature Granulocytes (promyelocytes, myelocytes and metamyelocytes) > 1% indicates that a LEFT SHIFT is Present. LAB L100.2620 2.0-7.7 X10 3/uL Normal Absolute Neut 7.0 LAB L100.2720 0.83-4.51 X10 3/ul Normal Absolute Lymph 2.04 Performed By: #### L100.0100 #### [facility] [address] [place], [place], [id number] BASIC METABOLIC Collected: 03/27/2017 Status: F Source: [place] PROFILE (BMP) 5:25 PM [facility] REPOSITORY TYPE CODE TESTS RESULT OUT OF RANGE REFERENCE UNITS LAB L501.0100 70-110 mg/dL High GLU 121 Result Comment: Fasting Glucose result from 110 to <126 mg/dL suggests IMPAIRED HOMEOSTASIS per A.D.A. criteria. LAB L501.1000 7-18 mg/dL Normal BUN 17 LAB L501.1100 0.55-1.02 mg/dL Normal CREAT,SERUM 0.87 Result Comment: The validity of the calculated GFR AND GFRAA in patients over 70 years has not been determined. Clinical correlation is essential. LAB L501.1110 >60 mL/min Normal EST GFR 68 Result Comment: Non- GFR Calc LAB L501.1115 >60 mL/min Normal EST GFR - AA 83 Result Comment: GFR Calc LAB L501.1255 ml/min Normal Estimated CRCL 66.00 LAB L501.1300 10-20 RATIO Normal BUN/CRE 19.5 LAB L501.2200 8.5-10 mg/dL Normal .1 CA 8.9 LAB L501.5300 136-14 mmol/L Normal 5 NA 140 LAB L501.5600 3.5-5. mmol/L Normal 1 K 4.5 Result Comment: Moderate Hemolysis, Result may be falsely increased. LAB L501.5900 98-107 mmol/L Normal CL 107 LAB L501.6100 21.0-32.0 mmol/L Normal CO2 26.0 LAB L501.6200 5-15 Normal 7 GAP Performed By: #### L500.2500 #### [facility] [address] [facility] [place], [address] CHEST PA AND LATERAL Observed: 03/27/2017 Status: F Source: [place] 5:09 PM [facility] REPOSITORY [facility] Imaging Services [address] [place] [address] Chest PA and Lateral MR#: [id number] Acct: [id number] Name: MICHELLE BROWN Rep #: [id number] : 1950 F 67 From: Hakan Lutz MD PCP: Vivienne Heaton NP Status: REG ER Study: Chest PA and Lateral Date of Exam: 03/27/17 Exam# [id number] Ordering Dr: Valeriy Huerta MD STUDY: X-RAY CHEST REASON FOR EXAM: Female, 67 years old. Cough TECHNIQUE: PA and lateral COMPARISON: March 20, 2017 FINDINGS: Chronic interstitial changes are seen. No focal lobar infiltration.. There is no demonstrated pleural abnormality. Normal size heart. Normal mediastinum and cruz. Normal visualized pulmonary arteries. Normal visualized aortic arch and descending thoracic aorta. Dorsal spine demonstrates mild spondylosis. Normal visualized ribs, clavicles, and shoulders. Postsurgical changes are seen in the right upper quadrant status post cholecystectomy.. No significant change since prior study RAD/Chest PA and Lateral IMPRESSION: No acute cardiopulmonary pathology. Electronically Signed: Hakan Lutz MD at 18:02 EST , Service support , CC: Vivienne Heaton NP; Valeriy Huerta MD Material Flow Engineer: Signed CHEST PA AND LATERAL Observed: 03/20/2017 Status: F Source: [place] 9:35 AM [facility] REPOSITORY [facility] Imaging Services [address] [place] [address] Chest PA and Lateral MR#: [id number] Acct: [id number] Name: MICHELLE BROWN Rep #: [id number] : 1950 F 67 From: Michael Brock MD PCP: Vivienne Heaton NP Status: REG CLI Study: Chest PA and Lateral Date of Exam: 03/20/17 Exam# [id number] Ordering Dr: Vivienne Heaton STUDY: X-RAY CHEST REASON FOR EXAM: Female, 67 years old. Cough. TECHNIQUE: Frontal and lateral views of the chest. COMPARISON: March 29, 2016 FINDINGS: There is stable mild hyperexpansion. There is no demonstrated pleural abnormality. Normal [...] Signed: Michael Brock MD at 10:50 EST , Service support , CC: Vivienne Heaton NP Material Flow Engineer: Signed ALLERGIES ALLERGIES DATE TYPE / CODE NAME / CODE REACTION SEVERITY SOURCE 01/10/2018 Drug amoxicillin Nausea/Vom/Diar Unknown Dean Allergy/416 trihydrate/[id number] [facility] 028204([facility] 707([facility] ED ED CT) Repository 01/10/2018 Drug potassium Nausea/Vom/Diar Unknown Dean Allergy/416 clavulanate/M88087 [facility] 581627([facility] 2809([facility] ED ED CT) Repository 01/10/2018 Drug lisinopril/[id number] Other Unknown [facility] Allergy/416 [facility] 340597([facility] ED CT) Repository 01/10/2018 Drug venom-honey Swelling Unknown Dean Allergy/416 bee/[id number](RXN Community 960051([facility] ED CT) Repository 01/10/2018 Drug cefdinir/[id number] itching Hives SV [facility] Allergy/416 8[facility] 989539[facility] ED [facility]) Repository ENCOUNTERS ENCOUNTERS ADMIT/DISCHARGE ACCOUNT ADMITTING ENCOUNTER LOCATION SOURCE NUMBER CLASS 02/27/2018 [id number] Ambulatory Building:[facility] [place] [facility]ices Repository 02/21/2018 [id number] Ambulatory [place] Dean 8 [facility] ing:MTLAB Repository 01/22/2018 [id number] Ambulatory [place] Chamber[place] 6 [facility] ing:MRI Repository 01/10/2018/ [id number] Ambulatory BMSBuilding:B [place] 8 6 [facility] Repository 01/03/2018 [id number] Ambulatory [place] Dean 0 [facility] ing:OPUS Repository 12/26/2017 [id number] Ambulatory [place] Chamberlain 9 [facility] ing:OPBD Repository 12/06/2017 [id number] Ambulatory [place] Chamberlain 9 [facility] ing:PSN Repository 12/06/2017 [id number] Ambulatory BMSBuilding:W [place] 0 [facility] Repository 12/04/2017 [id number] Ambulatory Dean Dean 3 [facility] ing:LABSPEC Repository 11/28/2017/ [id number] Ambulatory BMSBuilding:B Dean 8 4 [facility] Repository 10/10/2017 [id number] Ambulatory [place] Dean 6 [facility] ing:MRI Repository 06/13/2017 [id number] Ambulatory BMSBuilding:W Dean 0 [facility] Repository 06/13/2017 [id number] Ambulatory Dean Dean 0 [facility] ing:CVS Repository 05/24/2017/ [id number] Ambulatory BMSBuilding:B Dean 8 9 [facility] Repository 05/17/2017 [id number] Ambulatory Dean Dean 0 [facility] ing:PT Repository 05/10/2017 [id number] Ambulatory [place] Chamberlain 6 [facility] ing:HPRAD Repository 05/09/2017 [id number] Ambulatory Dean Chamber[place] 8 [facility] ing:LAB Repository 03/27/2017/ [id number] Emergency [place] Chamberlain 8 7 [facility] ing:ED Repository 03/20/2017 [id number] Ambulatory Dean Chamberlain 1 [facility] ing:HPRAD Repository FUNCTIONAL STATUS FUNCTIONAL STATUS No Functional Status Records FoundEQUIPMENT EQUIPMENT No Equipment Records FoundPAYERS PAYERS ENCOUNTER GUARANTOR PAYER SUBSCRIBER SOURCE 02/27/2018 Michelle Chris Primary Michelle Chris [facility] Practices StradleyDOB: Insurance:MedicarePol StradleyDOB: Repository icy Number: [id number] Jessica Silva [id number] SHAYY Gupta Date:1002-76-39Qbze [place] [address]Xgk: (700) Name:[facility] Anisha [address]Eoq: [address]12[address], [place] [phone] () ()Tel: [phone]: ([phone] 02/27/2018 Secondary Michelle J OHIP Practices Insurance:Delia/Supp StradleyDOB: [facility] Number: [id number] [place] [facility] Date:6530-53-91[place], [place] Name:[address] [address]Nid: [id number], [place] ~(2 [id number]: [phone] 02/21/2018 MICHELLE J Primary MICHELLE J [place] [id number] Insurance:MEDICARE STRADLEYDOB: [facility] [address] PART A [facility] [id number], [place] Number: Repository [address]Hpe: [phone] [id number] [phone] () Date:2018-02-21 02/21/2018 Secondary MICHELLE J Dean Insurance:ANTHEMPolic STRADLEYDOB: Community y Number: [id number] Hospital [id number] Repository Date:6178-65-45OT [address] [place] [address] 48651BU: 02/21/2018 Tertiary NOT GIVENUNK Dean Insurance:SELF PAY [facility] Number: Effective Repository Date:2018-02-21 01/22/2018 MICHELLE J Primary MICHELLE J Dean [id number] Insurance:MEDICARE STRADLEYDOB: [facility] [id number], [place] Number: Repository [address]Kkb: [phone] [id number] [phone] () Date:2018-01-10 01/22/2018 Secondary MICHELLE J [place] Insurance:ANTHEMPolic STRADLEYDOB: Community y Number: [id number] Hospital [id number] Repository Date:2684-65-63HE [address] [place] [address] 56313AY: 01/22/2018 Tertiary NOT GIVENUNK [place] Insurance:SELF PAY [facility] Number: Effective Repository Date:2018-01-10 01/10/2018 MICHELLE J Primary MICHELLE J Dean [id number] Insurance:MEDICARE STRADLEYDOB: Community [address] PART A [facility] [id number][place] Number: Repository [address]Hrg: [phone] [id number] [phone] (HP) Date:2018-01-06 01/10/2018 Secondary MICHELLE J [place] Insurance:ANTHEMPolic STRADLEYDOB: Community y Number: [id number] Hospital [id number] Repository Date:5647-52-01ZM [address] [place] [address] 28930JA: 01/10/2018 Tertiary NOT GIVENUNK [place] Insurance:SELF PAY [facility] Number: Effective Repository Date:2018-01-10 01/03/2018 MICHELLE J Primary MICHELLE J [place] [id number] Insurance:MEDICARE STRADLEYDOB: [facility] [address] PART A [facility] [id number] [place] Number: Repository [address]Uwx: [phone] [id number] [phone] () Date:2018-01-01 01/03/2018 Secondary MICHELLE J [place] Insurance:ANTHEMPolic STRADLEYDOB: Community y Number: [id number] Hospital [id number] Repository Date:6794-23-28GF [address] [place] [address] 86173ZO: 01/03/2018 Tertiary NOT GIVENUNK [place] Insurance:SELF PAY [facility] Number: Effective Repository Date:2018-01-01 12/26/2017 MICHELLE J Primary MICHELLE J [place] [id number] Insurance:MEDICARE STRADLEYDOB: [facility] [address] [address] PART A [facility] [id number], [place] Number: Repository [address]Klf: [phone] [id number] [phone] () Date:2017-11-18 12/26/2017 Secondary MICHELLE J [place] Insurance:ANTHEMPolic STRADLEYDOB: Community y Number: [id number] Hospital [id number] Repository Date:9203-92-11[address] [address]MF: 12/26/2017 Tertiary NOT GIVENUNK Dean Insurance:SELF PAY [facility] Number: Effective Repository Date:2017-11-18 12/06/2017 MICHELLE J Primary MICHELLE J Dean [id number] Insurance:MEDICARE STRADLEYDOB: [facility] PART A [facility] [id number], [place] Number: Repository [address]Lbl: [phone] [id number] [phone] () Date:2017-11-22 12/06/2017 Secondary MICHELLE J [place] Insurance:ANTHEMPolic STRADLEYDOB: Community y Number: [id number] Hospital [id number] Repository Date:6121-75-25LP [address] [place] [address] 245[address]LO: 12/06/2017 Tertiary NOT GIVENUNK [place] Insurance:SELF PAY [facility] Number: Effective Repository Date:2017-11-22 12/06/2017 MICHELLE J Primary MICHELLE J Dean [id number] Insurance:MEDICARE STRADLEYDOB: [facility] [address] PART A [facility] [id number], [place] Number: Repository [address]Vip: [phone] [id number] [phone] () Date:2017-11-22 12/06/2017 Secondary MICHELLE J Dean Insurance:ANTHEMPolic STRADLEYDOB: Community y Number: [id number] Hospital [id number] Repository Date:9288-00-56EV [facility] [place], [place] [address]GO: 12/06/2017 Tertiary NOT GIVENUNK [place] Insurance:SELF PAY [facility] Number: Effective Repository Date:2017-12-06 12/04/2017 MICHELLE J Primary MICHELLE J Dean [id number] Insurance:MEDICARE STRADLEYDOB: [facility] [address] PART A [facility] [id number], [place] Number: Repository [address]Hst: [phone] [id number] [phone] () Date:2017-12-04 12/04/2017 Secondary MICHELLE J Dean Insurance:ANTHEMPolic STRADLEYDOB: Community y Number: [id number] Hospital [id number] Repository Date:6590-55-58TV[address] [address]ZJ: 12/04/2017 Tertiary NOT GIVENUNK Dean Insurance:SELF PAY [facility] Number: Effective Repository Date:2017-12-04 11/28/2017 MICHELLE J Primary MICHELLE J Dean [id number] Insurance:MEDICARE STRADLEYDOB: [facility] [address] PART A [facility] [id number], [place] Number: Repository [address]Shp: [phone] [id number] [phone] () Date:2017-05-24 11/28/2017 Secondary MICHELLE J [place] Insurance:ANTHEMPolic STRADLEYDOB: Community y Number: [id number] Hospital [id number] Repository Date:1140-02-63WH [address] [place] [address] 98157EO: 11/28/2017 Tertiary NOT GIVENUNK Dean Insurance:SELF PAY [facility] Number: Effective Repository Date:2017-11-28 10/10/2017 MICHELLE J Primary MICHELLE J [place]lain [id number] Insurance:MEDICARE STRADLEYDOB: [facility] [address] PART A [facility] [id number], [place] Number: Repository [address]Stg: [phone] [id number] [phone] () Date:2017-10-03 10/10/2017 Secondary MICHELLE J Chamber[place] Insurance:ANTHEMPolic STRADLEYDOB: Community y Number: [id number] Hospital [id number] Repository Date:8123-43-70[address]QFS[place]YN, [place] [address]SI: 10/10/2017 Tertiary NOT GIVENUNK [place] Insurance:SELF PAY [facility] Number: Effective Repository Date:2017-10-03 06/13/2017 MICHELLE J Primary MICHELLE J Dean [id number] Insurance:MEDICARE STRADLEYDOB: [facility] [id number], [place] Number: Repository [address]Xak: [phone] [id number] [phone] (HP) Date:2017-05-24 06/13/2017 Secondary MICHELLE J [place] Insurance:ANTHEMPolic STRADLEYDOB: Community y Number: [id number] Hospital [id number] Repository Date:5540-70-17[address]ZQNQ[place], [place] [address]ZN: 06/13/2017 Tertiary NOT GIVENUNK [place] Insurance:SELF PAY [facility] Number: Effective Repository Date:2017-06-13 06/13/2017 MICHELLE J Primary MICHELLE J Dean [id number] Insurance:MEDICARE STRADLEYDOB: [facility] [address] PART A [facility] [id number], [place] Number: Repository [address]Dgz: [phone] [id number] [phone] () Date:2017-05-24 06/13/2017 Secondary MICHELLE J [place] Insurance:ANTHEMPolic STRADLEYDOB: Community y Number: [id number] Hospital [id number] Repository Date:0666-92-07[address]SFQZVTI, [place] [address]WY: 06/13/2017 Tertiary NOT GIVENUNK [place] Insurance:SELF PAY [facility] Number: Effective Repository Date:2017-05-24 05/24/2017 MICHELLE J Primary MICHELLE J Dean [id number] Insurance:MEDICARE STRADLEYDOB: [facility] [address] PART A [facility] [id number], [place] Number: Repository [address]Cfn: [phone] [id number] [phone] () Date:2017-02-28 05/24/2017 Secondary MICHELLE J [place] Insurance:ANTHEMPolic STRADLEYDOB: Community y Number: [id number] Hospital [id number] Repository Date:8318-78-42[address]JFGW [place] [address]VP: 05/24/2017 Tertiary NOT GIVENUNK [place] Insurance:SELF PAY [facility] Number: Effective Repository Date:2017-02-28 05/17/2017 Michelle J Primary Michelle J Chamberlain [id number] Insurance:MEDICARE StradleyDOB: Community [address] PART A [facility] [id number] [place] Number: Repository [address]Fwg: [phone] [id number] [phone] () Date:2013-01-23 05/17/2017 Secondary Michelle J Dean Insurance:ANTHEMPolic StradleyDOB: Community y Number: [id number] Hospital [id number] Repository Date:1637-13-78CE [address]GAZLW, [place] [address]XX: 05/17/2017 Tertiary NOT GIVENUNK [place] Insurance:SELF PAY [facility] Number: Effective Repository Date:2017-05-10 05/10/2017 Michelle J Primary Michelle J [place] [id number] Insurance:MEDICARE StradleyDOB: Community [place] [address] PART A [facility] [id number] [place] Number: Repository [address]Yja: [phone] [id number] [phone] () Date:2017-05-10 05/10/2017 Secondary Michelle J Chamberlain Insurance:ANTHEMPolic StradleyDOB: Community y Number: [id number] Hospital [id number] Repository Date:0768-64-04BM [address], [place] [address]LZ: 05/10/2017 Tertiary NOT GIVENUNK Dean Insurance:SELF PAY [facility] Number: Effective Repository Date:2017-05-10 05/09/2017 Michelle J Primary Michelle J Dean [id number] Insurance:MEDICARE StradleyDOB: Community [address] PART A [facility] [id number] Number: Repository [address]Gpw: [phone] [id number] [phone] () Date:2017-05-09 05/09/2017 Secondary Michelle J Dean Insurance:ANTHEMPolic StradleyDOB: Community y Number: [id number] Hospital [id number] Repository Date:4013-74-20RU [address] [place] [address]GS: 05/09/2017 Tertiary NOT GIVENUNK Dean Insurance:SELF PAY [facility] Number: Effective Repository Date:2017-05-09 03/27/2017 Michelle J Primary Michelle J Dean [id number] Insurance:MEDICARE StradleyDOB: [facility] [address] [id number] Number: Repository [address]Muu: [phone] [id number] [phone] () Date:2017-03-27 03/27/2017 Secondary Michelle J [place] Insurance:ANTHEMPolic StradleyDOB: Community y Number: [id number] Hospital [id number] Repository Date:0817-16-18WR [address] [place] [address]WG: 03/27/2017 Tertiary NOT GIVENUNK [place] Insurance:SELF PAY [facility] Number: Effective Repository Date:2017-03-27 03/20/2017 Michelle J Primary Michelle J Chamberlain [id number] Insurance:MEDICARE StradleyDOB: Community [place] [address] PART A [facility] [id number], [place] Number: Repository [address]Esy: [phone] [id number] [phone] () Date:2017-03-20 03/20/2017 Secondary Michelle J Chamber[place] Insurance:ANTHEMPolic StradleyDOB: Community y Number: [id number] Hospital [id number] Repository Date:6881-23-53[address], [place] [address]BS: 03/20/2017 Tertiary NOT GIVENUNK [place] Insurance:SELF PAY [facility] Number: Effective Repository Date:2017-03-20 SOCIAL HISTORY SOCIAL HISTORY No Social History Records FoundFAMILY HISTORY FAMILY HISTORY No Family History Records FoundADVANCE DIRECTIVES ADVANCE DIRECTIVES No Advanced Directives Records FoundINFORMATION SOURCE INFORMATION SOURCE DATE CREATED AUTHOR AUTHOR'S ORGANIZATION 03/12/2018 MNIP
== END ==
PROVIDERS: Family Provider Nurse Practitioner; PCP Nurse Practitioner; Referring Provider Psychiatry & Neurology Neurology; Visit Provider Psychiatry & Neurology Neurology
DX: E53.9 Vitamin B deficiency, unspecified (principal); G62.9 Polyneuropathy, unspecified
CPT/HCPCS: 36415; 82607; 83921

== ENCOUNTER → 2018-05-23 12:13 | Outpatient (CLI) | payer MEDICARE, BC, SELFPAY ==
[2018-05-23 10:48] VITALS: BMI 28.4
[2018-05-23 14:10] LABS: AST(SGOT) 23 U/L (15-37); Alanine Aminotransfer ALT/SGPT 25 U/L (13-56); Alkaline Phosphatase 75 U/L (45-117); Cholesterol 143 mg/dL (200); Globulin 3.1 g/dL (2.2-4.2); High Density Lipoprotein 62 mg/dL; Protein, Total 7.1 g/dL (6.4-8.2); Triglycerides 156 mg/dL; Very Low Density Lipoprotein 31 mg/dL (5-40)
== END ==
PROVIDERS: Family Provider Nurse Practitioner; PCP Nurse Practitioner; Referring Provider Physician Assistant Medical; Visit Provider Physician Assistant Medical
DX: I25.5 Ischemic cardiomyopathy (principal); E78.5 Hyperlipidemia, unspecified; I25.111 Atherosclerotic heart disease of native coronary artery with angina pectoris with documented spasm
CPT/HCPCS: 36415; 80061; 80076

== ENCOUNTER 2018-06-06 18:57 | Emergency (ER) | payer MEDICARE, BC, SELFPAY ==
[2018-05-23 10:48] VITALS: BMI 28.4
[2018-06-06 18:57] VITALS: BP 120/89; PULSE 115; RESP 22; TEMP 36.4; O2SAT 94; BMI 28.1
[2018-06-06 20:31] VITALS: BP 151/85; PULSE 98; RESP 24; O2SAT 95
[2018-06-06 20:46] VITALS: BP 144/75; PULSE 97; RESP 22; TEMP 37.2; O2SAT 93
[2018-06-06 21:11] VITALS: PULSE 96; RESP 18
[2018-06-06] MEDS: Ipratropium/Albuterol Sulfate 3 ML AMPUL.NEB INHALATION (21:11)
[2018-06-06 21:13] LABS: Absolute Lymphocyte Count 0.79 X10^3/ul (0.83-4.51); Absolute Neutrophil Count 4.1 X10^3/uL (2.0-7.7); Basophil# 0.02 X10^3/uL; Basophil% 0.3 % (0-1); Eosinophil# 0.26 X10^3/uL; Eosinophils% 4.5 % (0-5); Hematocrit 41.9 % (37-47); Lymphocyte # 0.79 X10^3/ul (4.0); Lymphocyte % 13.6 % (19-41); Mean Corp Hgb Conc 33.4 g/gl (32-36); Mean Corpuscular Hgb 33.7 pg (27.0-32.0); Mean Platelet Vol. 10.4 fl (6.2-12.0); Monocyte# 0.62 X10^3/uL; Monocyte% 10.7 % (0-10); Neutrophil # 4.11 X10^3/uL (2.7-7.7); Neutrophil % 70.9 % (47-70); Platelet Count 181 K/mm3 (150-450); RBC Distribution Width CV 12.8 % (11.6-14.6); Red Blood Count 4.15 M/mm3 (4.2-5.4); White Blood Count 5.8 K/mm3 (4.4-11.0)
[2018-06-06 21:15] LABS: POSITIVE COUNT NO; POSITIVE DIFFERENTIAL NO; POSITIVE MORPHOLOGY NO
[2018-06-06 21:21] LABS: Anion Gap 7 (5-15); BUN 11 mg/dL (7-18); BUN/Creat Ratio 11.4 RATIO (10-20); Calcium,Total 8.9 mg/dL (8.5-10.1); Chloride 106 mmol/L (98-107); Creatinine, Serum 0.96 mg/dL (0.55-1.02); EST Glomerular Filtration Rate 61 mL/min (>60); Est Glom Filt Rate - Afr Amer 74 mL/min (>60); Estimated Creatinine Clearance 55.01 ml/min; Glucose 119 mg/dL (74-106); Potassium 3.6 mmol/L (3.5-5.1); Sodium Level 137 mmol/L (136-145)
--- NOTE | 2018-06-06 21:21 | RAD_ITS ---
STUDY: X-RAY CHEST REASON FOR EXAM: Female, 68 years old. Cough TECHNIQUE: PA and lateral views of the chest. COMPARISON: Previous study of 03/27/2017 FINDINGS: monitor tech leads are present. The lungs are clear and expanded. There is no demonstrated pleural abnormality. Normal size heart. Normal mediastinum and cruz. Normal visualized pulmonary arteries. Normal visualized aortic arch and descending thoracic aorta. Normal visualized thoracic spine. Normal visualized ribs, clavicles, and shoulders. There is no demonstrated abnormality of the visualized soft tissue structures of the upper abdomen. RAD/Chest PA and Lateral IMPRESSION: Normal x-ray examination of the chest. Electronically Signed: Vince Carey MD at 22:30 EDT , Service support ,
--- NOTE | 2018-06-06 21:51 | ED.VISSUMM ---
- ER Visit Summary Date of Service: 06/06/18 Chief Complaint: Cough and shortness of breath History of Present Illness: The patient is a 68 F presents with cough and shortness of breath that has been getting worse over the past 2 days. Patient states she has had a low-grade fever of 99.7. Patient admits to rhinorrhea and sore throat. Patient also admits to some pain in her chest with coughing. Patient states she is coughing up some clear sputum. Patient admits to some nausea but denies any vomiting. Patient admits to some diarrhea. Patient also admits to a headache. Patient has a past medical history of chronic bronchitis and COPD. Physical Examination: Vital signs are stable except for tachycardia of 115. Patient is afebrile. Patient is in no acute distress. Oral mucosa is pink and moist. Oropharynx is clear. Neck is supple. Trachea is midline. There is no JVD noted. There is no lymphadenopathy noted. Heart was regular and tachycardic. Lungs showed some scattered rhonchi. There is good respiratory effort noted. Abdomen is soft. Bowel sounds are normal. There is no tenderness. Cranial nerves II through XII are intact. There are no focal motor or sensory deficits noted. Test Results: PA and lateral chest x-ray does not show any evidence of pneumonia. CBC and basic metabolic profile were within normal limits. Emergency Department Course and Treatment: Patient was given a DuoNeb aerosol here in the emergency department. She felt better on reevaluation. Patient still complained of a headache. Patient was given a dose of ibuprofen. She was instructed to go home and rest. Patient was instructed to continue npeu-jxw-znjrtft decongestants and cough medications as needed. Patient understood and was agreeable with the plan. All questions were answered. Disposition: Discharge home Impression: Acute exacerbation of chronic bronchitis This note was generated with [employer] dictation software. It may contain incorrect words, spelling, and punctuation that were not noted in review of the chart prior to signing ED Disposition - Plan for ED Patient: Disposition: Home or Assisted Living Diagnosis: Chronic bronchitis with acute exacerbation Instructions: ED Upper Resp Infec No Abx Tx Referrals: Vivienne Heaton, FINAL ARMATURE TESTER-C [Primary Care Provider] - 5-7 Days
--- NOTE | 2018-06-06 21:55 | ED.DCSUM_ITS ---
- ER Visit Summary Date of Service: 06/06/18 Chief Complaint: Cough and shortness of breath History of Present Illness: The patient is a 68 F presents with cough and shortness of breath that has been getting worse over the past 2 days. Patient states she has had a low-grade fever of 99.7. Patient admits to rhinorrhea and sore throat. Patient also admits to some pain in her chest with coughing. Patient states she is coughing up some clear sputum. Patient admits to some nausea but denies any vomiting. Patient admits to some diarrhea. Patient also admits to a headache. Patient has a past medical history of chronic bronchitis and COPD. Physical Examination: Vital signs are stable except for tachycardia of 115. Patient is afebrile. Patient is in no acute distress. Oral mucosa is pink and moist. Oropharynx is clear. Neck is supple. Trachea is midline. There is no JVD noted. There is no lymphadenopathy noted. Heart was regular and tachycardic. Lungs showed some scattered rhonchi. There is good respiratory effort noted. Abdomen is soft. Bowel sounds are normal. There is no tenderness. Cranial nerves II through XII are intact. There are no focal motor or sensory deficits noted. Test Results: PA and lateral chest x-ray does not show any evidence of pneumonia. CBC and basic metabolic profile were within normal limits. Emergency Department Course and Treatment: Patient was given a DuoNeb aerosol here in the emergency department. She felt better on reevaluation. Patient still complained of a headache. Patient was given a dose of ibuprofen. She was instructed to go home and rest. Patient was instructed to continue uhhy-sxv-mwdbrkm decongestants and cough medications as needed. Patient understood and was agreeable with the plan. All questions were answered. Disposition: Discharge home Impression: Acute exacerbation of chronic bronchitis This note was generated with [employer] dictation software. It may contain incorrect words, spelling, and punctuation that were not noted in review of the chart prior to signing ED Disposition - Plan for ED Patient: Disposition: Home or Assisted Living Diagnosis: Chronic bronchitis with acute exacerbation Instructions: ED Upper Resp Infec No Abx Tx Referrals: Vivienne Heaton, PUBLIC SPACE ATTENDANT-C [Primary Care Provider] - 5-7 Days
[2018-06-06 22:07] VITALS: BP 140/79; PULSE 85; RESP 16; O2SAT 97
[2018-06-06 22:09] VITALS: BP 140/79; PULSE 84; RESP 18; TEMP 36.9; O2SAT 98
[2018-06-06] MEDS: Acetaminophen 500 MG Tablet 1000 MG PO (23:39)
== END 2018-06-06 23:40 | disposition home or self-care (01) ==
PROVIDERS: Emergency Provider Emergency Medicine; Family Provider Nurse Practitioner; PCP Nurse Practitioner
DX: J42 Unspecified chronic bronchitis (principal); F17.210 Nicotine dependence, cigarettes, uncomplicated
CPT/HCPCS: 71046; 80048; 85025; 94640; 99283; A4216

== ENCOUNTER → 2018-07-11 | Outpatient (CLI) | payer MEDICARE, BC, SELFPAY ==
--- NOTE | 2018-07-11 08:52 | BI_ITS ---
MAMMOGRAPHY - BILATERAL DIAGNOSTIC REASON FOR EXAM: Female, 68 years old. Six-month follow-up examination PERTINENT HISTORY: Six-month follow-up for asymmetric density in the deep lateral portion of the right breast. TECHNIQUE: Digital bilateral breast lita (3D mammographic acquisition) in the CC and MLO projections. 2-D mediolateral oblique (MLO) and craniocaudad (CC) views of both breasts were obtained. CAD: Full Field Digital Mammography with Computer Added Detection was performed. COMPARISON: Comparison is made with prior mammogram dated December 26, 2017 and January 03, 2018. FINDINGS: Breast Composition: There are scattered areas of fibroglandular density. There are no dominant masses or suspicious calcifications. No other significant abnormalities are identified. There has been no significant change since the prior study. BI/DIAG MAMM W/CAD, UNILAT IMPRESSION: Stable bilateral diagnostic mammogram. One year follow-up recommended. (A) ASSESSMENT CATEGORY: BIRADS Category 2: Benign. A letter regarding these results will be sent to the patient by the facility within 30 days. Approximately 10% of breast cancers are not detected by mammography. A normal mammogram should not delay biopsy of a clinically suspicious abnormality. Electronically Signed: Freddy Soto, at 10:59 EDT , Service support ,
--- NOTE | 2018-07-11 08:52 | US_ITS ---
STUDY: ULTRASOUND BREAST - RIGHT REASON FOR EXAM: Female, 68 years old. Six-month follow-up examination. TECHNIQUE: Axial and longitudinal images of the RIGHT breast were performed with a high resolution ultrasound transducer. COMPARISON: Comparison is made with prior ultrasound of the right breast dated January 03, 2018 as well as prior mammogram done earlier today. FINDINGS: RIGHT Breast: There is a 7 mm x 6 mm x 5 mm well-defined hypoechoic nodule with central echogenic hilum suggestive of a benign appearing lymph node. This is at the 10:00 position of the breast at 8 cm from the nipple. US/Breast Limited Unilateral IMPRESSION: Findings suggestive of a 7 mm x 6 mm x 5 mm lymph node at the 10:00 position of the breast at 8 cm from the nipple. ASSESSMENT CATEGORY: BIRADS Category 2: Benign. A letter regarding these results will be sent to the patient by the facility within 30 days. Electronically Signed: Freddy Soto, at 12:45 EDT , Service support ,
== END | disposition home or self-care (01) ==
LOC: OPUS 08:51
PROVIDERS: Family Provider Nurse Practitioner; PCP Nurse Practitioner; Referring Provider Surgery; Visit Provider Surgery
DX: R92.8 Other abnormal and inconclusive findings on diagnostic imaging of breast (principal)
CPT/HCPCS: 76642; 77061; 77065; G0279

== ENCOUNTER → 2018-11-25 | Outpatient (CLI) | payer MEDICARE, BC, SELFPAY ==
[2018-07-17 09:57] VITALS: BMI 28.1
[2018-11-25 07:37] LABS: Absolute Lymphocyte Count 4.82 X10^3/uL (0.83-4.51); Absolute Neutrophil Count 6.6 X10^3/uL (2.0-7.7); Basophil# 0.05 X10^3/uL; Basophil% 0.4 % (0-1); Eosinophil# 0.23 X10^3/uL; Eosinophils% 1.8 % (0-5); Hematocrit 42.3 % (37-47); Hemoglobin 14.2 g/dL (12.0-15.0); Lymphocyte # 4.82 X10^3/ul (4.0); Lymphocyte % 38.1 % (19-41); Mean Corp Hgb Conc 33.6 g/dL (32-36); Mean Corpuscular Hgb 34.1 pg (27.0-32.0); Mean Corpuscular Volume 101.4 fL (81-99); Mean Platelet Vol. 10.1 fl (6.2-12.0); Monocyte# 0.88 X10^3/uL; NRBC Flagged by Analyzer 0 % (0-5); Neutrophil # 6.61 X10^3/uL (2.7-7.7); Neutrophil % 52.3 % (47-70); Platelet Count 227 K/mm3 (150-450); RBC Distribution Width CV 12.4 % (11.6-14.6); RBC Distribution Width SD 46.2 fl (35.1-43.9); Red Blood Count 4.17 M/mm3 (4.2-5.4); White Blood Count 12.6 K/mm3 (4.4-11.0)
[2018-11-25 08:03] LABS: ALB/GLOB Ratio 1.2 RATIO (0.9-2.4); AST(SGOT) 10 U/L (15-37); Alanine Aminotransfer ALT/SGPT 24 U/L (13-56); Albumin, Serum 3.7 g/dL (3.2-5.0); Alkaline Phosphatase 71 U/L (45-117); Anion Gap 5 (5-15); BUN 18 mg/dL (7-18); BUN/Creat Ratio 18.4 RATIO (10-20); Bilirubin, Direct 0.22 mg/dL (0.00-0.30); Chloride 109 mmol/L (98-107); Cholesterol 166 mg/dL (200); Creatinine, Serum 0.98 mg/dL (0.55-1.02); EST Glomerular Filtration Rate 60 mL/min (>60); Est Glom Filt Rate - Afr Amer 72 mL/min (>60); Globulin 3.1 g/dL (2.2-4.2); Glucose 78 mg/dL (74-106); High Density Lipoprotein 88 mg/dL; Potassium 3.6 mmol/L (3.5-5.1); Protein, Total 6.8 g/dL (6.4-8.2); Sodium Level 145 mmol/L (136-145); Triglycerides 130 mg/dL; Very Low Density Lipoprotein 26 mg/dL (5-40)
[2018-11-25 09:09] LABS: Vitamin D,25 Hydroxy 55.5 ng/mL (29.95-100.01)
== END | disposition home or self-care (01) ==
PROVIDERS: Internal Medicine Cardiovascular Disease; Family Provider Nurse Practitioner; PCP Nurse Practitioner; Referring Provider Nurse Practitioner; Visit Provider Nurse Practitioner
DX: D64.9 Anemia, unspecified (principal); E55.9 Vitamin D deficiency, unspecified; J44.9 Chronic obstructive pulmonary disease, unspecified; E78.00 Pure hypercholesterolemia, unspecified; T14.8XXA Other injury of unspecified body region, initial encounter; E78.5 Hyperlipidemia, unspecified; Z79.899 Other long term (current) drug therapy
CPT/HCPCS: 36415; 80053; 80061; 82248; 82306; 85025

== ENCOUNTER → 2018-11-27 14:06 | Outpatient (CLI) | payer MEDICARE, BC, SELFPAY ==
[2018-11-27 13:05] VITALS: BMI 27.3
[2018-11-27 16:37] LABS: BNP,B-Type NATRIURETIC PEPTIDE 30.7 pg/mL (0-100)
== END ==
PROVIDERS: Family Provider Nurse Practitioner; PCP Nurse Practitioner; Referring Provider Physician Assistant Medical; Visit Provider Physician Assistant Medical
DX: R06.09 Other forms of dyspnea (principal)
CPT/HCPCS: 36415; 83880

== ENCOUNTER → 2019-01-08 07:00 | Outpatient (CLI) | payer MEDICARE, BC, SELFPAY ==
[2018-07-17 09:57] VITALS: BMI 28.1
[2018-11-27 13:05] VITALS: BMI 27.3
--- NOTE | 2019-01-08 07:00 | BI_ITS ---
MAMMOGRAPHY - BILATERAL SCREENING REASON FOR EXAM: Female, 68 years old. Routine annual screening examination. PERTINENT HISTORY: Non-contributory. TECHNIQUE: Digital bilateral breast teresa (3D mammographic acquisition) in the CC and MLO projections. 2-D mediolateral oblique (MLO) and craniocaudad (CC) views of both breasts were obtained. CAD: Full Field Digital Mammography with Computer Added Detection was performed. COMPARISON: Comparison is made with prior mammogram dated July 11, 2018 and January 03, 2018. FINDINGS: Breast Composition: There are scattered areas of fibroglandular density. There are no dominant masses or suspicious calcifications. No other significant abnormalities are identified. There has been no significant change since the prior study. BI/SCREEN MAMM (CAD) W/TERESA BILAT IMPRESSION: Stable bilateral screening mammogram. Yearly follow-up mammogram recommended. (A) ASSESSMENT CATEGORY: BIRADS Category 1: Negative. A letter regarding these results will be sent to the patient by the facility within 30 days. Approximately 10% of breast cancers are not detected by mammography. A normal mammogram should not delay biopsy of a clinically suspicious abnormality. [id number] Electronically Signed: Freddy Soto, at 9:24 EDT , Service support ,
== END ==
PROVIDERS: Family Provider Nurse Practitioner; PCP Nurse Practitioner; Referring Provider Surgery; Visit Provider Surgery
DX: Z12.31 Encounter for screening mammogram for malignant neoplasm of breast (principal)
CPT/HCPCS: 77063; 77067

== ENCOUNTER → 2019-05-22 08:54 | Outpatient (CLI) | payer MEDICARE, BC, SELFPAY ==
--- NOTE | 2019-05-22 08:57 | RAD_ITS ---
STUDY: X-RAY - LUMBAR SPINE REASON FOR EXAM: Female, 69 years old. INCREASING LOWER BACK PAIN, HX DISC PROBLEMS/SURGERY TECHNIQUE: 5 view(s) of the lumbar spine were obtained. COMPARISON: 06/01/2015 FINDINGS: Normal lumbar lordosis. Mild levoscoliosis. There is a normal alignment of the vertebrae. There is multilevel endplate spondylosis of the lumbar vertebrae. Normal disc space heights. The soft tissue structures are unremarkable. RAD/L/S Spine Min 4 Views IMPRESSION: Mild levoscoliosis with mild degenerative disc disease as described above. Electronically Signed: Syed Shelton MD at 12:03 EST Tel , Service support ,
[2019-05-28 08:04] VITALS: BMI 27.5
== END ==
PROVIDERS: PCP Nurse Practitioner; Referring Provider Nurse Practitioner; Visit Provider Nurse Practitioner
DX: M54.5 Low back pain (principal)
CPT/HCPCS: 72110

== ENCOUNTER → 2019-09-02 11:53 | Outpatient (CLI) | payer MEDICARE, BC, SELFPAY ==
[2019-05-28 08:04] VITALS: BMI 27.5
[2019-09-02] MEDS: 0.9% Normal Saline 1,000 ML 999 ML IV (12:15)
[2019-09-02 12:16] VITALS: BP 101/55; PULSE 71; RESP 16; TEMP 37.1; O2SAT 98; BMI 26.2
[2019-09-02] MEDS: 0.9% NaCl Peripheral Flush Adult/Peds IV (12:16)
[2019-09-02 13:19] VITALS: BP 102/56; PULSE 63; RESP 16
== END ==
PROVIDERS: PCP Nurse Practitioner; Referring Provider Nurse Practitioner; Visit Provider Nurse Practitioner
DX: E86.0 Dehydration (principal); R19.7 Diarrhea, unspecified
CPT/HCPCS: 96360; J7030; A4216

== ENCOUNTER → 2019-09-09 14:50 | Outpatient (CLI) | payer MEDICARE, BC, SELFPAY ==
[2019-09-02 12:16] VITALS: BMI 26.2
[2019-09-09] MEDS: 0.9% NaCl Peripheral Flush Adult/Peds IV (15:08)
[2019-09-09] MEDS: 0.9% Normal Saline 1,000 ML 999 ML IV (15:09)
[2019-09-09 15:14] VITALS: BP 133/66; PULSE 53; RESP 16; TEMP 36.2; O2SAT 100; BMI 25.8
[2019-09-09 16:14] VITALS: BP 131/70; PULSE 50
== END ==
PROVIDERS: PCP Nurse Practitioner; Referring Provider Nurse Practitioner; Visit Provider Nurse Practitioner
DX: E86.0 Dehydration (principal); R19.7 Diarrhea, unspecified
CPT/HCPCS: 96360; J7030; A4216

== ENCOUNTER → 2019-10-21 15:58 | Outpatient (CLI) | payer MEDICARE, BC, SELFPAY ==
[2019-09-09 15:14] VITALS: BMI 25.8
[2019-10-21 18:13] LABS: CRP < 2.90 mg/L (0.0-3.0)
[2019-10-23 16:08] LABS: Endomysial Antibody IgA Negative (Negative)
[2019-10-23 16:32] LABS: Immunoglobulin A 103 mg/dL (64-422); t-Transglutaminase IgA <2 U/mL (0-3)
== END ==
PROVIDERS: PCP Nurse Practitioner; Referring Provider Internal Medicine Gastroenterology; Visit Provider Internal Medicine Gastroenterology
DX: R19.7 Diarrhea, unspecified (principal)
CPT/HCPCS: 36415; 82784; 83516; 86140; 86255

== ENCOUNTER → 2019-11-26 06:39 | Outpatient (CLI) | payer MEDICARE, BC, SELFPAY ==
[2019-09-09 15:14] VITALS: BMI 25.8
--- NOTE | 2019-11-26 06:42 | CT_ITS ---
STUDY: CT ABDOMEN AND PELVIS WITH CONTRAST REASON FOR EXAM: Female, 69 years old. BLOATING, DIARRHEA X 6 MON, WT LOSS, KACI G-T AH/ BSO, APPY, MARTIN, RT THR, HTN RADIATION DOSAGE (If Supplied By Facility): CTDIvol = ( 17.33 ) mGy, DLP = ( 980.83 ) mGycm TECHNIQUE: Transaxial images were obtained from the dome of the diaphragm to the symphysis pubis with oral contrast. Oral and amp; IV Readi-CAT and amp; 100mL Isovue-300 was administered. Sagittal and coronal images were reconstructed. Individualized dose optimization techniques were used for this CT. COMPARISON: None. FINDINGS: Minimal linear scarring at the lung bases. Coronary artery calcification. There is decreased attenuation of the liver consistent with steatosis. There are surgical clips in the gallbladder fossa consistent with a prior cholecystectomy. Normal spleen. There are pancreatic calcifications in the distribution of the ducts consistent with chronic pancreatitis. Normal bilateral adrenal glands. Normal right kidney. Normal left kidney. There is a small hiatal hernia. Normal small intestine. There are scattered colonic diverticula consistent with diverticulosis. There are surgical clips in the region of the appendix consistent with a prior appendectomy. There is diffuse atherosclerotic calcification of the abdominal aorta and its major visceral branches, without a demonstrated aneurysm. Normal inferior vena cava. Normal retroperitoneum. Normal urinary bladder. There is absence of the uterus consistent with a prior hysterectomy. Normal abdominal wall. There is evidence of a prior right total hip replacement. CT/Abdomen/Pelvis WITH Contrast IMPRESSION: Fatty infiltration of the liver. Scattered calcifications in the pancreas suggestive of chronic pancreatitis. Electronically Signed: Freddy Soto, at 7:33 EDT , Service support ,
[2019-11-26 06:56] LABS: CREATININE FINGERSTICK 0.8 mg/dL (0.55-1.02); EGFR FINGERSTICK > 60.0000 mL/min (>60)
== END ==
PROVIDERS: PCP Nurse Practitioner; Referring Provider Nurse Practitioner; Visit Provider Nurse Practitioner
DX: R10.84 Generalized abdominal pain (principal)
CPT/HCPCS: 74177; Q9967

== ENCOUNTER → 2020-06-29 13:03 | Outpatient (CLI) | payer MEDICARE, BC, SELFPAY ==
[2020-05-26 13:02] VITALS: BMI 24.7
--- NOTE | 2020-06-29 13:05 | BI_ITS ---
MAMMOGRAPHY - BILATERAL SCREENING REASON FOR EXAM: Female, 70 years old. Routine annual screening examination. PERTINENT HISTORY: NO FAM HX NO CHILDREN LOST WEIGHT SINCE LAST MAMM NO SX TECHNIQUE: Digital bilateral breast teresa (3D mammographic acquisition) in the CC and MLO projections. 2-D mediolateral oblique (MLO) and craniocaudad (CC) views of both breasts were obtained. CAD: Full Field Digital Mammography with Computer Added Detection was performed. COMPARISON: 01/08/2019 FINDINGS: Breast Composition: The breasts are almost entirely fatty. There are no dominant masses or suspicious calcifications. No other significant abnormalities are identified. BI/SCRN MAMM (CAD)W/TERESA BILAT IMPRESSION: Stable bilateral screening mammogram. Yearly follow-up mammogram recommended. (A) ASSESSMENT CATEGORY: BIRADS Category 2: Benign. A letter regarding these results will be sent to the patient by the facility within 30 days. Approximately 10% of breast cancers are not detected by mammography. A normal mammogram should not delay biopsy of a clinically suspicious abnormality. [id number] Electronically Signed: Deb Olea MD at 16:34 EDT Tel , Service support ,
== END ==
PROVIDERS: PCP Nurse Practitioner; Referring Provider Nurse Practitioner; Visit Provider Nurse Practitioner
DX: Z12.31 Encounter for screening mammogram for malignant neoplasm of breast (principal)
CPT/HCPCS: 77063; 77067

== ENCOUNTER 2021-05-28 08:16 | Emergency (ER) | payer MEDICARE, BC, SELFPAY ==
[2021-05-28] VITALS (7 sets, daily range): BP systolic 107–158; BP diastolic 59–115; PULSE 61–100; RESP 16–18; TEMP 36.6; O2SAT 95–99; BMI 26.6
--- NOTE | 2021-05-28 08:28 | CT_ITS ---
STUDY: CT ABDOMEN AND PELVIS WITH CONTRAST REASON FOR EXAM: Female, 71 years old. Pain, Diarrhea RADIATION DOSAGE (If Supplied By Facility): CTDIvol = ( 14.10 ) mGy, DLP = ( 884.62 ) mGycm TECHNIQUE: Transaxial images were obtained from the dome of the diaphragm to the symphysis pubis without oral contrast. IV 100mL Isovue-370 was administered. Sagittal and coronal images were reconstructed. Individualized dose optimization techniques were used for this CT. COMPARISON: 11/26/2019 FINDINGS: The visualized lung bases are unremarkable. The visualized portions of the heart are within normal limits. Normal liver. There are surgical clips in the gallbladder fossa consistent with a prior cholecystectomy. Normal spleen. Normal pancreas. Normal bilateral adrenal glands. Normal right kidney. Normal left kidney. Normal visualized stomach. Normal small intestine. Normal colon. There is non-visualization of the appendix. Normal abdominal aorta. Normal inferior vena cava. Normal retroperitoneum. Normal urinary bladder. Normal abdominal wall. Status post right hip arthroplasty which produces streak artifact and obscures the pelvis. CT/Abdomen/Pelvis W IV Cont ONLY IMPRESSION: Normal enhanced CT of the abdomen and pelvis. Electronically Signed: Syed Shelton MD at 10:49 EST ,
--- NOTE | 2021-05-28 08:34 | ED.VIS.GI ---
HPI HPI - GI History of Present Illness Chief Complaint: Abd Pain Narrative Narrative: Patient with past medical history of coronary artery disease presents with nausea, vomiting, and diarrhea, along with abdominal pain that she has had since , 4 days ago. She states that around 2 PM, she was getting things out of her car and had an episode of explosive diarrhea. Then within the next 22 hours she had multiple episodes of nausea and vomiting. She denies any blood in her emesis or stool. While her nausea and vomiting has subsided where she only vomited once in the last 24 hours, she states whenever she tries to drink or eat anything it goes right through. She continues to have diarrhea. She feels dehydrated and weak. She had her sister dropped her off. She denies any fevers or chills. She states she has history of pancreatitis, and has had prior abdominal surgeries in the form of cholecystectomy and appendectomy. 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 Cardiomyopathy, ischemic Hyperlipidemia Levoscoliosis Nicotine abuse Old myocardial infarction Other prison (current) drug therapy Premature ventricular contractions Home Medications aspirin 81 mg PO DAILY 12/29/12 [History Last Taken 06/05/18] latanoprost 1 drp EACH EYE QHS 03/10/14 [History Last Taken 06/05/18] cholecalciferol (vitamin D3) 125 mcg (5,000 unit) tablet 5,000 unit PO QDAY 05/20/17 [History Last Taken 06/05/18] gabapentin 300 mg capsule 300 mg PO TID 05/20/17 [History Last Taken 06/05/18] nitroglycerin 0.4 mg sublingual tablet 0.4 mg SUBLINGUAL Q5M PRN 05/20/17 [History Last Taken Unknown] albuterol sulfate 2.5 mg INHALATION Q4HWA.RT 06/06/18 [History Last Taken 06/05/18] timolol maleate 0.5 % eye drops 1 drp OPHTHALMIC BID ml 05/28/19 [History Last Taken Unknown] atorvastatin 80 mg tablet 80 mg PO QHS #90 tab 05/26/20 [Rx Last Taken Unknown] zfjnrl-voxnvqkg-njtachr 36,000-114,000-180,000 unit capsule,delay rel 1 cap PO TID 05/26/20 [History Last Taken Unknown] carvedilol 6.25 mg tablet 6.25 mg PO BID #180 tab 06/02/20 [Rx Last Taken Unknown] ondansetron 4 mg PO Q8H PRN #10 tab 05/28/21 [Rx Last Taken Unknown] potassium chloride 20 meq PO BID 3 Days #6 tab 05/28/21 [Rx Last Taken Unknown] Allergy/AdvReac Type Severity Reaction Status Date / Time venom-honey bee Allergy Swelling Verified 05/28/21 08:19 [bee venom (honey bee)] cefdinir AdvReac Severe itching & Verified 05/28/21 08:19 Hives amoxicillin trihydrate AdvReac Nausea/Vom/ Verified 05/28/21 08:19 [From Augmentin] Diarrhea lisinopril AdvReac Other Verified 05/28/21 08:19 potassium clavulanate AdvReac Nausea/Vom/ Verified 05/28/21 08:19 [From Augmentin] Diarrhea Family History Father Sudden cardiac Myocardial infarction Mother Myocardial infarction Surgical History History of back surgery History of carpal tunnel surgery History of cataract surgery History of hysterectomy History of PTCA History of right hip replacement History of tonsillectomy and adenoidectomy Hx laparoscopic cholecystectomy Hx of appendectomy Social History Smoking Status: Light Smoker (<10/day) second hand exposure: No alcohol intake: never substance use type: does not use caffeine: Yes seatbelt use: always do you feel safe at home: Yes ROS ROS ED ROS Narrative Constitutional: No fever, no chills. Generalized weakness and fatigue. HEENT: No sore throat. No neck pain. No loss of vision. No rhinorrhea. Cardiovascular: No chest pain. No palpitations. No pedal edema. Respiratory: No cough, no shortness of breath. Abdominal: Positive diffuse abdominal pain. Positive nausea. Multiple episodes of vomiting, one bilious episode last 24 hours. Continued diarrhea, watery stool at least every hour. Genitourinary: No dysuria. No hematuria. Musculoskeletal: No myalgias. No arthralgias. Neurologic: No headaches. No dizziness. No lightheadedness. Skin: No rash. No change in color. Positive tenting when pinched on dorsum of hand. Psychiatric: No depression. No anxiety. EXAM Physical Exam Narrative Exam Narrative: Afebrile. Vital signs noted. HEENT: Normocephalic. Atraumatic. PERRL, EOMI. Neck soft and supple. No point tenderness or step off. Tacky mucous membranes. Cardiovascular: Regular rate and rhythm/borderline tachycardia. No murmurs, rubs, or gallops appreciated. Respiratory: No tachypnea. Lungs clear to auscultation bilaterally. Gastrointestinal: Abdomen soft, diffuse tenderness, with normoactive bowel sounds. No rebound or guarding. Neurological: Awake. Alert. Nonfocal, nonlateralizing. Skin: No rash. Normal color. No pallor. Musculoskeletal: No pedal edema. Full range of motion extremities. Ambulatory in ED. Const Vital Signs: 05/28/21 08:17 05/28/21 08:29 05/28/21 08:54 Temperature 97.9 F 97.9 F Temperature Source Temporal Temporal Pulse Rate 100 100 68 Respiratory Rate 18 18 Blood Pressure 158/74 H 158/74 H 131/78 H Blood Pressure Mean 102 102 95 Pulse Ox 97 97 96 Oxygen Delivery Method Room Air Room Air Room Air 05/28/21 09:00 05/28/21 11:00 Temperature Temperature Source Pulse Rate 76 69 Respiratory Rate Blood Pressure 107/59 L 131/91 H Blood Pressure Mean 75 104 Pulse Ox 96 95 Oxygen Delivery Method Room Air Room Air MDM MDM MDM Narrative Medical decision making narrative: Comprehensive work-up was pursued patient was administered morphine and ondansetron, and bolus normal saline. She has normal white count of 6.3, hemoglobin normal at 14.3. Platelet count also normal at 186. She has hypokalemia with a potassium of 2.9 which was replaced orally. Creatinine slightly elevated at 1.2 with a BUN of 30. I do think that she does have mild dehydration. Her urinalysis shows no evidence of infection but there are 15 ketones. Her lipase is normal at 205. ALT and AST are also normal. Total bilirubin slightly elevated at 1.5 which I think is nonspecific. At this point in time, she was given 1 additional dose of pain medication for her abdominal pain. Her CT of the abdomen and pelvis shows no acute process. I will write her prescriptions for Zofran and 3 days worth of potassium to take 20 mEq twice a day. She will have her potassium rechecked. She states she feels improved, and would like to be discharged. She will start a clear liquid diet and advance as tolerated. At this point in time, I feel she can be discharged safely home with follow-up to her primary care provider. Return instructions to the emergency department were reviewed. Disposition is discharged home in stable condition. Lab Data Attestation: I reviewed the patient's lab results. Labs: Laboratory Results - last 24 hr 05/28/21 05/28/21 05/28/21 08:40 08:40 10:50 WBC 6.3 RBC 4.26 Hgb 14.3 Hct 41.4 MCV 97.2 MCH 33.6 H MCHC 34.5 RDW Std Deviation 45.0 H RDW Coeff of Ferny 12.6 Plt Count 186 MPV 9.6 Immature Gran % (Auto) 0.300 Neut % (Auto) 61.3 Lymph % (Auto) 26.8 [place] % (Auto) 10.1 H Eos % (Auto) 1.3 Baso % (Auto) 0.2 Absolute Neuts (auto) 3.9 Absolute Lymphs (auto) 1.70 Nucleated RBC % 0 Sodium 137 Potassium 2.9 L Chloride 105 Carbon Dioxide 23.0 Anion Gap 9 BUN 30 H Creatinine 1.25 H Estim Creat Clear Calc 40.43 Est GFR (MDRD) Af Amer 54 L Est GFR (MDRD) Non-Af 45 L BUN/Creatinine Ratio 24.0 H Glucose 117 H Calcium 8.4 L Total Bilirubin 1.50 H AST 26 ALT 30 Alkaline Phosphatase 59 Total Protein 7.0 Albumin 3.7 Globulin 3.3 Albumin/Globulin Ratio 1.1 Lipase 205 Urine Color Yellow Urine Clarity Clear Urine pH 6.5 Ur Specific Collins 1.010 Urine Protein 30 H Urine Glucose (UA) Normal Urine Ketones 15 H Urine Occult Blood Negative Urine Nitrite Negative Urine Bilirubin Negative Urine Urobilinogen Normal Ur Leukocyte Esterase 100 H Urine RBC 0 SEEN Urine WBC 0-5 SEEN Ur Squamous Epith Cells 0-5 SEEN Urine Bacteria 1+ Hyaline Casts 0-5 SEEN Urine Mucus 0 SEEN Radiography Diagnostic Testing: Clinical Impression(s) from Imaging Studies Abdomen/Pelvis CT 05/28/21 08:28 IMPRESSION: Normal enhanced CT of the abdomen and pelvis. Electronically Signed: Syed Shelton MD at 10:49 EST , Discharge Plan Triage Chief Complaint: Abd Pain ED Provider: Bola Salamanca Dx/Rx/DC Orders Clinical Impression: Abdominal pain, Nausea vomiting and diarrhea, Hypokalemia, Dehydration Instructions: ED Abdominal Pain Unkn Cause Fem, ED Dehydration (Adult), ED Hypokalemia, ED Vomiting and Diarrhea ... Prescriptions: New potassium chloride 20 mEq tablet,ER particles/crystals 20 meq PO BID 3 Days Qty: 6 RF: 0 ondansetron 4 mg tablet,disintegrating 4 mg PO Q8H PRN (Reason: nausea and vomiting) Qty: 10 RF: 0 No Action nitroglycerin 0.4 mg tablet, sublingual 0.4 mg SUBLINGUAL Q5M PRN (Reason: Pain) RF: 0 cholecalciferol (vitamin D3) 5,000 unit tablet 5,000 unit tablet 5,000 unit PO QDAY RF: 0 gabapentin 300 mg capsule 300 mg PO TID RF: 0 timolol maleate 0.5 % drops 1 drp OPHTHALMIC BID RF: 0 Creon 36,000-114,000- 180,000 unit capsule,delayed release(DR/EC) 1 cap PO TID RF: 0 atorvastatin 80 mg tablet 80 mg PO QHS Qty: 90 RF: 3 Hold Instructions: abdominal pain aspirin 81 MG tablet,chewable 81 mg PO DAILY RF: 0 latanoprost 1 DROP bottle 1 drp EACH EYE QHS RF: 0 albuterol sulfate 2.5 MG/3 ML solution for nebulization 2.5 mg inhalation Q4HWA.RT RF: 0 carvedilol 6.25 mg tablet 6.25 mg PO BID Qty: 180 RF: 3 Primary Care Provider: Vivienne Heaton NP Referrals: Vivienne Heaton NP, [employer] [Primary Care Provider] - 3-5 Days Disposition Disposition: Home, Self Care
[2021-05-28] MEDS: Morphine 4 MG/ML Syringe IV ×2 (08:48→11:32)
[2021-05-28] MEDS: Ondansetron 4 MG/2 ML Vial IV (08:49)
[2021-05-28] MEDS: 0.9% Normal Saline 1,000 ML 1000 ML IV (08:49)
[2021-05-28 08:54] LABS: Absolute Neutrophil Count 3.9 X10^3/uL (2.0-7.7); Basophil# 0.01 X10^3/uL; Basophil% 0.2 % (0-1); Eosinophil# 0.08 X10^3/uL; Eosinophils% 1.3 % (0-5); Hematocrit 41.4 % (37-47); Hemoglobin 14.3 g/dL (12.0-15.0); Lymphocyte % 26.8 % (19-41); Mean Corp Hgb Conc 34.5 g/dL (32-36); Mean Corpuscular Hgb 33.6 pg (27.0-32.0); Mean Corpuscular Volume 97.2 fL (81-99); Mean Platelet Vol. 9.6 fl (6.2-12.0); Monocyte# 0.64 X10^3/uL; Monocyte% 10.1 % (0-10); NRBC Flagged by Analyzer 0 % (0-5); Neutrophil # 3.89 X10^3/uL (2.7-7.7); Neutrophil % 61.3 % (47-70); Platelet Count 186 K/mm3 (150-450); RBC Distribution Width CV 12.6 % (11.6-14.6); Red Blood Count 4.26 M/mm3 (4.2-5.4); White Blood Count 6.3 K/mm3 (4.4-11.0)
[2021-05-28 09:07] LABS: ALB/GLOB Ratio 1.1 RATIO (0.9-2.4); AST(SGOT) 26 U/L (15-37); Alanine Aminotransfer ALT/SGPT 30 U/L (13-56); Albumin, Serum 3.7 g/dL (3.2-5.0); Alkaline Phosphatase 59 U/L (45-117); Anion Gap 9 (5-15); BUN 30 mg/dL (7-18); Calcium,Total 8.4 mg/dL (8.5-10.1); Chloride 105 mmol/L (98-107); Creatinine, Serum 1.25 mg/dL (0.55-1.02); EST Glomerular Filtration Rate 45 mL/min (>60); Est Glom Filt Rate - Afr Amer 54 mL/min (>60); Estimated Creatinine Clearance 40.43 ml/min; Globulin 3.3 g/dL (2.2-4.2); Glucose 117 mg/dL (74-106); Lipase 205 U/L (73-393); Potassium 2.9 mmol/L (3.5-5.1); Sodium Level 137 mmol/L (136-145)
[2021-05-28 11:02] LABS: Mucous, Urine 0 SEEN /hpf (<or=2+); Red Blood Cells-Urine 0 SEEN /hpf (0-5)
[2021-05-28 11:04] LABS: Color, Urine Yellow (Yellow); Glucose, Dipstick Normal (Normal); Ketone-Dipstick 15 mg/dl (Negative); Leukocyte Esterase-Dipstick 100 /ul (Negative); Nitrite-Dipstick Negative (Negative); Occult Blood-Urine Negative /ul (Negative); Protein-Dipstick 30 mg/dl (Negative); Urine Bilirubin Dipstick Negative (Negative); Urine Clarity Clear (Clear); Urine Urobilinogen Normal (Normal); Urine pH 6.5 (5.0 - 8.0)
[2021-05-28 11:13] LABS: Bacteria 1+ /hpf (None Seen); Hyaline Cast 0-5 SEEN /lpf (0-5); Squamous Epithelial Cells - UA 0-5 SEEN /hpf (5-10); White Blood Cells 0-5 SEEN /hpf (0-5)
[2021-05-28] MEDS: Potassium Chloride Oral Tablet 20 MEQ 40 MEQ PO (11:23)
== END 2021-05-28 12:39 | disposition home or self-care (01) ==
PROVIDERS: Emergency Provider Emergency Medicine; PCP Nurse Practitioner; Visit Provider Emergency Medicine
DX: R10.9 Unspecified abdominal pain (principal); R11.2 Nausea with vomiting, unspecified; R19.7 Diarrhea, unspecified; E86.0 Dehydration; E87.6 Hypokalemia; I25.10 Atherosclerotic heart disease of native coronary artery without angina pectoris; E78.5 Hyperlipidemia, unspecified; Z87.19 Personal history of other diseases of the digestive system; Z90.49 Acquired absence of other specified parts of digestive tract; I25.2 Old myocardial infarction; I25.5 Ischemic cardiomyopathy; Z79.82 Long term (current) use of aspirin; Z79.899 Other long term (current) drug therapy; F17.200 Nicotine dependence, unspecified, uncomplicated
CPT/HCPCS: 74177; 80053; 81001; 83690; 85025; 96361; 96374; 96375; 96376; 99284; Q9967; A4216; J2405

== ENCOUNTER 2021-05-31 16:18 | Emergency (ER) | payer MEDICARE, BC, SELFPAY ==
[2021-05-31 16:19] VITALS: BP 118/72; PULSE 68; RESP 18; TEMP 36.1; O2SAT 99; BMI 25.2
--- NOTE | 2021-05-31 16:35 | CT_ITS ---
EXAM: CT ABDOMEN AND PELVIS WITHOUT INTRAVENOUS CONTRAST : 1950 CLINICAL INDICATION: Pain TECHNIQUE: Helically acquired images were obtained of the abdomen and pelvis without intravenous contrast. This CT exam was performed using one or more of the following dose reduction techniques: automated exposure control, adjustment of the mA and/or kV according to patient size, and/or use of iterative reconstruction technique. This report was created using [employer] report generation technology. COMPARISON: 05/28/2021 FINDINGS: LOWER THORAX: Unremarkable. Lung bases are clear. No cardiomegaly. No significant pericardial effusion. ABDOMEN: LIVER: Unremarkable. Homogeneous. GALLBLADDER AND BILE DUCTS: There are surgical clips from a cholecystectomy. No intra- or extrahepatic biliary ductal dilation. PANCREAS: Unremarkable. No focal cystic mass. SPLEEN: Unremarkable. Normal size without focal cystic or solid mass. ADRENALS: Unremarkable. No nodules. KIDNEYS AND URETERS: Unremarkable. Normal renal size and position. No hydronephrosis. STOMACH AND BOWEL: There is a single borderline dilated fluid-filled loop of small bowel in the pelvis. No focal inflammatory change. PELVIS: APPENDIX: No evidence of acute appendicitis. BLADDER: Unremarkable. REPRODUCTIVE: Unremarkable as visualized. No mass. ABDOMEN and PELVIS: INTRAPERITONEAL SPACE: Unremarkable. No ascites or other fluid collection. No free air. BONES/JOINTS: There is beam hardening artifact from a right hip prosthesis. No suspicious lytic or blastic abnormality. SOFT TISSUES: Unremarkable. No discrete abdominal or pelvic wall hernia. VASCULATURE: Unremarkable. Abdominal aorta is non-dilated. LYMPH NODES: Unremarkable. No enlarged lymph nodes. IMPression: Single borderline dilated fluid-filled loop of small bowel in the pelvis may represent mild enteritis. No other abnormality identified. Individualized dose optimization techniques were used for this CT. at 1722 Reported and signed by: Ion Fontana MD Electronically Signed: Ion Fontana MD at 17:21 EST , CT/Abdomen/Pelvis without Cont
--- NOTE | 2021-05-31 16:39 | EDS_ITS ---
HPI History of Present Illness Chief Complaint: Nausea/Vomiting/Diarrhea Narrative Narrative: The patient presents complaining of diffuse nonspecific abdominal pain for over a week now, quite a bit of diarrhea 5-6 loose diarrheal bowel movements no blood, she has and intermittent nausea no real vomiting,, she has pancreatic insufficiency from pancreatitis she takes Pancrease she has 3 cardiac stents that are stable, she follows up with her GI physician she is not prone to diarrhea, she has had no exposure to antibiotics no exposure to C. 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 Premature ventricular contractions Home Medications aspirin 81 mg PO DAILY 12/29/12 [History Last Taken 06/05/18] latanoprost 1 drp EACH EYE QHS 03/10/14 [History Last Taken 06/05/18] cholecalciferol (vitamin D3) 125 mcg (5,000 unit) tablet 5,000 unit PO QDAY 05/20/17 [History Last Taken 06/05/18] gabapentin 300 mg capsule 300 mg PO TID 05/20/17 [History Last Taken 06/05/18] nitroglycerin 0.4 mg sublingual tablet 0.4 mg SUBLINGUAL Q5M PRN 05/20/17 [History Last Taken Unknown] albuterol sulfate 2.5 mg INHALATION Q4HWA.RT 06/06/18 [History Last Taken 06/05/18] timolol maleate 0.5 % eye drops 1 drp OPHTHALMIC BID ml 05/28/19 [History Last Taken Unknown] atorvastatin 80 mg tablet 80 mg PO QHS #90 tab 05/26/20 [Rx Last Taken Unknown] nxwxfk-oyhhbqgw-ukgshml 36,000-114,000-180,000 unit capsule,delay rel 1 cap PO TID 05/26/20 [History Last Taken Unknown] carvedilol 6.25 mg tablet 6.25 mg PO BID #180 tab 06/02/20 [Rx Last Taken Unknown] ondansetron 4 mg PO Q8H PRN #10 tab 05/28/21 [Rx Last Taken Unknown] potassium chloride 20 meq PO BID 3 Days #6 tab 05/28/21 [Rx Last Taken Unknown] Allergy/AdvReac Type Severity Reaction Status Date / Time venom-honey bee Allergy Swelling Verified 05/31/21 16:19 [bee venom (honey bee)] cefdinir AdvReac Severe itching & Verified 05/31/21 16:19 Hives amoxicillin trihydrate AdvReac Nausea/Vom/ Verified 05/31/21 16:19 [From Augmentin] Diarrhea lisinopril AdvReac Other Verified 05/31/21 16:19 potassium clavulanate AdvReac Nausea/Vom/ Verified 05/31/21 16:19 [From Augmentin] Diarrhea Family History Father Sudden cardiac Myocardial infarction Mother Myocardial infarction Surgical History History of back surgery History of carpal tunnel surgery History of cataract surgery History of hysterectomy History of PTCA History of right hip replacement History of tonsillectomy and adenoidectomy Hx laparoscopic cholecystectomy Hx of appendectomy Social History Smoking Status: Light Smoker (<10/day) second hand exposure: No alcohol intake: never substance use type: does not use caffeine: Yes seatbelt use: always do you feel safe at home: Yes ROS DARRYL ED Gastrointestinal Gastrointestinal: Reports diarrhea, nausea and vomiting EXAM Physical Exam Narrative Exam Narrative: The patient's vital signs unremarkable she is afebrile head neck chest unremarkable abdomen is soft there is no rebound guarding organomegaly just on her subjective assessment diffuse nonspecific abdominal discomfort but no rebound or guarding extremities unremarkable Const Vital Signs: 05/31/21 16:19 Temperature 97 F L Temperature Source Temporal Pulse Rate 68 Respiratory Rate 18 Blood Pressure 118/72 Blood Pressure Mean 87 Pulse Ox 99 Oxygen Delivery Method Room Air MDM MDM MDM Narrative Medical decision making narrative: The differentials rather extensive she was just seen in the emergency department on the sixth her ED work-up labs CT were negative she persisted complaining of discomfort symptoms given that IV fluids pain management ED management Discharge Plan Triage Chief Complaint: Nausea/Vomiting/Diarrhea ED Provider: Joel Butcher Dx/Rx/DC Orders Prescriptions: No Action nitroglycerin 0.4 mg tablet, sublingual 0.4 mg SUBLINGUAL Q5M PRN (Reason: Pain) RF: 0 cholecalciferol (vitamin D3) 5,000 unit tablet 5,000 unit tablet 5,000 unit PO QDAY RF: 0 gabapentin 300 mg capsule 300 mg PO TID RF: 0 timolol maleate 0.5 % drops 1 drp OPHTHALMIC BID RF: 0 Creon 36,000-114,000- 180,000 unit capsule,delayed release(DR/EC) 1 cap PO TID RF: 0 atorvastatin 80 mg tablet 80 mg PO QHS Qty: 90 RF: 3 Hold Instructions: abdominal pain aspirin 81 MG tablet,chewable 81 mg PO DAILY RF: 0 latanoprost 1 DROP bottle 1 drp EACH EYE QHS RF: 0 albuterol sulfate 2.5 MG/3 ML solution for nebulization 2.5 mg inhalation Q4HWA.RT RF: 0 potassium chloride 20 mEq tablet,ER particles/crystals 20 meq PO BID 3 Days Qty: 6 RF: 0 ondansetron 4 mg tablet,disintegrating 4 mg PO Q8H PRN (Reason: nausea and vomiting) Qty: 10 RF: 0 carvedilol 6.25 mg tablet 6.25 mg PO BID Qty: 180 RF: 3 Primary Care Provider: Vivienne Heaton NP
[2021-05-31] MEDS: Ondansetron 4 MG/2 ML Vial IV (16:47)
[2021-05-31] MEDS: 0.9% Normal Saline 1,000 ML 1000 ML IV (16:47)
[2021-05-31] MEDS: morphine 8 MG/ML Syringe IV (16:48)
[2021-05-31 17:10] LABS: Absolute Lymphocyte Count 2.78 X10^3/uL (0.83-4.51); Absolute Neutrophil Count 3.2 X10^3/uL (2.0-7.7); Basophil# 0.03 X10^3/uL; Basophil% 0.4 % (0-1); Eosinophil# 0.24 X10^3/uL; Eosinophils% 3.5 % (0-5); Hemoglobin 13.1 g/dL (12.0-15.0); Lymphocyte # 2.78 X10^3/ul (0.83-4.51); Lymphocyte % 40.8 % (19-41); Mean Corp Hgb Conc 33.6 g/dL (32-36); Mean Corpuscular Hgb 32.4 pg (27.0-32.0); Mean Corpuscular Volume 96.5 fL (81-99); Monocyte# 0.56 X10^3/uL; Monocyte% 8.2 % (0-10); NRBC Flagged by Analyzer 0 % (0-5); Neutrophil # 3.17 X10^3/uL (2.7-7.7); Neutrophil % 46.7 % (47-70); POSITIVE MORPHOLOGY YES; Platelet Count 214 K/mm3 (150-450); RBC Distribution Width CV 12.3 % (11.6-14.6); RBC Distribution Width SD 43.8 fl (35.1-43.9); Red Blood Count 4.04 M/mm3 (4.2-5.4); White Blood Count 6.8 K/mm3 (4.4-11.0)
[2021-05-31 17:11] LABS: Differential Indicated SCAN CRITERIA MET
[2021-05-31 17:24] LABS: ALB/GLOB Ratio 1.2 RATIO (0.9-2.4); AST(SGOT) 20 U/L (15-37); Alanine Aminotransfer ALT/SGPT 26 U/L (13-56); Albumin, Serum 3.7 g/dL (3.2-5.0); Alkaline Phosphatase 54 U/L (45-117); Anion Gap 7 (5-15); BUN 9 mg/dL (7-18); BUN/Creat Ratio 9.8 RATIO (10-20); Calcium,Total 9.1 mg/dL (8.5-10.1); Chloride 105 mmol/L (98-107); Creatinine, Serum 0.92 mg/dL (0.55-1.02); EST Glomerular Filtration Rate 63 mL/min (>60); Est Glom Filt Rate - Afr Amer 77 mL/min (>60); Estimated Creatinine Clearance 56.92 ml/min; Glucose 103 mg/dL (74-106); Lipase 301 U/L (73-393); Potassium 3.2 mmol/L (3.5-5.1); Protein, Total 6.7 g/dL (6.4-8.2); Sodium Level 141 mmol/L (136-145)
[2021-05-31 17:36] LABS: Differential Comment SCANNED
[2021-05-31 17:48] LABS: Mucous, Urine 0 SEEN /hpf (<or=2+); Red Blood Cells-Urine 0 SEEN /hpf (0-5)
[2021-05-31 17:58] LABS: Color, Urine Amber (Yellow); Glucose, Dipstick Normal (Normal); Ketone-Dipstick 5 mg/dl (Negative); Leukocyte Esterase-Dipstick 500 /ul (Negative); Nitrite-Dipstick Negative (Negative); Occult Blood-Urine 10 /ul (Negative); Protein-Dipstick 30 mg/dl (Negative); Specific Gravity, Urine 1.025 (1.002-1.030); Urine Clarity Sl. Cloudy (Clear); Urine Urobilinogen 1 mg/dl (Normal)
[2021-05-31 18:31] LABS: Urine Bilirubin Dipstick 1 mg/dL (Negative)
[2021-05-31 18:32] LABS: White Blood Cells 10-25 SEEN /hpf (0-5)
[2021-05-31 18:33] LABS: Calcium Oxalate Crystals Ur 1+ /hpf (<or=2+); Hyaline Cast 10-25 SEEN /lpf (0-5)
[2021-05-31 18:34] VITALS: PULSE 69; RESP 14; O2SAT 97
[2021-05-31 18:34] LABS: Bacteria 2+ /hpf (None Seen); Squamous Epithelial Cells - UA 0-5 SEEN /hpf (5-10)
== END 2021-05-31 18:35 | disposition home or self-care (01) ==
PROVIDERS: Emergency Provider Emergency Medicine; PCP Nurse Practitioner; Visit Provider Emergency Medicine
DX: R11.2 Nausea with vomiting, unspecified (principal); R19.7 Diarrhea, unspecified; F17.200 Nicotine dependence, unspecified, uncomplicated; E78.5 Hyperlipidemia, unspecified; I25.10 Atherosclerotic heart disease of native coronary artery without angina pectoris; R10.84 Generalized abdominal pain; I25.5 Ischemic cardiomyopathy; I25.2 Old myocardial infarction; Z79.82 Long term (current) use of aspirin; Z79.899 Other long term (current) drug therapy; Z90.49 Acquired absence of other specified parts of digestive tract
CPT/HCPCS: 74176; 80053; 81001; 83690; 85025; 96361; 96374; 96375; 99282; J7030; A4216; J2405

== ENCOUNTER 2021-07-11 09:08 | Outpatient (CLI) | payer MEDICARE, BC, SELFPAY ==
--- NOTE | 2021-07-11 09:12 | BI_ITS ---
MAMMOGRAPHY - BILATERAL SCREENING 3-D TOMOSYNTHESIS REASON FOR EXAM: Female, 71 years old. SCREENING PERTINENT HISTORY: No significant family history. TECHNIQUE: 2-D mammograms and 3-D Tomosynthesis of the breast (s) were performed. CAD was performed. COMPARISON: 06/29/2020 FINDINGS: The breast composition is composed of scattered fibroglandular density. Scattered benign calcifications are seen. No dense spiculated masses or suspicious microcalcifications are identified. No architectural distortion is identified. There is no skin thickening or retraction. There has been no significant change since the prior study. BI/SCRN MAMM (CAD)W/TERESA BILAT IMPRESSION: No mammographic signs of malignancy. Routine yearly mammograms recommended. ASSESSMENT CATEGORY: BIRADS Category 1: Negative. A letter regarding these results will be sent to the patient by the facility within 30 days. FOLLOW UP RECOMMENDATION: Yearly follow up mammogram recommended. (A) Approximately 10% of breast cancers are not detected by mammography. A normal mammogram should not delay biopsy of a clinically suspicious abnormality. Electronically Signed: Syed Shelton MD at 11:27 EDT ,
--- NOTE | 2021-07-11 09:18 | BD_ITS ---
STUDY: DUAL ENERGY X-RAY ABSORPTIOMETRY / DXA REASON FOR EXAM: Female, 71 years old. [id number]. Patient is postmenopausal. TECHNIQUE: Bone Mineral Density (BMD) measurements of lumbar spine and left hip were obtained. COMPARISON: Comparison is made with prior study 12/26/2017. FINDINGS: Lumbar Spine (L1-L4): g/cm2 (1.028) / T-score (-0.2) / Z-score (2.1) Findings are suggestive of normal bone density with a low fracture risk. Left Femur Total: g/cm2 (0.882) / T-score (-0.5) / Z-score (1.2) Left Femoral Neck: g/cm2 (0.857) / T-score (0) / Z-score (2.1) The T-Scores on the most recent prior examination were: Lumbar Spine (L1-L4): There has been worsening of bone density since the previous examination. Left Femur Total: which represents a worsening of 7.3%. BD/Dexa Bone Density Study IMPRESSION: The patient is considered normal as outlined below according to World [place] Organization (WHO) criteria with a low fracture risk. There has been worsening of bone density since the previous examination. Reference Information: The T-score is the number of standard deviations above or below the standard which is normal for young adults at their peak bone mineral density. The World Health Organization (WHO) interprets the T-scores as follows: Above -1 Normal bone density Between -1 and -2.5 Osteopenia Equal to / or below -2.5 Osteoporosis As a practical clinical guideline, osteopenia may be graded as follows: Mild -1 through -1.5 Moderate -1.6 through -2.0 Severe -2.1 through -2.4 The Z-score is the number of standard deviations above or below age-matched controls. A Z-score of less than -1.5 would be considered abnormal. References: 1. NIH Osteoporosis and Related Bone Diseases www osteo.org 2. International Society for Clinical Densitometry www iscd.org 3. National Osteoporosis Foundation www nof.org Electronically Signed: Freddy Soto MD at 15:14 EDT ,
== END 2021-07-11 23:59 | disposition home or self-care (01) ==
LOC: OPBD 09:10
PROVIDERS: PCP Nurse Practitioner; Referring Provider Nurse Practitioner; Visit Provider Nurse Practitioner
DX: Z12.31 Encounter for screening mammogram for malignant neoplasm of breast (principal); Z78.0 Asymptomatic menopausal state
CPT/HCPCS: 77063; 77067; 77080

== ENCOUNTER → 2021-09-13 | Outpatient (CLI) | payer MEDICARE, BC, SELFPAY ==
[2021-09-13 12:23] LABS: Absolute Lymphocyte Count 3.14 X10^3/uL (0.83-4.51); Absolute Neutrophil Count 5.9 X10^3/uL (2.0-7.7); Basophil# 0.03 X10^3/uL; Basophil% 0.3 % (0-1); Eosinophil# 0.17 X10^3/uL; Eosinophils% 1.7 % (0-5); Hematocrit 40.8 % (37-47); Hemoglobin 13.8 g/dL (12.0-15.0); Lymphocyte # 3.14 X10^3/ul (0.83-4.51); Mean Corp Hgb Conc 33.8 g/dL (32-36); Mean Corpuscular Hgb 33.5 pg (27.0-32.0); Mean Platelet Vol. 9.2 fl (6.2-12.0); Monocyte# 0.83 X10^3/uL; Monocyte% 8.2 % (0-10); NRBC Flagged by Analyzer 0 % (0-5); Neutrophil # 5.91 X10^3/uL (2.7-7.7); Neutrophil % 58.4 % (47-70); Platelet Count 206 K/mm3 (150-450); RBC Distribution Width SD 47.2 fl (35.1-43.9); Red Blood Count 4.12 M/mm3 (4.2-5.4); White Blood Count 10.1 K/mm3 (4.4-11.0)
[2021-09-13 13:13] LABS: ALB/GLOB Ratio 1.2 RATIO (0.9-2.4); AST(SGOT) 15 U/L (15-37); Alanine Aminotransfer ALT/SGPT 30 U/L (13-56); Albumin, Serum 3.7 g/dL (3.2-5.0); Alkaline Phosphatase 62 U/L (45-117); Anion Gap 7 (5-15); BUN 16 mg/dL (7-18); BUN/Creat Ratio 17.8 RATIO (10-20); Calcium,Total 9.4 mg/dL (8.5-10.1); Chloride 106 mmol/L (98-107); Cholesterol 171 mg/dL (200); EST Glomerular Filtration Rate 65 mL/min (>60); Est Glom Filt Rate - Afr Amer 79 mL/min (>60); Globulin 3.2 g/dL (2.2-4.2); Glucose 105 mg/dL (74-106); High Density Lipoprotein 95 mg/dL; Magnesium 2.2 mg/dL (1.6-2.6); Protein, Total 6.9 g/dL (6.4-8.2); Sodium Level 139 mmol/L (136-145); Triglycerides 94 mg/dL; Very Low Density Lipoprotein 19 mg/dL (5-40)
== END | disposition home or self-care (01) ==
LOC: LAB 11:36
PROVIDERS: PCP Nurse Practitioner Family; Visit Provider Physician Assistant Medical
DX: E78.00 Pure hypercholesterolemia, unspecified (principal); R53.83 Other fatigue; R06.00 Dyspnea, unspecified; I25.5 Ischemic cardiomyopathy; Z98.61 Coronary angioplasty status
CPT/HCPCS: 36415; 80053; 80061; 83735; 84443; 85025

== ENCOUNTER → 2021-10-10 | Outpatient (CLI) | payer MEDICARE, BC, SELFPAY ==
--- NOTE | 2021-10-10 06:29 | ECHOD_ITS ---
Reason For Study: Dyspnea/SOB Procedure This was a 2D Doppler, Color Flow transthoracic echocardiogram. The exam was of adequate technical quality. Exam performed in department. Left Ventricle Normal LV size. Left ventricular systolic function is normal. The estimated ejection fraction is 55 %. No evidence for diastolic dysfunction. No regional wall motion abnormalities noted. Right Ventricle Normal RV size. Normal systolic function. Atria Normal left atrium. Normal right atrium. 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 No doppler evidence for ASD. Mitral Valve There is no mitral annular calcification. Normal mitral valve. Trivial mitral valve insufficiency. Tricuspid Valve Normal tricuspid valve. Trivial tricuspid valve insufficiency. Unable to estimate RV systolic pressure due to insufficient tricuspid regurgitant envelope. Aortic Valve Trisinus/trileaflet aortic valve. Moderate focal aortic valve calcification. Pulmonic Valve The pulmonic valve is not well visualized. Great Vessels The aortic root is not well visualized. Pericardium/Pleural No pericardial effusion. MMode/2D Measurements & Calculations LVIDd: 4.5 cm IVSd: 0.91 cm LVOT diam: 2.0 cm LVIDs: 3.1 cm LVPWd: 0.77 cm LVOT area: 3.2 cm2 RVDd: 3.1 cm FS: 30.1 % Ao root diam: 3.5 cm LAV(MOD-bp): 41.8 ml Aortic Valve Planimetry: 1.9 cm2 LA dimension: 2.7 cm LAV(MOD-bp) Indexed: 21.5 ml/m2 LAV(MOD-sp2): 63.3 ml LAV(MOD-sp4): 17.4 ml LA A4 area: 8.9 cm2 RA A4 area: 7.0 cm2 Time Measurements MV dec time: 0.19 sec Doppler Measurements & Calculations MV E max kendra: 60.6 cm/sec MV V2 max: 98.9 cm/sec MV P1/2t max kendra: 69.8 cm/sec MV A max kendra: 93.8 cm/sec MV max P.9 mmHg MV P1/2t: 65.2 msec MV E/A: 0.65 MV V2 mean: 50.9 cm/sec MV dec slope: 313.4 cm/sec2 MV mean P.3 mmHg MV V2 VTI: 28.3 cm MVA(P1/2t): 3.4 cm2 MVA(VTI): 2.9 cm2 Ao V2 max: 171.5 cm/sec LV V1 max: 108.7 cm/sec SV(LVOT): 81.7 ml Ao max P.8 mmHg LV V1 max P.7 mmHg Ao V2 mean: 119.4 cm/sec LV V1 mean P.9 mmHg Ao mean P.5 mmHg LV V1 mean: 81.3 cm/sec Ao V2 VTI: 37.7 cm LV V1 VTI: 25.7 cm NIURKA(I,D): 2.2 cm2 NIURKA(V,D): 2.0 cm2 PA V2 max: 78.2 cm/sec PA V2 mean: 56.3 cm/sec ECHO/Echo Complete Interpretation Summary Left ventricular systolic function is normal. The estimated ejection fraction is 55 %. 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 Trivial mitral valve insufficiency. Trivial tricuspid valve insufficiency. Moderate focal aortic valve calcification. Unable to estimate RV systolic pressure due to insufficient tricuspid regurgita nt envelope. No evidence for diastolic dysfunction. Ordering Physician: Alysa Edwards Referring Physician: Laya Garces Performed By: Heriberto Cornejo RCS
--- NOTE | 2021-10-10 12:01 | STRESSREP_ITS ---
Stress Test Report Date: 10-10-2021 Procedure: Pharmacologic stress nuclear imaging study Indications: Fatigue; CAD; PCI; ischemic mediated cardiomyopathy Consent: Per the patient Procedure: The patient underwent pharmacologic (Regadenoson 0.4mg ) evaluation with a peak heart rate of 100 beats per minute (68%predicted maximal heart rate) and a peak blood pressure of 144/80 mmHg. The baseline ECG demonstrated normal sinus rhythm. The peak pharmacologic ECG demonstrated no obvious ECG changes. There was an occasional PVC in recovery. There was no complaint of chest discomfort during pharmacologic infusion or recovery. The examination was discontinued secondary to completion of protocol. Impression: 1. Pharmacologic (Regadenoson) evaluation 2. Peak pharmacologic ECG with no obvious ECG changes. 3. There was an occasional PVC during recovery. 4. Nuclear images pending Myocardial perfusion imaging study: Technique: The patient was injected with 11.8 millicuries of technetium 99m Cardiolite and subsequently rest SPECT Cardiolite nuclear imaging was obtained in the horizontal long, vertical long, and short axis views. The patient underwent pharmacologic (Regadenoson) evaluation with a peak heart rate of 100 beats per minute (68% percent predicted maximal heart rate) and a peak blood pressure of 144/80 mmHg. The patient was injected with 32.6 millicuries of technetium 99m Cardiolite and subsequently stress SPECT Cardiolite nuclear imaging was obtained in the horizontal long, vertical long, and short axis views. A gated Cardiolite study at peak stress was obtained. Interpretation: Rest and stress SPECT Cardiolite nuclear imaging status post realignment, normalization, and attenuation correction demonstrate relative uniform tracer uptake and myocardial perfusion appearing within normal limits. There is end systolic thickening and brightening. The gated Cardiolite study demonstrates myocardial thickening and inward wall motion. The reported LVEF is 62%. Impression: 1. Rest and stress SPECT Cardiolite nuclear imaging demonstrate relative uniform tracer uptake and myocardial perfusion appearing within normal limits. 2. The gated Cardiolite study reports an LVEF of 62%. This note was generated with [employer]Spot[employer] software. It may contain incorrect words, spelling, and punctuation that were not noted in checking the note before signing.
== END | disposition home or self-care (01) ==
LOC: CVS 06:27
PROVIDERS: PCP Nurse Practitioner Family; Referring Provider Physician Assistant Medical; Visit Provider Physician Assistant Medical
DX: I25.5 Ischemic cardiomyopathy (principal); R53.83 Other fatigue; R06.00 Dyspnea, unspecified; Z98.61 Coronary angioplasty status; E78.00 Pure hypercholesterolemia, unspecified
CPT/HCPCS: 78452; 93017; 93306; A9500; A4216; J2785

== ENCOUNTER 2022-02-20 10:11 | Outpatient (CLI) | payer MEDICARE, BC, SELFPAY ==
[2022-02-20 12:27] LABS: Erythrocyte Sedimentation Rate 15 mm/hr (0-30)
[2022-02-20 12:30] LABS: Mean Corp Hgb Conc 32.6 g/dL (32-36); Mean Corpuscular Hgb 33.1 pg (27.0-32.0); Mean Corpuscular Volume 101.7 fL (81-99); Platelet Count 252 K/mm3 (150-450); RBC Distribution Width CV 12.9 % (11.6-14.6); RBC Distribution Width SD 48.2 fl (35.1-43.9); Red Blood Count 4.23 M/mm3 (4.2-5.4); White Blood Count 9.4 K/mm3 (4.4-11.0)
[2022-02-20 12:56] LABS: Vitamin B12 478 pg/mL (211-911)
[2022-02-20 13:25] LABS: ALB/GLOB Ratio 1.3 RATIO (0.9-2.4); AST(SGOT) 16 U/L (15-37); Alanine Aminotransfer ALT/SGPT 23 U/L (13-56); Albumin, Serum 3.8 g/dL (3.2-5.0); Alkaline Phosphatase 73 U/L (45-117); Anion Gap 10 (5-15); BUN 15 mg/dL (7-18); BUN/Creat Ratio 16.1 RATIO (10-20); CPK Total, Creatine Kinase 85 U/L (26-192); Calcium,Total 9.4 mg/dL (8.5-10.1); Chloride 106 mmol/L (98-107); Creatinine, Serum 0.93 mg/dL (0.55-1.02); EST Glomerular Filtration Rate 63 mL/min (>60); Est Glom Filt Rate - Afr Amer 76 mL/min (>60); Globulin 2.9 g/dL (2.2-4.2); Glucose 109 mg/dL (74-106); Potassium 4.2 mmol/L (3.5-5.1); Protein, Total 6.7 g/dL (6.4-8.2); Sodium Level 142 mmol/L (136-145); Thyroid Stim Hormone (TSH) 1.33 uIU/mL (0.358-3.74)
[2022-02-23 15:07] LABS: Free Kappa Light Chains 15.7 mg/L (3.3-19.4); Free Lambda Light Chains 12.4 mg/L (5.7-26.3)
[2022-02-23 18:28] LABS: Vitamin B1, Thiamine 181.1 nmol/L (66.5-200.0)
== END 2022-02-20 23:59 | disposition home or self-care (01) ==
LOC: MTLAB 10:12
PROVIDERS: PCP Nurse Practitioner Family; Referring Provider Psychiatry & Neurology Neurology; Visit Provider Psychiatry & Neurology Neurology
DX: I25.5 Ischemic cardiomyopathy (principal); G62.9 Polyneuropathy, unspecified; M79.10 Myalgia, unspecified site
CPT/HCPCS: 36415; 80053; 82550; 82607; 82746; 83883; 84425; 84443; 85027; 85652

== ENCOUNTER → 2022-03-01 | Outpatient (CLI) | payer MEDICARE, BC, SELFPAY ==
--- NOTE | 2022-03-01 08:53 | ART_ITS ---
Reason For Study: Absent left pedal pulses Procedure A bilateral lower extremity continuous wave Doppler with analog waveform analysis and ankle brachial indexes. Left Segmental Pressures Left brachial= 126mmHg. Left posterior tibial artery = 113mmHg. Left dorsalis pedis artery = 90mmHg. The left dorsalis pedis waveforms are biphasic. The left posterior tibial artery waveforms are triphasic. Right Segmental Pressures Right brachial= 128mmHg. Right posterior tibial artery = 120mmHg. Right dorsalis pedis artery = 119mmHg. The right dorsalis pedis waveforms are triphasic. The right posterior tibial artery waveforms are triphasic. Indices The right ankle brachial index by the dorsalis pedis is 0.93. The right ankle brachial index by the posterior tibial artery is 0.94. The left ankle brachial index by the dorsalis pedis is 0.70. The left ankle brachial index by the posterior tibial artery is 0.88. VL/Ankle Brachial Index Interpretation Summary Right SMITH 0.94, mild arterial insufficiency. Doppler/PVR waveforms of the right ankle mildly diminished. Left SMITH 0.88, moderate arterial insufficiency. Doppler/PVR waveforms of the le ft ankle moderately diminished. Ordering Physician: Mumtaz Moss Referring Physician: Laya Garces Performed By: Chelsy Guevara RVT
== END | disposition home or self-care (01) ==
LOC: CVS 08:49
PROVIDERS: PCP Nurse Practitioner Family; Referring Provider Psychiatry & Neurology Neurology; Visit Provider Psychiatry & Neurology Neurology
DX: R09.89 Other specified symptoms and signs involving the circulatory and respiratory systems (principal)
CPT/HCPCS: 93922

== ENCOUNTER → 2022-03-14 | Outpatient (CLI) | payer MEDICARE, BC, SELFPAY ==
--- NOTE | 2022-03-14 07:54 | MRI_ITS ---
HISTORY: Migraine headaches. TECHNIQUE: Multiplanar and multisequence MR images of the brain were obtained before and after the intravenous administration of 17 mL Clariscan. 335 images. COMPARISON: MRI 10/10/2017, CT 08/27/2014. FINDINGS: BRAIN PARENCHYMA: Increased mild foci and small zones of increased T2 FLAIR signal in the bilateral cerebral white matter. No abnormal enhancing lesion. No abnormal focus of restricted diffusion. No acute intracranial hemorrhage identified. CSF SPACES: Cerebral ventricles, cortical sulci, and other extra-axial CSF spaces within normal limits in size for age. No significant midline shift or other mass effect.No extra-axial fluid collection. VASCULAR SYSTEM: Major intracranial flow voids are maintained. PARANASAL SINUSES AND MASTOID AIR CELLS: Mild mucosal thickening and fluid in the frontal ethmoid sinus. ORBITS: Symmetric contents. MRI/Brain W/WO Contrast IMPRESSION: No evidence for enhancing intracranial mass or acute infarct. Progression of chronic white matter changes. Mild paranasal sinus inflammatory disease. Electronically Signed: Cecelia Stout MD at 15:55 EST ,
== END | disposition home or self-care (01) ==
LOC: MRI 07:54
PROVIDERS: PCP Nurse Practitioner Family; Referring Provider Psychiatry & Neurology Neurology; Visit Provider Psychiatry & Neurology Neurology
DX: J32.9 Chronic sinusitis, unspecified (principal); G43.909 Migraine, unspecified, not intractable, without status migrainosus
CPT/HCPCS: 70553; A9575

== ENCOUNTER 2022-03-19 13:31 | Emergency (ER) | payer MEDICARE, BC, SELFPAY ==
[2022-03-19 13:34] VITALS: BP 132/74; PULSE 100; RESP 22; TEMP 36.2; O2SAT 99; BMI 29.4
--- NOTE | 2022-03-19 15:40 | EX.ED.VIS.UR ---
HPI HPI - URI History of Present Illness Chief Complaint: Shortness of Breath Narrative Narrative: 72-year-old female presenting for evaluation. She states that on Saturday she had an MRI done of her brain. She states that that evening she felt a little bit unwell. She woke up the next day with sore throat, headache, mild cough and rhinorrhea. She not had a fever. She tested herself on for COVID with a home test and tested negative. She states that since then she rechecked yesterday and do not prescribe she was COVID-positive. She is coughing. She reports some mild dyspnea. She is able to eat and drink however she has diminished p.o. intake because she is not hungry. She is making urine and stool. Patient states that she feels as if she is developing a bronchitis. She states she has chronic bronchitis. She denies a history of COPD, asthma. She states she is a non-smoker. She states that typically when she gets the symptoms of burst of prednisone and albuterol would help her. She states that she used to have a breathing treatment machine at home but she elected to somebody and it was never returned. ROS ROS ED Constitutional Constitutional ED: Denies chills or fever(s) Eyes Eyes: Denies change in vision or diplopia ENT ENT ED: Reports rhinorrhea and sore throat Cardiovascular Cardiovascular: Denies chest pain or palpitations Respiratory/Chest Respiratory/Chest: Reports cough and dyspnea Gastrointestinal Gastrointestinal: Denies abdominal pain, nausea or vomiting Genitourinary Genitourinary ED: Denies dysuria or hematuria Musculoskeletal Musculoskeletal: Denies arthralgias, back pain or myalgias Integumentary Denies abscess Neurologic Neurologic: Reports headache(s); Denies paresthesias or weakness Psychiatric Psychiatric: Denies anxiety or depression Endocrine Endocrinology: Denies cold intolerance or heat intolerance [facility] Medical History Abnormal mammogram of right breast 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 Cardiomyopathy, ischemic Carpal tunnel syndrome Cataracts, bilateral Glaucoma Headache Heart disease History of back problems History of migraine headaches Hyperlipidemia Levoscoliosis Neuropathy Nicotine abuse Old myocardial infarction Osteoarthritis Other mcc (current) drug therapy Premature ventricular contractions Seasonal allergies Home Medications aspirin 81 mg chewable tablet 81 mg PO DAILY 12/29/12 [History Last Taken 06/05/18] latanoprost 0.005 % eye drops 1 drp EACH EYE QHS 03/10/14 [History Last Taken 06/05/18] cholecalciferol (vitamin D3) 125 mcg (5,000 unit) tablet 5,000 unit PO QDAY 05/20/17 [History Last Taken 06/05/18] nitroglycerin 0.4 mg sublingual tablet 0.4 mg sublingual Q5M PRN Pain 05/20/17 [History Last Taken Unknown] albuterol sulfate 2.5 mg/3 mL (0.083 %) solution for nebulization 2.5 mg inhalation Q4HWA.RT 06/06/18 [History Last Taken 06/05/18] timolol maleate 0.5 % eye drops 1 drp ophthalmic (eye) BID 05/28/19 [History Last Taken Unknown] atorvastatin 80 mg tablet 80 mg PO QHS #90 tabs 05/26/20 [Rx Last Taken Unknown] yfozao-akoikkzd-hyouxky 36,000-114,000-180,000 unit capsule,delay rel (Creon) 1 cap PO TID 05/26/20 [History Last Taken Unknown] carvedilol 3.125 mg tablet 3.125 mg PO BID #180 tabs 09/13/21 [Rx Last Taken Unknown] duloxetine 30 mg capsule,delayed release 30 mg PO QAM #7 caps 02/20/22 [Rx Last Taken Unknown] duloxetine 60 mg capsule,delayed release 60 mg PO QAM #30 caps 02/20/22 [Rx Last Taken Unknown] gabapentin 300 mg capsule 300 mg PO TID #270 caps 02/20/22 [Rx Last Taken Unknown] galcanezumab-gnlm 120 mg/mL subcutaneous pen injector (Emgality Pen) 120 mg subcut QMONTH #1 mL 02/20/22 [Rx Last Taken Unknown] meloxicam 7.5 mg tablet 7.5 mg PO BID PRN pain #60 tabs 02/20/22 [Rx Last Taken Unknown] albuterol sulfate 90 mcg/actuation aerosol inhaler (ProAir HFA) 1 inh inhalation Q6H PRN shortness of breath or wheezing #8.5 grams 03/19/22 [Rx Last Taken Unknown] ondansetron 4 mg disintegrating tablet 4 mg PO Q8H PRN nausea and vomiting #10 tabs 03/19/22 [Rx Last Taken Unknown] prednisone 50 mg tablet 50 mg PO DAILY #5 tabs 03/19/22 [Rx Last Taken Unknown] Allergy/AdvReac Type Severity Reaction Status Date / Time venom-honey bee Allergy Swelling Verified 03/19/22 13:34 [bee venom (honey bee)] cefdinir AdvReac Severe itching & Verified 03/19/22 13:34 Hives lisinopril AdvReac Mild Other Verified 03/19/22 13:34 amoxicillin trihydrate AdvReac Nausea/Vom/ Verified 03/19/22 13:34 [From Augmentin] Diarrhea potassium clavulanate AdvReac Nausea/Vom/ Verified 03/19/22 13:34 [From Augmentin] Diarrhea Family History Father Sudden cardiac Myocardial infarction Heart disease Mother Myocardial infarction Arthritis Liver disease Heart disease Surgical History History of back surgery History of carpal tunnel surgery History of cataract surgery History of hysterectomy History of PTCA History of right hip replacement History of tonsillectomy and adenoidectomy Hx laparoscopic cholecystectomy Hx of appendectomy Hx of cholecystectomy Social History Smoking Status: Light Smoker (<10/day) second hand exposure: No alcohol intake: never substance use type: does not use caffeine: Yes Type: coffee Number of servings: 3 what type of physical activity do you participate in: swimming frequency: 5-6 times per week tarah/congregational: [employer] seatbelt use: always do you feel safe at home: Yes EXAM Physical Exam Const Vital Signs: 03/19/22 13:34 Temperature 97.2 F L Temperature Source Temporal Pulse Rate 100 Respiratory Rate 22 H Blood Pressure 132/74 H Blood Pressure Mean 93 Pulse Ox 99 Oxygen Delivery Method Room Air Positive well nourished General Appearance ED: NAD; Negative for pallor HEENT Reports moist mucous membranes normocephalic and atraumatic Eyes PERRL and EOMs intact bilaterally Neck no lymphadenopathy, supple and no meningeal signs Resp normal respiratory effort and clear to auscultation bilaterally Auscultation: Negative for rales, rhonchi or wheezes Cardio Rate: regular rate Rhythm: regular rhythm Extremity normal to inspection and full ROM Neuro oriented x3 and CN's II-XII intact bilaterally Sensorium / Orientation: alert Motor Exam: strength 5/5 throughout Psych mental status grossly normal Skin General Skin Exam: Negative for jaundice or pallor MDM MDM MDM Narrative Medical decision making narrative: Patient reports that she had a home test that was positive for COVID. This would be day 6. She states that her symptoms currently are of bronchitis and she states that typically prednisone and albuterol inhaler would help her. Her vital signs are stable and she is afebrile here. She is well-appearing. Lungs clear to auscultation. Patient was given a breathing treatment here as well as first dose of prednisone and 60 mg. She is given a burst of prednisone for home and an albuterol inhaler. Elevated ablation needs blood work or imaging. Patient amenable to this. She is discharged home in stable condition. Impression: 1 COVID-19 2. Acute bronchitis Lab Data Attestation: I reviewed the patient's lab results. Discharge Plan Triage Chief Complaint: Shortness of Breath ED Provider: [place] Dx/Rx/DC Orders Instructions: Coronavirus Disease 2019 (COVID-19): Caring for Yourself or Others, ED Bronchitis, No Antibiotic (Adult) Prescriptions: New ondansetron 4 mg tablet,disintegrating 4 mg PO Q8H PRN (Reason: nausea and vomiting) Qty: 10 0RF albuterol sulfate [ProAir HFA] 90 mcg/actuation HFA aerosol inhaler 1 inh inhalation Q6H PRN (Reason: shortness of breath or wheezing) Qty: 8.5 0RF prednisone 50 mg tablet 50 mg PO DAILY Qty: 5 0RF No Action nitroglycerin 0.4 mg tablet, sublingual 0.4 mg SUBLINGUAL Q5M PRN (Reason: Pain) Label Comments: X 3 cholecalciferol (vitamin D3) 5,000 unit tablet 5,000 unit tablet 5,000 unit PO QDAY timolol maleate 0.5 % drops 1 drp OPHTHALMIC BID Creon 36,000-114,000- 180,000 unit capsule,delayed release(DR/EC) 1 cap PO TID Rx Instructions: administer with meals and/or snacks atorvastatin 80 mg tablet 80 mg PO QHS Qty: 90 3RF Hold Instructions: muscle aches carvedilol 3.125 mg tablet 3.125 mg PO BID Qty: 180 3RF meloxicam 7.5 mg tablet 7.5 mg PO BID PRN (Reason: pain) Qty: 60 4RF gabapentin 300 mg capsule 300 mg PO TID Qty: 270 1RF Emgality Pen 120 mg/mL pen injector 120 mg subcut QMONTH Qty: 1 4RF duloxetine 30 mg capsule,delayed release(DR/EC) 30 mg PO QAM Qty: 7 0RF duloxetine 60 mg capsule,delayed release(DR/EC) 60 mg PO QAM Qty: 30 4RF Rx Instructions: begin after completing one week course of duloxetine 30mg qAM aspirin 81 MG tablet,chewable 81 mg PO DAILY Label Comments: BLOOD THINNER/HEART latanoprost 1 DROP bottle 1 drp EACH EYE QHS albuterol sulfate 2.5 MG/3 ML solution for nebulization 2.5 mg inhalation Q4HWA.RT Primary Care Provider: Laya Garces Referrals: Laya Garces, OPHTHALMOLOGY SURGICAL TECHNICIAN-C [Primary Care Provider] - Disposition Disposition: Home, Self Care
[2022-03-19] MEDS: Ipratropium/Albuterol Sulfate 3 ML AMPUL.NEB INHALATION (15:42)
[2022-03-19] MEDS: predniSONE 20 MG Tablet 60 MG PO (15:42)
[2022-03-19 15:44] VITALS: BP 140/78; PULSE 98; RESP 15; TEMP 36.9; O2SAT 95
[2022-03-19 16:23] VITALS: BP 140/88; PULSE 78; RESP 19; TEMP 36.8; O2SAT 98
== END 2022-03-19 16:24 | disposition home or self-care (01) ==
LOC: ED 15:51
PROVIDERS: Emergency Provider Student in an Organized Health Care Education/Training Program; PCP Nurse Practitioner Family; Visit Provider Student in an Organized Health Care Education/Training Program
DX: U07.1 COVID-19 (principal); J20.9 Acute bronchitis, unspecified; F17.200 Nicotine dependence, unspecified, uncomplicated; I25.10 Atherosclerotic heart disease of native coronary artery without angina pectoris; I25.2 Old myocardial infarction
CPT/HCPCS: 94640; 99283

== ENCOUNTER → 2022-09-20 | Outpatient (CLI) | payer MEDICARE, BC, SELFPAY ==
[2022-09-20 17:12] LABS: Absolute Lymphocyte Count 2.94 X10^3/uL (0.83-4.51); Absolute Neutrophil Count 4.3 X10^3/uL (2.0-7.7); Basophil# 0.07 X10^3/uL; Basophil% 0.8 % (0-1); Eosinophil# 0.62 X10^3/uL; Eosinophils% 7.1 % (0-5); Hemoglobin 13.7 g/dL (12.0-15.0); Lymphocyte # 2.94 X10^3/ul (0.83-4.51); Lymphocyte % 33.7 % (19-41); Mean Corp Hgb Conc 32.6 g/dL (32-36); Mean Corpuscular Hgb 33.5 pg (27.0-32.0); Mean Corpuscular Volume 102.7 fL (81-99); Mean Platelet Vol. 9.8 fl (6.2-12.0); Monocyte# 0.78 X10^3/uL; Monocyte% 8.9 % (0-10); NRBC Flagged by Analyzer 0 % (0-5); Neutrophil # 4.29 X10^3/uL (2.7-7.7); Neutrophil % 49.2 % (47-70); Platelet Count 235 K/mm3 (150-450); RBC Distribution Width CV 12.5 % (11.6-14.6); RBC Distribution Width SD 47.7 fl (35.1-43.9); Red Blood Count 4.09 M/mm3 (4.2-5.4); White Blood Count 8.7 K/mm3 (4.4-11.0)
[2022-09-20 17:56] LABS: AST(SGOT) 15 U/L (15-37); Alanine Aminotransfer ALT/SGPT 20 U/L (13-56); Albumin, Serum 3.8 g/dL (3.2-5.0); Alkaline Phosphatase 61 U/L (45-117); Anion Gap 8 (5-15); BUN 17 mg/dL (7-18); BUN/Creat Ratio 18.8 RATIO (10-20); Bilirubin, Direct 0.18 mg/dL (0.00-0.30); Calcium,Total 9.4 mg/dL (8.5-10.1); Chloride 104 mmol/L (98-107); Cholesterol 261 mg/dL (200); EST Glomerular Filtration Rate 65 mL/min (>60); Est Glom Filt Rate - Afr Amer 78 mL/min (>60); Globulin 3.4 g/dL (2.2-4.2); Glucose 93 mg/dL (74-106); High Density Lipoprotein 61 mg/dL; Potassium 4.1 mmol/L (3.5-5.1); Protein, Total 7.2 g/dL (6.4-8.2); Sodium Level 137 mmol/L (136-145); Thyroid Stim Hormone (TSH) 1.03 uIU/mL (0.358-3.74); Triglycerides 222 mg/dL; Very Low Density Lipoprotein 44 mg/dL (5-40)
== END | disposition home or self-care (01) ==
LOC: LAB 15:40
PROVIDERS: PCP Nurse Practitioner Family; Visit Provider Nurse Practitioner Gerontology
DX: E78.00 Pure hypercholesterolemia, unspecified (principal); R53.83 Other fatigue
CPT/HCPCS: 36415; 80048; 80061; 80076; 84443; 85025

== ENCOUNTER → 2022-10-02 | Outpatient (CLI) | payer MEDICARE, BC, SELFPAY ==
--- NOTE | 2022-10-02 17:09 | STRESSREP_ITS ---
Stress Test Report Pharmacologic myocardial perfusion stress test. 72-year-old lady with a history of chest pain Resting EKG demonstrates sinus rhythm with a rate of 71 bpm frequent premature ventricular complex noted.. Resting blood pressure is 138/78 mmHg. 0.4 mg of regadenoson was infused per usual protocol followed by rapid intravenous saline flush injection. Continuous EKG monitoring was performed. The maximum heart rate was 81 bpm which was 55% of max impacted heart rate the maximum workload was 1 metabolic equivalent. At rest there were no ST or T wave changes noted to suggest ischemia and at peak infusion nonspecific ST changes were noted which did not meet the criteria for ischemia. No clinical angina is noted. The final blood pressure was 126/68 mmHg. Myocardial perfusion protocol. 11.1 mCi of technetium 99m sestamibi was injected at rest. 0.4 mg of regadenoson was infused per usual protocol. At peak infusion 33.6 mCi of tech netium 99m sestamibi was injected stress images were obtained stress and rest images were reconstructed and compared in the short axis vertical long and horizontal long axis. Gated images were also obtained. Perfusion SPECT analysis: Review of the stress images demonstrate normal uptake of tracer noted in all areas of the myocardium. The resting images similar demonstrated normal uptake of tracer noted in all areas of the myocardium. No areas of reversibility are noted to suggest ischemia and no previous infarct is noted. Gated SPECT analysis: The gated ejection fraction is 62%. Conclusion: Normal pharmacologic myocardial perfusion stress test. Preserved ejection fraction.
== END | disposition home or self-care (01) ==
PROVIDERS: PCP Nurse Practitioner Family; Referring Provider Nurse Practitioner Gerontology; Visit Provider Nurse Practitioner Gerontology
DX: I25.111 Atherosclerotic heart disease of native coronary artery with angina pectoris with documented spasm (principal); R07.89 Other chest pain; Z98.61 Coronary angioplasty status
CPT/HCPCS: 78452; 93017; A9500; A4216; J2785

== ENCOUNTER → 2022-10-24 | Outpatient (CLI) | payer MEDICARE, BC, SELFPAY ==
--- NOTE | 2022-10-24 14:13 | CT_ITS ---
EXAM: CT CHEST, LUNG CANCER SCREENING WITHOUT INTRAVENOUS CONTRAST CLINICAL INDICATION: Tobacco Dependency. 1 PPD X 55 YEARS TECHNIQUE: Helically acquired images were obtained of the chest without intravenous contrast using low dose (LDCT) lung cancer screening protocol. This CT exam was performed using one or more of the following dose reduction techniques: automated exposure control, adjustment of the mA and/or kV according to patient size, and/or use of iterative reconstruction technique. COMPARISON: No relevant prior studies available. FINDINGS: LUNGS AND PLEURAL SPACES: There is a pleural-based nodule in the left upper lobe posteriorly and measures 4 mm and is best seen on series 2 image 46. No pneumothorax. HEART: Unremarkable. Heart size is normal. No pericardial effusion. No significant coronary artery calcifications. MEDIASTINUM: Unremarkable. No mediastinal or hilar adenopathy. Esophagus is unremarkable. No hiatal hernia. THYROID: Unremarkable. No thyroid lesions. BONES/JOINTS: Unremarkable. No suspicious lytic or blastic abnormality. VASCULATURE: Unremarkable. Thoracic aorta is non-dilated. LYMPH NODES: Unremarkable. No enlarged lymph nodes. CT/Low Dose CT Lung Screening IMPRESSION: Pleural-based nodule left upper lobe. No other abnormalities are identified. Lung-RADS score: 2 - Benign Appearance or Behavior. Recommend continued annual screening with a low-dose CT (LDCT) in 12 months. Electronically Signed: Ion Fontana MD at 0:17 EDT ,
== END | disposition home or self-care (01) ==
LOC: CT 14:12
PROVIDERS: PCP Nurse Practitioner Family; Referring Provider Internal Medicine Critical Care Medicine; Visit Provider Internal Medicine Critical Care Medicine
DX: F17.210 Nicotine dependence, cigarettes, uncomplicated (principal)
CPT/HCPCS: 71271

== ENCOUNTER → 2022-11-01 | Outpatient (CLI) | payer MEDICARE, BC, SELFPAY ==
--- NOTE | 2022-11-02 10:03 | PFT ---
INTRODUCTION: The patient is a 72-year-old female who presents for pulmonary function studies secondary to a diagnosis of cough. Respiratory therapy reported good patient effort. Bronchodilators were used during testing. INTERPRETATION: Forced expiration spirometry demonstrates the presence of a mild large airways obstructive ventilatory defect. There was no significant response to aerosolized bronchodilators. Spirograms are of good quality and plateau gradually indicating slow emptying of the lungs. Body plethysmography was performed and revealed an elevated RV to 122% of predicted, indicative of underlying air trapping. Diffusing capacity by single breath CO was mildly reduced at 68% of predicted. IMPRESSION: Irreversible mild large airways obstructive ventilatory defect with associated air trapping and symmetric reduction in diffusing capacity.
== END | disposition home or self-care (01) ==
LOC: PSN 10:31
PROVIDERS: PCP Nurse Practitioner Family; Referring Provider Internal Medicine Critical Care Medicine; Visit Provider Internal Medicine Critical Care Medicine
DX: R05.3 Chronic cough (principal); F17.210 Nicotine dependence, cigarettes, uncomplicated
CPT/HCPCS: 94060; 94726; 94729

== ENCOUNTER → 2022-12-24 | Outpatient (CLI) | payer MEDICARE, BC, SELFPAY ==
[2022-12-24 07:51] LABS: AST(SGOT) 19 U/L (15-37); Alanine Aminotransfer ALT/SGPT 20 U/L (13-56); Albumin, Serum 3.6 g/dL (3.2-5.0); Alkaline Phosphatase 62 U/L (45-117); Bilirubin, Direct 0.15 mg/dL (0.00-0.30); Cholesterol 217 mg/dL (200); Globulin 3.2 g/dL (2.2-4.2); High Density Lipoprotein 67 mg/dL; Protein, Total 6.8 g/dL (6.4-8.2); Triglycerides 224 mg/dL; Very Low Density Lipoprotein 45 mg/dL (5-40)
== END | disposition home or self-care (01) ==
LOC: LAB 06:40
PROVIDERS: PCP Nurse Practitioner Family; Referring Provider Nurse Practitioner Gerontology; Visit Provider Nurse Practitioner Gerontology
DX: E78.00 Pure hypercholesterolemia, unspecified (principal)
CPT/HCPCS: 36415; 80061; 80076

== ENCOUNTER → 2023-01-02 | Outpatient (CLI) | payer MEDICARE, BC, SELFPAY | END | disposition home or self-care (01) | LOC: PSN 08:39 | PROVIDERS: PCP Nurse Practitioner Family; Referring Provider Internal Medicine Cardiovascular Disease; Visit Provider Internal Medicine Cardiovascular Disease | DX: I25.10 Atherosclerotic heart disease of native coronary artery without angina pectoris (principal); R07.9 Chest pain, unspecified; I10 Essential (primary) hypertension; R06.00 Dyspnea, unspecified | CPT/HCPCS: 93225; 93226 ==

== ENCOUNTER → 2023-06-28 | Outpatient (CLI) | payer MEDICARE, BC, SELFPAY ==
[2023-06-28 08:54] LABS: AST(SGOT) 14 U/L (15-37); Alanine Aminotransfer ALT/SGPT 19 U/L (13-56); Albumin, Serum 3.9 g/dL (3.2-5.0); Alkaline Phosphatase 57 U/L (45-117); Bilirubin, Direct 0.25 mg/dL (0.00-0.30); CPK Total, Creatine Kinase 78 U/L (26-192); Cholesterol 195 mg/dL (200); Globulin 3.1 g/dL (2.2-4.2); High Density Lipoprotein 60 mg/dL; Triglycerides 221 mg/dL; Very Low Density Lipoprotein 44 mg/dL (5-40)
== END | disposition home or self-care (01) ==
LOC: LAB 08:06
PROVIDERS: PCP Nurse Practitioner Family; Visit Provider Internal Medicine Cardiovascular Disease
DX: E78.00 Pure hypercholesterolemia, unspecified (principal); I10 Essential (primary) hypertension; R07.9 Chest pain, unspecified; R06.00 Dyspnea, unspecified; I25.111 Atherosclerotic heart disease of native coronary artery with angina pectoris with documented spasm
CPT/HCPCS: 36415; 80061; 80076; 82550

== ENCOUNTER → 2023-07-16 | Outpatient (CLI) | payer MEDICARE, BC, SELFPAY ==
[2023-07-16 10:55] LABS: Absolute Lymphocyte Count 2.52 X10^3/uL (0.83-4.51); Absolute Neutrophil Count 5.3 X10^3/uL (2.0-7.7); Basophil# 0.11 X10^3/uL; Basophil% 1.2 % (0-1); Color, Urine Yellow (Yellow); Eosinophil# 0.73 X10^3/uL; Eosinophils% 7.8 % (0-5); Glucose, Dipstick Normal (Normal); Hematocrit 41.2 % (37-47); Hemoglobin 13.5 g/dL (12.0-15.0); Ketone-Dipstick 5 mg/dl (Negative); Leukocyte Esterase-Dipstick 100 /ul (Negative); Lymphocyte # 2.52 X10^3/ul (0.83-4.51); Mean Corp Hgb Conc 32.8 g/dL (32-36); Mean Corpuscular Hgb 34.3 pg (27.0-32.0); Mean Corpuscular Volume 104.6 fL (81-99); Mean Platelet Vol. 9.9 fl (6.2-12.0); Monocyte# 0.71 X10^3/uL; Monocyte% 7.6 % (0-10); NRBC Flagged by Analyzer 0 % (0-5); Neutrophil # 5.25 X10^3/uL (2.7-7.7); Neutrophil % 56.2 % (47-70); Nitrite-Dipstick Positive (Negative); Occult Blood-Urine 10 /ul (Negative); Platelet Count 225 K/mm3 (150-450); Protein-Dipstick 30 mg/dl (Negative); RBC Distribution Width CV 12.1 % (11.6-14.6); RBC Distribution Width SD 46.6 fl (35.1-43.9); Red Blood Count 3.94 M/mm3 (4.2-5.4); Specific Gravity, Urine 1.025 (1.002-1.030); Urine Clarity Sl. Cloudy (Clear); Urine Urobilinogen 4 mg/dl (Normal); White Blood Count 9.3 K/mm3 (4.4-11.0)
[2023-07-16 11:01] LABS: Vitamin B12 318 pg/mL (211-911); Vitamin D,25 Hydroxy 93.8 ng/mL
[2023-07-16 11:06] LABS: Urine Bilirubin Dipstick 3 mg/dL (Negative)
[2023-07-16 11:13] LABS: ALB/GLOB Ratio 1.1 RATIO (0.9-2.4); AST(SGOT) 12 U/L (15-37); Alanine Aminotransfer ALT/SGPT 17 U/L (13-56); Albumin, Serum 3.6 g/dL (3.2-5.0); Alkaline Phosphatase 61 U/L (45-117); Anion Gap 5 (5-15); BUN 18 mg/dL (7-18); BUN/Creat Ratio 17.5 RATIO (10-20); CRP < 2.90 mg/L (0.0-3.0); Calcium,Total 9.1 mg/dL (8.5-10.1); Chloride 106 mmol/L (98-107); Creatinine, Serum 1.03 mg/dL (0.55-1.02); EST Glomerular Filtration Rate 56 mL/min (>60); Est Glom Filt Rate - Afr Amer 67 mL/min (>60); Globulin 3.2 g/dL (2.2-4.2); Glucose 104 mg/dL (74-106); Potassium 4.1 mmol/L (3.5-5.1); Protein, Total 6.8 g/dL (6.4-8.2); Sodium Level 139 mmol/L (136-145); Thyroid Stim Hormone (TSH) 1.53 uIU/mL (0.358-3.74)
[2023-07-16 11:33] LABS: Erythrocyte Sedimentation Rate 4 mm/hr (0-30)
[2023-07-17 11:09] LABS: ANTINUCLEAR ANTIBODIES DIRECT Negative (Negative)
== END | disposition home or self-care (01) ==
PROVIDERS: PCP Nurse Practitioner Family; Referring Provider Nurse Practitioner Family; Visit Provider Nurse Practitioner Family
DX: D64.9 Anemia, unspecified (principal); R53.83 Other fatigue; I10 Essential (primary) hypertension; E55.9 Vitamin D deficiency, unspecified; M25.50 Pain in unspecified joint
CPT/HCPCS: 36415; 80053; 81002; 82306; 82607; 82746; 84443; 85025; 85652; 86038; 86140

== ENCOUNTER → 2023-10-26 | Outpatient (CLI) | payer MEDICARE, BC, SELFPAY ==
--- NOTE | 2023-10-26 07:42 | CT_ITS ---
EXAM: CT CHEST, LUNG CANCER SCREENING WITHOUT INTRAVENOUS CONTRAST CLINICAL INDICATION: SMOKER TECHNIQUE: Helically acquired images were obtained of the chest without intravenous contrast using low dose (LDCT) lung cancer screening protocol. This CT exam was performed using one or more of the following dose reduction techniques: automated exposure control, adjustment of the mA and/or kV according to patient size, and/or use of iterative reconstruction technique. COMPARISON: 10/24/2022 FINDINGS: LUNGS AND PLEURAL SPACES: 3 mm pleural-based nodule in the left upper lobe is again present and unchanged. This is seen on series 2 image 39. No pneumothorax. HEART: Unremarkable. Heart size is normal. No pericardial effusion. No significant coronary artery calcifications. MEDIASTINUM: Unremarkable. No mediastinal or hilar adenopathy. Esophagus is unremarkable. No hiatal hernia. THYROID: Unremarkable. No thyroid lesions. BONES/JOINTS: Unremarkable. No suspicious lytic or blastic abnormality. VASCULATURE: Unremarkable. Thoracic aorta is non-dilated. LYMPH NODES: Unremarkable. No enlarged lymph nodes. CT/Low Dose CT Lung Screening IMPRESSION: Pleural-based nodule left upper lobe which is stable. There is no acute pulmonary abnormality. There has been no change from the reference exam. Lung-RADS score: 2 - Benign Appearance or Behavior. Recommend continued annual screening with a low-dose CT (LDCT) in 12 months. Electronically Signed: Ion Fontana MD at 0:13 EDT ,
== END | disposition home or self-care (01) ==
LOC: CT 07:40
PROVIDERS: PCP Nurse Practitioner Family; Referring Provider Nurse Practitioner Acute Care; Visit Provider Nurse Practitioner Acute Care
DX: F17.210 Nicotine dependence, cigarettes, uncomplicated (principal)
CPT/HCPCS: 71271

== ENCOUNTER → 2024-01-04 | Outpatient (CLI) | payer MEDICARE, BC, SELFPAY ==
[2024-01-04 07:51] LABS: Bacteria 0 SEEN /hpf (None Seen); Mucous, Urine 0 SEEN /hpf (<or=2+); Red Blood Cells-Urine 0 SEEN /hpf (0-5)
[2024-01-04 07:54] LABS: Absolute Lymphocyte Count 3.46 X10^3/uL (0.83-4.51); Absolute Neutrophil Count 3.7 X10^3/uL (2.0-7.7); Basophil# 0.06 X10^3/uL; Basophil% 0.7 % (0-1); Eosinophil# 0.48 X10^3/uL; Eosinophils% 5.7 % (0-5); Hematocrit 39.6 % (37-47); Lymphocyte # 3.46 X10^3/ul (0.83-4.51); Lymphocyte % 41.3 % (19-41); Mean Corp Hgb Conc 32.8 g/dL (32-36); Mean Corpuscular Hgb 34.9 pg (27.0-32.0); Mean Corpuscular Volume 106.2 fL (81-99); Mean Platelet Vol. 9.6 fl (6.2-12.0); Monocyte# 0.62 X10^3/uL; Monocyte% 7.4 % (0-10); NRBC Flagged by Analyzer 0 % (0-5); Neutrophil # 3.74 X10^3/uL (2.7-7.7); Neutrophil % 44.7 % (47-70); Platelet Count 231 K/mm3 (150-450); RBC Distribution Width CV 12.2 % (11.6-14.6); RBC Distribution Width SD 48.1 fl (35.1-43.9); Red Blood Count 3.73 M/mm3 (4.2-5.4); White Blood Count 8.4 K/mm3 (4.4-11.0)
[2024-01-04 08:18] LABS: Color, Urine Yellow (Yellow); Glucose, Dipstick Normal (Normal); Ketone-Dipstick 5 mg/dl (Negative); Leukocyte Esterase-Dipstick 500 /ul (Negative); Nitrite-Dipstick Negative (Negative); Occult Blood-Urine 10 /ul (Negative); Protein-Dipstick 30 mg/dl (Negative); Specific Gravity, Urine 1.025 (1.002-1.030); Urine Clarity Clear (Clear); Urine Urobilinogen 1 mg/dl (Normal)
[2024-01-04 08:32] LABS: Urine Bilirubin Dipstick 1 mg/dL (Negative)
[2024-01-04 08:34] LABS: Squamous Epithelial Cells - UA 0-5 SEEN /hpf (5-10)
[2024-01-04 08:35] LABS: White Blood Cells 0-5 SEEN /hpf (0-5)
[2024-01-04 10:20] LABS: ALB/GLOB Ratio 1.3 RATIO (0.9-2.4); AST(SGOT) 17 U/L (15-37); Alanine Aminotransfer ALT/SGPT 15 U/L (13-56); Albumin, Serum 3.9 g/dL (3.2-5.0); Alkaline Phosphatase 58 U/L (45-117); Anion Gap 6 (5-15); BUN 16 mg/dL (7-18); BUN/Creat Ratio 15.5 RATIO (10-20); Calcium,Total 9.6 mg/dL (8.5-10.1); Chloride 106 mmol/L (98-107); Cholesterol 184 mg/dL (200); Creatinine, Serum 1.03 mg/dL (0.55-1.02); EST Glomerular Filtration Rate 55 mL/min (>60); Est Glom Filt Rate - Afr Amer 67 mL/min (>60); Globulin 3.1 g/dL (2.2-4.2); Glucose 114 mg/dL (74-106); High Density Lipoprotein 60 mg/dL; Potassium 4.3 mmol/L (3.5-5.1); Sodium Level 140 mmol/L (136-145); Triglycerides 252 mg/dL; Very Low Density Lipoprotein 50 mg/dL (5-40)
== END | disposition home or self-care (01) ==
LOC: LAB 07:03
PROVIDERS: PCP Nurse Practitioner Family; Referring Provider Nurse Practitioner Family; Visit Provider Nurse Practitioner Family
DX: I10 Essential (primary) hypertension (principal); E78.00 Pure hypercholesterolemia, unspecified; E53.8 Deficiency of other specified B group vitamins; E55.9 Vitamin D deficiency, unspecified; D64.9 Anemia, unspecified
CPT/HCPCS: 36415; 80053; 80061; 81001; 82306; 82607; 82746; 84443; 85025

== ENCOUNTER 2024-03-21 11:04 | Emergency (ER) | payer MEDICARE, BC, SELFPAY ==
[2024-03-21 11:05] VITALS: BP 133/95; PULSE 108; RESP 17; TEMP 36.5; O2SAT 97; BMI 27.4
[2024-03-21 11:20] VITALS: BP 136/78; PULSE 93; RESP 18; TEMP 37.2; O2SAT 99
--- NOTE | 2024-03-21 11:20 | EKG12_ITS ---
Test Reason : COUGH Blood Pressure : */* mmHG Vent. Rate : 90 BPM Atrial Rate : 90 BPM P-R Int : 158 ms QRS Dur : 76 ms QT Int : 354 ms P-R-T Axes : 58 20 74 degrees QTcB Int : 433 ms Sinus rhythm with frequent Premature ventricular complexes Otherwise normal ECG Confirmed by HU DE PAZ, VICTORIA ([id number]), non linear editor KAYLIE RODRIGUEZ ([id number]) on 03/23/2024 8:37:00 AM Referred By: Confirmed By: VICTORIA LUI MD
--- NOTE | 2024-03-21 11:22 | EDS_ITS ---
HPI <BARTOLO Kiran - Last Filed: 03/21/24 13:52> History of Present Illness Chief Complaint: Cough Narrative Narrative: Patient presenting today due to nasal congestion and a productive cough with yellow-colored sputum she has had since morning. She reports left- sided chest pressure that started when the cough started, it is worse with coughing but she does experience it even at rest. She reports chronic dyspnea on exertion that has been worse since her cough. She has a history of COPD, she has cut down on smoking but still smokes about 3 to 4 cigarettes daily. She denies any history of blood clots or recent surgery/travel/immobilization. She has a PMH of CAD, COPD, HTN, PAD, and HLD. PFS <BARTOLO Kiran - Last Filed: 03/21/24 13:52> [facility] Medical History Stage 1 mild COPD by GOLD classification Smoking greater than 20 pack years Chronic cough Chest pressure Pancreatitis Peripheral arterial disease Shoulder pain Neck pain Low back pain Absent pedal pulses Migraine headache without aura Myalgia Polyneuropathy Osteoarthritis Neuropathy Heart disease Headache History of migraine headaches Glaucoma Carpal tunnel syndrome Cataracts, bilateral History of back problems Seasonal allergies HUTCHINS (dyspnea on exertion) Fatigue Levoscoliosis Abnormal mammogram of right breast Cardiomyopathy, ischemic Intermittent chest pain Hyperlipidemia Nicotine abuse Old myocardial infarction Atherosclerotic heart disease of [place] coronary artery with angina pectoris with documented spasm Premature ventricular contractions Other prune 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 (current) drug therapy Home Medications ?Medication ?Instructions ?Recorded ?Last Taken ?Type aspirin 81 mg chewable tablet 81 mg PO DAILY 12/29/12 06/05/18 History latanoprost 0.005 % eye drops 1 drp EACH EYE QHS 03/10/14 06/05/18 History cholecalciferol (vitamin D3) 125 5,000 unit PO QDAY 05/20/17 06/05/18 History mcg (5,000 unit) tablet albuterol sulfate 2.5 mg/3 mL 2.5 mg inhalation Q4HWA.RT 06/06/18 06/05/18 History (0.083 %) solution for nebulization timolol maleate 0.5 % eye drops 1 drp ophthalmic (eye) BID 05/28/19 Unknown History albuterol sulfate 90 mcg/actuation 1 inh inhalation Q6H PRN shortness 03/19/22 Unknown Rx aerosol inhaler (ProAir HFA) of breath or wheezing #8.5 grams nitroglycerin 0.4 mg sublingual 0.4 mg sublingual Q5M PRN Pain #25 09/20/22 Unknown Rx tablet tabs [id number]-[id number] 2 cap PO .COMPLEX 12/25/22 Unknown History 36,000-114,000-180,000 unit capsule,delay rel (Creon) pravastatin 40 mg tablet 40 mg PO QHS #90 TABLETS 12/11/23 Unknown Rx primidone 50 mg tablet See Rx Instructions .Route 02/13/24 Unknown Rx .COMPLEX #60 tabs albuterol sulfate 2.5 mg/0.5 mL 2.5 mg (0.5 mL) inhalation Q20M 03/21/24 Unknown Rx solution for nebulization PRN shortness of breath or wheezing #30 ea albuterol sulfate 90 mcg/actuation 1 - 2 puff inhalation Q4H PRN PRN 03/21/24 Unknown Rx aerosol inhaler (Ventolin HFA) Wheezing #1 inh ipratropium 0.5 mg-albuterol 3 mg 3 ml inhalation Q20M PRN shortness 03/21/24 Unknown Rx (2.5 mg base)/3 mL nebulization of breath or wheezing #90 mL soln prednisone 20 mg tablet 40 mg (2 x 20 mg) PO DAILY 5 days 03/21/24 Unknown Rx #10 tabs Allergy/AdvReac Type Severity Reaction Status Date / Time venom-honey bee (bee venom Allergy Swelling Verified 03/21/24 11:05 (honey bee)) cefdinir AdvReac Severe itching & Verified 03/21/24 11:05 Hives lisinopril AdvReac Mild Other Verified 03/21/24 11:05 amoxicillin trihydrate (From AdvReac Nausea/Vom/ Verified 03/21/24 11:05 Augmentin) Diarrhea potassium clavulanate (From AdvReac Nausea/Vom/ Verified 03/21/24 11:05 Augmentin) Diarrhea Family History Father Sudden cardiac Myocardial infarction Heart disease Mother Myocardial infarction Arthritis Liver disease Heart disease Surgical History Hx of cholecystectomy History of right hip replacement History of cataract surgery History of back surgery History of carpal tunnel surgery Hx of appendectomy History of hysterectomy History of tonsillectomy and adenoidectomy Hx laparoscopic cholecystectomy History of PTCA Social History Smoking Status: Light Smoker (<10/day) second hand exposure: Yes alcohol intake: never substance use type: does not use caffeine: Yes Type: coffee Number of servings: 3 what type of physical activity do you participate in: swimming frequency: 5-6 times per week tarah/sikhism: Bahai seatbelt use: always do you feel safe at home: Yes ROS <BARTOLO Kiran - Last Filed: 03/21/24 13:52> ROS ED Constitutional Constitutional ED: Denies chills or fever(s) Cardiovascular Cardiovascular: Reports other Details: Chest pressure Respiratory/Chest Respiratory/Chest: Reports cough, dyspnea on exertion and sputum Gastrointestinal Gastrointestinal: Denies abdominal pain, nausea or vomiting Musculoskeletal Musculoskeletal: Denies arthralgias or myalgias Integumentary Denies rash Neurologic Neurologic: Denies weakness EXAM <BARTOLO Kiran - Last Filed: 03/21/24 13:52> Physical Exam Const Vital Signs: 03/21/24 11:05 03/21/24 11:20 03/21/24 11:20 Temperature 97.7 F L 98.9 F Temperature Source Oral Oral Pulse Rate 108 H 93 Respiratory Rate 17 18 Respiratory Effort Short of Breath Respiratory Depth Normal Respiratory Pattern Normal Blood Pressure 133/95 H 136/78 H Blood Pressure Mean 107 97 Pulse Ox 97 99 Oxygen Delivery Method Room Air Room Air Room Air 03/21/24 11:57 03/21/24 11:57 03/21/24 13:05 Temperature 98.9 F Temperature Source Temporal Pulse Rate 87 78 Respiratory Rate 18 16 Respiratory Effort Respiratory Depth Respiratory Pattern Blood Pressure 136/72 H Blood Pressure Mean 93 Pulse Ox 100 97 Oxygen Delivery Method Room Air Room Air 03/21/24 13:19 Temperature 97.8 F Temperature Source Pulse Rate 81 Respiratory Rate 16 Respiratory Effort Respiratory Depth Respiratory Pattern Blood Pressure 128/76 H Blood Pressure Mean 93 Pulse Ox 99 Oxygen Delivery Method Positive well nourished, well developed and no apparent distress General Appearance ED: well developed HEENT Reports normocephalic and head/scalp atraumatic Mouth ED: Yes moist mucous membranes normal Eyes PERRL and EOMs intact bilaterally Neck full ROM and supple Chest Wall inspection of chest normal Resp normal respiratory effort Resp Narrative: Expiratory wheezes to the bilateral lung [place] Cardio regular rate and regular rhythm GI soft to palpation, non-tender, non-distended and no masses Back/Spine normal ROM and normal to inspection Extremity normal to inspection and full ROM Neuro oriented x3, CN's II-XII intact bilaterally, moves all extremities, no focal motor deficits and no sensory deficits noted Sensorium / Orientation: awake and alert Psych mental status grossly normal and thought process normal Skin no rashes or lesions noted and no wounds <Dr. Winifred Mayers DO - Last Filed: 03/21/24 12:57> Physical Exam Const Vital Signs: 03/21/24 11:05 03/21/24 11:20 03/21/24 11:20 Temperature 97.7 F L 98.9 F Temperature Source Oral Oral Pulse Rate 108 H 93 Respiratory Rate 17 18 Respiratory Effort Short of Breath Respiratory Depth Normal Respiratory Pattern Normal Blood Pressure 133/95 H 136/78 H Blood Pressure Mean 107 97 Pulse Ox 97 99 Oxygen Delivery Method Room Air Room Air Room Air 03/21/24 11:57 03/21/24 11:57 03/21/24 13:05 Temperature 98.9 F Temperature Source Temporal Pulse Rate 87 78 Respiratory Rate 18 16 Respiratory Effort Respiratory Depth Respiratory Pattern Blood Pressure 136/72 H Blood Pressure Mean 93 Pulse Ox 100 97 Oxygen Delivery Method Room Air Room Air 03/21/24 13:19 Temperature 97.8 F Temperature Source Pulse Rate 81 Respiratory Rate 16 Respiratory Effort Respiratory Depth Respiratory Pattern Blood Pressure 128/76 H Blood Pressure Mean 93 Pulse Ox 99 Oxygen Delivery Method [facility] <BARTOLO Kiran - Last Filed: 03/21/24 13:52> [facility] Narrative Medical decision making narrative: Patient presenting today due to a cough and worsening dyspnea on exertion. She also reports left-sided chest tightness that started with the cough 2 days ago. She is nontoxic-appearing and in no acute distress. She is in no respiratory d istress. Her O2 saturation has not dropped below 97% on room air. She is afebrile. Initially slightly tachycardic but this did improve. Labs obtained, her CBC, BMP, troponin, and D-dimer are unremarkable. Chest x-ray negative for infiltrate. I suspect that she has a viral illness causing a COPD exacerbation. She was given IV Solu-Medrol, DuoNeb, and albuterol breathing treatments with improvement of her symptoms. I will give her albuterol nebulizer solution, prednisone, and an albuterol MDI for home. Return instructions were discussed and patient discharged home in stable condition. Patient seen and evaluated with DOMONIQUE. I personally interviewed and examined the patient. I was involved in all aspects of patient's orders, interpretation of results, and treatment. Patient presents to the emergency department with complaint of cough and shortness of breath. She describes some chest tightness in the left side of her chest that does not radiate anywhere. Tightness is intermittent and does not seem to be associated with activity. She states when she had her heart attack in 2013 it was more pain and felt different than this. Patient denies sick contacts. She denies fever. She has history of COPD and continues to smoke. She denies recent travel or surgery. No history of PE or DVT. Cough times productive of some clear to white and yellow sputum at times. HEENT-normocephalic and atraumatic Cardiovascular-regular rate and rhythm without murmurs. Lungs-good aeration bilaterally. No accessory muscle use or retractions. No significant conversational dyspnea. Few faint expiratory wheezes noted bilaterally. Abdomen-normoactive bowel sounds. Soft and nontender. No rebound, rigidity, or peritoneal signs. Extremities-intact x 4, no edema, negative Homans' sign Patient presents with cough and some shortness of breath with some chest discomfort in the left chest. EKG obtained shows sinus rhythm with no acute ST segment changes. CBC with differential obtained showing a 9.0 hemoglobin 13.8 and platelet count of 247. Chemistries unremarkable. Troponin normal at 7. 1 view chest x-ray obtained interpreted by myself as no evidence of infiltrate or pneumothorax or acute disease process. Patient received DuoNeb aerosol in the department. Feel patient can be safely discharged to home. Suspect likely a viral asthmatic bronchitis. Will treat with prednisone and albuterol MDI. Patient also has nebulizer at home but does not have the medication for it so we will prescribe albuterol solution for her. Patient advised to return if increasing shortness of breath or condition worsen anyway. Lab Data Labs: Laboratory Results - last 24 hr 03/21/24 11:19 WBC 9.0 RBC 4.06 L Hgb 13.8 Hct 41.1 MCV 101.2 H MCH 34.0 H MCHC 33.6 RDW Std Deviation 45.1 H RDW Coeff of Ferny 12.0 Plt Count 247 MPV 9.5 Immature Gran % (Auto) 0.400 Neut % (Auto) 50.5 Lymph % (Auto) 35.3 [place] % (Auto) 8.0 Eos % (Auto) 5.0 Baso % (Auto) 0.8 Absolute Neuts (auto) 4.5 Absolute Lymphs (auto) 3.16 Nucleated RBC % 0 D-Dimer Quant (PE/DVT) 0.46 Sodium 135 L Potassium 3.9 Chloride 102 Carbon Dioxide 23.0 Anion Gap 10 BUN 16 Creatinine 0.99 Estim Creat Clear Calc 56.07 Est GFR (MDRD) Af Amer 70 Est GFR (MDRD) Non-Af 58 L BUN/Creatinine Ratio 16.2 Glucose 116 H Calcium 9.8 Troponin I High Sens 7 Radiography X-Ray: Read by ED Physician EKG Initial EKG: Comments: 90 bpm, sinus rhythm with frequent PVCs, no ST elevation, interpreted by attending ED physician <Dr. Winifred Mayers, DO - Last Filed: 03/21/24 12:57> [facility] MDM Narrative Medical decision making narrative: Patient seen and evaluated with DOMONIQUE. I personally interviewed and examined the patient. I was involved in all aspects of patient's orders, interpretation of results, and treatment. Patient presents to the emergency department with complaint of cough and shortness of breath. She describes some chest tightness in the left side of her chest that does not radiate anywhere. Tightness is intermittent and does not seem to be associated with activity. She states when she had her heart attack in 2013 it was more pain and felt different than this. Patient denies sick contacts. She denies fever. She has history of COPD and continues to smoke. She denies recent travel or surgery. No history of PE or DVT. Cough times productive of some clear to white and yellow sputum at times. HEENT-normocephalic and atraumatic Cardiovascular-regular rate and rhythm without murmurs. Lungs-good aeration bilaterally. No accessory muscle use or retractions. No significant conversational dyspnea. Few faint expiratory wheezes noted bilaterally. Abdomen-normoactive bowel sounds. Soft and nontender. No rebound, rigidity, or peritoneal signs. Extremities-intact x 4, no edema, negative Homans' sign Patient presents with cough and some shortness of breath with some chest discomfort in the left chest. EKG obtained shows sinus rhythm with no acute ST segment changes. CBC with differential obtained showing a 9.0 hemoglobin 13.8 and platelet count of 247. Chemistries unremarkable. Troponin normal at 7. 1 view chest x-ray obtained interpreted by myself as no evidence of infiltrate or pneumothorax or acute disease process. Patient received DuoNeb aerosol in the department. Feel patient can be safely discharged to home. Suspect likely a viral asthmatic bronchitis. Will treat with prednisone and albuterol MDI. Patient also has nebulizer at home but does not have the medication for it so we will prescribe albuterol solution for her. Patient advised to return if increasing shortness of breath or condition worsen anyway. Lab Data Attestation: I reviewed the patient's lab results. Labs: Laboratory Results - last 24 hr 03/21/24 11:19 WBC 9.0 RBC 4.06 L Hgb 13.8 Hct 41.1 MCV 101.2 H MCH 34.0 H MCHC 33.6 RDW Std Deviation 45.1 H RDW Coeff of Ferny 12.0 Plt Count 247 MPV 9.5 Immature Gran % (Auto) 0.400 Neut % (Auto) 50.5 Lymph % (Auto) 35.3 [place] % (Auto) 8.0 Eos % (Auto) 5.0 Baso % (Auto) 0.8 Absolute Neuts (auto) 4.5 Absolute Lymphs (auto) 3.16 Nucleated RBC % 0 D-Dimer Quant (PE/DVT) 0.46 Sodium 135 L Potassium 3.9 Chloride 102 Carbon Dioxide 23.0 Anion Gap 10 BUN 16 Creatinine 0.99 Estim Creat Clear Calc 56.07 Est GFR (MDRD) Af Amer 70 Est GFR (MDRD) Non-Af 58 L BUN/Creatinine Ratio 16.2 Glucose 116 H Calcium 9.8 Troponin I High Sens 7 Discharge Plan Triage Chief Complaint: Cough ED Midlevel Provider: Hilda Granados ED Provider: Winifred Mayers Dx/Rx/DC Orders Clinical Impression: Acute asthmatic bronchitis, COPD exacerbation Instructions: ED COPD Flare Prescriptions: New prednisone 20 mg tablet 40 mg PO DAILY 5 Days Qty: 10 0RF albuterol sulfate 2.5 mg/0.5 mL solution for nebulization 2.5 mg inhalation Q20M PRN (Reason: shortness of breath or wheezing) Qty: 30 0RF Rx Instructions: for up to 3 doses ipratropium-albuterol 0.5 mg-3 mg(2.5 mg base)/3 mL solution for nebulization 3 ml inhalation Q20M PRN (Reason: shortness of breath or wheezing) Qty: 90 0RF Rx Instructions: for 3 doses albuterol sulfate [Ventolin HFA] 90 mcg/actuation HFA aerosol inhaler 1 - 2 puff inhalation Q4H PRN PRN (Reason: Wheezing) Qty: 1 0RF No Action cholecalciferol (vitamin D3) 5,000 unit tablet 5,000 unit PO QDAY timolol maleate 0.5 % drops 1 drp OPHTHALMIC BID Creon 36,000-114,000- 180,000 unit capsule,delayed release(DR/EC) 2 cap PO .COMPLEX Rx Instructions: 2 caps orally with each meal and snack; administer with meals and/or snacks nitroglycerin 0.4 mg tablet, sublingual 0.4 mg SUBLINGUAL Q5M PRN (Reason: Pain) Qty: 25 3RF primidone 50 mg tablet See Rx Instructions .Route .COMPLEX Qty: 60 5RF Rx Instructions: One-half tablet PO daily for one week then one-half tablet BID thereafter aspirin 81 MG tablet,chewable 81 mg PO DAILY Patient Comments: BLOOD THINNER/HEART latanoprost 1 DROP bottle 1 drp EACH EYE QHS albuterol sulfate 2.5 MG/3 ML solution for nebulization 2.5 mg inhalation Q4HWA.RT albuterol sulfate [ProAir HFA] 90 mcg/actuation HFA aerosol inhaler 1 inh inhalation Q6H PRN (Reason: shortness of breath or wheezing) Qty: 8.5 0RF pravastatin 40 mg tablet 40 mg PO QHS Qty: 90 3RF Primary Care Provider: Laya Garces Referrals: Laya Garces NP-C [Primary Care Provider] - 3-5 Days Activity Restrictions/Additional Instructions: Follow-up with your PCP, return for any worsening symptoms. Print Language: Tajik Disposition Disposition: Home, Self Care Discharge Date/Time: 03/21/24 13:21
[2024-03-21] MEDS: MethylPREDNISolone 125 MG/2 ML Vial IV (11:35)
--- NOTE | 2024-03-21 11:35 | RAD_ITS ---
EXAM: XR CHEST, 2 VIEWS CLINICAL INDICATION: Chest pain. Cough. TECHNIQUE: Frontal and lateral views of the chest. COMPARISON: 04/25/2022. FINDINGS: LUNGS AND PLEURAL SPACES: Unremarkable. No consolidation or edema. No pneumothorax. No effusion. HEART: Unremarkable. Cardiac silhouette not enlarged. MEDIASTINUM: Central airways and mediastinal contour are unremarkable. BONES/JOINTS: Unremarkable. No acute fracture. SOFT TISSUES: Unremarkable. RAD/Chest PA and Lateral IMPRESSION: No radiographic evidence of acute cardiopulmonary disease and unchanged. Electronically Signed: Bola Busch MD at 15:38 EST ,
[2024-03-21 11:45] LABS: Absolute Lymphocyte Count 3.16 X10^3/uL (0.83-4.51); Absolute Neutrophil Count 4.5 X10^3/uL (2.0-7.7); Basophil# 0.07 X10^3/uL; Basophil% 0.8 % (0-1); Eosinophil# 0.45 X10^3/uL; Hematocrit 41.1 % (37-47); Hemoglobin 13.8 g/dL (12.0-15.0); Lymphocyte # 3.16 X10^3/ul (0.83-4.51); Lymphocyte % 35.3 % (19-41); Mean Corp Hgb Conc 33.6 g/dL (32-36); Mean Corpuscular Volume 101.2 fL (81-99); Mean Platelet Vol. 9.5 fl (6.2-12.0); Monocyte# 0.72 X10^3/uL; NRBC Flagged by Analyzer 0 % (0-5); Neutrophil # 4.51 X10^3/uL (2.7-7.7); Neutrophil % 50.5 % (47-70); Platelet Count 247 K/mm3 (150-450); RBC Distribution Width SD 45.1 fl (35.1-43.9); Red Blood Count 4.06 M/mm3 (4.2-5.4)
[2024-03-21] MEDS: Ipratropium/Albuterol Sulfate 3 ML AMPUL.NEB INHALATION (11:56)
[2024-03-21] MEDS: Albuterol 2.5 MG/3 ML VIAL.NEB. INHALATION (11:56)
[2024-03-21 11:57] VITALS: PULSE 87; RESP 18; O2SAT 100
[2024-03-21 12:01] LABS: Anion Gap 10 (5-15); BUN 16 mg/dL (7-18); BUN/Creat Ratio 16.2 RATIO (10-20); Calcium,Total 9.8 mg/dL (8.5-10.1); Chloride 102 mmol/L (98-107); Creatinine, Serum 0.99 mg/dL (0.55-1.02); EST Glomerular Filtration Rate 58 mL/min (>60); Est Glom Filt Rate - Afr Amer 70 mL/min (>60); Estimated Creatinine Clearance 56.07 ml/min; Glucose 116 mg/dL (74-106); Potassium 3.9 mmol/L (3.5-5.1); Sodium Level 135 mmol/L (136-145); Troponin-I HS 7 pg/mL (3.0-54.0)
[2024-03-21 12:24] LABS: D-Dimer Quantitative (DVT/PE) 0.46 FEU/ug/m (0.27-0.49)
[2024-03-21 13:05] VITALS: BP 136/72; PULSE 78; RESP 16; TEMP 37.2; O2SAT 97
[2024-03-21 13:19] VITALS: BP 128/76; PULSE 81; RESP 16; TEMP 36.6; O2SAT 99
== END 2024-03-21 13:21 | disposition home or self-care (01) ==
PROVIDERS: Physician Assistant; Emergency Provider Emergency Medicine; PCP Nurse Practitioner Family; Visit Provider Emergency Medicine
DX: J44.1 Chronic obstructive pulmonary disease with (acute) exacerbation (principal); J44.0 Chronic obstructive pulmonary disease with (acute) lower respiratory infection; J20.9 Acute bronchitis, unspecified; I10 Essential (primary) hypertension; E78.5 Hyperlipidemia, unspecified; I25.10 Atherosclerotic heart disease of native coronary artery without angina pectoris; I25.5 Ischemic cardiomyopathy; I73.9 Peripheral vascular disease, unspecified; Z11.52 Encounter for screening for COVID-19; F17.210 Nicotine dependence, cigarettes, uncomplicated; I25.2 Old myocardial infarction; Z79.82 Long term (current) use of aspirin; Z79.899 Other long term (current) drug therapy
CPT/HCPCS: 71046; 80048; 84484; 85025; 85379; 87631; 93005; 94640; 96374; 99284; A4216

== ENCOUNTER 2024-07-06 17:25 | Emergency (ER) | payer MEDICARE, BC, SELFPAY ==
[2024-07-06 17:27] VITALS: BP 116/89; PULSE 123; RESP 19; TEMP 36.7; O2SAT 97; BMI 26.6
[2024-07-06 19:25] LABS: Absolute Lymphocyte Count 4.11 X10^3/uL (0.83-4.51); Basophil# 0.08 X10^3/uL; Basophil% 0.7 % (0-1); Eosinophils% 3.5 % (0-5); Hematocrit 42.6 % (37-47); Hemoglobin 14.7 g/dL (12.0-15.0); Lymphocyte # 4.11 X10^3/ul (0.83-4.51); Lymphocyte % 35.5 % (19-41); Mean Corp Hgb Conc 34.5 g/dL (32-36); Mean Corpuscular Hgb 35.1 pg (27.0-32.0); Mean Corpuscular Volume 101.7 fL (81-99); Mean Platelet Vol. 9.2 fl (6.2-12.0); Monocyte% 8.6 % (0-10); NRBC Flagged by Analyzer 0 % (0-5); Neutrophil # 5.96 X10^3/uL (2.7-7.7); Neutrophil % 51.4 % (47-70); Platelet Count 253 K/mm3 (150-450); RBC Distribution Width CV 12.2 % (11.6-14.6); RBC Distribution Width SD 45.9 fl (35.1-43.9); Red Blood Count 4.19 M/mm3 (4.2-5.4); White Blood Count 11.6 K/mm3 (4.4-11.0)
[2024-07-06 19:26] VITALS: BP 153/101; RESP 78; O2SAT 98
--- NOTE | 2024-07-06 19:26 | CT_ITS ---
PROCEDURE: ABDOMEN/PELVIS W IV CONT ONLY 07/06/2024 REASON FOR EXAM: LEFT-SIDED ABDOMINAL PAIN TECHNIQUE: Abdomen and pelvis CT with intravenous contrast. Coronal and Sagittal reconstruction series were provided. PATIENT PREPARATION: Per protocol ORAL CONTRAST TYPE: None. AMOUNT: mL CONTRAST: Isovue 370 VOLUME: 98 mL Not Provided Gauge IV One or more dose reduction techniques were used (e.g., Automated exposure control, adjustment of the mA and/or kV according to patient size, use of iterative reconstruction technique. RADIATION DOSE SUMMARY: CTDlvol: 31 mGy DLP: 963 mGycm FINDINGS: Lung bases: Mild dependent atelectasis Liver: Mild intrahepatic ductal dilatation. No suspicious lesions. Gallbladder: Status post cholecystectomy. Spleen: Normal size. Pancreas: Normal size without evidence of mass surrounding inflammation or ductal dilation. Adrenals: Unremarkable Kidneys: Unremarkable Bladder: Unremarkable Reproductive Organs: Prior hysterectomy. Adnexal regions are unremarkable. Bowel: Evaluation is limited due to lack of oral contrast. The stomach is unremarkable. No inflammatory changes of the small or large bowel. Appendix: The appendix is not visualized. Lymph nodes: No lymphadenopathy. Vasculature: Mild diffuse atherosclerotic calcifications are noted. Peritoneum / Retroperitoneum: No free fluid or free air. Bones: Status post right hip arthroplasty. CT/Abdomen/Pelvis W IV Cont ONLY IMPRESSION: UNREMARKABLE CONTRAST-ENHANCED CT OF THE ABDOMEN AND PELVIS [facility]
--- NOTE | 2024-07-06 19:28 | ED.VIS.GI ---
HPI HPI - GI History of Present Illness Chief Complaint: Abd Pain Informant: patient Abdominal Pain/Flank Pain Onset: Days Context: Gradual Onset Timing: Continuous Quality: Aching Location: LLQ and Left Flank Current Severity: Mild Maximum Severity: Moderate Worsened by: Nothing Relieved by: Nothing Nausea/Vomiting/Emesis GI Symptom: Positive for Nausea; Negative for Vomiting Onset: Days Severity: Mild Diarrhea/Melena/Hematochezia GI Symptom: Positive for Diarrhea; Negative for Melena or Hematochezia Onset: Days Stool Quality: Positive for Loose Severity: Mild Associated Symptoms Associated Symptoms: Negative for Dysuria, Frequency, Hematuria or Urgency Narrative Narrative: 74-year-old female history of COPD, cardiomyopathy, cholecystectomy, appendectomy, hysterectomy, diverticulitis, prior pancreatitis. Patient complaining of abdominal pain since morning at 4 AM. Associated diarrhea and nausea but no vomiting. No fever. No dysuria. Is primarily left side of her abdomen the left lower quadrant. Prior similar symptoms: No Recent Illness/Hospitalization: No PFSH PFSH Medical History Stage 1 mild COPD by GOLD classification Smoking greater than 20 pack years Chronic cough Chest pressure Pancreatitis Peripheral arterial disease Shoulder pain Neck pain Low back pain Absent pedal pulses Migraine headache without aura Myalgia Polyneuropathy Osteoarthritis Neuropathy Heart disease Headache History of migraine headaches Glaucoma Carpal tunnel syndrome Cataracts, bilateral History of back problems Seasonal allergies HUTCHINS (dyspnea on exertion) Fatigue Levoscoliosis Abnormal mammogram of right breast Cardiomyopathy, ischemic Intermittent chest pain Hyperlipidemia Nicotine abuse 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 Premature ventricular contractions Other fpc (current) drug therapy Home Medications ?Medication ?Instructions ?Recorded ?Last Taken ?Type aspirin 81 mg chewable tablet 81 mg PO DAILY 12/29/12 06/05/18 History latanoprost 0.005 % eye drops 1 drp EACH EYE QHS 03/10/14 06/05/18 History cholecalciferol (vitamin D3) 125 5,000 unit PO QDAY 05/20/17 06/05/18 History mcg (5,000 unit) tablet albuterol sulfate 2.5 mg/3 mL 2.5 mg inhalation Q4HWA.RT 06/06/18 06/05/18 History (0.083 %) solution for nebulization timolol maleate 0.5 % eye drops 1 drp ophthalmic (eye) BID 05/28/19 Unknown History albuterol sulfate 90 mcg/actuation 1 inh inhalation Q6H PRN shortness 03/19/22 Unknown Rx aerosol inhaler (ProAir HFA) of breath or wheezing #8.5 grams nitroglycerin 0.4 mg sublingual 0.4 mg sublingual Q5M PRN Pain #25 09/20/22 Unknown Rx tablet tabs [id number]-[id number]-[id number] 2 cap PO .COMPLEX 12/25/22 Unknown History 36,000-114,000-180,000 unit capsule,delay rel (Creon) pravastatin 40 mg tablet 40 mg PO QHS #90 TABLETS 12/11/23 Unknown Rx primidone 50 mg tablet See Rx Instructions .Route 02/13/24 Unknown Rx .COMPLEX #60 tabs albuterol sulfate 2.5 mg/0.5 mL 2.5 mg (0.5 mL) inhalation Q20M 03/21/24 Unknown Rx solution for nebulization PRN shortness of breath or wheezing #30 ea albuterol sulfate 90 mcg/actuation 1 - 2 puff inhalation Q4H PRN PRN 03/21/24 Unknown Rx aerosol inhaler (Ventolin HFA) Wheezing #1 inh ipratropium 0.5 mg-albuterol 3 mg 3 ml inhalation Q20M PRN shortness 03/21/24 Unknown Rx (2.5 mg base)/3 mL nebulization of breath or wheezing #90 mL soln Allergy/AdvReac Type Severity Reaction Status Date / Time venom-honey bee (bee venom Allergy Swelling Verified 07/06/24 17:30 (honey bee)) cefdinir AdvReac Severe itching & Verified 07/06/24 17:30 Hives lisinopril AdvReac Mild Other Verified 07/06/24 17:30 amoxicillin trihydrate (From AdvReac Nausea/Vom/ Verified 07/06/24 17:30 Augmentin) Diarrhea potassium clavulanate (From AdvReac Nausea/Vom/ Verified 07/06/24 17:30 Augmentin) Diarrhea Family History Father Sudden cardiac Myocardial infarction Heart disease Mother Myocardial infarction Arthritis Liver disease Heart disease Surgical History Hx of cholecystectomy History of right hip replacement History of cataract surgery History of back surgery History of carpal tunnel surgery Hx of appendectomy History of hysterectomy History of tonsillectomy and adenoidectomy Hx laparoscopic cholecystectomy History of PTCA Social History Smoking Status: Light Smoker (<10/day) second hand exposure: Yes alcohol intake: never substance use type: does not use caffeine: Yes Type: coffee Number of servings: 3 what type of physical activity do you participate in: swimming frequency: 5-6 times per week tarah/catholic: Sabianism seatbelt use: always do you feel safe at home: Yes ROS ROS ED ROS Narrative Left side abdominal pain. Nausea and diarrhea. Constitutional Constitutional ED: Denies chills or fever(s) ENT ENT ED: Denies ear pain Cardiovascular Cardiovascular: Denies chest pain Respiratory/Chest Respiratory/Chest: Denies cough or dyspnea Gastrointestinal Gastrointestinal: Reports abdominal pain, diarrhea and nausea; Denies constipation, melena or vomiting Genitourinary Genitourinary ED: Denies dysuria or hematuria Musculoskeletal Musculoskeletal: Denies arthralgias Integumentary Denies abscess Neurologic Neurologic: Reports headache(s) Psychiatric Psychiatric: Denies anxiety Endocrine Endocrinology: Denies polydipsia Hematologic/Lymphatic Hematologic/Lymphatic: Denies easy bleeding Allergic/Immunologic Allergic/Immunologic ED: Denies mouth swelling, tongue swelling or urticaria EXAM Physical Exam Narrative Exam Narrative: 74-year-old female sitting upright in bed. Vital signs are stable afebrile. Does not look septic toxic. H EENT exam pupils round reactive light. Mytrex members. Neck nontender no JVD. Lungs clear to auscultation bilaterally. Heart tachycardic 110 no murmur. Chest wall and ribs nontender. Abdomen soft nondistended. Normal bowel sounds no peritoneal signs. Left upper and left lower quadrant tenderness. No hernia or mass. No distention. No right upper or right lower quadrant tenderness. No pulsatile mass. No peritoneal signs. No obvious hernia. Moving all 4 extremities. Normal strength. Normal dorsi plantarflexion. Normal fur puller strength. Back nontender. Neurologically she is awake and alert. Answer questions following commands. Const Vital Signs: 07/06/24 17:27 07/06/24 19:26 07/06/24 21:20 Temperature 98.0 F Temperature Source Oral Pulse Rate 123 H Respiratory Rate 19 H 78 H 16 Blood Pressure 116/89 H 153/101 H 144/68 H Blood Pressure Mean 98 118 93 Pulse Ox 97 98 95 Oxygen Delivery Method Room Air Room Air 07/06/24 23:06 Temperature Temperature Source Pulse Rate 66 Respiratory Rate 18 Blood Pressure 118/67 Blood Pressure Mean 84 Pulse Ox 97 Oxygen Delivery Method Room Air Positive well nourished and well developed; Negative for cachectic, contractures or unkempt General Appearance ED: well developed and NAD; Negative for unkempt, cachectic, contractures or pallor Nutritional Appearance: Negative for cachectic HEENT Reports moist mucous membranes normocephalic and atraumatic Eyes PERRL and EOMs intact bilaterally Neck no lymphadenopathy, supple and no JVD Resp normal respiratory effort and clear to auscultation bilaterally Cardio regular rhythm, S1 normal heart sound, S2 normal heart sound and no murmurs; Negative for regular rate Rate: tachycardic GI non-distended and no masses; Negative for non-tender GI Narrative: Left-sided upper and lower quadrant abdominal tenderness. Inspection: Negative for abdominal distention Auscultation: normoactive bowel sounds Palpation: soft and tender; Negative for guarding, rigid, hernia, mass, pulsatile mass or rebound tenderness present Back/Spine no CVA tenderness General Back: Negative for CVA tenderness Cervical Spine: Negative for cervical spine tenderness Thoracic Spine / Upper Back: Negative for thoracic spinal tenderness Lumbar Spine / Lower Back: Negative for lumbar spinal tenderness Coccyx: Negative for other Extremity full ROM General Extremety ED: Negative for edema or tenderness General Extremity: Negative for edema Neuro CN's II-XII intact bilaterally and moves all extremities Sensorium / Orientation: alert, oriented to person, oriented to place and oriented to time; Negative for orientation impaired, confused, lethargic or stuporous Motor Exam: strength 5/5 throughout Psych mental status grossly normal and thought process normal Appearance: Negative for unkempt Skin no wounds General Skin Exam: Negative for jaundice or pallor Lesions: no lesions Rashes: no rashes Trauma: Negative for abrasion Nails: Negative for discolored MDM MDM MDM Narrative Medical decision making narrative: 74-year-old female with abdominal pain. Prior cholecystectomy, hysterectomy and appendectomy. Differential include diverticulitis, pancreatitis, UTI versus others. Treated with morphine for pain Zofran for nausea. IV fluids. Screening labs and CT. Repeat exam at 12:10 AM patient's abdomen is benign. Multiple abdominal exams patient is doing well. We went over her test results. CAT scan is negative. Labs are unremarkable. She will be discharged home abdominal pain uncertain etiology. Outpatient follow-up. History & Record Review Discussion w/independent historian: Patient Additional record(s) reviewed:: Prior inpatient record, Prior outpatient record, Prior ED visit and Prior labs Lab Data Attestation: I reviewed the patient's lab results. Lab results narrative: CBC shows a white count of 11.6 H&H of 14 and 42. Platelets 253 Chemistry shows sodium 138. Gap 15. Normal BUN of 17 creatinine 1.1. Glucose 102. Liver enzymes normal. Lipase normal at 61. UA shows 10-25 white cells is contaminated with 5-10 epithelial cells. No nitrates. This will not be treated. Labs: Laboratory Results - last 24 hr 07/06/24 07/06/24 19:08 20:40 WBC 11.6 H RBC 4.19 L Hgb 14.7 Hct 42.6 MCV 101.7 H MCH 35.1 H MCHC 34.5 RDW Std Deviation 45.9 H RDW Coeff of [place] 12.2 Plt Count 253 MPV 9.2 Immature Gran % (Auto) 0.300 Neut % (Auto) 51.4 Lymph % (Auto) 35.5 [place] % (Auto) 8.6 Eos % (Auto) 3.5 Baso % (Auto) 0.7 Absolute Neuts (auto) 6.0 Absolute Lymphs (auto) 4.11 Nucleated RBC % 0 Sodium 138 Potassium 3.9 Chloride 99 Carbon Dioxide 23.8 Anion Gap 15 BUN 17 Creatinine 1.12 Estim Creat Clear Calc 47.88 L Est GFR (MDRD) Non-Af 51 L BUN/Creatinine Ratio 15.2 Glucose 102 H Calcium 10.0 Total Bilirubin 0.93 AST 21 ALT 13 Alkaline Phosphatase 59 Total Protein 7.4 Albumin 4.7 Globulin 2.7 Albumin/Globulin Ratio 1.8 Lipase 61 Urine Color Yellow Urine Clarity Clear Urine pH 6.0 Ur Specific [place] 1.010 Urine Protein 30 H Urine Glucose (UA) Normal Urine Ketones 5 H Urine Occult Blood Negative Urine Nitrite Negative Urine Bilirubin Negative Urine Urobilinogen Normal Ur Leukocyte Esterase 500 H Urine RBC 0 SEEN Urine WBC 10-25 SEEN Ur Squamous Epith Cells 5-10 SEEN Urine Bacteria 0 SEEN Hyaline Casts 25-50 SEEN Fine Granular Casts 5-10 SEEN Urine Mucus 1+ Radiography Diagnostic Testing: Clinical Impression(s) from Imaging Studies Abdomen/Pelvis CT 07/06/24 19:26 IMPRESSION: UNREMARKABLE CONTRAST-ENHANCED CT OF THE ABDOMEN AND PELVIS [facility] Discharge Plan Triage Chief Complaint: Abd Pain ED Provider: Hay Manuel Dx/Rx/DC Orders Clinical Impression: Abdominal pain Instructions: ED Abdominal Pain Unkn Cause Fem Prescriptions: No Action cholecalciferol (vitamin D3) 5,000 unit tablet 5,000 unit PO QDAY timolol maleate 0.5 % drops 1 drp OPHTHALMIC BID Creon 36,000-114,000- 180,000 unit capsule,delayed release(DR/EC) 2 cap PO .COMPLEX Rx Instructions: 2 caps orally with each meal and snack; administer with meals and/or snacks nitroglycerin 0.4 mg tablet, sublingual 0.4 mg SUBLINGUAL Q5M PRN (Reason: Pain) Qty: 25 3RF primidone 50 mg tablet See Rx Instructions .Route .COMPLEX Qty: 60 5RF Rx Instructions: One-half tablet PO daily for one week then one-half tablet BID thereafter aspirin 81 MG tablet,chewable 81 mg PO DAILY Patient Comments: BLOOD THINNER/HEART latanoprost 1 DROP bottle 1 drp EACH EYE QHS albuterol sulfate 2.5 MG/3 ML solution for nebulization 2.5 mg inhalation Q4HWA.RT albuterol sulfate [ProAir HFA] 90 mcg/actuation HFA aerosol inhaler 1 inh inhalation Q6H PRN (Reason: shortness of breath or wheezing) Qty: 8.5 0RF albuterol sulfate 2.5 mg/0.5 mL solution for nebulization 2.5 mg inhalation Q20M PRN (Reason: shortness of breath or wheezing) Qty: 30 0RF Rx Instructions: for up to 3 doses ipratropium-albuterol 0.5 mg-3 mg(2.5 mg base)/3 mL solution for nebulization 3 ml inhalation Q20M PRN (Reason: shortness of breath or wheezing) Qty: 90 0RF Rx Instructions: for 3 doses albuterol sulfate [Ventolin HFA] 90 mcg/actuation HFA aerosol inhaler 1 - 2 puff inhalation Q4H PRN PRN (Reason: Wheezing) Qty: 1 0RF pravastatin 40 mg tablet 40 mg PO QHS Qty: 90 3RF Primary Care Provider: Laya Garces Referrals: Laya Garces, [facility] [Primary Care Provider] - 3-5 Days if not improving Activity Restrictions/Additional Instructions: Plenty of fluids and rest. Tylenol for pain. Your CAT scan labs look good. Follow-up with your primary care provider if not improving. Print Language: Urdu Disposition Disposition: Home, Self Care
[2024-07-06] MEDS: 0.9% Normal Saline (1000mL) 1,000 ML 999 ML IV (19:59)
[2024-07-06] MEDS: Ondansetron 4 MG/2 ML Vial IV (19:59)
[2024-07-06] MEDS: Morphine 4 MG/ML Syringe IV (19:59)
[2024-07-06 20:22] LABS: ALB/GLOB Ratio 1.8 RATIO (0.9-2.4); AST(SGOT) 21 U/L (<=31); Alanine Aminotransfer ALT/SGPT 13 U/L (<=34); Albumin, Serum 4.7 g/dL (3.4-4.8); Alkaline Phosphatase 59 U/L (35-104); Anion Gap 15 (5-15); BUN 17 mg/dL (4-19); BUN/Creat Ratio 15.2 RATIO (10-20); Carbon Dioxide 23.8 mmol/L (21.0-32.0); Chloride 99 mmol/L (98-108); Creatinine, Serum 1.12 mg/dL (0.70-1.20); EST Glomerular Filtration Rate 51 (>60); Estimated Creatinine Clearance 47.88 ml/min (50-250); Globulin 2.7 g/dL (2.2-4.2); Glucose 102 mg/dL (70-99); Potassium 3.9 mmol/L (3.3-5.1); Protein, Total 7.4 g/dL (5.9-8.4); Sodium Level 138 mmol/L (133-145); Total Bilirubin 0.93 mg/dL (0.00-1.30)
[2024-07-06 20:24] LABS: Lipase 61 U/L (13-75)
[2024-07-06 20:49] LABS: Bacteria 0 SEEN /hpf (None Seen); Red Blood Cells-Urine 0 SEEN /hpf (0-5)
[2024-07-06 20:51] LABS: Color, Urine Yellow (Yellow); Glucose, Dipstick Normal (Normal); Ketone-Dipstick 5 mg/dl (Negative); Leukocyte Esterase-Dipstick 500 /ul (Negative); Nitrite-Dipstick Negative (Negative); Occult Blood-Urine Negative /ul (Negative); Protein-Dipstick 30 mg/dl (Negative); Urine Bilirubin Dipstick Negative (Negative); Urine Clarity Clear (Clear); Urine Urobilinogen Normal (Normal)
[2024-07-06 21:20] VITALS: BP 144/68; RESP 16; O2SAT 95
[2024-07-06 21:36] LABS: White Blood Cells 10-25 SEEN /hpf (0-5)
[2024-07-06 21:37] LABS: Mucous, Urine 1+ /hpf (<or=2+); Squamous Epithelial Cells - UA 5-10 SEEN /hpf (5-10)
[2024-07-06 21:38] LABS: Fine Granular Cast- Urine 5-10 SEEN /lpf (0-5); Hyaline Cast 25-50 SEEN /lpf (0-5)
[2024-07-06 23:06] VITALS: BP 118/67; PULSE 66; RESP 18; O2SAT 97
== END 2024-07-07 00:22 | disposition home or self-care (01) ==
PROVIDERS: Emergency Provider Emergency Medicine; PCP Nurse Practitioner Family; Visit Provider Emergency Medicine
DX: R10.32 Left lower quadrant pain (principal); J44.89 Other specified chronic obstructive pulmonary disease; I42.9 Cardiomyopathy, unspecified; R19.7 Diarrhea, unspecified; R11.0 Nausea; E78.5 Hyperlipidemia, unspecified; I25.10 Atherosclerotic heart disease of native coronary artery without angina pectoris; F17.200 Nicotine dependence, unspecified, uncomplicated; I25.2 Old myocardial infarction; Z79.82 Long term (current) use of aspirin; Z79.899 Other long term (current) drug therapy; Z90.49 Acquired absence of other specified parts of digestive tract
CPT/HCPCS: 74177; 80053; 81001; 83690; 85025; 96361; 96374; 96375; 99283; Q9967; A4216; J2405

== ENCOUNTER → 2024-07-16 | Outpatient (CLI) | payer MEDICARE, BC, SELFPAY ==
[2024-07-16 07:32] LABS: Absolute Lymphocyte Count 3.04 X10^3/uL (0.83-4.51); Absolute Neutrophil Count 3.3 X10^3/uL (2.0-7.7); Basophil# 0.08 X10^3/uL; Basophil% 1.1 % (0-1); Eosinophil# 0.51 X10^3/uL; Eosinophils% 6.8 % (0-5); Hematocrit 41.5 % (37-47); Hemoglobin 13.8 g/dL (12.0-15.0); Lymphocyte # 3.04 X10^3/ul (0.83-4.51); Lymphocyte % 40.3 % (19-41); Mean Corp Hgb Conc 33.3 g/dL (32-36); Mean Corpuscular Hgb 34.2 pg (27.0-32.0); Mean Platelet Vol. 9.5 fl (6.2-12.0); Monocyte# 0.57 X10^3/uL; Monocyte% 7.6 % (0-10); NRBC Flagged by Analyzer 0 % (0-5); Neutrophil # 3.33 X10^3/uL (2.7-7.7); Neutrophil % 44.1 % (47-70); Platelet Count 227 K/mm3 (150-450); RBC Distribution Width CV 12.1 % (11.6-14.6); Red Blood Count 4.03 M/mm3 (4.2-5.4); White Blood Count 7.5 K/mm3 (4.4-11.0)
[2024-07-16 07:59] LABS: FOLATES,SERUM (FOLIC ACID) 6.24 ng/mL (4.60-34.80)
[2024-07-16 08:06] LABS: ALB/GLOB Ratio 1.6 RATIO (0.9-2.4); AST(SGOT) 17 U/L (<=31); Alanine Aminotransfer ALT/SGPT 13 U/L (<=34); Albumin, Serum 4.3 g/dL (3.4-4.8); Alkaline Phosphatase 59 U/L (35-104); Anion Gap 11 (5-15); BUN 14 mg/dL (4-19); Calcium,Total 9.7 mg/dL (7.6-11.0); Carbon Dioxide 25.4 mmol/L (21.0-32.0); Chloride 103 mmol/L (98-108); Cholesterol 173 mg/dL (<=200); Creatinine, Serum 0.91 mg/dL (0.70-1.20); EST Glomerular Filtration Rate 66 (>60); Globulin 2.7 g/dL (2.2-4.2); Glucose 104 mg/dL (70-99); High Density Lipoprotein 62 mg/dL; Low Density Lipoprotein Calc. 73 mg/dL; Potassium 4.1 mmol/L (3.3-5.1); Sodium Level 139 mmol/L (133-145); Total Bilirubin 0.64 mg/dL (0.00-1.30); Triglycerides 190 mg/dL; Very Low Density Lipoprotein 38 mg/dL (5-40); Vitamin B12 487 pg/mL (180-914); cholesterol:hdl ratio screen 2.79
== END | disposition home or self-care (01) ==
LOC: LAB 06:41
PROVIDERS: PCP Nurse Practitioner Family; Referring Provider Nurse Practitioner Family; Visit Provider Nurse Practitioner Family
DX: I10 Essential (primary) hypertension (principal); E78.00 Pure hypercholesterolemia, unspecified; E53.8 Deficiency of other specified B group vitamins
CPT/HCPCS: 36415; 80053; 80061; 82607; 82746; 85025

== ENCOUNTER → 2024-07-28 | Outpatient (CLI) | payer MEDICARE, BC, SELFPAY ==
[2024-07-28 13:09] LABS: Hemoglobin A1c 5.2 % (<=5.6)
== END | disposition home or self-care (01) ==
LOC: MTLAB 11:06
PROVIDERS: PCP Nurse Practitioner Family; Referring Provider Psychiatry & Neurology Neurology; Visit Provider Psychiatry & Neurology Neurology
DX: R73.9 Hyperglycemia, unspecified (principal)
CPT/HCPCS: 36415; 83036

== ENCOUNTER → 2024-08-07 | Outpatient (CLI) | payer MEDICARE, BC, SELFPAY ==
--- NOTE | 2024-08-07 09:41 | ART_ITS ---
Reason For Study Reason For Study: Absent Lt Pedal Pulses Procedure A bilateral lower extremity continuous wave Doppler with analog waveform analysis and ankle brachial indexes. Left Segmental Pressures Left brachial= 159mmHg. Left posterior tibial artery = 139mmHg. Left dorsalis pedis artery = 144mmHg. Left digit = 116 mmHg. Right Segmental Pressures Right brachial= 152mmHg. Right posterior tibial artery = 156mmHg. Right dorsalis pedis artery = 155mmHg. Right digit = 90 mmHg. Indices The right ankle brachial index by the posterior tibial artery is 0.98. The right ankle brachial index by the dorsalis pedis is 0.97. The right digital-brachial index is 0.57. The left ankle brachial index by the posterior tibial artery is 0.87. The left ankle brachial index by the dorsalis pedis is 0.91. The left digital-brachial index is 0.73. VL/Ankle Brachial Index Interpretation Summary Right SMITH 0.98, mild arterial insufficiency. Doppler/PVR waveforms of the right ankle normal at rest. Left SMITH 0.91, mild arterial insufficiency. Doppler/PVR waveforms of the left a nkle normal at rest. Ordering Physician: Mumtaz Moss Referring Physician: Laya Garces Performed By: Patti Coates RDCS/RVT
== END | disposition home or self-care (01) ==
LOC: CVS 09:37
PROVIDERS: PCP Nurse Practitioner Family; Referring Provider Psychiatry & Neurology Neurology; Visit Provider Psychiatry & Neurology Neurology
DX: R09.89 Other specified symptoms and signs involving the circulatory and respiratory systems (principal)
CPT/HCPCS: 93922

== ENCOUNTER → 2025-01-21 | Outpatient (CLI) | payer MEDICARE, BC, SELFPAY ==
[2025-01-21 13:53] LABS: AST(SGOT) 21 U/L (<=31); Alanine Aminotransfer ALT/SGPT 14 U/L (<=34); Albumin, Serum 4.6 g/dL (3.4-4.8); Alkaline Phosphatase 60 U/L (35-104); Anion Gap 14 (5-15); BUN 14 mg/dL (4-19); BUN/Creat Ratio 14.9 RATIO (10-20); Calcium,Total 10.0 mg/dL (7.6-11.0); Carbon Dioxide 24.6 mmol/L (21.0-32.0); Chloride 99 mmol/L (98-108); Cholesterol 215 mg/dL (<=200); Globulin 2.8 g/dL (2.2-4.2); Glucose 102 mg/dL (70-99); Low Density Lipoprotein Calc. 100 mg/dL; Potassium 4.2 mmol/L (3.3-5.1); Triglycerides 230 mg/dL; Very Low Density Lipoprotein 46 mg/dL (5-40); cholesterol:hdl ratio screen 2.80
== END | disposition home or self-care (01) ==
LOC: LAB 12:23
PROVIDERS: PCP Nurse Practitioner Family; Referring Provider Physician Assistant Medical; Visit Provider Physician Assistant Medical
DX: E78.00 Pure hypercholesterolemia, unspecified (principal)
CPT/HCPCS: 36415; 80053; 80061